=== PATIENT | female | born 1950 | race Caucasian/White ===

== ENCOUNTER → 2016-09-27 | Outpatient (REF) | payer MEDICARE | LOC: M SFHCCLAY 16:46 | PROVIDERS: ATTEND Family Medicine | DX: I10 Essential (primary) hypertension (principal); E78.2 Mixed hyperlipidemia ==

== ENCOUNTER → 2016-10-10 | Outpatient (REF) | payer MEDICARE ==
[2016-10-10 17:33] LABS: ALBUMIN 3.6 GM/DL (3.2-5.2); ALBUMIN/GLOBULIN RATIO 0.8 (1.00-1.93); BILIRUBIN,TOTAL 0.6 MG/DL (0.2-1.0); CALCIUM LEVEL 8.8 MG/DL (8.8-10.2); CREATININE FOR GFR 1.01 MG/DL (0.55-1.02); GLOMERULAR FILTRATION RATE 58.2 (>45); TOTAL PROTEIN 8.1 GM/DL (6.4-8.2)
== END ==
LOC: M SFHCCLAY 10:14
PROVIDERS: ATTEND Family Medicine
DX: I10 Essential (primary) hypertension (principal); E78.2 Mixed hyperlipidemia

== ENCOUNTER → 2018-04-09 | Outpatient (REF) | payer MEDICARE ==
[2018-04-09 17:28] LABS: ALT/SGPT 42 U/L (12-78); ANION GAP 7 MEQ/L (8-16); BLOOD UREA NITROGEN 19 MG/DL (7-18); CALCIUM LEVEL 9.4 MG/DL (8.8-10.2); CARBON DIOXIDE LEVEL 27 MEQ/L (21-32); CHLORIDE LEVEL 110 MEQ/L (98-107); CHOLESTEROL LEVEL 159 MG/DL (<200); CHOLESTEROL RISK RATIO 4.416 (<5); GLOMERULAR FILTRATION RATE 43.4 (>45); GLUCOSE, FASTING 97 MG/DL (70-100); HDL CHOLESTEROL 36 MG/DL (>40); LDL CHOLESTEROL 86.4 MG/DL (<100); NON-HDL-C 123 MG/DL; POTASSIUM SERUM 4.1 MEQ/L (3.5-5.1); SODIUM LEVEL 144 MEQ/L (136-145); TRIGLYCERIDES LEVEL 183 MG/DL (<150)
== END ==
LOC: M SFHCCLAY 11:23
DX: I10 Essential (primary) hypertension (principal); E78.2 Mixed hyperlipidemia
CPT/HCPCS: 84460

== ENCOUNTER → 2018-09-16 | Outpatient (REF) | payer MEDICARE | LOC: M SFHCCLAY 14:02 | PROVIDERS: ATTEND Family Medicine | DX: Z11.59 Encounter for screening for other viral diseases (principal) ==

== ENCOUNTER 2019-07-09 10:59 | Inpatient (IN) | payer MEDICARE ==
[2019-07-09] VITALS (9 sets, daily range): BP systolic 92–151; BP diastolic 54–88
[~2019-07-09] VITALS: Ht 154.9 cm; Wt 59.1 kg
[2019-07-09] MEDS ORDERED: BISO10TA13 PO (11:32)
[2019-07-09] MEDS ORDERED: FENO145T13 PO (11:32)
[2019-07-09] MEDS ORDERED: SIMV40TA2 PO (11:32)
[2019-07-09 12:08] LABS: LYMPH % 17.3 % (24.0-44.0); MEAN CORPUSCULAR HEMOGLOBIN 33.1 pg (27.0-33.0); MEAN CORPUSCULAR HGB CONC 29.9 g/dl (32.0-36.5); MEAN CORPUSCULAR VOLUME 110.8 fl (80.0-96.0); MONO # 0.2 10^3/uL (0.0-0.8); MONO % 3.5 % (0.0-5.0); NEUTROPHILS # 4.3 10^3/uL (1.5-8.5); NEUTROPHILS % 78.5 % (36.0-66.0); PLATELET COUNT, AUTOMATED 266 10^3/uL (150-450); RED BLOOD COUNT 1.48 10^6/uL (4.00-5.40); WHITE BLOOD COUNT 5.5 10^3/uL (4.0-10.0)
[2019-07-09 12:16] LABS: HEMATOCRIT 16.4 % (36.0-47.0); HEMOGLOBIN 4.9 g/dl (12.0-15.5)
[2019-07-09 12:49] LABS: ALBUMIN 2.6 GM/DL (3.2-5.2); ALT/SGPT 55 U/L (12-78); BILIRUBIN,DIRECT 0.3 MG/DL (0.0-0.2); BILIRUBIN,TOTAL 0.5 MG/DL (0.2-1.0); BLOOD UREA NITROGEN 54 MG/DL (7-18); CALCIUM LEVEL 8.2 MG/DL (8.8-10.2); CARBON DIOXIDE LEVEL 23 MEQ/L (21-32); CHLORIDE LEVEL 105 MEQ/L (98-107); CK-MB VALUE MASS 3.9 NG/ML (<3.6); CPK CREATINE PHOSPHOKINASE 48 U/L (26-192); CREATININE FOR GFR 2.89 MG/DL (0.55-1.30); GLOMERULAR FILTRATION RATE 17.1 (>39); GLUCOSE, FASTING 132 MG/DL (70-100); IRON (FE) 161 UG/DL (50-170); MB/CK RELATIVE INDEX 8.12 (< OR =4); PERCENT SATURATION 42.9 % (13.2-45.0); POTASSIUM SERUM 3.6 MEQ/L (3.5-5.1); SODIUM LEVEL 138 MEQ/L (136-145); TOTAL IRON BINDING CAPACITY 375 UG/DL (250-450); TOTAL PROTEIN 6.6 GM/DL (6.4-8.2); TROPONIN I < 0.02 NG/ML (< 0.10)
[2019-07-09 12:50] LABS: FERRITIN 1341 NG/ML (8-252); THYROID STIMULATING HORMONE 0.805 uIU/ML (0.358-3.740)
[2019-07-09 12:56] LABS: VITAMIN B12 LEVEL 1503 PG/ML (247-911)
[2019-07-09] MEDS ORDERED: NS 1,000 ML IV ONE (13:00)
[2019-07-09] MEDS ORDERED: VITMTA PO (14:25)
--- NOTE | 2019-07-09 14:31 | REP ---
Portable chest, 02:16 p.m., single AP view with the patient sitting: There are no comparisons. The lung ceballos are clear. The cardiac size is normal. The janneth, mediastinum, and skeletal structures are unremarkable. Impression: Negative portable chest. Electronically Signed by Juaquin Cabezas MD 07/09/2019 02:22 P
[2019-07-09] MEDS ORDERED: LORazepam 2 MG TAB PO PRN (15:00)
[2019-07-09] MEDS: MULTIVITAMINS/MINERALS THERAP 1 TAB PO SCH (15:53)
[2019-07-09] MEDS: FOLIC ACID 1 MG TAB PO SCH (15:53)
[2019-07-09 15:54] LABS: LDH LACTATE DEHYDROGENASE 202 U/L (84-246)
[2019-07-09] MEDS ORDERED: PANTOPRAZOLE 40MG INJ (PROTONIX) (C9113) IV ONE (16:00)
--- NOTE | 2019-07-09 16:24 | REP ---
CT of the abdomen and pelvis without IV or bowel contrast: There are no comparisons. Within the visualized lower lung ceballos there is a small right pleural effusion. There are nodular and linear densities posteriorly in the right middle lobe of uncertain significance in the absence of comparison studies. These could be chronic or acute. The unenhanced hepatic parenchyma is homogeneous. No hepatic margin nodularity is identified. There is no biliary duct dilatation. The portal vein measures 11 mm in diameter. The gallbladder is not distended, however, I suspect there is pericholecystic fluid. This is nonspecific but could represent acalculous cholecystitis. Correlate clinically. The unenhanced pancreas and spleen are normal size and unremarkable. There is no CT evidence of pancreatitis. The adrenals are unremarkable. The kidneys are unremarkable. The abdominal aorta is unremarkable. There is no ascites. There is colonic diverticulosis involving the ascending colon, transverse colon, descending colon and sigmoid colon. There is no CT evidence of diverticulitis. There is no pneumoperitoneum. Pelvis: The uterus and adnexa are unremarkable. There is a bladder catheter. There is a air in the bladder. There are also tiny air collections in the posterior bladder wall compatible with cystitis. There is no ascites or adenopathy. There is grade II compression deformity of a lower thoracic upper lumbar vertebral body. There is advanced degenerative disc disease above and inferior to this compression deformity. Impression: There is no CT evidence of cirrhosis. There is a small right pleural effusion with atelectasis of the adjacent lung. There are densities posteriorly in the right middle lobe which could be chronic or acute. There is fluid surrounding the gallbladder. The gallbladder is nondistended. No gallbladder calculi. This raises the possibility of acalculous cholecystitis and needs to be correlated clinically. Consider radionuclide biliary scan. Colonic diverticulosis without diverticulitis. Bladder catheter. No ascites. Vertebral body grade II compression deformity. This could be either the T12 or L1 vertebral body. Electronically Signed by Juaquin Cabezas MD 07/09/2019 04:16 P
--- NOTE | 2019-07-09 16:34 | HPEPDOC ---
[facility] Medical History & Physical Date of Admission Jul 09, 2019 Date of Service: Jul 09, 2019 Attending Physician: ARI KAUFMAN MD History and Physical CHIEF COMPLAINT: Weakness HISTORY OF PRESENT ILLNESS: 69-year-old female with past medical history of hypertension, hyperlipidemia, presents to the emergency room with weakness. She reports having a viral illness one to 2 weeks ago, had vomiting and diarrhea at that time, nonbloody, symptoms resolved about one week ago, health was at baseline over the past week without any issues. Apart from progressive weakness/shortness of breath. She went to work today, was sent to the emergency room by her boss because she did not look well. In the ED, she is found to have a hemoglobin of 4.9, denies any blood loss, denies any history of anemia/bleed ing/reports normal blood work earlier this year. She does report a history of drinking wine every day, 2-4 glasses per day. She denies any history of smoking, denies taking NSAIDs. She denies any chest pain, nausea, abdominal pain or diarrhea at this time. 10 point review of systems negative except for above PAST MEDICAL HISTORY: 1. Hypertension. 2. Hyperlipidemia PAST SURGICAL HISTORY: 1. None. SOCIAL HISTORY: Denies smoking. Drinks 2-4 glasses of wine every day. Denies drug use FAMILY HISTORY: Denies any family history of heart disease ALLERGIES: Please see below. HOME MEDICATIONS: Please see below. PHYSICAL EXAMINATION: VITAL SIGNS: Please see below. GENERAL: No distress, pale HEENT: Normocephalic, atraumatic, no scleral icterus, moist mucous membranes NECK: Supple CARDIOVASCULAR EXAMINATION: S1, S2, bradycardic RESPIRATORY EXAMINATION: Clear to auscultation, no wheezing ABDOMINAL EXAMINATION: Soft, nontender, nondistended, positive bowel sounds EXTREMITIES: Range of motion intact SKIN: No rash NEUROLOGICAL EXAMINATION: Alert and oriented 3, no focal deficits PSYCHIATRIC EXAMINATION: Calm and cooperative LABORATORY DATA: See below. IMAGING: CT of the abdomen and pelvis without acute pathology MICROBIOLOGY: Please see below. ASSESSMENT: 69-year-old female with past medical history of hypertension, hyperlipidemia, presents with severe anemia. . PLAN: 1. Anemia. Questionable etiology, GI blood loss versus MDS Hemoglobin 4.9, status post 2 units of PRBC in the ED, macrocytic, no signs of Gross blood loss, CT abdomen, pelvis negative for hematoma. Stool OB pending, given history of alcohol abuse, there is suspicion for GI bleed, Protonix twice a day, will trend H&H and transfuse as needed to maintain hemoglobin greater than 7. Nothing by mouth for now 2. Hypertension. Continue home bisoprolol. 3. Alcohol use. [facility] protocol, folic acid, thiamine and multivitamins, Ativan as needed per [facility] protocol. 4. Hyperlipidemia. Continue simvastatin DVT prophylaxis: SCDs. GI prophylaxis: Protonix Vital Signs Vital Signs Date Time Temp Pulse Resp B/P (MAP) Pulse Ox O2 Delivery O2 Flow Rate FiO2 07/09/19 16:15 91.8 57 18 122/60 (80) 100 Room Air Laboratory Data Labs 24H Laboratory Tests 2 07/09/19 11:35: Immature Granulocyte % (Auto) 0.7, Neutrophils (%) (Auto) 78.5H, Lymphocytes (%) (Auto) 17.3L, Monocytes (%) (Auto) 3.5, Eosinophils (%) (Auto) 0.0, Basophils (%) (Auto) 0.0, Neutrophils # (Auto) 4.3, Lymphocytes # (Auto) 1.0L, Monocytes # (Auto) 0.2, Eosinophils # (Auto) 0.0, Basophils # (Auto) 0.0, Reticulocyte # (auto) 158.2H, Nucleated Red Blood Cells % (auto) 0.0, Percent Reticulocyte Count 10.8H, Reticulocyte Hemoglobin Equivalent 29.5, Anion Gap 10, Glomerular Filtration Rate 17.1L, Calcium Level 8.2L, Iron Level 161, Total Iron Binding Capacity 375, Transferrin % Saturation 42.9, Ferritin 1341H, Total Bilirubin 0 .5, Direct Bilirubin 0.3H, Aspartate Amino Transf (AST/SGOT) 75H, Alanine Aminotransferase (ALT/SGPT) 55, Alkaline Phosphatase 97, Lactate Dehydrogenase 202, Total Creatine Kinase 48, Creatine Kinase MB 3.9H, Creatine Kinase MB Relative Index 8.12H, Troponin I < 0.02, Total Protein 6.6, Albumin 2.6L, Albumin/Globulin Ratio 0.65L, Vitamin B12 Level 1503H, Thyroid Stimulating Hormone (TSH) 0.805 07/09/19 12:03: Lactic Acid Level 2.6*H 07/09/19 13:27: Urine Color YELLOW, Urine Appearance CLEAR, Urine pH 5.0, Urine Specific [place] 1.010, Urine Protein NEGATIVE, Urine Glucose (UA) NEGATIVE, Urine Ketones NEGATIVE, Urine Blood NEGATIVE, Urine Nitrite NEGATIVE, Urine Bilirubin NEGATIVE, Urine Urobilinogen 0.2, Urine Leukocyte Esterase NEGATIVE, Urine WBC (Auto) 3, Urine RBC (Auto) 1, Urine Hyaline Casts (Auto) 2, Urine Bacteria (Auto) 1+H, Urine Squamous Epithelial Cells 0, Urine Mucus (Auto) SMALL, Urine Sperm (Auto) CBC/BMP Laboratory Tests 07/09/19 11:35 Microbiology Microbiology 07/09/19 Blood Culture, Received Pending 07/09/19 Blood Culture, Received Pending Home Medications Scheduled Bisoprolol Fumarate (Bisoprolol Fumarate) 10 Mg Tablet, 10 MG PO DAILY Fenofibrate Nanocrystallized (Fenofibrate) 145 Mg Tablet, 145 MG PO QPM Multivitamins (Thera M Plus Tablet) 1 Each Tablet, 1 TAB PO QPM Simvastatin (Simvastatin) 40 Mg Tablet, 40 MG PO QPM Allergies Coded Allergies: bee venom protein (honey bee) (Verified Allergy, Unknown, 07/09/19) A-FIB/CHADSVASC A-FIB History Current/History of A-Fib/PAF?: No ARI KAUFMAN MD Jul 09, 2019 16:34
[2019-07-09] MEDS ORDERED: NS 1,000 ML IV SCH ×2 (17:45)
[2019-07-09] MEDS: PANTOPRAZOLE 40MG INJ (PROTONIX) (C9113) IV SCH (20:26)
[2019-07-09] MEDS: THIAMINE 100 MG TAB PO SCH (20:26)
[2019-07-09] MEDS: SIMVASTATIN 40 MG TAB PO SCH (20:26)
[2019-07-09 20:29] LABS: HEMATOCRIT 22.5 % (36.0-47.0); HEMOGLOBIN 7.1 g/dl (12.0-15.5); MEAN CORPUSCULAR HEMOGLOBIN 32.3 pg (27.0-33.0); MEAN CORPUSCULAR HGB CONC 31.6 g/dl (32.0-36.5); MEAN CORPUSCULAR VOLUME 102.3 fl (80.0-96.0); PLATELET COUNT, AUTOMATED 224 10^3/uL (150-450); WHITE BLOOD COUNT 5.8 10^3/uL (4.0-10.0)
--- NOTE | 2019-07-09 20:54 | ECGEPIP ---
[facility] - ED Test Date: 2019-07-09 Pat Name: ESTHELA MANRIQUEZ Department: Room: - Gender: Female [employer]: amado : 1950 Requested By: TOMAS Wolfe Order Number: [id number] Reading MD: Tomas Escobar Measurements Intervals [place] Rate: 45 P: 45 SD: 180 QRS: 62 QRSD: 113 T: 73 QT: 529 QTc: 459 Interpretive Statements SINUS BRADYCARDIA MODERATE INTRAVENTRICULAR CONDUCTION DELAY Borderline qtc interval Comparison tracing not on file Electronically Signed on 07-09-2019 20:54:28 EST by Tomas Escobar
[2019-07-09] MEDS ORDERED: FENOFIBRATE 145 MG TAB (TRICOR) PO SCH (21:00)
[2019-07-10] VITALS (9 sets, daily range): BP systolic 142–159; BP diastolic 71–88
[2019-07-10 04:51] LABS: HEMATOCRIT 26.2 % (36.0-47.0); HEMOGLOBIN 8.6 g/dl (12.0-15.5); MEAN CORPUSCULAR HEMOGLOBIN 31.3 pg (27.0-33.0); MEAN CORPUSCULAR HGB CONC 32.8 g/dl (32.0-36.5); MEAN CORPUSCULAR VOLUME 95.3 fl (80.0-96.0); PLATELET COUNT, AUTOMATED 232 10^3/uL (150-450); RED BLOOD COUNT 2.75 10^6/uL (4.00-5.40); WHITE BLOOD COUNT 8.1 10^3/uL (4.0-10.0)
[2019-07-10 05:01] LABS: INR 1.45; PROTHROMBIN TIME 17.4 SECONDS (11.8-14.0)
[2019-07-10 05:17] LABS: ALBUMIN 2.5 GM/DL (3.2-5.2); BILIRUBIN,TOTAL 0.7 MG/DL (0.2-1.0); CALCIUM LEVEL 8.2 MG/DL (8.8-10.2); CREATININE FOR GFR 2.69 MG/DL (0.55-1.30); GLOMERULAR FILTRATION RATE 18.6 (>39); MAGNESIUM LEVEL 1.3 MG/DL (1.8-2.4); POTASSIUM SERUM 4.4 MEQ/L (3.5-5.1); TOTAL PROTEIN 6.9 GM/DL (6.4-8.2)
[2019-07-10] MEDS ORDERED: MAG SULF 1GM/100ML (MAG RUN) 1 GM in IV 1 EA IV ONE (06:00)
[2019-07-10] MEDS: BISOPROLOL FUMARATE 10 MG TAB PO SCH (09:50)
[2019-07-10] MEDS: THIAMINE 100 MG TAB PO SCH ×2 (09:51→20:33)
[2019-07-10] MEDS: PANTOPRAZOLE 40MG INJ (PROTONIX) (C9113) IV SCH ×2 (09:51→20:33)
[2019-07-10] MEDS: MULTIVITAMINS/MINERALS THERAP 1 TAB PO SCH (09:51)
[2019-07-10] MEDS: FOLIC ACID 1 MG TAB PO SCH (09:51)
--- NOTE | 2019-07-10 10:37 | IPNPDOC ---
Subjective Date Seen The patient was seen on 07/10/19. Subjective Chief Complaint/HPI Pt this morning states that last week she has several episodes of coffee ground emesis and black loose stools. Since then she just hasn't felt herself, hasn't recovered, tried to go to work last night and her boss made her go to the ED. oRsita states that she drinks at least 3 or more glasses of wine each night. General: Reports: Fatigue Constitutional: Denies: Chills, Fever ENT: Denies: Head Aches Pulmonary: Denies: Dyspnea, Cough Cardiovascular: Denies: Chest Pain, Palpitations Gastrointestinal: Denies: Nausea, Vomiting, Abdominal Pain Musculoskeletal: Denies: Neck Pain, Back Pain Neurological: Reports: Weakness Psych: Reports: Mood Normal Objective Physical Examination General Exam: Positive: Alert, Cooperative, No Acute Distress ENT Exam: Positive: Mucous membr. moist/pink Chest Exam: Positive: Clear to auscultation, Normal air movement Heart Exam: Positive: Rate Normal, Normal S1, Normal S2 Abdomen Exam: Positive: Normal bowel sounds, Soft; Negative: Tenderness Extremity Exam: Negative: Edema Neuro Exam: Positive: Normal Speech Psych Exam: Positive: Mental status NL, Mood NL Assessment /Plan Problems (1) BOLA (acute kidney injury) Status: Acute Problem Text: favor 2 ATN 2 hypovolemia 07/10 45/2.7, 4.4 07/09 -UA kidneys as per CT AP baseline cr 10/2016 1.0 (2) Severe anemia Status: Acute Response to Treatment: Improving Discussed With: Nurse, Patient Problem Specific Plan: Consult Specialist, Monitor Clinically, Repeat Labs Problem Text: ho 07/03-2 felt "sick" c melanotic loose BM and "brownish" vomitus x ~3-none since 07/10 stable at 8.6, call placed to Dr Breaux x 2 for EGD/colon (no previous ho EGD/colon, HO stool per patient always -) 07/09 Hgb 4.9 on admission-sp 3u PRBCs 07/09 42%, 1341 07/09 B12 1503 07/09 BCX2 NG IV Protonix BID. 07/09 CT AP: There is no CT evidence of cirrhosis. There is a small right pleural effusion with atelectasis of the adjacent lung. There are densities posteriorly in the right middle lobe which could be chronic or acute. There is fluid surrounding the gallbladder. The gallbladder is nondistended. No gallbladder calculi. This raises the possibility of acalculous cholecystitis and needs to be correlated clinically. Consider radionuclide biliary scan. Colonic diverticulosis without diverticulitis. Bladder catheter. No ascites. Vertebral body grade II compression deformity. This could be either the T12 or L1 vertebral body. (3) Alcohol abuse Status: Chronic Problem Specific Plan: Monitor Clinically Problem Text: [facility] protocol B1 QD admits 3 servings wine QHS-last EthOH 01/05/19 PM, no ho wd sx (4) Hematemesis Problem Text: as per anemia (5) Melena Problem Text: as per anemia (6) Hypothermia Status: Acute Problem Specific Plan: Monitor Clinically Problem Text: Temps improved (7) Hyperlipidemia Status: Chronic Response to Treatment: Stable Problem Text: stable on HD simva 40 (feno 145 held 2 BOLA) (8) Hypertension Status: Chronic Response to Treatment: Stable Problem Text: stable on HD biso 10 Plan/VTE VTE Prophylaxis Ordered?: No VS, I&O, 24H, Fishbone Vital Signs/I&O Vital Signs Date Time Temp Pulse Resp B/P (MAP) Pulse Ox O2 Delivery O2 Flow Rate FiO2 07/10/19 09:50 72 146/71 07/10/19 08:00 96.6 16 97 Room Air I&O- Last 24 Hours up to 6 AM 07/10/19 06:00 Intake Total 3340 ml Output Total 1185 ml Balance 2155 ml Laboratory Data 24H LABS Laboratory Tests 2 07/09/19 11:35: Immature Granulocyte % (Auto) 0.7, Neutrophils (%) (Auto) 78.5H, Lymphocytes (%) (Auto) 17.3L, Monocytes (%) (Auto) 3.5, Eosinophils (%) (Auto) 0.0, Basophils (%) (Auto) 0.0, Neutrophils # (Auto) 4.3, Lymphocytes # (Auto) 1.0L, Monocytes # (Auto) 0.2, Eosinophils # (Auto) 0.0, Basophils # (Auto) 0.0, Reticulocyte # (auto) 158.2H, Nucleated Red Blood Cells % (auto) 0.0, Percent Reticulocyte Count 10.8H, Reticulocyte Hemoglobin Equivalent 29.5, Anion Gap 10, Glomerular Filtration Rate 17.1L, Calcium Level 8.2L, Iron Level 161, Total Iron Binding Capacity 375, Transferrin % Saturation 42.9, Ferritin 1341H, Total Bilirubin 0.5, Direct Bilirubin 0.3H, Aspartate Amino Transf (AST/SGOT) 75H, Alanine Aminotransferase (ALT/SGPT) 55, Alkaline Phosphatase 97, Lactate Dehydrogenase 202, Total Creatine Kinase 48, Creatine Kinase MB 3.9H, Creatine Kinase MB Relative Index 8.12H, Troponin I < 0.02, Total Protein 6.6, Albumin 2.6L, Albumin/Globulin Ratio 0.65L, Vitamin B12 Level 1503H, Thyroid Stimulating Hormone (TSH) 0.805 07/09/19 12:03: Lactic Acid Level 2.6*H 07/09/19 13:27: Urine Color YELLOW, Urine Appearance CLEAR, Urine pH 5.0, Urine Specific [place] 1.010, Urine Protein NEGATIVE, Urine Glucose (UA) NEGATIVE, Urine Ketones NEGATIVE, Urine Blood NEGATIVE, Urine Nitrite NEGATIVE, Urine Bilirubin NEGATI VE, Urine Urobilinogen 0.2, Urine Leukocyte Esterase NEGATIVE, Urine WBC (Auto) 3, Urine RBC (Auto) 1, Urine Hyaline Casts (Auto) 2, Urine Bacteria (Auto) 1+H, Urine Squamous Epithelial Cells 0, Urine Mucus (Auto) SMALL, Urine Sperm (Auto) 07/09/19 20:04: Nucleated Red Blood Cells % (auto) 0.7H, Lactic Acid Followup at 4 Hours 0.7 07/10/19 04:42: Nucleated Red Blood Cells % (auto) 0.5H, Prothrombin Time 17.4H, Prothromb Time International Ratio 1.45, Anion Gap 5L, Glomerular Filtration Rate 18.6L, Calcium Level 8.2L, Magnesium Level 1.3L, Total Bilirubin 0.7, Aspartate Amino Transf (AST/SGOT) 83H, Alanine Aminotransferase (ALT/SGPT) 54, Alkaline [place] sphatase 88, Total Protein 6.9, Albumin 2.5L, Albumin/Globulin Ratio 0.57L CBC/BMP Laboratory Tests 07/09/19 11:35 07/09/19 20:04 07/10/19 04:42 Microbiology Microbiology 07/09/19 Blood Culture, Received Pending 07/09/19 Blood Culture, Received Pending MARY DENSON PA-C Jul 10, 2019 10:37 Rick Rocha M.D. Jul 10, 2019 16:35
[2019-07-10 15:34] LABS: HEMATOCRIT 28.1 % (36.0-47.0); HEMOGLOBIN 9.2 g/dl (12.0-15.5)
--- NOTE | 2019-07-10 17:54 | REP ---
Renal ultrasound: The right kidney measures 12th of 46.1 x 5.9 cm. Left kidney measures 11.6 x 6.0 x 5.2 cm. There is hyperechoic renal cortex bilaterally compatible with medical renal disease. There is no hydronephrosis on the right on the left. There are three right renal cysts, one at the upper pole measuring 6 ml, at the mid pole measuring 5 mm, at the lower pole measuring 5 mm. There are no solid renal masses. The There are three left renal cyst on the upper pole measuring 15 mm, another at the upper pole measuring 4 mm, that the upper pole measuring 8 mm. There are no solid left renal masses. There are a few tiny collection of perinephric fluid collections adjacent to the right kidney adjacent to the left kidney. This is nonspecific but could represent pyelonephritis or possibly perinephric abscess or small hematomas. These are not identified on the recent abdomen/pelvis CT. Bladder: With color Doppler assessment there are bilateral ureteral jets. The gallbladder is incidentally demonstrated. The gallbladder is nondistended. The gallbladder wall appears thickened, however this could be artifact from non distension. A small volume of pericholecystic fluid is suspected. This was also identified on the abdominal/pelvis CT yesterday. This is nonspecific but may represent acalculous cholecystitis. Impression: The kidneys are normal size. There are no renal calculi. There are not identified on the abdomen pelvis CT of 07/09/2019. No hydronephrosis. There are bilateral renal cortical cysts. No solid renal masses. There are bilateral ureteral jets into the urinary bladder. Pericholecystic fluid is identified, similar to the recent abdomen CT. This may represent acalculous cholecystitis, correlate clinically. There are a few tiny collection of perinephric fluid collections adjacent to the right kidney adjacent to the left kidney. This is nonspecific but could represent pyelonephritis or possibly perinephric abscess or small hematomas. These are not identified on the recent abdomen/pelvis CT. Electronically Signed by Juaquin Cabezas MD 07/10/2019 05:46 P
[2019-07-10] MEDS: SIMVASTATIN 40 MG TAB PO SCH (20:33)
[2019-07-11] VITALS (7 sets, daily range): BP systolic 143–160; BP diastolic 77–85
[2019-07-11 06:55] LABS: BASO % 0.1 % (0.0-1.0); EOS % 0.1 % (0.0-3.0); HEMATOCRIT 29.7 % (36.0-47.0); HEMOGLOBIN 9.5 g/dl (12.0-15.5); LYMPH # 0.6 10^3/uL (1.5-5.0); LYMPH % 7.6 % (24.0-44.0); MEAN CORPUSCULAR HEMOGLOBIN 31.8 pg (27.0-33.0); MEAN CORPUSCULAR VOLUME 99.3 fl (80.0-96.0); MONO # 0.4 10^3/uL (0.0-0.8); MONO % 4.7 % (0.0-5.0); NEUTROPHILS # 6.8 10^3/uL (1.5-8.5); PLATELET COUNT, AUTOMATED 214 10^3/uL (150-450); RED BLOOD COUNT 2.99 10^6/uL (4.00-5.40); WHITE BLOOD COUNT 7.9 10^3/uL (4.0-10.0)
[2019-07-11 07:21] LABS: ALBUMIN 2.5 GM/DL (3.2-5.2); BILIRUBIN,TOTAL 0.8 MG/DL (0.2-1.0); CREATININE FOR GFR 2.59 MG/DL (0.55-1.30); GLOMERULAR FILTRATION RATE 19.5 (>39); MAGNESIUM LEVEL 1.9 MG/DL (1.8-2.4); POTASSIUM SERUM 4.2 MEQ/L (3.5-5.1); TOTAL PROTEIN 7.4 GM/DL (6.4-8.2)
[2019-07-11 07:58] LABS: INR 1.49; PROTHROMBIN TIME 17.8 SECONDS (11.8-14.0)
[2019-07-11 07:59] LABS: PARTIAL THROMBOPLASTIN TIME 44.6 SECONDS (25.0-38.4)
[2019-07-11] MEDS: MULTIVITAMINS/MINERALS THERAP 1 TAB PO SCH (09:41)
[2019-07-11] MEDS: FOLIC ACID 1 MG TAB PO SCH (09:41)
[2019-07-11] MEDS: THIAMINE 100 MG TAB PO SCH ×2 (09:41→21:35)
[2019-07-11] MEDS: PANTOPRAZOLE 40MG INJ (PROTONIX) (C9113) IV SCH ×2 (09:43→21:35)
[2019-07-11] MEDS: BISOPROLOL FUMARATE 10 MG TAB PO SCH (09:43)
--- NOTE | 2019-07-11 11:53 | CR.PDOC ---
General Date of Consultation: Jul 10, 2019 Referring Provider: JULI DENSON PA-C Attending Physician: LENCHO BELLAMY MD Consultation Primary physician/ hospitalist: Dr. Sanchez / Juli Denson Pa-C Reason for consult: Coffee-ground emesis and dark stools, anemia HPI: 69-year-old female patient with HTN, HLD, chronic alcohol use, CKD ( Cr- 1 - 1.3 in 2018), presented to ER for complaints of generalized weakness, noted to have acute drop in hemoglobin and hematocrit. GI was consulted for the same. Patient reports having acute onset nausea with vomiting and diarrhea around 2 weeks ago, with coffee-ground emesis and black tarry stools 1 week ago. Patient did not seek medical attention at that time. Patient's last bowel movement was today which is nonbloody, formed stool and denies any recent episode of vomiting or black stools. Patient also reports daily alcohol use of up to 5-6 drinks of wine. Patient denies use of NSAIDs or any blood thinning medication. Pertinent negative GI symptoms: Patient denies abdominal pain, loss of appetite, early satiety or unintentional weight loss. Review of Systems: GI: as stated above CVS: No chest pain, No palpitations, No leg swelling. 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 Skin: No rash : No hematuria, No burning sensation of the urine ENT: No ear discharge/ pain, No dysphagia. Eyes: No photophobia. Home medications: reviewed. Antithrombotic agents -none Medical h/o: As above. Surgical h/o: None on abdomen. Social h/o: Alcohol-as above, tobacco-denies, IVDA/ drugs-denies. Family h/o of GI cancers -denies Prior Endoscopies: No prior EGD or colonoscopy. Patient reports doing annual stool test for screening, Prior GI evaluation: None in [facility] Exam: Vitals: reviewed General: Alert and oriented x 3, not in acute distress, appears jittery and shaky but no tremors. HEENT: Mild conjunctival pallor, no icterus. Normal oropharynx, NO cervical lymph nodes. Chest: symmetric with bilateral clear air entry, CVS: S1, S2 heard, normal, no murmurs . Abdomen: non-distended, no surgical scars, soft, non-tender, no palpable masses, normal bowel sounds heard. Rectal exam: Patient refused. Extremities: no pedal edema, pulses palpable. 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 Moves all extremities Skin: no rash. Labs: reviewed. H/H at the time of admission -- 4.9 / 16.4, appropriately went up on transfusion, last H/H -- 9.2/28.1. Macrocytic. Noted BOLA - BUN/creatinine -- 54/2.89. Normal platelets Impression: -- Acute onset nausea vomiting and diarrhea followed by coffee-ground emesis, black tarry stools few days ago, currently resolved but noted with symptomatic anemia -- likely posthemorrhagic anemia. DDx-- MWT vs PUD vs gastritis ( related to alcohol use) vs AVMs. Less likely Variceal bleeding vs portal hypertensive gastropathy. No overt active GI bleeding. -- Chronic alcohol use -- Need to monitor for withdrawal. -- BOLA -- likely pre-renal from blood loss and hypovolemia. 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 Recommendations: - Patient educated about the test results, possible differential diagnoses and All questions answered. - Monitor H/ H and transfuse as needed. - Give IV PPI -- prefer Protonix 40 mg twice daily for atleast 48 hours and then switch to oral PPI. - Avoid NSAIDs, - Monitor for alcohol withdrawal. - Give thiamine, folic acid daily. - Patient is educated alcohol cessation. - Patient is educated about the further work up., She agreed for EGD tomorrow. The procedure, indications, risks (bleeding, perforation, infection, hypotension, respiratory depression, allergy, need for endotracheal intubation, surgery, colostomy, cardiac arrest, even ), benefits, limitations (e.g., missing a lesion), and all other alternatives (including no intervention) were explained to the patient who understood and agreed for the procedure. - NPO after midnight for EGD tomorrow. - Elective Screening Colonoscopy as outpatient if patient agrees or else to continue with annual fecal occult blood testing for screening at PCP clinic Plan of care discussed with patient and primary team. Patient verbalized understanding and agreed with the plan. Laboratory Data CBC/BMP Laboratory Tests 07/10/19 15:14 07/11/19 06:17 Microbiology Microbiology 07/09/19 Blood Culture - Preliminary, Resulted No growth after 24 hours . All specim... 07/09/19 Blood Culture - Preliminary, Resulted No growth after 24 hours . All specim... Allergies Coded Allergies: bee venom protein (honey bee) (Verified Allergy, Unknown, 07/09/19) Home Medications Scheduled Bisoprolol Fumarate (Bisoprolol Fumarate) 10 Mg Tablet, 10 MG PO DAILY, (Reported) Fenofibrate Nanocrystallized (Fenofibrate) 145 Mg Tablet, 145 MG PO QPM, (Reported) Multivitamins (Thera M Plus Tablet) 1 Each Tablet, 1 TAB PO QPM, (Reported) Simvastatin (Simvastatin) 40 Mg Tablet, 40 MG PO QPM, (Reported) LENCHO BELLAMY MD Jul 11, 2019 11:53
--- NOTE | 2019-07-11 12:32 | IPNPDOC ---
Subjective Date Seen The patient was seen on 07/11/19. Subjective Chief Complaint/HPI no further melana, vomiting Constitutional: Denies: Chills Eyes: Denies: Pain Pulmonary: Denies: Dyspnea, Cough Cardiovascular: Denies: Chest Pain, Palpitations Gastrointestinal: Denies: Nausea, Vomiting Objective Physical Examination General Exam: Positive: Alert, Cooperative, No Acute Distress ENT Exam: Positive: Mucous membr. moist/pink Chest Exam: Positive: Clear to auscultation, Normal air movement Heart Exam: Positive: Rate Normal, Normal S1, Normal S2 Abdomen Exam: Positive: Normal bowel sounds, Soft; Negative: Tenderness Extremity Exam: Negative: Edema Neuro Exam: Positive: Normal Speech Psych Exam: Positive: Mental status NL, Mood NL Assessment /Plan Problems (1) BOLA (acute kidney injury) Status: Acute Problem Text: favor 2 ATN 2 hypovolemia 07/11 44/2.6, 4.2 c Na to 146; therefore, check renal US and + 1/2NS 07/10 45/2.7, 4.4 07/09 -UA kidneys as per CT AP baseline cr 10/2016 1.0 (2) Severe anemia Status: Acute Response to Treatment: Improving Discussed With: Nurse, Patient Problem Specific Plan: Consult Specialist, Monitor Clinically, Repeat Labs Problem Text: ho 07/03-2 felt "sick" c melanotic loose BM and "brownish" vomitus x ~3-none since 07/11 9.5 07/10 stable at 8.6, call placed to Dr Breaux x 2 for EGD/colon (no previous ho EGD/colon, HO stool per patient always -) 07/09 Hgb 4.9 on admission-sp 3u PRBCs 07/09 42%, 1341 07/09 B12 1503 07/09 BCX2 NG IV Protonix BID. 07/09 CT AP: There is no CT evidence of cirrhosis. There is a small right pleural effusion with atelectasis of the adjacent lung. There are densities posteriorly in the right middle lobe which could be chronic or acute. There is fluid surrounding the gallbladder. The gallbladder is nondistended. No gallbladder calculi. This raises the possibility of acalculous cholecystitis and needs to be correlated clinically. Consider radionuclide biliary scan. Colonic diverticulosis without diverticulitis. Bladder catheter. No ascites. Vertebral body grade II compression deformity. This could be either the T12 or L1 vertebral body. (3) Alcohol abuse Status: Chronic Problem Specific Plan: Monitor Clinically Problem Text: [facility] protocol B1 QD admits 3 servings wine QHS-last EthOH 01/05/19 PM, no ho wd sx (4) Hematemesis Problem Text: as per anemia (5) Melena Problem Text: as per anemia (6) Hypothermia Status: Acute Problem Specific Plan: Monitor Clinically Problem Text: Temps improved (7) Hyperlipidemia Status: Chronic Response to Treatment: Stable Problem Text: stable on HD simva 40 (feno 145 held 2 BOLA) (8) Hypertension Status: Chronic Response to Treatment: Stable Problem Text: stable on HD biso 10 Plan/VTE VTE Prophylaxis Ordered?: No VS, I&O, 24H, Fishbone Vital Signs/I&O Vital Signs Date Time Temp Pulse Resp B/P (MAP) Pulse Ox O2 Delivery O2 Flow Rate FiO2 07/11/19 09:43 73 158/93 07/11/19 06:00 96.2 20 93 Room Air I&O- Last 24 Hours up to 6 AM 07/11/19 06:00 Intake Total 600 ml Output Total 975 ml Balance -375 ml Laboratory Data 24H LABS Laboratory Tests 2 07/11/19 06:17: Immature Granulocyte % (Auto) 0.5, Neutrophils (%) (Auto) 87.0H, Lymphocytes (%) (Auto) 7.6L, Monocytes (%) (Auto) 4.7, Eosinophils (%) (Auto) 0.1, Basophils (%) (Auto) 0.1, Neutrophils # (Auto) 6.8, Lymphocytes # (Auto) 0.6L, Monocytes # (Auto) 0.4, Eosinophils # (Auto) 0.0, Basophils # (Auto) 0.0, Nucleated Red Bl ood Cells % (auto) 0.3H, Prothrombin Time 17.8H, Prothromb Time International Ratio 1.49, Activated Partial Thromboplast Time 44.6H, Anion Gap 6L, Glomerular Filtration Rate 19.5L, Calcium Level 9.0, Magnesium Level 1.9, Total Bilirubin 0.8, Aspartate Amino Transf (AST/SGOT) 80H, Alanine Aminotransferase (ALT/SGPT) 55, Alkaline Phosphatase 95, Total Protein 7.4, Albumin 2.5L, Albumin/Globulin Ratio 0.51L CBC/BMP Laboratory Tests 07/10/19 15:14 07/11/19 06:17 Microbiology Microbiology 07/09/19 Blood Culture - Preliminary, Resulted No growth after 24 hours . All specim... 07/09/19 Blood Culture - Preliminary, Resulted No Growth after 48 hours. All Specime... Rick Rocha M.D. Jul 11, 2019 12:32
[2019-07-11] MEDS ORDERED: PROPOFOL 200 MG/20 ML VIAL As Ordered ONE (12:51)
[2019-07-11] MEDS ORDERED: LIDOCAINE 2% INJ 100 MG/5 ML SDV (FOR ANES.) As Ordered ONE (12:51)
[2019-07-11] MEDS: NS 0.45% 1,000 ML IV SCH ×2 (13:04→22:45)
[2019-07-11] MEDS ORDERED: ePHEDrine SULFATE 25 MG/5 ML(5MG/ML) SYRINGE As Ordered ONE (15:43)
--- NOTE | 2019-07-11 16:19 | ROOR ---
Patient Name: Rosita Galan Procedure Date: 07/11/2019 3:28 PM Date of : 1950 Age: 69 Gender: Female Note Status: Finalized Procedure: Upper GI endoscopy Indications: Coffee-ground emesis, Melena Providers: Donnie Breaux MD Referring MD: Hank Ordoñez MD Requesting Provider: Medicines: Monitored Anesthesia Care Complications: No immediate complications. Procedure: Pre-Anesthesia Assessment: - Prior to the procedure, a History and Physical was performed, and patient medications and allergies were reviewed. The patient is competent. The risks and benefits of the procedure and the sedation options and risks were discussed with the patient. All questions were answered and informed consent was obtained. Patient identification and proposed procedure were verified by the physician, the nurse and the anesthesiologist in the procedure room. Mental Status Examination: alert and oriented. Airway Examination: normal oropharyngeal airway and neck mobility. Respiratory Examination: clear to auscultation. CV Examination: normal. Prophylactic Antibiotics: The patient does not require prophylactic antibiotics. Prior Anticoagulants: The patient has taken no previous anticoagulant or antiplatelet agents. ASA Grade Assessment: II - A patient with mild systemic disease. After reviewing the risks and benefits, the patient was deemed in satisfactory condition to undergo the procedure. The anesthesia plan was to use monitored anesthesia care (MAC). Immediately prior to administration of medications, the patient was re-assessed for adequacy to receive sedatives. The heart rate, respiratory rate, oxygen saturations, blood pressure, adequacy of pulmonary ventilation, and response to care were monitored throughout the procedure. The physical status of the patient was re-assessed after the procedure. The Endoscope was introduced through the mouth, and advanced to the second part of duodenum. The upper GI endoscopy was accomplished without difficulty. The patient tolerated the procedure well. Findings: The examined esophagus was normal. The Z-line was regular and was found 36 cm from the incisors. One non-bleeding cratered gastric ulcer with a clean ulcer base (Stevo Class III) was found in the gastric antrum. The lesion was 20 mm in largest dimension. Two biopsies were obtained at the incisura with cold forceps for Helicobacter pylori testing. Verification of patient identification for the specimen was done by the physician and nurse using the patient's name, date and medical record number. Estimated blood loss was minimal. The duodenal bulb and second portion of the duodenum were normal. Impression: - Normal esophagus. - Z-line regular, 36 cm from the incisors. - Non-bleeding gastric ulcer with a clean ulcer base (Stevo Class III). - Normal duodenal bulb and second portion of the duodenum. - Two biopsies were obtained at the incisura. Recommendation: - Patient has a contact number available for emergencies. The signs and symptoms of potential delayed complications were discussed with the patient. Return to normal activities tomorrow. Written discharge instructions were provided to the patient. - Resume previous diet. - Use Protonix (pantoprazole) 40 mg PO twice daily - to be taken in morning (1/2 hour before breakfast) and at bedtime ( atleast 3 hours after last meal) for 3 months. - No ibuprofen, naproxen, or other non-steroidal anti-inflammatory drugs. - Await pathology results. - If Biopsy shows H. pylori will need therapy with antibiotic course.. - Repeat upper endoscopy in 3 months to check healing. - Return to GI clinic in [facility] (address [address], [address], [place] [address]) in 4 -- 6 weeks. Please call GI clinic @ [phone] for apppointment date and time. - Return to primary care physician. Donnie Breaux MD Donnie Breaux MD 07/11/2019 4:19:06 PM Electronically signed by Donnie Breaux MD Number of Addenda: 0 Note Initiated On: 07/11/2019 3:28 PM Estimated Blood Loss: Estimated blood loss was minimal.
[2019-07-11] MEDS: SIMVASTATIN 40 MG TAB PO SCH (21:35)
[2019-07-12 06:00] VITALS: BP_SYST 135; BP_SYST 158; BP_DIAS 66; BP_DIAS 79
[2019-07-12] MEDS: MULTIVITAMINS/MINERALS THERAP 1 TAB PO SCH (08:37)
[2019-07-12] MEDS: FOLIC ACID 1 MG TAB PO SCH (08:37)
[2019-07-12] MEDS: PANTOPRAZOLE 40MG INJ (PROTONIX) (C9113) IV SCH ×2 (08:37→21:06)
[2019-07-12] MEDS: THIAMINE 100 MG TAB PO SCH ×2 (08:37→21:06)
[2019-07-12] MEDS: BISOPROLOL FUMARATE 10 MG TAB PO SCH (08:39)
[2019-07-12 14:00] VITALS: BP 136/69
--- NOTE | 2019-07-12 17:14 | IPNPDOC ---
Subjective Date Seen The patient was seen on 07/12/19. Subjective Chief Complaint/HPI dyspnea at baseline s abdominal pain Constitutional: Denies: Chills, Fever Eyes: Denies: Pain ENT: Denies: Head Aches Skin: Denies: Rash Pulmonary: Denies: Dyspnea, Cough Cardiovascular: Denies: Chest Pain, Palpitations Gastrointestinal: Denies: Nausea, Vomiting Objective Physical Examination General Exam: Positive: Alert, Cooperative, No Acute Distress ENT Exam: Positive: Mucous membr. moist/pink Chest Exam: Positive: Clear to auscultation, Normal air movement Heart Exam: Positive: Rate Normal, Normal S1, Normal S2 Abdomen Exam: Positive: Normal bowel sounds, Soft; Negative: Tenderness Extremity Exam: Negative: Edema Neuro Exam: Positive: Normal Speech Psych Exam: Positive: Mental status NL, Mood NL Assessment /Plan Problems (1) Acute ulcer of stomach Status: Acute Response to Treatment: Stable Problem Text: as per severe anemia 07/11 H pylori P advised to dc EthOH use (2) Perinephric fluid collection Status: Acute Problem Text: 07/13 reassess by repeat B renal US cw 07/10 (3) BOLA (acute kidney injury) Status: Acute Problem Text: favor 2 ATN 2 hypovolemia 07/11 44/2.6, 4.2 c Na to 146; therefore, + 1/2NS 100H 07/10 45/2.7, 4.4 07/09 -UA 07/10 B renal US: The kidneys are normal size. There are no renal calculi. There are not identified on the abdomen pelvis CT of 07/09/2019. No hydronephrosis. There are bilateral renal cortical cysts. No solid renal masses. There are bilateral ureteral jets into the urinary bladder. Pericholecystic fluid is identified, similar to the recent abdomen CT. This may represent acalculous cholecystitis, correlate clinically. There are a few tiny collection of perinephric fluid collections adjacent to the right kidney adjacent to the left kidney. This is nonspecific but could represent pyelonephritis or possibly perinephric abscess or small hematomas. These are not identified on the recent abdomen/pelvis CT. Electronically Signed by Juaquin Cabezas MD 07/10/2019 05:46 P DD: Juaquin Cabezas MD 07/10/19 1724 DT: Jhonny 07/10/19 1746 DS: AMAURI 07/10/19 1746 07/10/19 1746 [~ rep ct labl] baseline cr 10/2016 1.0 (4) Severe anemia Status: Acute Response to Treatment: Improving Discussed With: Nurse, Patient Problem Specific Plan: Consult Specialist, Monitor Clinically, Repeat Labs Problem Text: favor 2 gastric ulcer as per 07/11 EGD, plan repeat EGD c colon in 3M by Dr. Namita iniguez 07/03-2 felt "sick" c melanotic loose BM and "brownish" vomitus x ~3-none since 07/11 9.5 07/10 stable at 8.6, call placed to Dr Breaux x 2 for EGD/colon (no previous ho EGD/colon, HO stool per patient always -) 07/09 Hgb 4.9 on admission-sp 3u PRBCs 07/09 42%, 1341 07/09 B12 1503 07/09 BCX2 NG 07/11 EGD: - Normal esophagus. - Z-line regular, 36 cm from the incisors. - Non-bleeding gastric ulcer with a clean ulcer base (Stevo Class III). - Normal duodenal bulb and second portion of the duodenum. - Two biopsies were obtained at the incisura. 07/09 CT AP: There is no CT evidence of cirrhosis. There is a small right pleural effusion with atelectasis of the adjacent lung. There are densities posteriorly in the right middle lobe which could be chronic or acute. There is fluid surrounding the gallbladder. The gallbladder is nondistended. No gallbladder calculi. This raises the possibility of acalculous cholecystitis and needs to be correlated clinically. Consider radionuclide biliary scan. Colonic diverticulosis without diverticulitis. Bladder catheter. No ascites. Vertebral body grade II compression deformity. This could be either the T12 or L1 vertebral body. (5) Alcohol abuse Status: Chronic Problem Specific Plan: Monitor Clinically Problem Text: [facility] protocol B1 QD admits 3 servings wine QHS-last EthOH 01/05/19 PM, no ho wd sx (6) Hematemesis Problem Text: as per anemia (7) Melena Problem Text: as per anemia (8) Hyperlipidemia Status: Chronic Response to Treatment: Stable Problem Text: stable on HD simva 40 (feno 145 held 2 BOLA) (9) Hypertension Status: Chronic Response to Treatment: Stable Problem Text: stable on HD biso 10 Plan/VTE VTE Prophylaxis Ordered?: No VS, I&O, 24H, Fishbone Vital Signs/I&O Vital Signs Date Time Temp Pulse Resp B/P (MAP) Pulse Ox O2 Delivery O2 Flow Rate FiO2 07/12/19 14:00 97.3 65 16 136/69 (91) 98 Room Air I&O- Last 24 Hours up to 6 AM 07/12/19 06:00 Intake Total 730 ml Output Total 1000 ml Balance -270 ml Laboratory Data Microbiology Microbiology 07/09/19 Blood Culture - Preliminary, Resulted No Growth after 72 hours. All specime... 07/09/19 Blood Culture - Preliminary, Resulted No Growth after 72 hours. All specime... Rick Rocha M.D. Jul 12, 2019 17:14
[2019-07-12 17:52] LABS: BASO % 0.2 % (0.0-1.0); EOS % 0.4 % (0.0-3.0); HEMATOCRIT 29.8 % (36.0-47.0); HEMOGLOBIN 9.1 g/dl (12.0-15.5); LYMPH # 0.6 10^3/uL (1.5-5.0); LYMPH % 11.4 % (24.0-44.0); MEAN CORPUSCULAR HEMOGLOBIN 30.5 pg (27.0-33.0); MEAN CORPUSCULAR HGB CONC 30.5 g/dl (32.0-36.5); MONO # 0.4 10^3/uL (0.0-0.8); MONO % 7.6 % (0.0-5.0); NEUTROPHILS # 4.4 10^3/uL (1.5-8.5); PLATELET COUNT, AUTOMATED 187 10^3/uL (150-450); RED BLOOD COUNT 2.98 10^6/uL (4.00-5.40); WHITE BLOOD COUNT 5.5 10^3/uL (4.0-10.0)
[2019-07-12 18:06] LABS: ALBUMIN 2.5 GM/DL (3.2-5.2); BILIRUBIN,TOTAL 0.9 MG/DL (0.2-1.0); CALCIUM LEVEL 8.8 MG/DL (8.8-10.2); CREATININE FOR GFR 2.8 MG/DL (0.55-1.30); GLOMERULAR FILTRATION RATE 17.8 (>39); POTASSIUM SERUM 4.4 MEQ/L (3.5-5.1)
[2019-07-12] MEDS: NS 0.45% 1,000 ML IV SCH (18:53)
[2019-07-12] MEDS: SIMVASTATIN 40 MG TAB PO SCH (21:07)
[2019-07-12 22:00] VITALS: BP 143/68
[2019-07-13] MEDS: NS 0.45% 1,000 ML IV SCH ×2 (05:30→15:01)
[2019-07-13 06:00] VITALS: BP 146/69
[2019-07-13 06:27] LABS: BASO % 0.2 % (0.0-1.0); EOS % 0.9 % (0.0-3.0); HEMATOCRIT 26.6 % (36.0-47.0); HEMOGLOBIN 8.3 g/dl (12.0-15.5); LYMPH # 0.9 10^3/uL (1.5-5.0); LYMPH % 20.5 % (24.0-44.0); MEAN CORPUSCULAR HEMOGLOBIN 31.4 pg (27.0-33.0); MEAN CORPUSCULAR HGB CONC 31.2 g/dl (32.0-36.5); MEAN CORPUSCULAR VOLUME 100.8 fl (80.0-96.0); MONO # 0.4 10^3/uL (0.0-0.8); NEUTROPHILS % 68.2 % (36.0-66.0); PLATELET COUNT, AUTOMATED 147 10^3/uL (150-450); RED BLOOD COUNT 2.64 10^6/uL (4.00-5.40); WHITE BLOOD COUNT 4.4 10^3/uL (4.0-10.0)
[2019-07-13 06:51] LABS: ALBUMIN 2.2 GM/DL (3.2-5.2); BILIRUBIN,TOTAL 0.7 MG/DL (0.2-1.0); CALCIUM LEVEL 8.8 MG/DL (8.8-10.2); CREATININE FOR GFR 2.71 MG/DL (0.55-1.30); GLOMERULAR FILTRATION RATE 18.5 (>39); TOTAL PROTEIN 6.2 GM/DL (6.4-8.2)
[2019-07-13] MEDS: THIAMINE 100 MG TAB PO SCH ×2 (08:33→20:34)
[2019-07-13] MEDS: PANTOPRAZOLE 40MG INJ (PROTONIX) (C9113) IV SCH (08:33)
[2019-07-13] MEDS: BISOPROLOL FUMARATE 10 MG TAB PO SCH (08:33)
[2019-07-13] MEDS: FOLIC ACID 1 MG TAB PO SCH (08:33)
[2019-07-13] MEDS: MULTIVITAMINS/MINERALS THERAP 1 TAB PO SCH (08:33)
--- NOTE | 2019-07-13 11:42 | REP ---
URINARY TRACT SONOGRAPHY: HISTORY: Perinephric fluid collection. COMPARISON: Renal sonography July 10, [address] study July 09, 2019. SONOGRAPHIC FINDINGS: Scanning at the level urinary bladder shows no abnormality. Ureteral jets are observed bilaterally. There is no evidence of hydronephrosis on either side. Renal cortical echogenicity pattern is again seen to be increased consistent with chronic medical renal disease. Right renal dimensions are 11.2 x 5.7 x 5.5 cm. Left kidney measures 11.5 x 6.1 x 5.7 cm. There are tiny slivers of perinephric fluid bilaterally which may reflect diffuse edema or inflammation. Similar to prior study. No louis fluid collection is seen. There are scattered cysts bilaterally. The largest of these on the right is in the lower pole 1.2 cm in diameter. The largest cyst on the left measures 1.6 cm and is seen in the upper pole. IMPRESSION: Increased renal cortical echogenicity pattern consistent with chronic medical renal disease. No evidence of hydronephrosis. No renal mass is seen. Tiny sliver of perinephric fluid seen bilaterally. No louis collection. Small bilateral renal cysts. Electronically Signed by Tigre Warren MD 07/13/2019 01:47 P
--- NOTE | 2019-07-13 12:24 | IPNPDOC ---
Subjective Date Seen The patient was seen on 07/13/19. Subjective Chief Complaint/HPI no pain. no nausea. no obvious blood loss. Constitutional: Denies: Chills Pulmonary: Denies: Dyspnea Cardiovascular: Denies: Chest Pain, Palpitations Gastrointestinal: Denies: Nausea Neurological: Denies: Weakness Objective Physical Examination General Exam: Positive: Alert, Cooperative, No Acute Distress ENT Exam: Positive: Mucous membr. moist/pink Chest Exam: Positive: Clear to auscultation, Normal air movement Heart Exam: Positive: Rate Normal, Normal S1, Normal S2 Abdomen Exam: Positive: Normal bowel sounds, Soft, Other (no CVA tenderness); Negative: Tenderness Extremity Exam: Negative: Edema Neuro Exam: Positive: Normal Speech Psych Exam: Positive: Mental status NL, Mood NL Assessment /Plan Problems (1) Acute ulcer of stomach Status: Acute Response to Treatment: Stable Problem Text: as per severe anemia 07/11 H pylori P advised to dc EthOH use (2) Perinephric fluid collection Status: Acute Problem Text: 07/13 reassess by repeat B renal US cw 07/10. Fluid collection appears smaller. U/S evidence for hypertensive renal disease. She has long history of hypertension. Always high in office but affirms normal readings at home. (3) BOLA (acute kidney injury) Status: Acute Problem Text: 07/13: minimal improvement overnight. favor 2 ATN 2 hypovolemia 07/11 44/2.6, 4.2 c Na to 146; therefore, + 1/2NS 100H 07/10 45/2.7, 4.4 07/09 -UA 07/10 B renal US: The kidneys are normal size. There are no renal calculi. There are not identified on the abdomen pelvis CT of 07/09/2019. No hydronephrosis. There are bilateral renal cortical cysts. No solid renal masses. There are bilateral ureteral jets into the urinary bladder. Pericholecystic fluid is identified, similar to the recent abdomen CT. This may represent acalculous cholecystitis, correlate clinically. There are a few tiny collection of perinephric fluid collections adjacent to the right kidney adjacent to the left kidney. This is nonspecific but could represent pyelonephritis or possibly perinephric abscess or small hematomas. These are not identified on the recent abdomen/pelvis CT. Electronically Signed by Juaquin Cabezas MD 07/10/2019 05:46 P DD: Juaquin Cabezas MD 07/10/19 1724 45 DS: AMAURI 07/10/19174507/10/19 174 [~ rep ct labl] baseline cr 10/2016 1.0 (4) Severe anemia Status: Acute Response to Treatment: Improving Discussed With: Nurse, Patient Problem Specific Plan: Consult Specialist, Monitor Clinically, Repeat Labs Problem Text: 07/13: slightly lower overnight, likely due to dilutional effect of IV fluids. favor 2 gastric ulcer as per 07/11 EGD, plan repeat EGD c colon in 3M by Dr. Namita iniguez 07/03-2 felt "sick" c melanotic loose BM and "brownish" vomitus x ~3-none since 07/11 9.5 07/10 stable at 8.6, call placed to Dr Breaux x 2 for EGD/colon (no previous ho EGD/colon, HO stool per patient always -) 07/09 Hgb 4.9 on admission-sp 3u PRBCs 07/09 42%, 1341 07/09 B12 1503 07/09 BCX2 NG 07/11 EGD: - Normal esophagus. - Z-line regular, 36 cm from the incisors. - Non-bleeding gastric ulcer with a clean ulcer base (Stevo Class III). - Normal duodenal bulb and second portion of the duodenum. - Two biopsies were obtained at the incisura. 07/09 CT AP: There is no CT evidence of cirrhosis. There is a small right pleural effusion with atelectasis of the adjacent lung. There are densities posteriorly in the right middle lobe which could be chronic or acute. There is fluid surrounding the gallbladder. The gallbladder is nondistended. No gallbladder calculi. This raises the possibility of acalculous cholecystitis and needs to be correlated clinically. Consider radionuclide biliary scan. Colonic diverticulosis without diverticulitis. Bladder catheter. No ascites. Vertebral body grade II compression deformity. This could be either the T12 or L1 vertebral body. (5) Alcohol abuse Status: Chronic Problem Specific Plan: Monitor Clinically Problem Text: 07/13: no lorazepam use so far. [facility] protocol B1 QD admits 3 servings wine QHS-last EthOH 01/05/19 PM, no ho wd sx (6) Hematemesis Problem Text: as per anemia (7) Melena Problem Text: as per anemia (8) Hyperlipidemia Status: Chronic Response to Treatment: Stable Problem Text: stable on HD simva 40 (feno 145 held 2 BOLA) (9) Hypertension Status: Chronic Response to Treatment: Stable Problem Text: 07/13 chronically high in office. reports normal measurements at home. stable on HD biso 10 Plan/VTE VTE Prophylaxis Ordered?: No Plan Anticipated Discharge: Home (Likely d/c 07/14.) VS, I&O, 24H, Fishbone Vital Signs/I&O Vital Signs Date Time Temp Pulse Resp B/P (MAP) Pulse Ox O2 Delivery O2 Flow Rate FiO2 07/13/19 08:33 64 146/69 07/13/19 06:00 97.6 18 97 Room Air I&O- Last 24 Hours up to 6 AM 07/13/19 06:00 Intake Total 660 ml Output Total 450 ml Balance 210 ml Laboratory Data 24H LABS Laboratory Tests 2 07/12/19 17:31: Immature Granulocyte % (Auto) 0.4, Neutrophils (%) (Auto) 80.0H, Lymphocytes (%) (Auto) 11.4L, Monocytes (%) (Auto) 7.6H, Eosinophils (%) (Auto) 0.4, Basophils (%) (Auto) 0.2, Neutrophils # (Auto) 4.4, Lymphocytes # (Auto) 0.6L, Monocytes # (Auto) 0.4, Eosinophils # (Auto) 0.0, Basophils # (Auto) 0.0, Nucleated Red Blood Cells % (auto) 0.4H, Anion Gap 5L, Glomerular Filtration Rate 17.8L, Calcium Level 8.8, Total Bilirubin 0.9, Aspartate Amino Transf (AST/SGOT) 93H, Alanine Aminotransferase (ALT/SGPT) 58, Alkaline Phosphatase 88, Total Protein 7.0, Albumin 2.5L, Albumin/Globulin Ratio 0.56L 07/13/19 06:05: Immature Granulocyte % (Auto) 0.2, Neutrophils (%) (Auto) 68.2H, Lymphocytes (%) (Auto) 20.5L, Monocytes (%) (Auto) 10.0H, Eosinophils (%) (Auto) 0.9, Basophils (%) (Auto) 0.2, Neutrophils # (Auto) 3.0, Lymphocytes # (Auto) 0.9L, Monocytes # (Auto) 0.4, Eosinophils # (Auto) 0.0, Basophils # (Auto) 0.0, Nucleated Red Blood Cells % (auto) 0.0, Anion Gap 5L, Glomerular Filtration Rate 18.5L, Calcium Level 8.8, Total Bilirubin 0.7, Aspartate Amino Transf (AST/SGOT) 81H, Alanine Aminotransferase (ALT/SGPT) 49, Alkaline Phosphatase 84, Total Protein 6.2L, Albumin 2.2L, Albumin/Globulin Ratio 0.55L CBC/BMP Laboratory Tests 07/12/19 17:31 07/13/19 06:05 Microbiology Microbiology 07/09/19 Blood Culture - Preliminary, Resulted No Growth after 72 hours. All specime... 07/09/19 Blood Culture - Preliminary, Resulted No Growth after 72 hours. All specime... Hank Ordoñez MD Jul 13, 2019 12:24
[2019-07-13 14:00] VITALS: BP 151/72
[2019-07-13 14:17] VITALS: BP 151/72
[2019-07-13] MEDS: SIMVASTATIN 40 MG TAB PO SCH (20:33)
[2019-07-13] MEDS: PANTOPRAZOLE 40MG TAB (PROTONIX) PO SCH (20:34)
[2019-07-13 20:38] VITALS: BP 143/81
[2019-07-13 22:00] VITALS: BP 143/81
[2019-07-14] MEDS: NS 0.45% 1,000 ML IV SCH ×2 (01:30→10:45)
[2019-07-14 06:33] VITALS: BP 156/75
[2019-07-14 07:03] LABS: BASO % 0.3 % (0.0-1.0); EOS # 0.1 10^3/uL (0.0-0.5); EOS % 1.5 % (0.0-3.0); HEMATOCRIT 27.4 % (36.0-47.0); HEMOGLOBIN 8.3 g/dl (12.0-15.5); LYMPH % 25.8 % (24.0-44.0); MEAN CORPUSCULAR HEMOGLOBIN 31.3 pg (27.0-33.0); MEAN CORPUSCULAR HGB CONC 30.3 g/dl (32.0-36.5); MEAN CORPUSCULAR VOLUME 103.4 fl (80.0-96.0); MONO # 0.4 10^3/uL (0.0-0.8); MONO % 9.8 % (0.0-5.0); NEUTROPHILS # 2.4 10^3/uL (1.5-8.5); NEUTROPHILS % 62.3 % (36.0-66.0); PLATELET COUNT, AUTOMATED 126 10^3/uL (150-450); RED BLOOD COUNT 2.65 10^6/uL (4.00-5.40); WHITE BLOOD COUNT 3.9 10^3/uL (4.0-10.0)
[2019-07-14 07:25] LABS: ALBUMIN 2.1 GM/DL (3.2-5.2); BILIRUBIN,TOTAL 0.7 MG/DL (0.2-1.0); CALCIUM LEVEL 8.4 MG/DL (8.8-10.2); CREATININE FOR GFR 2.66 MG/DL (0.55-1.30); GLOMERULAR FILTRATION RATE 18.9 (>39); POTASSIUM SERUM 3.9 MEQ/L (3.5-5.1)
[2019-07-14] MEDS: FOLIC ACID 1 MG TAB PO SCH (08:39)
[2019-07-14] MEDS: PANTOPRAZOLE 40MG TAB (PROTONIX) PO SCH (08:39)
[2019-07-14 08:40] VITALS: BP 156/75
[2019-07-14] MEDS: MULTIVITAMINS/MINERALS THERAP 1 TAB PO SCH (08:40)
[2019-07-14] MEDS: BISOPROLOL FUMARATE 10 MG TAB PO SCH (08:40)
[2019-07-14] MEDS: THIAMINE 100 MG TAB PO SCH (08:40)
[2019-07-14] MEDS ORDERED: PANT40TA3 PO (08:43)
--- NOTE | 2019-07-14 09:15 | DSES ---
DATE OF ADMISSION: 07/09/2019 DATE OF DISCHARGE: 07/14/2019 REASON FOR ADMISSION: Patient admitted from the emergency department after contacting Dr. Ordoñez's office in [place] and advised to come to the ED with reported symptoms of being weak, listless, pale. Found to have a very low hemoglobin. She reported a history of two weeks of illness with vomiting and diarrhea. In the ER she had a hemoglobin of 4.9, transfused [address] Breaux, upper GI endoscopy was performed which demonstrated a non-bleeding gastric ulcer, 20 mm across, two biopsies were obtained and one for Helicobacter pylori testing. Clean ulcer base. Pathology is pending. Described by Dr. Breaux as Stevo class III, and Dr. Breaux indicated the need for followup endoscopy in three months to confirm healing. She is continued on pantoprazole 40 mg by mouth twice a day per gastroenterology recommendation and if she does test positive for Helicobacter pylori on the biopsy she will require antibiotic therapy. Her hemoglobin stabilized after three packed red cell transfusions at 8.3 today and yesterday. She also suffered acute renal failure as a result of the illness. Creatinine 2.89 on admission, gradually has improved from 2.8 on 07/12 to 2.71 on 07/13 to 2.6 today. DISCHARGE DIAGNOSES: 1. Acute blood loss anemia secondary to gastric ulcer. Gastric ulcer 20 mm, not currently bleeding. Biopsy results are pending. 2. Acute renal failure improving, likely secondary to a combination of volume contraction from bleeding and underlying history of essential hypertension and alcohol abuse. PLAN: She will be discharged today. Continue her 2 gram sodium diet. Medications at discharge will include: - pantoprazole 40 mg by mouth twice a day. Will keep her at twice a day dosing for at least 4 weeks and then plan to drop her to once a day. She will have a followup arranged with Dr. Breaux and with my office. - Continue bisoprolol 10 mg daily for blood pressure control - fenofibrate 145 mg daily - simvastatin 40 mg daily for dyslipidemia - multivitamin once a day Cautioned to avoid alcohol. Cautioned to avoid aspirin and other nonsteroidal anti-inflammatory drugs (NSAIDs). Activity as tolerated. Encouraged adequate hydration. Followup laboratories will be done at the time of her office visit in [place], which will include complete blood cell count and basic profile to followup on anemia and renal function, possible requirement for nephrology consult to follow. PROCEDURES DURING HOSPITAL STAY: Upper GI endoscopy performed by Dr. Breaux with biopsies. Results of biopsies are still pending at the time of discharge.
== END 2019-07-14 13:55 | disposition home or self-care (01) | DRG 378 ==
LOC: M ED 10:59 → M ED INP 14:50 → M ICU 17:51 → M MS5PR 07-10 12:33
PROVIDERS: ADMIT Internal Medicine; ATTEND Family Medicine
PROC: 30233N1 Transfusion of Nonautologous Red Blood Cells into Peripheral Vein, Percutaneous Approach (ICD-10-PCS; principal; 2019-07-09)
PROC: 0DB68ZX Excision of Stomach, Via Natural or Artificial Opening Endoscopic, Diagnostic (ICD-10-PCS; 2019-07-11)
DX: K25.4 Chronic or unspecified gastric ulcer with hemorrhage (principal); D62 Acute posthemorrhagic anemia; N17.9 Acute kidney failure, unspecified; I10 Essential (primary) hypertension; F10.10 Alcohol abuse, uncomplicated; E78.5 Hyperlipidemia, unspecified; Z79.899 Other long term (current) drug therapy; R68.0 Hypothermia, not associated with low environmental temperature

== ENCOUNTER → 2019-07-23 | Outpatient (REF) | payer MEDICARE ==
[~2019-07-23] MED LIST: BISO10TA13 PO; FENO145T13 PO; PANT40TA3 PO; SIMV40TA2 PO; VITMTA PO
[2019-07-24 12:05] LABS: CALCIUM LEVEL 9.1 MG/DL (8.8-10.2); CREATININE FOR GFR 2.47 MG/DL (0.55-1.30); GLOMERULAR FILTRATION RATE 20.6 (>39); POTASSIUM SERUM 4.4 MEQ/L (3.5-5.1)
[2019-07-24 12:12] LABS: HEMATOCRIT 29.8 % (36.0-47.0); HEMOGLOBIN 9.3 g/dl (12.0-15.5); MEAN CORPUSCULAR HGB CONC 31.2 g/dl (32.0-36.5); MEAN CORPUSCULAR VOLUME 102.4 fl (80.0-96.0); RED BLOOD COUNT 2.91 10^6/uL (4.00-5.40); WHITE BLOOD COUNT 4.5 10^3/uL (4.0-10.0)
[2019-07-24 12:57] LABS: PLATELET COUNT, AUTOMATED 91 10^3/uL (150-450)
== END ==
LOC: M SFHCCLAY 14:36
PROVIDERS: ATTEND Family Medicine
DX: K29.51 Unspecified chronic gastritis with bleeding (principal); D50.0 Iron deficiency anemia secondary to blood loss (chronic)

== ENCOUNTER → 2019-08-10 | Outpatient (REF) | payer MEDICARE ==
[~2019-08-10] MED LIST changes: -SIMV40TA2 PO; +SIMV40TA20 PO
[2019-08-11 12:04] LABS: HEMATOCRIT 28.8 % (36.0-47.0); HEMOGLOBIN 8.8 g/dl (12.0-15.5); MEAN CORPUSCULAR HEMOGLOBIN 31.3 pg (27.0-33.0); MEAN CORPUSCULAR HGB CONC 30.6 g/dl (32.0-36.5); MEAN CORPUSCULAR VOLUME 102.5 fl (80.0-96.0); RED BLOOD COUNT 2.81 10^6/uL (4.00-5.40); WHITE BLOOD COUNT 5.5 10^3/uL (4.0-10.0)
[2019-08-11 12:19] LABS: ALBUMIN 3.1 GM/DL (3.2-5.2); BILIRUBIN,TOTAL 0.3 MG/DL (0.2-1.0); CALCIUM LEVEL 9.1 MG/DL (8.8-10.2); CREATININE FOR GFR 3.33 MG/DL (0.55-1.30); GLOMERULAR FILTRATION RATE 14.6 (>39); POTASSIUM SERUM 4.9 MEQ/L (3.5-5.1); TOTAL PROTEIN 7.4 GM/DL (6.4-8.2)
[2019-08-11 12:28] LABS: PLATELET COUNT, AUTOMATED 64 10^3/uL (150-450)
[2019-08-13 00:07] LABS: ANA (HEP2) Negative (.)
== END ==
LOC: M SFHCCLAY 15:01
PROVIDERS: ATTEND Family Medicine
DX: D50.0 Iron deficiency anemia secondary to blood loss (chronic) (principal); N18.4 Chronic kidney disease, stage 4 (severe); D69.6 Thrombocytopenia, unspecified

== ENCOUNTER 2019-08-17 14:46 | Inpatient (IN) | payer MEDICARE ==
[~2019-08-17] VITALS: Ht 154.9 cm; Wt 52.7 kg
[2019-08-17] VITALS (7 sets, daily range): BP systolic 98–122; BP diastolic 57–70
[2019-08-17 15:24] LABS: BASO % 0.2 % (0.0-1.0); EOS % 0.4 % (0.0-3.0); HEMATOCRIT 25.2 % (36.0-47.0); HEMOGLOBIN 7.4 g/dl (12.0-15.5); LYMPH # 0.7 10^3/uL (1.5-5.0); LYMPH % 14.3 % (24.0-44.0); MEAN CORPUSCULAR HEMOGLOBIN 30.6 pg (27.0-33.0); MEAN CORPUSCULAR HGB CONC 29.4 g/dl (32.0-36.5); MEAN CORPUSCULAR VOLUME 104.1 fl (80.0-96.0); MONO # 0.3 10^3/uL (0.0-0.8); MONO % 6.2 % (0.0-5.0); NEUTROPHILS # 3.6 10^3/uL (1.5-8.5); NEUTROPHILS % 78.5 % (36.0-66.0); RED BLOOD COUNT 2.42 10^6/uL (4.00-5.40); WHITE BLOOD COUNT 4.5 10^3/uL (4.0-10.0)
[2019-08-17 15:34] LABS: INR 1.26; PROTHROMBIN TIME 15.5 SECONDS (11.8-14.0)
[2019-08-17] MEDS ORDERED: PANT40TA3 PO (15:34)
[2019-08-17] MEDS ORDERED: TUMS500C PO (15:34)
[2019-08-17 15:35] LABS: PARTIAL THROMBOPLASTIN TIME 44.1 SECONDS (25.0-38.4)
[2019-08-17] MEDS ORDERED: NS 1,000 ML IV SCH (15:45)
[2019-08-17] MEDS ORDERED: METAL LOCK LOOP XX ONE (15:45)
[2019-08-17 15:56] LABS: PLATELET COUNT, AUTOMATED 32 10^3/uL (150-450)
[2019-08-17 16:00] LABS: ALBUMIN 2.9 GM/DL (3.2-5.2); ALT/SGPT 89 U/L (12-78); BILIRUBIN,DIRECT 0.2 MG/DL (0.0-0.2); BILIRUBIN,TOTAL 0.3 MG/DL (0.2-1.0); BLOOD UREA NITROGEN 73 MG/DL (7-18); CALCIUM LEVEL 9.4 MG/DL (8.8-10.2); CARBON DIOXIDE LEVEL 21 MEQ/L (21-32); CHLORIDE LEVEL 121 MEQ/L (98-107); CREATININE FOR GFR 3.95 MG/DL (0.55-1.30); GLUCOSE, FASTING 114 MG/DL (70-100); LIPASE 1387 U/L (73-393); MAGNESIUM LEVEL 1.8 MG/DL (1.8-2.4); POTASSIUM SERUM 4.6 MEQ/L (3.5-5.1); SODIUM LEVEL 150 MEQ/L (136-145); TOTAL PROTEIN 7.3 GM/DL (6.4-8.2)
[2019-08-17 16:46] LABS: OSMOLALITY SERUM 333 MOSM/KG (280-301)
[2019-08-17 17:03] LABS: CK-MB VALUE MASS 48.9 NG/ML (<3.6); CPK CREATINE PHOSPHOKINASE 582 U/L (26-192); FREE THYROXINE INDEX 3.6 % (1.3-4.8); T UPTAKE 31 % (30-39); THYROXINE (T4) 11.7 UG/DL (4.5-12.0); TROPONIN I < 0.02 NG/ML (< 0.10)
[2019-08-17] MEDS: D5W/0.45% SODIUM CHLORIDE 1,000 ML IV SCH (18:00)
--- NOTE | 2019-08-17 18:03 | HPEPDOC ---
General Date of Admission Aug 17, 2019 at 16:46 Date of Service: Aug 17, 2019 Chief Complaint The patient is a 69-year-old female admitted with a reason for visit of Acute Anemia Acute Kidney Injury Gi Bleeding. Source: Patient, Family Exam Limitations: No limitations Associated Symptoms: Denies Symptoms History of Present Illness Ms. Galan is a 69 year old female transferred to [facility] ED by Dr. Cloud following abnormal lab results. 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 She has felt 'just fine' since her d/c; however she was told her labs were abnormal, she is hypotensive and hypothermic in the ED. 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 Cloud. Previously she was taking Bisoprolol 10mg for her HTN. Ms. Galan has a PMHx of HTN, Hyperlipidemia, BOLA, severe anemia. Home Medications Scheduled Fenofibrate Nanocrystallized (Fenofibrate) 145 Mg Tablet, 145 MG PO QHS, (Reported) Multivitamins (Thera M Plus Tablet) 1 Each Tablet, 1 TAB PO QHS, (Reported) Pantoprazole Sodium (Pantoprazole Sodium) 40 Mg Tablet.dr, 40 MG PO BID, (Reported) Simvastatin (Simvastatin) 40 Mg Tablet, 40 MG PO QHS, (Reported) Scheduled PRN Calcium Carbonate (Tums) 200 Mg Tab.chew, 500 MG PO Q4H PRN for HEARTBURN, (Reported) Allergies Coded Allergies: bee venom protein (honey bee) (Verified Allergy, Unknown, 07/09/19) Past Medical History Medical History HTN Hyperlipidemia GERD Ulcers Hx of alcohol abuse Surgical History None Family History Significant Family History: Heart disease (Father), Hypertension (Mother ) Social History * Smoker: former Smoker (smoked in 1968 for 1 year ) Alcohol: Denies Drugs: denies Recent Travel/Sick Contacts: Denies: Recent travel, Recent sick contacts A-FIB/CHADSVASC A-FIB History Current/History of A-Fib/PAF?: No Current PO Anticoag Therapy: No Review of Systems Constitutional: Denies: Chills, Fever, Night Sweats Eyes: Denies: Pain, Vision change ENT: Denies: Head Aches, Ear Pain, Dysphagia Skin: Denies: Rash, Lesions, Breakdown Pulmonary: Denies: Dyspnea, Cough Cardiovascular: Denies: Chest Pain, Palpitations, Orthopnea, Paroxysmal Noc. Dyspnea, Lt Headedness Gastrointestinal: Denies: Nausea, Vomiting, Abdominal Pain, Diarrhea Genitourinary: Denies: Dysuria, Frequency, Incontinence, Retention Hematologic: Denies: Bruising, Bleeding Excessively Musculoskeletal: Denies: Neck Pain, Back Pain, Joint Pain, Muscle Pain, Spasms Neurological: Denies: Weakness, Numbness, Change in speech, Confusion Psych: Reports: Mood Normal; Denies: Depression, Memory Issues Physical Examination General Exam: Positive: Alert, Cooperative, No Acute Distress Eye Exam: Positive: Conjunctiva & lids normal (lids erythematous ) ENT Exam: Positive: Atraumatic, Mucous membr. moist/pink Chest Exam: Positive: Clear to auscultation, Normal air movement Heart Exam: Positive: Rate Normal, Murmurs (2 - 3/6 blowing murmur ) Telemetry: Positive: Bradycardia (52 per vital in ER ); Negative: Atrial fibrillation, Tachycardia Abdomen Exam: Positive: Normal bowel sounds, Soft; Negative: Tenderness, Hepatospenomegaly, Mass Extremity Exam: Negative: Clubbing, Cyanosis, Edema, Normal pulses Skin Exam: Positive: Nl turgor and temperature Neuro Exam: Positive: Normal Speech Psych Exam: Positive: Mood NL, Oriented x 3 Vital Signs Vital Signs Date Time Temp Pulse Resp B/P (MAP) Pulse Ox O2 Delivery O2 Flow Rate FiO2 08/17/19 17:15 93.6 62 20 96/52 (67) 98 Room Air Laboratory Data Labs 24H Laboratory Tests 2 08/17/19 15:15: Anion Gap 8, Glomerular Filtration Rate 12.0L, Osmolality 333H, Calcium Level 9.4, Magnesium Level 1.8, Total Bilirubin 0.3, Direct Bilirubin 0.2, Aspartate Amino Transf (AST/SGOT) 175H, Alanine Aminotransferase (ALT/SGPT) 89H, Alkaline Phosphatase 87, Total Creatine Kinase 582H, Creatine Kinase MB 48.9H, Creatine Kinase MB Relative Index 8.40H, Troponin I < 0.02, Total Protein 7.3, Albumin 2.9L, Albumin/Globulin Ratio 0.66L, Lipase 1387H, Thyroid Stimulating Hormone (TSH) 6.880H, Free Thyroxine Index 3.6, Thyroxine (T4) 11.7, Triiodothyronine (T3) Uptake 31 08/17/19 15:16: Immature Granulocyte % (Auto) 0.4, Neutrophils (%) (Auto) 78.5H, Lymphocytes (%) (Auto) 14.3L, Monocytes (%) (Auto) 6.2H, Eosinophils (%) (Auto) 0.4, Basophils (%) (Auto) 0.2, Neutrophils # (Auto) 3.6, Lymphocytes # (Auto) 0.7L, Monocytes # (Auto) 0.3, Eosinophils # (Auto) 0.0, Basophils # (Auto) 0.0, Nucleated Red Blood Cells % (auto) 0.4H, Immature Platelet Fraction 21.8H, Prothrombin Time 15.5H, Prothromb Time International Ratio 1.26, Activated Partial Thromboplast Time 44.1H CBC/BMP Laboratory Tests 08/17/19 15:15 08/17/19 15:16 Assessment/Plan Ms. Galan is a 69 year old female transferred to [facility] ED by Dr. Cloud following abnormal lab results. Ms. Galan has a PMHx of HTN, Hyperlipidemia, BOLA, severe anemia. Patient denied feeling unwell since her last admission, denied reduced appetite, GI symptoms, CP, dyspnea, urinary symptoms. Patient admitted to ICU for further evaluation. Anemia: - Serial H&H - positive stool guiac - EGD in July showed a clean base ulcer; pt denied NSAID use - Patient agreeable to colonoscopy - surgical consult for possible colonoscopy Thrombocytopenia: - avoid heparin - check EDTA free platelet count and peripheral smear - consider platelet transfusion BOLA/CKD: - nephrology consult pending - discuss with Dr. Cloud Hypernatremia: - Serial BMPs - D5 0.5NS @ 75ml/hr - nephrology consult pending - check urine and serum osmolality Transaminitis/Elevated Lipase: - check CT abdomen/pelvis Hypothermia: - Warming blankets - unclear etiology Bradycardia, asymptomatic: Continue telemetry HTN: d/c Nadolol 40mg Hyperlipidemia: continue home medications GERD/Ulcer: - Protonix 40mg BID - clear fluids as tolerated Patient will require at least 48 hours inpatient Plan / VTE VTE Prophylaxis Ordered?: CAROL Wallace PA-C Aug 17, 2019 18:03
--- NOTE | 2019-08-17 18:16 | REPVR ---
PROCEDURE INFORMATION: Exam: CT Abdomen And Pelvis Without Contrast Exam date and time: 08/17/2019 4:27 PM Age: 69 years old Clinical history: Abdominal pain; Generalized; Additional info: Lipasemia/transaminitis/kevin TECHNIQUE: Imaging protocol: Computed tomography of the abdomen and pelvis without contrast. Radiation optimization: All CT scans at this facility use at least one of these dose optimization techniques: automated exposure control; mA and/or kV adjustment per patient size (includes targeted exams where dose is matched to clinical indication); or iterative reconstruction. COMPARISON: CT ABD PELVIS W/O CONTRAST 07/09/2019 3:35 PM FINDINGS: Tubes, catheters and devices: Small-caliber rectal drain/monitor. Pleural space: Minimal RIGHT pleural effusion. Heart: Blood in the cardiac ventricles is hypoattenuating relative to the myocardium suggesting anemia. Liver: Normal. No mass. Gallbladder and bile ducts: The gallbladder is partially contracted. Pancreas: Normal. No ductal dilation. Spleen: Normal. No splenomegaly. Adrenals: Normal. No mass. Kidneys and ureters: RIGHT renal calculi (2), the largest in the lower pole measuring 1.8 mm. LEFT renal calculi, the largest in the posterior mid kidney measuring 1.4 mm. 14 mm LEFT mid renal medullary cyst Stomach and bowel: Pancolonic diverticula are present without evidence of diverticulitis. Appendix: The vermiform appendix is normal. Intraperitoneal space: Unremarkable. No free air. No significant fluid collection. Vasculature: Mild aortic atherosclerotic calcification without aneurysm. The iliac arteries show moderate bilateral atherosclerotic calcifications without evidence of aneurysm. LEFT pelvic phlebolith. Lymph nodes: Unremarkable. No enlarged lymph nodes. Bladder: The urinary bladder is decompressed and difficult to assess. Reproductive: 7 mm LEFT uterine calcified leiomyoma. Benign-appearing LEFT adnexal calcification. Bones/joints: Unremarkable. No acute fracture. Soft tissues: Unremarkable. IMPRESSION: 1. Bilateral renal calyceal lithiasis. 2. Small LEFT uterine calcified leiomyoma. 3. Diverticulosis. 4. Minimal RIGHT pleural effusion. 5. Possible anemia, see above comments. Correlation with CBC may be helpful. Electronically signed by: Yifan Gorman On 08/17/2019 18:16:30 PM
[2019-08-17] MEDS: PANTOPRAZOLE 40MG INJ (PROTONIX) (C9113) IV SCH (21:12)
[2019-08-18] VITALS (10 sets, daily range): BP systolic 124–140; BP diastolic 70–90
[2019-08-18 01:24] LABS: HEMATOCRIT 27.4 % (36.0-47.0); HEMOGLOBIN 8.3 g/dl (12.0-15.5)
[2019-08-18 01:53] LABS: CALCIUM LEVEL 9.1 MG/DL (8.8-10.2); CREATININE FOR GFR 3.95 MG/DL (0.55-1.30); POTASSIUM SERUM 4.6 MEQ/L (3.5-5.1)
[2019-08-18 05:42] LABS: BASO % 0.2 % (0.0-1.0); EOS % 0.5 % (0.0-3.0); HEMATOCRIT 27.8 % (36.0-47.0); HEMOGLOBIN 8.4 g/dl (12.0-15.5); LYMPH # 0.6 10^3/uL (1.5-5.0); LYMPH % 13.8 % (24.0-44.0); MEAN CORPUSCULAR HEMOGLOBIN 29.8 pg (27.0-33.0); MEAN CORPUSCULAR HGB CONC 30.2 g/dl (32.0-36.5); MEAN CORPUSCULAR VOLUME 98.6 fl (80.0-96.0); MONO # 0.3 10^3/uL (0.0-0.8); MONO % 6.7 % (0.0-5.0); NEUTROPHILS # 3.3 10^3/uL (1.5-8.5); NEUTROPHILS % 78.3 % (36.0-66.0); RED BLOOD COUNT 2.82 10^6/uL (4.00-5.40); WHITE BLOOD COUNT 4.2 10^3/uL (4.0-10.0)
[2019-08-18 05:47] LABS: PLATELET COUNT, AUTOMATED 29 10^3/uL (150-450)
[2019-08-18 06:16] LABS: ALBUMIN 2.6 GM/DL (3.2-5.2); BILIRUBIN,TOTAL 0.5 MG/DL (0.2-1.0); CALCIUM LEVEL 9.4 MG/DL (8.8-10.2); CREATININE FOR GFR 4.03 MG/DL (0.55-1.30); GLOMERULAR FILTRATION RATE 11.7 (>39); POTASSIUM SERUM 4.7 MEQ/L (3.5-5.1); TOTAL PROTEIN 7.1 GM/DL (6.4-8.2)
[2019-08-18 06:24] LABS: PLTBLUE- EDTA FREE CALC 28 K/mm3 (172-450); PLTBLUE- EDTA FREE MACHINE 25 10^3/uL (172-450)
--- NOTE | 2019-08-18 08:20 | IPNPDOC ---
Subjective Date Seen The patient was seen on 08/18/19. Subjective Chief Complaint/HPI anemia, hypothermia Events since last encounter Admitted for hypothermia, hypotension found at neprhology office. Was at Neph rology office for consultation for renal disease post hospitalization in July for GIB and ulceration. F/u with Dr. Breaux, gastroenterology competed post hospitalization. Given IVF with D5 1/2 NS at 70 cc per hour overnight. Denies abdominal pain, n/v/d or dark stools. Denies ETOH use. Had been switched to Nadolol due to liver disease by PCP at last office visit. nadolol is currently on hold. Started on Pantoprazole 40 mg IV bid Constitutional: Denies: Chills, Fever, Night Sweats Pulmonary: Denies: Dyspnea, Cough Gastrointestinal: Denies: Nausea, Vomiting, Abdominal Pain, Diarrhea, Constipation Genitourinary: Denies: Dysuria, Frequency, Incontinence, Retention Psych: Reports: Mood Normal; Denies: Depression, Memory Issues Objective Physical Examination General Exam: Positive: Alert, Cooperative, No Acute Distress Eye Exam: Positive: Conjunctiva & lids normal (lids erythematous ) ENT Exam: Positive: Atraumatic, Mucous membr. moist/pink Chest Exam: Positive: Clear to auscultation, Normal air movement Heart Exam: Positive: Rate Normal, Murmurs (2 - 3/6 blowing murmur ) Telemetry: Positive: Bradycardia (46-60); Negative: Atrial fibrillation, Tachycardia Abdomen Exam: Positive: Normal bowel sounds, Soft; Negative: Tenderness, Hepatospenomegaly, Mass Extremity Exam: Negative: Clubbing, Cyanosis, Edema, Normal pulses Skin Exam: Positive: Nl turgor and temperature Neuro Exam: Positive: Normal Speech Psych Exam: Positive: Mood NL, Oriented x 3 Assessment /Plan Problems (1) Acute anemia Status: Acute Problem Text: Transfused 1 unit with slight improvement in Hgb to 8.4. occult stool specimen pending. platelets trending down. ? ulceration vs liver and renal disease causing platelet dysfunction and anemia. (2) Acute kidney injury Status: Acute Problem Text: baseline cr 2.4-2.6 since last hospitalization. Cr today is 4.0. Appreciate nephrology input. (3) Hypernatremia Status: Acute Problem Text: Na level 150 this am. Minimal improvement. Appreciate nephrology input. (4) Hypothermia Status: Acute Response to Treatment: Improving (5) GI bleeding Status: Acute Problem Specific Plan: Consult Specialist Problem Text: will consult general surgery as gastro is unavailable. (6) Hypertension Status: Chronic (7) Hyperlipidemia Status: Chronic (8) Abnormal transaminases Status: Acute Problem Text: ? cirrhosis secondary to long standing ETOH abuse. has been sober since hospitalization 07/2019. (9) Elevated pancreatic enzyme Problem Text: elevated amylase and lipase noted. CT is negative. Clear liquids for now. monitor. Plan/VTE VTE Prophylaxis Ordered?: No VTE Exclusion Pharmacological: Thrombocytopenia VS, I&O, 24H, Fishbone Vital Signs/I&O Vital Signs Date Time Temp Pulse Resp B/P (MAP) Pulse Ox O2 Delivery O2 Flow Rate FiO2 08/18/19 06:00 55 138/74 (95) 97 Room Air 08/18/19 04:00 96.9 20 I&O- Last 24 Hours up to 6 AM 08/18/19 06:00 Intake Total 2242 ml Output Total 350 ml Balance 1892 ml Laboratory Data 24H LABS Laboratory Tests 2 08/17/19 15:15: Anion Gap 8, Glomerular Filtration Rate 12.0L, Osmolality 333H, Calcium Level 9.4, Magnesium Level 1.8, Total Bilirubin 0.3, Direct Bilirubin 0.2, Aspartate Amino Transf (AST/SGOT) 175H, Alanine Aminotransferase (ALT/SGPT) 89H, Alkaline Phosphatase 87, Total Creatine Kinase 582H, Creatine Kinase MB 48.9H, Creatine Kinase MB Relative Index 8.40H, Troponin I < 0.02, Total Protein 7.3, Albumin 2.9L, Albumin/Globulin Ratio 0.66L, Lipase 1387H, Thyroid Stimulating Hormone (TSH) 6.880H, Free Thyroxine Index 3.6, Thyroxine (T4) 11.7, Triiodothyronine (T3) Uptake 31 08/17/19 15:16: Immature Granulocyte % (Auto) 0.4, Neutrophils (%) (Auto) 78.5H, Lymphocytes (%) (Auto) 14.3L, Monocytes (%) (Auto) 6.2H, Eosinophils (%) (Auto) 0.4, Basophils (%) (Auto) 0.2, Neutrophils # (Auto) 3.6, Lymphocytes # (Auto) 0.7L, Monocytes # (Auto) 0.3, Eosinophils # (Auto) 0.0, Basophils # (Auto) 0.0, Nucleated Red Blood Cells % (auto) 0.4H, Immature Platelet Fraction 21.8H, Prothrombin Time 15.5H, Prothromb Time International Ratio 1.26, Activated Partial Thromboplast Time 44.1H 08/17/19 21:33: Lactic Acid Level 0.7 08/18/19 01:08: Anion Gap 9, Glomerular Filtration Rate 12.0L, Calcium Level 9.1 08/18/19 05:11: Immature Granulocyte % (Auto) 0.5, Neutrophils (%) (Auto) 78.3H, Lymphocytes (%) (Auto) 13.8L, Monocytes (%) (Auto) 6.7H, Eosinophils (%) (Auto) 0.5, Basophils (%) (Auto) 0.2, Neutrophils # (Auto) 3.3, Lymphocytes # (Auto) 0.6L, Monocytes # (Auto) 0.3, Eosinophils # (Auto) 0.0, Basophils # (Auto) 0.0, Nucleated Red Blood Cells % (auto) 0.7H, Differential Slide Review Report, Platelet Count, EDTA Free 28*L, Peripheral Blood Smear Path Consult PERIPHERAL SMEAR, Anion Gap 5L, Glomerular Filtration Rate 11.7L, Calcium Level 9.4, Total Bilirubin 0.5#, Aspartate Amino Transf (AST/SGOT) 148H, Alanine Aminotransferase (ALT/SGPT) 76, Alkaline Phosphatase 78, Total Protein 7.1, Albumin 2.6L, Albumin/Globulin Ratio 0.58L, Amylase Level 158H, Lipase 1601H CBC/BMP Laboratory Tests 08/17/19 15:15 08/17/19 15:16 08/18/19 01:08 08/18/19 05:[address] [facility] Aug 18, 2019 08:20
[2019-08-18] MEDS: PANTOPRAZOLE 40MG INJ (PROTONIX) (C9113) IV SCH ×2 (08:27→20:16)
[2019-08-18] MEDS: D5W/0.45% SODIUM CHLORIDE 1,000 ML IV SCH ×2 (08:28→21:53)
[2019-08-18 12:26] LABS: AMORPHOUS SEDIMENT SMALL (NEGATIVE); APPEARANCE, URINE HAZY (CLEAR); BACTERIA, URINE AUTO NEGATIVE (NEGATIVE); BILIRUBIN, URINE AUTO NEGATIVE (NEGATIVE); BLOOD, URINE BLOOD 1+ (NEGATIVE); COLOR, URINE YELLOW (YELLOW); GLUCOSE, URINE (UA) AUTO NEGATIVE (NEGATIVE); KETONE, URINE AUTO NEGATIVE (NEGATIVE); LEUKOCYTE ESTERASE, URINE AUTO NEGATIVE (NEGATIVE); MUCUS, URINE SMALL (NEGATIVE); NITRITE, URINE AUTO NEGATIVE (NEGATIVE); PROTEIN, URINE AUTO NEGATIVE (NEGATIVE); RBC, URINE AUTO 2 /HPF (0-3); SPECIFIC GRAVITY URINE AUTO 1.012 (1.002-1.035); SQUAMOUS EPITHELIAL CELL UR AU 0 /HPF (0-6); UROBILINOGEN, URINE AUTO 0.2 mg/dL (0.0-2.0); WBC, URINE AUTO 3 /HPF (0-3)
[2019-08-18 14:04] LABS: COMPLEMENT C3 114 MG/DL (90-180); COMPLEMENT C4 22 MG/DL (10-40)
--- NOTE | 2019-08-18 19:01 | CR ---
DATE OF CONSULTATION: 08/18/2019 CONSULTATION REPORT FOR: Michael Bearden MD REASON FOR CONSULTATION: Acute renal failure, hypernatremia and abnormal liver enzymes. HISTORY OF PRESENT ILLNESS: Mrs. Galan is a 69-year-old female with known history of gastrointestinal (GI) bleed, hyperlipidemia, anemia and chronic alcohol use. She was admitted to [facility] in July 2019 with severe anemia and at that time, her hemoglobin was 4.9 on admission. She was transfused. Hemoglobin was up to 8.3 on 07/14/2019 at the time of discharge. At that time, she also was noticed to have renal dysfunction with creatinine of 2.89 on the day of admission on 07/09/2019. On 07/14/2019 the day of discharge, her creatinine was 2.66 which was not much different. Her urinalysis did not show any protein or blood at that time. The patient was discharged to home with the plan for a nephrology consultation as an outpatient. She was not taking any nephrotoxic medications. In any event, she was seen in the nephrology office yesterday and was found to have severe anemia, hypernatremia and further worsening of kidney function with creatinine up to 3.95. She was advised to come to the hospital for further investigations and treatment. She is now admitted to intensive care unit. Nephrology consultation was requested by Dr. Bearden last evening and the patient is seen this morning. She has been now transferred to [facility] Practice Service. PAST MEDICAL AND SURGICAL HISTORY: Significant for: 1. History of hypertension. 2. Hyperlipidemia. 3. Severe anemia. 4. Chronic kidney disease. 5. History of hypothermia during recent hospitalization. MEDICATIONS: Her home medications included: - fenofibrate 145 mg at bedtime - multivitamin one tablet daily - pantoprazole 40 mg twice a day - simvastatin 40 mg daily - calcium carbonate 500 mg as needed for heartburn ALLERGIES: She has no known drug allergies. PAST SURGICAL HISTORY: Unremarkable. FAMILY HISTORY: Significant for heart disease in her father and hypertension on the mother's side. PERSONAL AND SOCIAL HISTORY: The patient is a former smoker who smoked only four years in the 1960s. She drinks a bottle of wine everyday. She denies any drug use. REVIEW OF SYSTEMS: The patient denies any fever or chills. She feels generally well. Ears, nose and throat are unremarkable. She denies any sinus problems, sore throat or nosebleed. Cardiovascular system is negative for dyspnea or chest pain. Respiratory system is negative for cough or hemoptysis. Gastrointestinal (GI) system is negative for nausea, vomiting or diarrhea. She had an upper endoscopy in July 2019 and was found to have a large gastric ulcer. She was felt to help GI bleed at that time. Genitourinary () system is negative for dysuria or hematuria. Endocrine system is significant for hypercholesterolemia and hyperlipidemia. She does not have any history of diabetes or thyroid problems. Psychosocial system is negative for depression or anxiety. Neurological system is negative for seizures or stroke. Hematological system is significant for anemia and thrombocytopenia. During her admission in July 2019, her platelets were 266 on 07/09/2019 but they were gradually decreasing and they were down to 126 on the day of discharge on 07/14/2019. This time on admission, her platelet count was down to 29,000. She had a urinalysis during last admission which did not show any protein or blood. She also had a CT scan of abdomen and pelvis done due to elevated lipase and amylase. Her kidneys look small with thin cortex and a small cyst but no hydronephrosis, stone or mass. PROBLEMS: 1. Acute renal failure superimposed on chronic kidney disease. I feel that the patient certainly has underlying chronic kidney disease as her renal cortex is quite thin. Her kidney function is worsening as her creatinine was about 2.6 in July 2019 and now it is up to 4.0 today. We will get another urinalysis and spot urine protein. Etiology of her renal failure is uncertain. I suspect that she has chronic interstitial nephritis. I have explained to the patient and now her daughter also who I just spoke with that she is likely to require a kidney biopsy. However, we will have to wait until her platelets get better. At this point, there is no emergent need for dialysis but this is also a possibility that she will require dialysis if her kidney function does not improve. She is not a very suitable candidate for steroid therapy in view of her recent gastrointestinal (GI) bleed and gastric ulcer. We will wait and see what her urine studies show today. 2. Hypernatremia. Her sodium level is slightly high and she is getting IV fluid with D5W. Electrolytes should be repeated again tomorrow morning. 3. Elevated transaminases. Her aspartate aminotransferase (AST) was 175 and alanine aminotransferase (ALT) 89 yesterday. Today, her AST is down to 148 and ALT is normal at 76. Bilirubin was only 0.5. A lactate dehydrogenase (LDH) level has been checked which is slightly elevated at 291. Her amylase is 158 and lipase is 1601. A thyroid-stimulating hormone (TSH) level is 6.88. 4. Recurrent anemia and thrombocytopenia. Thrombocytopenia has been gradually worsening since last admission in July 2019. I would strongly recommend a hematology evaluation as we will need to get her thrombocytopenia fixed before a kidney biopsy can be considered. Her anemia has improved following transfusion. 5. Hypothermia. The patient was also quite hypothermic on admission. She is now slightly improved but still her temperature is low. Thank you for involving me in the care of Mrs. Galan. We will follow her along with you.
--- NOTE | 2019-08-18 22:01 | ECGEPIP ---
[facility] - ED Test Date: 2019-08-17 Pat Name: ESTHELA MANRIQUEZ Department: Room: [place] [address] Gender: Female Rn Circulating: manuela : 1950 Requested By: DENILSON Vizcaino Order Number: [id number] Reading MD: Nicole Leon Measurements Intervals [place] Rate: 49 P: -42 AL: 153 QRS: 64 QRSD: 104 T: 66 QT: 436 QTc: 397 Interpretive Statements SINUS BRADYCARDIA ST ELEVATION, PROBABLY EARLY REPOLARIZATION SIMILAR 07/09/19 Electronically Signed on 08-18-2019 22:01:49 EST by Nicole Leon
[2019-08-19] VITALS (8 sets, daily range): BP systolic 127–157; BP diastolic 67–86
[2019-08-19 06:05] LABS: EOS % 0.7 % (0.0-3.0); HEMATOCRIT 26.6 % (36.0-47.0); HEMOGLOBIN 8.2 g/dl (12.0-15.5); LYMPH # 0.7 10^3/uL (1.5-5.0); LYMPH % 15.8 % (24.0-44.0); MEAN CORPUSCULAR HEMOGLOBIN 30.4 pg (27.0-33.0); MEAN CORPUSCULAR HGB CONC 30.8 g/dl (32.0-36.5); MEAN CORPUSCULAR VOLUME 98.5 fl (80.0-96.0); MONO # 0.3 10^3/uL (0.0-0.8); NEUTROPHILS # 3.2 10^3/uL (1.5-8.5); WHITE BLOOD COUNT 4.2 10^3/uL (4.0-10.0)
[2019-08-19 06:06] LABS: PLATELET COUNT, AUTOMATED 29 10^3/uL (150-450)
[2019-08-19 06:13] LABS: ALBUMIN 2.5 GM/DL (3.2-5.2); BILIRUBIN,TOTAL 0.4 MG/DL (0.2-1.0); CALCIUM LEVEL 9.4 MG/DL (8.8-10.2); CREATININE FOR GFR 3.74 MG/DL (0.55-1.30); GLOMERULAR FILTRATION RATE 12.7 (>39); POTASSIUM SERUM 4.1 MEQ/L (3.5-5.1); TOTAL PROTEIN 6.8 GM/DL (6.4-8.2)
--- NOTE | 2019-08-19 07:56 | IPNPDOC ---
Subjective Date Seen The patient was seen on 08/19/19. Subjective Chief Complaint/HPI anemia, BOLA Events since last encounter Became hypothermic overnight requiring warming blanket for several hours. patient also c/o tachypnea, dyspnea which is worse when under warming blanket. tolerating clear liquids. stool for guiac +. Denies abdominal pain, n/v. + flatus. Last BM was a small smear yesterday. Constitutional: Reports: Other (hypothermia); Denies: Chills, Fever, Night Sweats Pulmonary: Reports: Dyspnea; Denies: Cough Cardiovascular: Denies: Chest Pain, Palpitations, Orthopnea, Paroxysmal Noc. Dyspnea, Edema, Lt Headedness Gastrointestinal: Reports: Melena; Denies: Nausea, Vomiting, Abdominal Pain, Diarrhea, Constipation Genitourinary: Denies: Dysuria, Frequency, Incontinence, Retention Hematologic: Denies: Bruising Psych: Reports: Mood Normal; Denies: Depression, Memory Issues Objective Physical Examination General Exam: Positive: Alert, Cooperative, No Acute Distress Eye Exam: Positive: Conjunctiva & lids normal (lids erythematous, purulent drainage) ENT Exam: Positive: Atraumatic, Mucous membr. moist/pink Chest Exam: Positive: Clear to auscultation, Normal air movement Heart Exam: Positive: Rate Normal, Murmurs (2 - 3/6 blowing murmur ) Telemetry: Positive: Bradycardia (46-60); Negative: Atrial fibrillation, Tachycardia Abdomen Exam: Positive: Normal bowel sounds, Soft; Negative: Tenderness, Hepatospenomegaly, Mass Extremity Exam: Negative: Clubbing, Cyanosis, Edema, Normal pulses Skin Exam: Positive: Nl turgor and temperature Neuro Exam: Positive: Normal Speech Psych Exam: Positive: Mood NL, Oriented x 3 Assessment /Plan Problems (1) Acute anemia Status: Acute Problem Text: Transfused 1 unit with slight improvement in Hgb to 8.4. occult stool specimen pending. platelets trending down. ? ulceration vs liver and renal disease causing platelet dysfunction and anemia. (2) Acute kidney injury Status: Acute Problem Text: 08/19/19: mild improvement of Cr to 3.74 today baseline cr 2.4-2.6 since last hospitalization. Cr today is 4.0. Appreciate nephrology input. (3) Hypernatremia Status: Acute Problem Text: 08/19/19: D5W running, level improved to 148 today. Na level 150 this am. Minimal improvement. Appreciate nephrology input. (4) Hypothermia Status: Acute Response to Treatment: Improving Problem Text: temp down to 91 overnight. Currently stable at 97.5 off of warming blanket. (5) GI bleeding Status: Acute Problem Specific Plan: Consult Specialist Problem Text: will consult general surgery as gastro is unavailable. (6) Hypertension Status: Chronic (7) Hyperlipidemia Status: Chronic (8) Abnormal transaminases Status: Acute Problem Text: ? cirrhosis secondary to long standing ETOH abuse. has been sober since hospitalization 07/2019. (9) Elevated pancreatic enzyme Problem Text: elevated amylase and lipase noted. repeat today. CT is negative. Clear liquids for now. monitor. (10) Thrombocytopenia Status: Acute Problem Text: platelets remain low at 29. Will consult hematology. Other etiology may include: liver disease. Plan/VTE VTE Prophylaxis Ordered?: No VTE Exclusion Pharmacological: Thrombocytopenia VS, I&O, 24H, Fishbone Vital Signs/I&O Vital Signs Date Time Temp Pulse Resp B/P (MAP) Pulse Ox O2 Delivery O2 Flow Rate FiO2 08/19/19 06:00 97.2 62 18 132/70 (90) 97 Room Air I&O- Last 24 Hours up to 6 AM 08/19/19 06:00 Intake Total 1800 ml Output Total 1050 ml Balance 750 ml Laboratory Data 24H LABS Laboratory Tests 2 08/18/19 12:01: Urine Color YELLOW, Urine Appearance HAZY, Urine pH 5.0, Urine Specific [place] 1.012, Urine Protein NEGATIVE, Urine Glucose (Auto)(UA) NEGATIVE, Urine Ketones (Auto) NEGATIVE, Urine Blood 1+H, Urine Nitrite NEGATIVE, Urine Bilirubin NEGATIVE, Urine Urobilinogen 0.2, Urine Leukocyte Esterase (Auto) NEGATIVE, Urine WBC (Auto) 3, Urine RBC (Auto) 2, Urine Hyaline Casts (Auto) 0, Urine Bacteria (Auto) NEGATIVE, Urine Squamous Epithelial Cells 0, Urine Amorphous Sediment (Auto) SMALLH, Urine Mucus (Auto) SMALL, Urine Sperm (Auto) 08/18/19 12:02: Urine Random Total Protein 30.2H 08/18/19 13:20: Complement C3 114, Complement C4 22 08/19/19 05:37: Immature Granulocyte % (Auto) 0.5, Neutrophils (%) (Auto) 75.0H, Lymphocytes (%) (Auto) 15.8L, Monocytes (%) (Auto) 8.0H, Eosinophils (%) (Auto) 0.7, Basophils (%) (Auto) 0.0, Neutrophils # (Auto) 3.2, Lymphocytes # (Auto) 0.7L, Monocytes # (Auto) 0.3, Eosinophils # (Auto) 0.0, Basophils # (Auto) 0.0, Nucleated Red Blood Cells % (auto) 0.5H, Immature Platelet Fraction 21.0H, Anion Gap 6L, Glomerular Filtration Rate 12.7L, Calcium Level 9.4, Total Bilirubin 0.4, Aspartate Amino Transf (AST/SGOT) 128H, Alanine Aminotransferase (ALT/SGPT) 70, Alkaline Phosphatase 70, Total Protein 6.8, Albumin 2.5L, Albumin/Globulin Ratio 0.58L CBC/BMP Laboratory Tests 08/19/19 05:37 Microbiology Microbiology 08/18/19 Stool Occult Blood (BJORN) - Final, Complete Alexa Omer Aug 19, 2019 07:56
[2019-08-19] MEDS: ERYTHROMYCIN OPHTH OINT TOP SCH (08:52)
[2019-08-19] MEDS: PANTOPRAZOLE 40MG INJ (PROTONIX) (C9113) IV SCH (08:52)
--- NOTE | 2019-08-19 09:14 | REP ---
CHEST, SINGLE VIEW: Single view of the chest is performed and compared to a prior study of 07/09/2019. I see no acute infiltrate. There is mild cardiomegaly. There is mild pulmonary venous hypertension. Mediastinal silhouette is unchanged. IMPRESSION: No acute infiltrate. Electronically Signed by Juaquin Olea MD 08/19/2019 07:52 P
--- NOTE | 2019-08-19 09:41 | REP ---
RIGHT UPPER QUADRANT ULTRASOUND: Real-time sonographic evaluation of right upper quadrant performed. Gallbladder demonstrates no evidence of intraluminal sludge or calculi, wall thickening, or pericholecystic fluid. There is no intrahepatic or extrahepatic biliary dilatation, common bile duct measuring 6 mm. Liver demonstrate somewhat heterogeneous echotexture with no mass. Pancreas is grossly unremarkable but not well seen due to overlying bowel gas. Right kidney demonstrates no hydronephrosis with normal size 10.4 cm in length. There is increased echotexture of the cortex suggesting medical renal disease. Incidental note is made of right pleural fluid. IMPRESSION: Incidental note made of right pleural fluid. Echogenic right kidney suggests medical renal disease. No hydronephrosis. Otherwise, negative right upper quadrant ultrasound. Electronically Signed by Juaquin Olea MD 08/19/2019 07:52 P
[2019-08-19] MEDS: D5W 1,000 ML IV SCH ×2 (10:07→23:29)
[2019-08-19 14:33] LABS: IMMUNOGLOBULIN E 90.4 IU/ML (<100); TOTAL PROTEIN 6.8 GM/DL (6.4-8.2)
--- NOTE | 2019-08-19 17:15 | ECGEPIP ---
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
[2019-08-20] VITALS (22 sets, daily range): BP systolic 90–160; BP diastolic 51–97
[2019-08-20 04:51] LABS: HEMATOCRIT 27.5 % (36.0-47.0); HEMOGLOBIN 8.3 g/dl (12.0-15.5); RED BLOOD COUNT 2.78 10^6/uL (4.00-5.40); WHITE BLOOD COUNT 5.2 10^3/uL (4.0-10.0)
[2019-08-20 04:52] LABS: BASO % 0.2 % (0.0-1.0); EOS % 0.6 % (0.0-3.0); LYMPH # 0.9 10^3/uL (1.5-5.0); LYMPH % 17.9 % (24.0-44.0); MEAN CORPUSCULAR HEMOGLOBIN 29.9 pg (27.0-33.0); MEAN CORPUSCULAR HGB CONC 30.2 g/dl (32.0-36.5); MEAN CORPUSCULAR VOLUME 98.9 fl (80.0-96.0); MONO # 0.4 10^3/uL (0.0-0.8); MONO % 7.3 % (0.0-5.0); NEUTROPHILS # 3.8 10^3/uL (1.5-8.5); NEUTROPHILS % 73.6 % (36.0-66.0); PLATELET COUNT, AUTOMATED 30 10^3/uL (150-450)
[2019-08-20 05:22] LABS: CALCIUM LEVEL 9.2 MG/DL (8.8-10.2); CREATININE FOR GFR 3.47 MG/DL (0.55-1.30); GLOMERULAR FILTRATION RATE 13.9 (>39); POTASSIUM SERUM 4.5 MEQ/L (3.5-5.1)
[2019-08-20 05:23] LABS: BILIRUBIN,TOTAL 0.5 MG/DL (0.2-1.0)
[2019-08-20 05:24] LABS: ALBUMIN 2.5 GM/DL (3.2-5.2); TOTAL PROTEIN 7.1 GM/DL (6.4-8.2)
[2019-08-20] MEDS ORDERED: ALBUTEROL SULFATE 2.5 MG/0.5 ML INH NEB SOLN NEB PRN (08:00)
--- NOTE | 2019-08-20 08:03 | IPNPDOC ---
Subjective Date Seen The patient was seen on 08/20/19. Subjective Chief Complaint/HPI ARF Events since last encounter Had hypothermic event overnight with temp down to 92. improved with kindra hugger. c/o dyspnea. CXR negative yesterday. had episode of delirium and pulled out IV. patient states was having bad dream and felt paranoid about being in hospital. Constitutional: Denies: Chills, Fever, Night Sweats Skin: Denies: Rash, Lesions, Breakdown Pulmonary: Reports: Dyspnea; Denies: Cough Cardiovascular: Denies: Chest Pain, Palpitations, Orthopnea, Paroxysmal Noc. Dyspnea, Lt Headedness Gastrointestinal: Denies: Nausea, Vomiting, Abdominal Pain, Diarrhea, Constipation Objective Physical Examination General Exam: Positive: Alert, Cooperative, No Acute Distress, Mild Distress (tachypnea, dyspnea) Eye Exam: Positive: Conjunctiva & lids normal (lids erythematous, purulent drainage) ENT Exam: Positive: Atraumatic, Mucous membr. moist/pink Chest Exam: Positive: Wheezing Heart Exam: Positive: Rate Normal, Murmurs (2 - 3/6 blowing murmur ) Telemetry: Positive: No significant arrhythmia; Negative: Atrial fibrillation, Tachycardia Abdomen Exam: Positive: Normal bowel sounds, Soft; Negative: Tenderness, Hepatospenomegaly, Mass Extremity Exam: Negative: Clubbing, Cyanosis, Edema, Normal pulses Skin Exam: Positive: Nl turgor and temperature Neuro Exam: Positive: Normal Speech Psych Exam: Positive: Mood NL; Negative: Oriented x 3 (vague reponses, A/O) Assessment /Plan Problems (1) Dyspnea Status: Acute Problem Text: repeat CXR, if no findings, proceed with CT chest. Trial Albuterol neb. Potential for volume overload due to IVF. (2) Hypothermia Status: Acute Response to Treatment: Improving Problem Text: repeat event overnight. Unclear etiology. (3) Acute anemia Status: Acute Problem Text: 08/20/19: hgb remains stable at 8.3-8.4 Transfused 1 unit with slight improvement in Hgb to 8.4. occult stool specimen pending. platelets trending down. ? ulceration vs liver and renal disease causing platelet dysfunction and anemia. (4) Acute kidney injury Status: Acute Problem Text: 08/19/19: mild improvement of Cr to 3.74 today baseline cr 2.4-2.6 since last hospitalization. Cr today is 4.0. Appreciate nephrology input. (5) Hypernatremia Status: Acute Problem Text: 08/19/19: D5W running, level improved to 148 today. Na level 150 this am. Minimal improvement. Appreciate nephrology input. (6) GI bleeding Status: Acute Problem Specific Plan: Consult Specialist Problem Text: ? need for eval by general surgery vs gastro. Defer to attending (7) Hypertension Status: Chronic (8) Hyperlipidemia Status: Chronic (9) Abnormal transaminases Status: Acute Problem Text: ? cirrhosis secondary to long standing ETOH abuse. has been sober since hospitalization 07/2019. Normal liver US (10) Elevated pancreatic enzyme Response to Treatment: Improving Problem Text: elevated amylase and lipase noted. repeat today. CT is negative. Clear liquids for now. monitor. (11) Thrombocytopenia Status: Acute Problem Text: hematology consulted. workup pending. Plan/VTE VTE Prophylaxis Ordered?: No VTE Exclusion Pharmacological: Thrombocytopenia VS, I&O, 24H, Fishbone Vital Signs/I&O Vital Signs Date Time Temp Pulse Resp B/P (MAP) Pulse Ox O2 Delivery O2 Flow Rate FiO2 08/20/19 06:00 95.9 70 159/81 (114) 91 Room Air 08/20/19 04:00 18 I&O- Last 24 Hours up to 6 AM 08/20/19 06:00 Intake Total 1900 ml Output Total 500 ml Balance 1400 ml Laboratory Data 24H LABS Laboratory Tests 2 08/19/19 13:52: Total Protein (PEP) 6.8, Immunoglobulin G 1620, Immunoglobulin A 405.0H, Immunoglobulin E 90.4 08/20/19 04:42: Immature Granulocyte % (Auto) 0.4, Neutrophils (%) (Auto) 73.6H, Lymphocytes (%) (Auto) 17.9L, Monocytes (%) (Auto) 7.3H, Eosinophils (%) (Auto) 0.6, Basophils (%) (Auto) 0.2, Neutrophils # (Auto) 3.8, Lymphocytes # (Auto) 0.9L, Monocytes # (Auto) 0.4, Eosinophils # (Auto) 0.0, Basophils # (Auto) 0.0, Nucleated Red Bloo d Cells % (auto) 0.4H, Anion Gap 11, Glomerular Filtration Rate 13.9L, Calcium Level 9.2, Total Bilirubin 0.5, Aspartate Amino Transf (AST/SGOT) 129H, Alanine Aminotransferase (ALT/SGPT) 71, Alkaline Phosphatase 76, Total Protein 7.1, Albumin 2.5L, Albumin/Globulin Ratio 0.54L CBC/BMP Laboratory Tests 08/20/19 04:42 Microbiology Microbiology 08/18/19 Stool Occult Blood (BJORN) - Final, Complete Alexa Omer [facility] Aug 20, 2019 08:03
[2019-08-20 08:24] LABS: ALBUMIN 3.13 GM/DL (3.29-5.55); ALPHA-1-GLOBULIN % 5.5 % (2.9-4.9); ALPHA-1-GLOBULINS 0.37 GM/DL (0.17-0.41); ALPHA-2-GLOBULINS 0.52 GM/DL (0.42-0.99); ALPHA-2-GLOBULINS % 7.6 % (7.1-11.8); BETA-1-GLOBULINS 0.45 GM/DL (0.28-0.60); BETA-1-GLOBULINS % 6.6 % (4.7-7.2); BETA-2-GLOBULINS 0.48 GM/DL (0.19-0.55); BETA-2-GLOBULINS % 7.1 % (3.2-6.5); GAMMA GLOBULIN % 27.2 % (11.1-18.8); GAMMA GLOBULINS 1.85 GM/DL (0.65-1.58)
--- NOTE | 2019-08-20 08:27 | REP ---
Single view chest: 08/20/2019. Indication: Dyspnea. Comparison: Yesterday. Findings: Mildly prominent pulmonary vascular markings are redemonstrated and slightly more conspicuous. This may be technique related. There is no pleural effusion or pneumothorax. Mildly enlarged cardiac silhouette is again noted. Impression: Essentially stable exam compared to yesterday. Mildly prominent pulmonary vascularity and mild cardiomegaly. Electronically Signed by Asad Torrez DO 08/20/2019 08:19 A
[2019-08-20] MEDS: MULTIVITAMINS/MINERALS THERAP 1 TAB PO SCH (09:00)
[2019-08-20] MEDS: FOLIC ACID 1 MG TAB PO SCH (09:00)
[2019-08-20] MEDS ORDERED: THIAMINE 100 MG TAB PO SCH (09:00)
[2019-08-20 09:09] LABS: FREE T4 1.17 NG/DL (0.76-1.46)
[2019-08-20] MEDS: PANTOPRAZOLE 40MG INJ (PROTONIX) (C9113) IV SCH (09:54)
[2019-08-20 09:55] LABS: ABG BASE EXCESS -7.8 (-2.0-2.0); ABG HCO3 18.2 MEQ/L (22.0-26.0); ABG O2 SATURATION 93.6 % (95.0-99.0); ABG PARTIAL PRESSURE CO2 38.8 mmHg (35.0-45.0); ABG PARTIAL PRESSURE O2 74.3 mmHg (75.0-100.0); ABG TOTAL CO2 19.3 MEQ/L (23.0-31.0); ABG pH (ARTERIAL) 7.288 UNITS (7.350-7.450)
[2019-08-20] MEDS: FUROSEMIDE 20 MG/2 ML VIAL (J1940) IV SCH ×2 (09:55→16:58)
[2019-08-20] MEDS: ERYTHROMYCIN OPHTH OINT TOP SCH (09:56)
[2019-08-20] MEDS ORDERED: LORazepam 2 MG TAB PO PRN (11:15)
--- NOTE | 2019-08-20 11:45 | IPN ---
DATE: 08/20/2019 This note supplements Melita Omer's note. The patient was having some paranoid ideation and visual hallucinations today. She is paranoid about the nursing staff and feels that people are fabricating identification badges in order to facilitate injuring her. On examination, she is calm and answers questions but definitely seems agitated and has some tremor. I am suspicious there might be some alcohol withdrawal involved. I am going to start a clinical institute withdrawal assessment (CIWA) protocol. We will give her some thiamine and folic acid. I am concerned she will not cooperate with the MRI scan which is very important for us to get and neurology agrees with this.
[2019-08-20] MEDS ORDERED: HALOPERIDOL 5 MG/ML VIAL (J1630) As Ordered ONE (12:39)
[2019-08-20] MEDS ORDERED: LORazepam 2 MG/ML VIAL (J2060) As Ordered ONE (12:40)
[2019-08-20] MEDS ORDERED: LORazepam 2 MG/ML VIAL (J2060) IM STA (13:12)
[2019-08-20] MEDS ORDERED: HALOPERIDOL 5 MG/ML VIAL (J1630) IM STA (13:12)
--- NOTE | 2019-08-20 15:15 | REP ---
CT CHEST WITHOUT IV CONTRAST: CT chest performed without IV contrast. Sagittal and coronal reconstruction images are performed. There are moderate bilateral pleural effusions. There is patchy infiltrate in each lung. The heart is upper normal limits in size. There is no pericardial effusion. There is no axillary or mediastinal adenopathy seen. There are degenerative changes of the spine. There is again compression deformity noted at L1. This is seen on the CT of 08/17/2019. IMPRESSION: Moderate bilateral pleural effusions with adjacent bilateral parenchymal infiltrates. Electronically Signed by Juaquin Olea MD 08/21/2019 04:34 P
--- NOTE | 2019-08-20 15:23 | REP ---
MRI brain: 08/20/2019. Indication: Confusion. Hypothermia. Comparison: None. Technique: Multiplanar short and long TR sequences of the brain were performed without IV Gadolinium. Findings: Image quality is degraded by patient motion. There is no intracranial mass effect, hydrocephalus or significant hemorrhage. No areas of restricted diffusion are detected. Volume loss is present. There are a few age appropriate foci of elevated cerebral white matter T2 signal. The midline structures and craniocervical junction are unremarkable. Impression: There is no evidence of an acute intracranial process. Electronically Signed by Asad Torrez DO 08/20/2019 03:15 P
[2019-08-20 17:34] LABS: LDH LACTATE DEHYDROGENASE 276 U/L (84-246)
[2019-08-20 18:20] LABS: INR 1.41; PARTIAL THROMBOPLASTIN TIME 37.2 SECONDS (25.0-38.4)
[2019-08-20 18:23] LABS: D-DIMER QUANT 1427.06 ng/ml (<500)
[2019-08-20 19:04] LABS: URINE TOTAL PROTEIN 9.6 MG/DL (0-12)
[2019-08-20 19:05] LABS: TOTAL PROTEIN,RANDOM URINE 11.2 MG/DL (0.0-12.0)
--- NOTE | 2019-08-20 19:09 | CR ---
DATE OF CONSULTATION: 08/19/2019 MEDICAL ONCOLOGY/HEMATOLOGY INPATIENT CONSULT DIAGNOSIS: Acute/subacute anemia, thrombocytopenia, renal failure in a 69-year-old woman with no prior history of same, readmitted with progressive renal failure, and persistent anemia following recent hospitalization for fatigue and findings of profound anemia and new renal insufficiency. REQUESTING PROVIDER: Negra Liu FNP HISTORY OF PRESENT ILLNESS: Rosita Galan is a 69-year-old woman, generally well, who lives in [place], [place], works, is , lives by herself and has a remote smoking history and recent somewhat significant alcohol history who in early July was admitted to the hospital with generalized weakness. She was found to have a hemoglobin of 4.9, albumin 2.6, creatinine 2.9, with normal platelets at that time. She underwent evaluation including SPEP, which was negative, upper endoscopy revealing a nonbleeding gastric ulcer in the antrum, biopsy negative for Helicobacter (H) pylori or malignancy, showing chronic inflammation. She received three unit red blood cell (RBC) transfusion, and was discharged with followup with nephrology. During that admission, her renal function did not significantly improve. Once outpatient, she reports no major new symptoms. She acknowledges feeling some shortness of breath. She saw Dr. Cloud apparently 08/10/2019 or 08/17/2019 and because of creatinine 3.33, was referred to the emergency room. On 08/17/2019 admission, hemoglobin was 7.4, and other notable labs during this admission include creatinine up to 3.7 currently, GFR 12, PT, PTT mildly elevated, platelets dropping now to 29, neutrophil predominant. Normal white count of 4.2, AST 128, lipase greater than 1000, albumin 2.5, calcium 9.1, currently 9.4. IMAGING STUDIES: On this admission includes abdomen pelvis CT without contrast showing a small left uterine leiomyoma, some diverticulosis, minimal right pleural effusion, pancreas largely obscured by bowel but no obvious abnormalities. Renal ultrasound 07/13/2019 with increased cortical echogenicity suggesting chronic renal insufficiency. No hydronephrosis. Liver ultrasound on this admission: Right pleural fluid, echogenic kidney, no hydronephrosis, unremarkable liver. Slight heterogeneous echotexture without mass. At the bedside, Rosita is accompanied by her daughter Melita. She speaks slowly, deliberately and articulately, making good eye contact. Overall she denies pain or distress, but notes she has been feeling some shortness of breath in the last day or so. She denies a history of cardiac disease, falls. She denies sensory neuropathy, sweats, fevers; she acknowledges an about 10-pound weight loss in the last year, unintentional. PAST MEDICAL HISTORY: Hypertension, hyperlipidemia, gastroesophageal reflux disease (GERD), gastric ulcer as noted above, history of alcohol abuse - recently stopped. PAST SURGICAL HISTORY: None other than esophagogastroduodenoscopy (EGD) on last admission. ALLERGIES: BEE VENOM. CURRENT MEDICATIONS: Pantoprazole 40 mg daily, erythromycin daily. SOCIAL HISTORY: The patient is a , lives by herself in [place], has a very remote past smoking history, has a significant alcohol history, stopped about a month ago. FAMILY HISTORY: Negative for malignancy. REVIEW OF SYSTEMS: In addition to pertinent positives and negatives noted above, the patient denies any recent rashes, bleeding, ecchymoses, hemoptysis. She did have an episode of hematemesis, coffee grounds reported during a gastroenteritis several weeks prior to her July admission. No diarrhea, constipation or blood in her stool. Remainder of 12 system review unremarkable. PHYSICAL EXAM: Vital Signs: Blood pressure 141/81, respiratory rate 16, oxygen saturation (O2 sat) 92% on room air, heart rate 92, temperature 97.4, reportedly hypothermic on admission with rectal temperature 91.8. Patient is a petite older woman notable for mild exophthalmos, pallor, protruding lower abdomen in the setting of a petite slender frame. HEENT: No scleral icterus. Oropharynx unremarkable. Respiratory: Clear lungs throughout the lung ceballos. No wheezes or rales. Cardiac: S1, S2 distant heart sounds, regular rate and rhythm. Occasional ectopy. Abdomen is soft, nontender, mild distension. No palpable liver edge. No palpable mass. No suprapubic tenderness. Extremities: No edema. No asymmetry. Lymph nodes: No palpable submandibular, cervical, supraclavicular or axillary adenopathy bilaterally. LABORATORY DATA: As described above. In addition, peripheral smear 08/18/2019 notable for mild macrocytic anemia. No significant poikilocytosis. No mention made of schistocytes present or absent. Ferritin 1341 on 07/09/2019. Notably this was the day of the patient's admission drawn at 11:35 a.m. Her first transfusion recorded that day at 2:28 p.m. IMPRESSION: A 69-year-old woman with constellation of findings including acute renal failure, new significant transfusion dependent anemia, new progressive thrombocytopenia, mildly elevated LDH and AST with normal total bilirubin. No schistocytes on peripheral smear, at least initially. No overt evidence of bleeding on upper endoscopy several weeks before, though reported episode of hematemesis. Mildly elevated PT, PTT. 10-pound weight loss over 1 year. Negative SPEP. The differential diagnosis is broad and includes a malignant plasma cell disorder, such as multiple myeloma without M protein, myeloma kidney; a microangiopathic hemolytic anemia including thrombotic thrombocytopenic purpura (TTP) or hemolytic-uremic syndrome (HUS). Notably, the patient had a recent apparently viral illness. Her symptoms are notable for prominent renal insufficiency, but with normal PT/PTT, TTP is unlikely; a possible underlying inflammatory condition which would explain the very elevated ferritin prior to ever receiving a transfusion in early July, for example lupus; and other hemolytic anemia, though again no schistocytes on smear. PLAN/RECOMMENDATION: 1. Obtain haptoglobin, DORIS, repeat LDH, repeat total bilirubin, obtain ESR, CRP, HENRIK. 2. Survey all plasma cell dyscrasia labs including serum immunofixation, urine immunofixation, UPEP, 24-hour urine for protein. 3. If the patient's shortness of breath persists, consider VQ scan to rule out pulmonary embolus despite low platelets, both DIC and TTP are prothrombotic condition. 4. Consider repeating peripheral blood smear, though in the setting of recent transfusions more difficult to sort out. I will speak with Dr. Suárez of pathology about our other differential diagnosis. [facility]
--- NOTE | 2019-08-20 19:10 | IPN ---
DATE: 08/19/2019 SUBJECTIVE: The patient was seen and examined at the bedside today morning in the intensive care unit (ICU). The patient is afebrile, hemodynamically stable. There is slight improvement in the renal function. Creatinine is down from 4 to 3.7. She continues to have low platelet count and anemia. She denies any active complaints at this time. OBJECTIVE: Vital signs: Temperature is 97.1 degrees Fahrenheit, blood pressure 133/79, pulse is 59, respiratory of 16, saturating 94% on room air. Intake and output: Urine output recorded is 800 mL yesterday, 1 liter so far today since overnight. Weight in the bed scale is 54.7. PHYSICAL EXAMINATION: GENERAL: The patient is awake, alert, oriented times three, sitting up in the bed in no apparent distress. HEAD AND NECK: Extraocular muscles intact. Pupils equally round and reactive to light. Mucous membranes are moist. Neck is supple. There is no jugular venous distention (JVD). CARDIOVASCULAR: S1, S2, regular rate. No edema of the bilateral lower extremities. RESPIRATORY: Chest is clear to auscultation bilaterally. Bilateral equal air entry. No rales or rhonchi. ABDOMEN: Soft. Positive bowel sounds. Nontender. No organomegaly. MUSCULOSKELETAL: No clubbing or cyanosis. Pulses are 2+. CENTRAL NERVOUS SYSTEM: No focal deficit. Power is 5/5 in all extremities. LABORATORY REVIEW: CBC showed WBC 4.2, hemoglobin 8.2, platelets are 29. BMP showed sodium 147, potassium 4.1, chloride 121, bicarbonate 20, BUN 59, creatinine is 3.7; it was 4 yesterday. Amylase is 140, lipase is 1038. IMAGING STUDIES: An ultrasound of the liver was done, which showed right pleural fluid, echogenic right kidney. No hydronephrosis. Otherwise negative right upper quadrant ultrasound. A chest x-ray was done in the morning, which showed no acute infiltrate. CURRENT INPATIENT MEDICATIONS: The patient's medications were all reviewed by me. I have changed the intravenous (IV) fluid to D5W at 75 mL an hour. I have decreased the Protonix injection to 40 mg IV once a day. ASSESSMENT AND PLAN: 1. Acute renal failure. Unknown etiology at this time; however the patient is known oliguric. Continue the current IV fluid hydration. If the etiology of renal failure is not certain, the patient might need a renal biopsy over the next 24-48 hours. 2. Hypernatremia. Half-normal saline is being stopped. The patient is being switched to D5W only. 3. Elevated transaminases. The patient got the right upper quadrant ultrasound, which did not show any acute pathology. The patient is not on any hepatotoxic medication at this time. 4. Hyperchloremic metabolic acidosis. Half-normal saline is being stopped. No need of oral or IV bicarbonate administration at this time. Acidosis is most likely secondary to acute renal failure. 5. Thrombocytopenia. The patient has persistent thrombocytopenia. She needs to be evaluated by hematology/oncology service.
[2019-08-20] MEDS: LORazepam 2 MG/ML VIAL (J2060) IV PRN (21:00)
[2019-08-20] MEDS: THIAMINE HCL 200 MG/2 ML VIAL (J3411) IV SCH (21:17)
[2019-08-21] VITALS (23 sets, daily range): BP systolic 83–181; BP diastolic 50–100
[2019-08-21] MEDS: FUROSEMIDE 20 MG/2 ML VIAL (J1940) IV SCH ×2 (00:17→08:43)
[2019-08-21] MEDS: LORazepam 2 MG/ML VIAL (J2060) IV PRN (04:43)
[2019-08-21 04:45] LABS: BASO % 0.2 % (0.0-1.0); EOS % 0.5 % (0.0-3.0); HEMATOCRIT 25.8 % (36.0-47.0); HEMOGLOBIN 7.9 g/dl (12.0-15.5); LYMPH # 0.9 10^3/uL (1.5-5.0); LYMPH % 21.7 % (24.0-44.0); MEAN CORPUSCULAR HEMOGLOBIN 30.4 pg (27.0-33.0); MEAN CORPUSCULAR HGB CONC 30.6 g/dl (32.0-36.5); MEAN CORPUSCULAR VOLUME 99.2 fl (80.0-96.0); MONO # 0.3 10^3/uL (0.0-0.8); NEUTROPHILS % 70.1 % (36.0-66.0); WHITE BLOOD COUNT 4.3 10^3/uL (4.0-10.0)
[2019-08-21 05:01] LABS: PLATELET COUNT, AUTOMATED 37 10^3/uL (150-450)
[2019-08-21 05:10] LABS: ALBUMIN 2.4 GM/DL (3.2-5.2); BILIRUBIN,TOTAL 0.7 MG/DL (0.2-1.0); CALCIUM LEVEL 9.3 MG/DL (8.8-10.2); CREATININE FOR GFR 4.03 MG/DL (0.55-1.30); GLOMERULAR FILTRATION RATE 11.7 (>39); TOTAL PROTEIN 6.2 GM/DL (6.4-8.2)
[2019-08-21] MEDS ORDERED: DEXTROSE 50% 50 ML SYRINGE As Ordered ONE (05:52)
[2019-08-21] MEDS: DEXTROSE 50% 50 ML SYRINGE IV PRN ×2 (05:57→09:38)
[2019-08-21] MEDS ORDERED: GLUCOSE 4 GM CHEW TABLET PO PRN (06:00)
[2019-08-21] MEDS ORDERED: GLUCAGON FOR INJ 1 MG VIAL (J1610) SC PRN (06:00)
[2019-08-21] MEDS: PANTOPRAZOLE 40MG INJ (PROTONIX) (C9113) IV SCH (08:42)
[2019-08-21] MEDS: MULTIVITAMINS/MINERALS THERAP 1 TAB PO SCH (08:43)
[2019-08-21] MEDS: FOLIC ACID 1 MG TAB PO SCH (08:43)
[2019-08-21] MEDS: THIAMINE HCL 200 MG/2 ML VIAL (J3411) IV SCH ×2 (08:49→20:32)
[2019-08-21] MEDS: ERYTHROMYCIN OPHTH OINT TOP SCH (08:49)
[2019-08-21] MEDS: D5W/0.45% SODIUM CHLORIDE 1,000 ML IV SCH (09:59)
--- NOTE | 2019-08-21 10:44 | IPNPDOC ---
Subjective Date Seen The patient was seen on 08/21/19. Subjective Chief Complaint/HPI Pt this morning was difficult for nursing to arouse, she expressed concern and I came to bedside. Rosita arose to voice, although remained drowsy. ROS was limited. General: Reports: ROS Unobtainable Objective Physical Examination General Exam: Positive: No Acute Distress (arose to voice, remained drowsy and required further verbal cues to stimulate.); Negative: Alert, Cooperative ENT Exam: Positive: Atraumatic, Mucous membr. moist/pink Chest Exam: Positive: Diminished (few fine bibasilar rales) Heart Exam: Positive: Rate Normal, Murmurs (2 - 3/6 blowing murmur ) Telemetry: Positive: No significant arrhythmia; Negative: Atrial fibrillation, Tachycardia Abdomen Exam: Positive: Normal bowel sounds, Soft; Negative: Tenderness, Hepatospenomegaly, Mass Extremity Exam: Negative: Clubbing, Cyanosis, Edema, Normal pulses Skin Exam: Positive: Nl turgor and temperature Neuro Exam: Negative: Normal Speech Psych Exam: Negative: Mood NL, Oriented x 3 (vague reponses, A/O) Assessment /Plan Problems (1) Thrombocytopenia Status: Acute Problem Text: 08/21 Heme to cont to follow etiology remains unclear, Plt 37 this morning increased from yesterday, Hgb 7.9 this morning, cont to monitor. Bone marrow bx likely needed, appreciate further input from Heme. 08/20 hematology consulted. workup pending. (2) Acute anemia Status: Acute Problem Text: 08/21 hgb 7.9, will transfuse 1 unit pRBCs, Stool OB +, pt recently hospitalized with GI bleeding. 08/20/19: hgb remains stable at 8.3-8.4 Transfused 1 unit with slight improvement in Hgb to 8.4. occult stool specimen pending. platelets trending down. ? ulceration vs liver and renal disease causing platelet dysfunction and anemia. (3) Dyspnea Status: Acute Problem Text: 08/21 CT Chest with B effusions/infiltrates, received IV lasix, will add Zosyn. 08/20 repeat CXR, if no findings, proceed with CT chest. Trial Albuterol neb. Potential for volume overload due to IVF. (4) Hypothermia Status: Acute Response to Treatment: Improving Problem Text: repeat event overnight. Unclear etiology. (5) Acute kidney injury Status: Acute Problem Text: Scr 4.03, nephro following, has DC lasix, already received morning dose. Dr Whitlock plans for renal bx on Saturday. 08/19/19: mild improvement of Cr to 3.74 today baseline cr 2.4-2.6 since last hospitalization. Cr today is 4.0. Appreciate nephrology input. (6) Hypernatremia Status: Acute Problem Text: 08/21 IVF had been d/c, pt became hypoglycemic, started on D5W1/2NS 08/19/19: D5W running, level improved to 148 today. Na level 150 this am. Minimal improvement. Appreciate nephrology input. (7) GI bleeding Status: Acute Problem Specific Plan: Consult Specialist Problem Text: ? need for eval by general surgery vs gastro. Defer to attending (8) Hypertension Status: Chronic (9) Abnormal transaminases Status: Acute Problem Text: ? cirrhosis secondary to long standing ETOH abuse. has been sober since hospitalization 07/2019. Normal liver US (10) Elevated pancreatic enzyme Response to Treatment: Improving Problem Text: elevated amylase and lipase noted. repeat today. CT is negative. Clear liquids for now. monitor. Plan/VTE VTE Prophylaxis Ordered?: No VTE Exclusion Pharmacological: Thrombocytopenia VS, I&O, 24H, Fishbone Vital Signs/I&O Vital Signs Date Time Temp Pulse Resp B/P (MAP) Pulse Ox O2 Delivery O2 Flow Rate FiO2 08/21/19 08:51 47 15 98/51 (73) 97 Room Air 08/21/19 08:00 97.2 I&O- Last 24 Hours up to 6 AM 08/21/19 06:00 Intake Total 240 ml Output Total 2625 ml Balance -2385 ml Laboratory Data 24H LABS Laboratory Tests 2 08/20/19 16:54: Lactate Dehydrogenase 276H 08/20/19 17:46: Prothrombin Time 17.0H, Prothromb Time International Ratio 1.41, Activated Partial Thromboplast Time 37.2, Fibrinogen 313, D-Dimer, Quantitative 1427.06H 08/20/19 18:30: Urine Total Protein mg/dL 9.6, Urine Random Bence Farah Protein 11.2 08/21/19 04:14: Immature Granulocyte % (Auto) 0.5, Neutrophils (%) (Auto) 70.1H, Lymphocytes (%) (Auto) 21.7L, Monocytes (%) (Auto) 7.0H, Eosinophils (%) (Auto) 0.5, Basophils (%) (Auto) 0.2, Neutrophils # (Auto) 3.0, Lymphocytes # (Auto) 0.9L, Monocytes # (Auto) 0.3, Eosinophils # (Auto) 0.0, Basophils # (Auto) 0.0, Nucleated Red Blood Cells % (auto) 0.0, Immature Platelet Fraction 15.9H, Anion Gap 9, Glomerular Filtration Rate 11.7L, Calcium Level 9.3, Total Bilirubin 0.7, Aspartate Amino Transf (AST/SGOT) 126H, Alanine Aminotransferase (ALT/SGPT) 66, Alkaline Phosphatase 71, Total Protein 6.2L, Albumin 2.4L, Albumin/Globulin Ratio 0.63L 08/21/19 05:33: Bedside Glucose (Misc Panel) 49L 08/21/19 06:15: Bedside Glucose (Misc Panel) 150H 08/21/19 09:33: Bedside Glucose (Misc Panel) 50L 08/21/19 10:07: Bedside Glucose (Misc Panel) 128H CBC/BMP Laboratory Tests 08/21/19 04:14 Microbiology Microbiology 08/18/19 Stool Occult Blood ([facility]) - Final, Complete MARY DENSON PA-C Aug 21, 2019 10:44
--- NOTE | 2019-08-21 14:02 | IPN ---
MEDICAL ONCOLOGY INPATIENT FOLLOWUP DATE OF SERVICE: 08/21/2019 DIAGNOSIS: Acute anemia, transfusion dependent, thrombocytopenia, renal failure, rapid onset in last month without evidence of underlying hematologic malignancy, infection, autoimmune disease in 69-year-old woman admitted for weakness. INTERVAL HISTORY: Overnight Ms. Galan was apparently difficult to arouse. A brain MRI was negative for evidence of intracranial bleed, mass or other abnormality (noncontrast). She has also developed mild progression of her renal insufficiency with creatinine clearance now 12, creatinine 4. Platelets are stable at 30, hemoglobin 7.9 down from 8.4 the . Reviewing the differential and associated labs, so far findings do not fit neatly with any one of the thrombotic microangiopathy. For example, PT is elevated, D-dimer is elevated, and haptoglobin on 07/09/2019 normal making TTP unlikely; the patient has had absolutely no heparin or heparinoid exposure on this or her prior admission, making HIT essentially ruled out; she did have an infectious syndrome several weeks prior to her first admission on 07/09, making HUS, post infectious HUS a possibility; but in the absence of a clear evidence of hemolysis this also remains unclear. Dr. Nur is following and proposes possible renal biopsy on Saturday. At the bedside the patient is drowsy, responds to voice but does not quite wake up. I spoke with her daughter, explained the situation. I have also to run the case by Dr. Andersen of hematology service in [place] and requested transfer of care. Dr. Andersen is willing to accept the transfer though with the acknowledgment this is not a clear-cut case of TTP; the purpose of transfer would be for higher level of care and particularly plasmapheresis as needed, a service not provided here. Meanwhile, [id number] has been ordered and is pending, repeat haptoglobin ordered and is pending, serum free light chains are pending. IMPRESSION: Refractory anemia without evidence of bleeding, progressive acute renal failure, severe thrombocytopenia, mental status changes. 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 TTP is increasingly a less likely; however, we don't have a clear diagnosis and post infectious hemolytic uremic syndrome may remain in the differential versus DIC from some other process. No clear signs of infection. PLAN: 1. Continue close followup. 2. Transfer for a higher level of care has been requested due to complexity of this case and absence of potential plasmapheresis here as well as delays in obtaining results of renal biopsy. 3. Continue following hemolysis and plasma cell disorder labs. MTDD
--- NOTE | 2019-08-21 17:51 | IPN ---
DATE: 08/20/2018 SUBJECTIVE: The patient was seen and examined the bedside today morning in the intensive care unit (ICU). Last 24-hour events were noted. The patient was on the medical/surgical floor, but she became hypothermic again, so she was transferred to ICU and placed under the warming blanket. She also got the chest x-ray done today morning, which showed pulmonary vascular congestion, so she was started on gentle intravenous (IV) Lasix. Renal function is improving. Creatinine is down from 3.7 to 3.4 today. She continues to be thrombocytopenic OBJECTIVE: Vital signs: Temperature is 95.9 degrees Fahrenheit, blood pressure 159/81, pulse is 70, respiratory of 18, saturating 91% on room air. Intake and output: urine output is 1 liter yesterday. There is no urine output recorded overnight. She does not have a Zaragoza catheter. Weight in the bed scale is 55.6 kg. PHYSICAL EXAMINATION: GENERAL: The patient is awake, alert, oriented times two, lying in bed in no apparent distress. Currently under a warming blankets. HEAD AND NECK: Extraocular muscles intact. Pupils equally round and reactive to light. The patient does exophthalmos, and she has conjunctivitis in the right eye. Mucous membranes are moist. Neck is supple. There is no jugular venous distention (JVD). CARDIOVASCULAR: S1, S2, regular rate. No edema of the bilateral lower extremities. RESPIRATORY: Mild respiratory crackles bilaterally at the bases, otherwise no active rales or rhonchi. ABDOMEN: Soft. Positive bowel sounds. Nontender. No organomegaly. MUSCULOSKELETAL: No clubbing or cyanosis. Pulses are 2+. CENTRAL NERVOUS SYSTEM: No focal deficit. Power is 5/5 in all extremities. LABORATORY REVIEW: CBC showed WBC 5.2, hemoglobin 8.3, platelets are 30. BMP showed sodium 145, potassium 4.5, chloride 119, bicarbonate 22, BUN 54, creatinine is 3.4; it was 3.7 yesterday. AST 129, ALT is 71, alkaline phosphatase is 76, albumin is 2.5. CURRENT INPATIENT MEDICATIONS: The patient's medications were all reviewed by myself. She has been started on folic acid 1 mg by mouth daily. She is also on Lasix 20 mg IV every 8 hours. Protonix dose was changed to 40 mg IV daily. She has also been started on thiamine 100 mg by mouth twice a day. ASSESSMENT AND PLAN: 1. Acute kidney injury, unknown etiology at this time, most likely it might be acute interstitial nephritis; however, renal function is improving. Electrolytes are within the acceptable range. Continue to monitor for improvement of renal function. Protonix dose was changed to once a day only. I would personally like to stop the Protonix; however, she recently had gastrointestinal (GI) bleed, so I am not stopping the proton pump inhibitor (PPI) altogether. 2. Hypernatremia. The patient's hypernatremia improved after D5W administration. 3. Anemia and thrombocytopenia. The patient needs evaluation by hematology/oncology. 4. Recurrent hypothermia. Cultures are negative so far. 5. Dyspnea. The patient was started on an gentle IV diuretics. She is going to get a CT chest as well. Chest x-ray showed mild pulmonary vascular congestion.
--- NOTE | 2019-08-21 23:02 | IPN ---
DATE: 08/21/2019 SUBJECTIVE The patient was seen and examined at the bedside today morning in the ICU. The patient is more sleepy and obtunded today. She was given Ativan overnight which has been stopped now. She was also on IV Lasix because of pulmonary vascular congestion on the x-rays. Renal function is worse today, creatinine has bumped up from 3.4 to 4 today. The patient is unable to provide any review of systems because she is sleepy and drowsy because of effect of Ativan. She continues to have thrombocytopenia. She was seen by hematology as well yesterday and they ordered more testing ascertain the etiology of her thrombocytopenia and recurrent anemia requiring blood transfusion. OBJECTIVE Vital signs: Temperature is 97.4 degrees Fahrenheit. Blood pressure 126/63, pulse is 55, respiratory rate of 16, saturating 98% on room air. Intake and output: Urine output recorded as 1.82 yesterday, 1 liter so far today since overnight. Weight in the bed scale is 55.2 kg. PHYSICAL EXAMINATION General: Patient is obtunded, sleepy, laying in bed, in no apparent distress. Head and neck examination: Pupils are equally round and reactive to light. Mucous membranes are moist. Neck is supple. There is no jugular venous distention (JVD). Cardiovascular: S1, S2, regular rate. No edema of the bilateral lower extremities. Respiratory: Chest is clear to auscultation bilaterally. Bilateral equal air entry. No rales or rhonchi. Abdomen: Soft, obese, positive bowel sounds. Nontender. No organomegaly. Musculoskeletal: No clubbing or cyanosis. Pulses are 2+. 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 Skin: No rashes or ulcers. LAB REVIEW: CBC showed WBC of 4.3, hemoglobin 7.9, platelets are 37, it was 30 yesterday. Urine random Bence-Farah proteins were 11.2. Glucose early in the morning was 50. BMP done today morning showed sodium 149, potassium 4, chloride 118, bicarb 22, BUN 63, creatinine is 4, it was 3.4 yesterday, glucose 56, calcium 9.3, total bilirubin 0.7, AST 126, ALT 66, alk phos 71. LDH was 276 yesterday, total protein 6.2, albumin is 2.4. 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 The rest of the autoimmune serologies are pending. Imaging and MRI of the brain was done yesterday which did not show any acute pathology. CT of the chest was done which showed moderate bilateral pleural effusions with parenchymal infiltrates. CURRENT INPATIENT MEDICATIONS The patient's medications were reviewed by myself. He is getting D5 half NS at 60 mL an hour. IV Lasix has been stopped. She was given a dose of Haldol and Ativan yesterday. She continues to be on Protonix 40 mg IV daily along with multivitamin and thiamine injections. ASSESSMENT/PLAN 1. Acute renal failure, unknown etiology of acute renal failure. This time along with recurrent anemia and thrombocytopenia. There are no signs of renal recovery. Creatinine got worse after IV Lasix injections yesterday. The patient will need her renal biopsy after administration of platelets on Saturday morning. 2. Hypernatremia. It is secondary to use of Lasix and decreased oral intake by the patient. She is currently on D5 half-normal saline. Continue current fluid hydration. 3. Persistent anemia and thrombocytopenia. The patient has required multiple blood transfusions during this hospitalization, persistently thrombocytopenia with platelet count less than 40,000. She was seen by Hematology/Oncology yesterday. Further testing and evaluation is pending. She will like most likely need a renal biopsy on August 24, 2019 after administration of platelets. 4. Recurrent hypoglycemia. The patient is currently getting IV D5 half-normal saline. Etiology of hypoglycemia is not known.
[2019-08-22] VITALS: BP 153/72
[2019-08-22 00:08] LABS: FREE LAMBDA LIGHT CHAINS SERUM 69.2 mg/L (5.7-26.3); KAPPA/LAMBDA RATIO SERUM 1.95 (0.26-1.65)
[2019-08-22] MEDS: D5W/0.45% SODIUM CHLORIDE 1,000 ML IV SCH (01:57)
[2019-08-22 02:00] VITALS: BP 154/70
[2019-08-22 04:00] VITALS: BP 166/78
[2019-08-22 04:54] LABS: BASO % 0.2 % (0.0-1.0); HEMATOCRIT 25.5 % (36.0-47.0); HEMOGLOBIN 8.2 g/dl (12.0-15.5); LYMPH # 0.8 10^3/uL (1.5-5.0); LYMPH % 18.7 % (24.0-44.0); MEAN CORPUSCULAR HEMOGLOBIN 30.6 pg (27.0-33.0); MEAN CORPUSCULAR HGB CONC 32.2 g/dl (32.0-36.5); MEAN CORPUSCULAR VOLUME 95.1 fl (80.0-96.0); MONO # 0.4 10^3/uL (0.0-0.8); MONO % 9.1 % (0.0-5.0); NEUTROPHILS # 2.9 10^3/uL (1.5-8.5); NEUTROPHILS % 70.8 % (36.0-66.0); RED BLOOD COUNT 2.68 10^6/uL (4.00-5.40); WHITE BLOOD COUNT 4.1 10^3/uL (4.0-10.0)
[2019-08-22 04:55] LABS: PLATELET COUNT, AUTOMATED 56 10^3/uL (150-450)
[2019-08-22 05:11] LABS: ALBUMIN 2.4 GM/DL (3.2-5.2); BILIRUBIN,TOTAL 0.7 MG/DL (0.2-1.0); CALCIUM LEVEL 9.5 MG/DL (8.8-10.2); CREATININE FOR GFR 4.05 MG/DL (0.55-1.30); GLOMERULAR FILTRATION RATE 11.6 (>39); POTASSIUM SERUM 3.2 MEQ/L (3.5-5.1); TOTAL PROTEIN 6.6 GM/DL (6.4-8.2)
[2019-08-22 08:00] VITALS: BP 144/69
[2019-08-22] MEDS: FOLIC ACID 1 MG TAB PO SCH (08:41)
[2019-08-22] MEDS: MULTIVITAMINS/MINERALS THERAP 1 TAB PO SCH (08:43)
[2019-08-22] MEDS: ERYTHROMYCIN OPHTH OINT TOP SCH (08:46)
[2019-08-22] MEDS: PANTOPRAZOLE 40MG INJ (PROTONIX) (C9113) IV SCH (08:46)
[2019-08-22] MEDS: THIAMINE HCL 200 MG/2 ML VIAL (J3411) IV SCH (08:47)
[2019-08-22] MEDS ORDERED: POTASSIUM CHLORIDE 10 MEQ SR TABLET PO ONE (11:00)
--- NOTE | 2019-08-22 11:34 | IPN ---
DATE OF SERVICE: 08/22/2019 DIAGNOSIS: Working differential diagnosis of this 69-year-old woman with a presentation of persistent acute renal failure, anemia, thrombocytopenia, and new mental status change remains a thrombotic microangiopathy. PLASMIC score intermediate (5). No clear evidence of hemolysis with no schistocytes on smear, initial haptoglobin normal. Brain MRI negative for bleed or intracranial mass or other abnormality. INTERVAL EVENTS: Overnight, Rosita has remained less arousable than usual and less clear sensorium. Some labs are now back. Free kappa and lambda light chains are elevated with kappa lambda ratio 1.9, nonspecific in the setting of severe renal failure. Reticulocyte count elevated, the initial haptoglobin from first admission in July was normal, no schistocytes on smear, but LDH and AST are elevated while bilirubin is normal. The overall picture is unclear, a thrombotic microangiopathy remains in the differential; for example, a post infectious, shiga toxin-associated HUS, versus an atypical complement mediated HUS. I have now spoken with the [facility], also with Dr. Bridger Benson of the hematology service there. Given the medical complexity of this case, the potential inability for us to eculizumab promptly as needed, he is in agreement with me that the patient should be transferred for higher level of care. A MICU bed is not currently available there, but as soon as available [facility] will be contacting our unit. Yesterday, I had spoken to the patient's daughter about the potential need for the transfer; [facility] has no beds available. PLAN: 1. I have placed labs for GI panel looking for E-coli or shiga toxin related GI infection, CH50 and C3; complement may or may not be lowered in a complement mediated HUS; and we await the [id number] result. 2. I spoke with [facility] today to confirm whether ADAMTS is available, it is still pending; however, TTP is lowering in the differential given prominence of renal failure and absence of overt hemolysis on labs. 3. Will continue to follow during this period before transfer to higher level of care; if for any reason that is significantly delayed; for example by days, consider renal biopsy as recommended by nephrology service. [facility]
--- NOTE | 2019-08-22 11:51 | DSES ---
DATE OF ADMISSION: 08/17/2019 DATE OF TENTATIVE TRANSFER: 08/22/2019 Site of transfer is currently unknown. REASON FOR TRANSFER: Higher level of care for possible plasmapheresis ? Kidney biopsy ? Bone marrow biopsy. PRINCIPAL DIAGNOSES: 1. Severe thrombocytopenia and anemia of unknown etiology. 2. Hypernatremia. 3. Acute renal failure. 4. Altered mental status. 5. Recurrent hypoglycemia. 6. Abnormal liver function tests. HISTORY: Rosita Galan was admitted with hypothermia and hypotension. She was at her [employer] office when she was seen for her stage IV chronic kidney disease. She had been in the hospital in July for gastrointestinal bleed with ulceration. She was in the nephrology office when they found her hypothermic and hypotensive and they sent her to the hospital to be admitted. She was transfused upon admission. Renal function declined. Nephrology was consulted. She became hypernatremic and they evaluated this for us as well. The patient was anemic and thrombocytopenic. Platelets were 32 on admission. They have been normal in the recent past. They fell as low as 29 the day after admission and they rebounded each of the next four days from 30 to 37 and 56,000. She is anemic and she has had an extensive workup under the direction of Dr. Eliana Tom from hematology. We appreciate her efforts. Most of the workup is pending. There was a concern as to whether she might have thrombotic microangiopathy with hemolytic uremic syndrome or an atypical TTP. Higher level of care with availability of plasmapheresis is recommended and Dr. Tom has graciously agreed to help with transfer by calling outlying tertiary medical centers and at this point it looks like she is going to be transferred to [facility] today. PHYSICAL EXAMINATION: Blood pressure 166/78, pulse 54, respiratory rate 18, 96% oxygen saturation. She has a sty in the right eye and it is a little bit erythematous in the upper and lower lids. LUNGS: Regular rate and rhythm. 1/6 systolic ejection murmur. ABDOMEN: Soft, nontender. No masses. EXTREMITIES: No peripheral edema. LABORATORY DATA: Sodium 147, potassium 3.2, BUN 60, creatinine 4, glucose 88. Ammonia level was 97. LDH has been elevated 270. C-reactive protein is 2.8. Protein SPEP suggested polyclonal gammopathy. Amylase and lipase were both elevated. On admission, lipase was 1600 and went to 700 by the second day in the hospital. CT of the abdomen and pelvis showed no pancreatic abnormality. Brain MRI showed no acute process. Liver ultrasound showed no liver abnormality. CT of the chest showed bilateral moderate pleural effusions, adjacent bilateral parenchymal infiltrates. Stool is positive for occult blood. D dimer is elevated at 1427. INR is 1.4. Fibrinogen is normal at 313. We are waiting accepting bed at [facility]. CURRENT MEDICATIONS: - potassium chloride 40 mEq by mouth daily - thiamine 100 mg IV twice a day - Protonix 40 mg IV daily - folic acid 1 mg daily - multivitamin - albuterol inhaler - erythromycin ophthalmic ointment to the right eye She has dozens of outstanding tests as part of the workup for anemia. Also, blood cultures are pending.
[2019-08-22 12:00] VITALS: BP 163/83
[2019-08-22] MEDS ORDERED: CIPROFLOXACIN 0.3% OPHTH SOLN 2.5ML OD SCH (12:00)
[2019-08-22 16:00] VITALS: BP 168/82
--- NOTE | 2019-08-23 10:20 | IPN ---
DATE OF SERVICE: 08/22/2019 SUBJECTIVE: The patient was seen and examined at the bedside. There is no improvement in the renal function. Creatinine has been fluctuating at 4. The patient continues to be anemic and thrombocytopenic. She continues to be on IV D5W because of hypoglycemia. She was seen by Hematology/Oncology yesterday as well and because of her complicated clinical course including persistent anemia and thrombocytopenia with renal failure and no availability of plasmapheresis in case of HUS or TTP, she is awaiting a bed at [facility] for higher level of care. The patient denies any active complaints at this time. She is laying in the bed and not interested in communicating. OBJECTIVE: Vital Signs: Temperature is 97 degrees Fahrenheit, blood pressure 168/82, pulse is 43, respiratory rate of 14, saturating 97% on room air. Intake and Output: Urine output recorded as 1450 mL. Weight in the bed scale is 52.7 kg. PHYSICAL EXAMINATION: General: The patient is laying in bed, but not interested in talking. Head and Neck Exam: The patient has conjunctivitis in the right eye and she has both eyes. Mucous membranes are moist. Neck is supple. There is no jugular venous distention (JVD). Cardiovascular: S1, S2, regular rate. No edema of the bilateral lower extremities. Respiratory: Chest is clear to auscultation bilaterally. Bilateral equal air entry. No rales or rhonchi. Abdomen: Soft. Positive bowel sounds. Nontender. No organomegaly. Musculoskeletal: No clubbing or cyanosis. Pulses are 2+. 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 Otherwise, she follows commands and moves extremities. LAB REVIEW: CBC showed WBC of 4.1, hemoglobin is 8.2 and platelets are 56. ESR is 83. BMP showed sodium 147, potassium 3.2, chloride 114, bicarb 26, BUN 60, creatinine 4, AST 127, ALT 68, alkaline phosphatase 79, C-reactive protein 2.8. CURRENT INPATIENT MEDICATIONS: The patient medications were all reviewed by me. Erythromycin ointment has been stopped. I have started the patient on ciprofloxacin eye drops. She continues to be on IV D5 1/2 NS at 60 mL an hour. I have ordered a dose of potassium chloride 40 mEq times one dose. ASSESSMENT/PLAN: 1. Acute renal failure. The patient has nonoliguric renal failure. There is no urgent need of her hemodialysis. However, etiology of the renal failure is unknown. If the patient does not get of bed at a tertiary care hospital, then patient will get a kidney biopsy on Saturday, August 24 2019. 2. Persistent anemia and thrombocytopenia. The patient is being seen by Hematology/Oncology. Because of delay in availability of the labs and no availability of plasmapheresis in case of possible TTP or HUS, the patient is being transferred to [facility] for further care. 3. Right eye conjunctivitis. The patient's eye is not getting better. I have stopped the erythromycin eye ointment and I have switched her to ciprofloxacin eye drops. 4. Hypokalemia. The patient was given potassium chloride 40 mEq p.o. today morning.
[2019-08-24 00:06] LABS: HAPTOGLOBIN 43 mg/dL (37-355); IIb/IIIa ANTIBODY Negative (Negative); Ia/IIa ANTIBODY Negative (Negative); Ib/IX ANTIBODY Negative (Negative)
--- NOTE | 2019-08-24 08:41 | CR ---
DATE OF CONSULTATION: 08/20/2019 REASON FOR CONSULTATION: Rule out central causes of hypothermia. The patient is a 69-year-old female with past medical history significant for acute anemia, acute kidney injury, history of gastrointestinal (GI) bleeding, presenting for the second time within the past few months with hypothermia. The patient has a longstanding history of alcoholism. The patient has been lethargic with altered mental status and intermittently has had difficulty with maintaining her blood pressure. She arrived to the emergency department hypothermic and hypotensive. The patient's blood pressure medications have been adjusted since the identification of hypotension. The patient is noted to move all four extremities though she is quite sleepy, lethargic and she does not cooperate in examination. REVIEW OF SYSTEMS: Unobtainable due to the current mental state of the patient. Thought to be secondary to metabolic encephalopathy. ALLERGIES: VENOM. HOME MEDICATIONS: - fenofibrate - multivitamin - pantoprazole - simvastatin PAST MEDICAL HISTORY: Hypertension, hyperlipidemia, gastroesophageal reflux disease, ulcers, history of alcohol abuse. PAST SURGICAL HISTORY: None. FAMILY HISTORY: Noncontributory. SOCIAL HISTORY: The patient is a former smoker. The patient's daughter states that the patient stopped using alcohol 5 weeks ago. Although, the patient appears to be tremulousm, confused, possibly going through alcohol withdrawal she may have relapsed. PHYSICAL EXAMINATION: Blood pressure is 110/62, pulse rate is 61, respiratory rate is 18, temperature is 97.8 degrees Fahrenheit, oxygenation is 96% on room air. The patient is able to open eyes to voice but does not fully cooperate and engage in exam. She is noted to move all four extremities. Pupils are round, reactive to light. Gallbladder is positive and appears to be midline. The patient reacts to noxious stimuli in all four extremities. Sensation is intact to light touch in all four extremities. Babinski signs are absent. The patient withdraws to noxious stimuli in her feet. Deep tendon reflexes are 2s throughout with reduced distal lower extremity reflexes, absent Achilles reflexes. MRI of the brain completed and is found to be negative for any acute intracranial process. No evidence of stroke. ASSESSMENT: 69-year-old female with longstanding history of alcohol abuse with presentation of hyperthermia for the second time within a few months. The etiology of the patient's hypothermia may likely be due to her longstanding use of alcohol. Thiamine deficiency can also contribute towards hypothermia. Agree with recommendation to switch to IV thiamine 100 mg twice a day as the patient is unable to take pills in her current mental state. Continue supportive care. Workup for history of GI bleeding, anemia, kidney injury, hypotension as per primary team. Can obtain electroencephalogram (EEG).
[2019-08-25 00:10] LABS: IMMUNOGLOBULIN D <1.34 mg/dL (<14.11); IgA ULTRASENSITIVE 438.7 mg/dL (72-321)
[2019-08-25 00:10] LABS: ANTI DS-DNA AB Negative (Negative); ANTINUCLEAR ANTIBODIES DIRECT Negative (Negative); COMPLEMENT TOTAL (CH50) 55 U/mL (42-999999)
== END 2019-08-22 17:14 | disposition short-term general hospital (02) | DRG 813 ==
LOC: M ED 14:46 → M ED INP 16:46 → M ICU 20:30 → M MS5PR 08-19 17:20 → M ICU 08-20 00:26
PROVIDERS: ADMIT Internal Medicine; ATTEND Family Medicine
PROC: 30233N1 Transfusion of Nonautologous Red Blood Cells into Peripheral Vein, Percutaneous Approach (ICD-10-PCS; principal; 2019-08-18)
DX: D69.6 Thrombocytopenia, unspecified (principal); K92.2 Gastrointestinal hemorrhage, unspecified; N17.9 Acute kidney failure, unspecified; E87.0 Hyperosmolality and hypernatremia; N11.9 Chronic tubulo-interstitial nephritis, unspecified; E87.2 Acidosis; Z79.899 Other long term (current) drug therapy; Z91.030 Bee allergy status; I10 Essential (primary) hypertension; E78.5 Hyperlipidemia, unspecified; K21.9 Gastro-esophageal reflux disease without esophagitis; F10.21 Alcohol dependence, in remission; R74.0 Nonspecific elevation of levels of transaminase and lactic acid dehydrogenase [LDH]; T68.XXXA Hypothermia, initial encounter; R00.1 Bradycardia, unspecified; R41.82 Altered mental status, unspecified; D64.9 Anemia, unspecified; R94.5 Abnormal results of liver function studies; E16.2 Hypoglycemia, unspecified; R74.8 Abnormal levels of other serum enzymes; R06.00 Dyspnea, unspecified

== ENCOUNTER → 2019-09-03 | Outpatient (REF) | payer MEDICARE ==
[~2019-09-03] MED LIST changes: +TUMS500C PO
[2019-09-03 17:13] LABS: HEMATOCRIT 26.7 % (36.0-47.0); HEMOGLOBIN 8.4 g/dl (12.0-15.5); MEAN CORPUSCULAR HEMOGLOBIN 30.7 pg (27.0-33.0); MEAN CORPUSCULAR HGB CONC 31.5 g/dl (32.0-36.5); MEAN CORPUSCULAR VOLUME 97.4 fl (80.0-96.0); PLATELET COUNT, AUTOMATED 208 10^3/uL (150-450); RED BLOOD COUNT 2.74 10^6/uL (4.00-5.40); WHITE BLOOD COUNT 5.6 10^3/uL (4.0-10.0)
[2019-09-03 17:37] LABS: ALBUMIN 2.9 GM/DL (3.2-5.2); CALCIUM LEVEL 9.6 MG/DL (8.8-10.2); CREATININE FOR GFR 3.82 MG/DL (0.55-1.30); GLOMERULAR FILTRATION RATE 12.4 (>39); PHOSPHORUS LEVEL 3.4 MG/DL (2.5-4.9); POTASSIUM SERUM 4.4 MEQ/L (3.5-5.1)
== END ==
LOC: M LABDRAWC 16:32
DX: D69.6 Thrombocytopenia, unspecified (principal); N18.9 Chronic kidney disease, unspecified

== ENCOUNTER → 2019-09-16 | Outpatient (REF) | payer MEDICARE ==
[~2019-09-16] MED LIST changes: -FENO145T13 PO; +FENO145T7 PO
[2019-09-16 17:56] LABS: FREE T4 1.01 NG/DL (0.76-1.46)
== END ==
LOC: M LAB REF 16:53
PROVIDERS: ATTEND Internal Medicine Nephrology
DX: D64.9 Anemia, unspecified (principal); T68.XXXA Hypothermia, initial encounter

== ENCOUNTER 2019-09-17 10:40 | Outpatient (CLI) | payer MEDICARE ==
[~2019-09-17] VITALS: Ht 154.9 cm; Wt 52.7 kg
[2019-09-17] VITALS (7 sets, daily range): BP systolic 135–166; BP diastolic 69–78
[~2019-09-17 10:40] MED LIST changes: +diphenhydrAMINE 25 MG CAP PO SCH
== END 2019-09-17 14:00 | disposition home or self-care (01) ==
LOC: M INFU 10:40
PROVIDERS: ATTEND Internal Medicine Nephrology
DX: D64.9 Anemia, unspecified (principal); Z91.030 Bee allergy status
CPT/HCPCS: 36430; P9016

== ENCOUNTER 2019-10-08 18:12 | Inpatient (IN) | payer MEDICARE ==
[~2019-10-08] VITALS: Ht 154.9 cm; Wt 53.6 kg
[~2019-10-08 18:12] MED LIST changes: +BACT800T5 PO; +KP BTAB PO; -diphenhydrAMINE 25 MG CAP PO SCH
[2019-10-08 19:16] LABS: EOS % 0.7 % (0.0-3.0); HEMATOCRIT 23.6 % (36.0-47.0); HEMOGLOBIN 7.2 g/dl (12.0-15.5); LYMPH # 0.7 10^3/uL (1.5-5.0); LYMPH % 15.4 % (24.0-44.0); MEAN CORPUSCULAR HEMOGLOBIN 30.6 pg (27.0-33.0); MEAN CORPUSCULAR HGB CONC 30.5 g/dl (32.0-36.5); MEAN CORPUSCULAR VOLUME 100.4 fl (80.0-96.0); MONO # 0.3 10^3/uL (0.0-0.8); MONO % 6.5 % (0.0-5.0); NEUTROPHILS # 3.3 10^3/uL (1.5-8.5); NEUTROPHILS % 77.2 % (36.0-66.0); RED BLOOD COUNT 2.35 10^6/uL (4.00-5.40); WHITE BLOOD COUNT 4.3 10^3/uL (4.0-10.0)
[2019-10-08 19:22] LABS: PLATELET COUNT, AUTOMATED 97 10^3/uL (150-450)
[2019-10-08 19:37] LABS: INR 1.07; PROTHROMBIN TIME 13.6 SECONDS (11.8-14.0)
[2019-10-08 19:38] LABS: PARTIAL THROMBOPLASTIN TIME 35.6 SECONDS (25.0-38.4)
[2019-10-08 19:41] LABS: BLOOD UREA NITROGEN 55 MG/DL (7-18); CALCIUM LEVEL 9.1 MG/DL (8.8-10.2); CARBON DIOXIDE LEVEL 29 MEQ/L (21-32); CHLORIDE LEVEL 118 MEQ/L (98-107); CK-MB VALUE MASS 3.4 NG/ML (<3.6); CPK CREATINE PHOSPHOKINASE 46 U/L (26-192); CREATININE FOR GFR 3.26 MG/DL (0.55-1.30); GLOMERULAR FILTRATION RATE 14.9 (>39); GLUCOSE, FASTING 106 MG/DL (70-100); MB/CK RELATIVE INDEX 7.39 (< OR =4); SODIUM LEVEL 149 MEQ/L (136-145); TROPONIN I < 0.02 NG/ML (< 0.10)
[2019-10-08] MEDS ORDERED: PANTOPRAZOLE 40MG INJ (PROTONIX) (C9113) IV ONE (20:00)
[2019-10-08] MEDS ORDERED: MAGN400T2 PO (20:22)
[2019-10-08] MEDS ORDERED: FOLI1TAB11 PO (20:22)
--- NOTE | 2019-10-08 20:28 | IPNPDOC ---
Text Note Date of Service The patient was seen on 10/08/19. VS,Chivo, I+O VS, Chanobone, I+O Laboratory Tests 10/08/19 19:03 Vital Signs Date Time Temp Pulse Resp B/P (MAP) Pulse Ox O2 Delivery O2 Flow Rate FiO2 10/08/19 18:32 10/08/19 18:12 97.2 78 18 98 Room Air MYRNA STRANGE MD Oct 08, 2019 20:28
[2019-10-08] MEDS ORDERED: methylPREDNISolone INJ 125 MG/2 ML VIAL (J2930) IV ONE (20:30)
--- NOTE | 2019-10-08 20:44 | HPEPDOC ---
[facility] Medical History & Physical Date of Admission Oct 08, 2019 Date of Service: Oct 08, 2019 Primary Care Physician: Hank Ordoñez MD Attending Physician: MYRNA STRANGE MD History and Physical CHIEF COMPLAINT: Weakness HISTORY OF PRESENT ILLNESS: is a 69-year-old female who presented to the emergency department at the instruction of her PCP (Dr. Ordoñez) and apartment rental clerk (Dr. Nur) for blood work in the context of generalized fatigue and lower extremity weakness over the last 3 days. On Saturday (10/05), patient was at the grocery store when she needed to bend down on her knees due to weakness. On Saturday she presented to her PCP and had to pause again to bend down when entering the office. Overall, she feels "more tired than usual" and simply, "just off." Over the course of the last few days, her fatigue and weakness have remained the same. Her daughter Elissa, present at time of H&P, reports this is similar symptomatology to what patient had when she presented to [facility] both in July and August 2019. In July, she was worked up for an upper GI bleed, and in August, was treated for acute symptomatic anemia. During August admission, patient was evaluated by hematology oncology who transferred her to [facility] for further workup. She has had 2 episodes of epistaxis last 2 weeks but denies med emesis, hemoptysis, hematuria, hematochezia, melena or easy bleeding or bruising of any kind. She reports never having had a colonoscopy and her last EGD was during the July admission. In the ED, she was anemic, thrombocytopenic, and hyponatremic. She received one- time doses of IV Protonix and Solu-Medrol and 2 units of PRBCs. REVIEW OF SYSTEMS: 10 system reviewed and negative other than HPI PAST MEDICAL / SURGICAL HISTORY: Chronic anemia History of upper GI bleed, w/ non-bleeding gastric ulcer & neg H. pylori bx Chronic kidney disease History of acute kidney injury Hyperlipidemia GERD Hypertension History of alcohol abuse None other than EGD in July 2019 SOCIAL HISTORY: and lives by herself. Has a daughter (Elissa). Works part-time at [employer] in [place], [place] Drank approximately 4 glasses of wine per day for 15 years up until July 2019 Smoked cigarettes for one year in the 1960s; intermittent marijuana use in the Denies other illegal drug use FAMILY HISTORY: Unspecified heart disease (Father) Hypertension (mother) Negative for malignancy ALLERGIES: Please see below. HOME MEDICATIONS: Please see below. PHYSICAL EXAMINATION: VITAL SIGNS: Temperature 97.2, pulse 78, respiratory rate 18, blood pressure 165/77, pulse oximetry 98 % on room air. GENERAL APPEARANCE: Pleasant female lying upright in bed in no apparent acute distress. Alert and oriented 3. Well-developed, well-nourished. HEENT: Normocephalic, atraumatic. Bilateral moderate exophthalmos. Yellow crusting. Bilateral eyelashes with moderate injected sclera and tearing. PERRLA. No conjunctival pallor CARDIOVASCULAR: 2/6 systolic murmur heard best at right sternal border 2nd intercostal space. Regular rate and regular rhythm. S1, S2 auscultated. Adequate capillary refill. LUNGS: Clear to auscultation bilaterally with no wheezes, crackles or rhonchi appreciated. Breathing on room air. ABDOMEN: Soft, nontender, nondistended. Active bowel sounds present. EXTREMITIES: 2+ radial and posterior tibial pulses bilaterally. No lower extremity edema. NEUROLOGICAL: Awake, alert and oriented 3. No focal neurological deficits appreciated. PSYCHIATRIC: Affect. Appropriate. LABORATORY DATA: Please see below. IMAGING: None to this point on this admission MICROBIOLOGY: Please see below. ASSESSMENT & PLAN: This is a 69-year-old female with history of recent Upper GI bleed, chronic anemia, chronic kidney disease, HLD, GERD, EtOH abuse, and hypertension who presented with generalized fatigue and leg weakness for 3 days and was subsequently admitted with the chief diagnosis of symptomatic anemia. #Bicytopenia (symptomatic anemia and thrombocytopenia) -Hgb 7.2, PLT 97 -Patient has a history of macrocytic anemia and thrombocytopenia -Patient was hospitalized in July 2019 and August 2019 with similar symptoms; August 2019 admission resulted in transfer to [facility] for further workup of possible causes for bicytopenia -Patient was seen in August by hematology oncology for bicytopenia and rec ently followed up as outpatient -Patient consented to receiving blood in the ED and was subsequently transfused 2 units of PRBCs -Post transfusion of 2 units, patient's hemoglobin rizwan to 9.4 -Stool occult ordered -Repeat hemoglobin checks q6h -Anemia of chronic disease possibly secondary to chronic kidney disease vs neoplastic process -Thrombocytopenia, possibly secondary to neoplastic process versus alcoholic liver disease -Patient should continue to follow up as outpatient with heme-onc #Hypernatremia -sNa 149 on presentation -History of elevated sNa during both 07/2019 and 08/2019 admissions -Likely secondary to relative dehydration -Sherrill and pending in order to calculate Uosm -Vital signs have been stable -Encourage PO intake -IVF -Regular diet -F/u BMP #CKD Stage V -GFR 14.9%; patient's GFR has been under 15% on both this admission and her admission in August -No BOLA as creatinine on presentation is similar to recent admissions -Follows with Dr. Nur and has had one outpatient visit to date #History of hyperlipidemia -Patient's home 40 mg simvastatin was held as simvastatin has shown to be the least effective of the statin medications and has potential side effect for rhabdomyolysis -Switch to 40 mg atorvastatin #Chronic Hypertension -Upon admission exam, BP was 165/77 -Patient's home medications were continued #DVT prophylaxis: Teds and sequentials ordered due to current anemia and recent history of upper GI bleed Dispo: home after more than 2 midnight's stay Vital Signs Vital Signs Date Time Temp Pulse Resp B/P (MAP) Pulse Ox O2 Delivery O2 Flow Rate FiO2 10/08/19 18:32 10/08/19 18:12 97.2 78 18 98 Room Air Laboratory Data Labs 24H Laboratory Tests 2 10/08/19 19:03: Immature Granulocyte % (Auto) 0.2, Neutrophils (%) (Auto) 77.2H, Lymphocytes (%) (Auto) 15.4L, Monocytes (%) (Auto) 6.5H, Eosinophils (%) (Auto) 0.7, Basophils (%) (Auto) 0.0, Neutrophils # (Auto) 3.3, Lymphocytes # (Auto) 0.7L, Monocytes # (Auto) 0.3, Eosinophils # (Auto) 0.0, Basophils # (Auto) 0.0, Nucleated Red Blood Cells % (auto) 0.0, Immature Platelet Fraction 4.7, Prothrombin Time 13.6, Prothromb Time International Ratio 1.07, Activated Partial Thromboplast Time 35.6, Anion Gap 2L, Glomerular Filtration Rate 14.9L, Calcium Level 9.1, Total Creatine Kinase 46, Creatine Kinase MB 3.4, Creatine Kinase MB Relative Index 7.39H, Troponin I < 0.02 CBC/BMP Laboratory Tests 10/08/19 19:03 Home Medications Scheduled Folic Acid (Folic Acid) 1 Mg Tablet, 1 MG PO DAILY Magnesium Oxide (Magnesium Oxide) 400 Mg Tablet, 400 MG PO DAILY Multivitamins (Thera M Plus Tablet) 1 Each Tablet, 1 TAB PO QHS Pantoprazole Sodium (Pantoprazole Sodium) 40 Mg Tablet.dr, 40 MG PO BID Simvastatin (Simvastatin) 40 Mg Tablet, 40 MG PO QHS Sulfamethoxazole/Trimethoprim (Bactrim Ds Tablet) 1 Each Tablet, 1 TAB PO BID Vit B1 Mn/B2/B3/B5/B6/B12/C/FA (B Complex with Vitamin C Tab) 1 Each Tablet, 1 T AB PO DAILY Allergies Coded Allergies: bee venom protein (honey bee) (Verified Allergy, Unknown, 07/09/19) A-FIB/CHADSVASC A-FIB History Current/History of A-Fib/PAF?: No Current PO Anticoag Therapy: No GME ATTESTATION GME ATTESTATION My faculty preceptor for this patient encounter was physically present during the encounter and was fully available. All aspects of the patient interview, examination, medical decision making process, and medical care plan development were reviewed and approved by the faculty preceptor. The faculty preceptor is aware and concurs with the plan as stated in the body of this note and will attest to such by his/her cosignature. ATTENDING NOTE Time of service 9:10 PM I reviewed and edited the note and agree with the findings as documented by Dr. Murdock. Ms. Galan is a 69-year-old female with history of gastric ulcer, remote hx of alcoholism, exophthalmos, bicytopenia, dyslipidemia and recent diagnosis of CKDV who is admitted for evaluation of acute symptomatic anemia. 1. Acute Symptomatic Anemia -possibly due to GI loss vs reduced EPO production Plan: blood transfusion / f/u serial H/H, reticulocyte #, iron panel w ferritin, B12, RBC folate & thiamine / pending stool occult the daytime team may consider a GI consult MILO CAMERON D.O. Oct 08, 2019 20:44 MYRNA STRANGE MD Oct 08, 2019 21:07
[2019-10-08] MEDS ORDERED: SIMVASTATIN 40 MG TAB PO SCH (21:00)
[2019-10-08 21:29] LABS: FERRITIN 1086 NG/ML (8-252); IRON (FE) 237 UG/DL (50-170); PERCENT SATURATION 85.6 % (13.2-45.0); TOTAL IRON BINDING CAPACITY 277 UG/DL (250-450)
[2019-10-08 21:36] LABS: HEMATOCRIT 23.6 % (36.0-47.0)
[2019-10-08 22:45] VITALS: BP 161/76
[2019-10-08 23:00] VITALS: BP 153/72
[2019-10-08 23:45] VITALS: BP 153/75
[2019-10-09] VITALS (9 sets, daily range): BP systolic 121–167; BP diastolic 56–80
[2019-10-09] MEDS: MULTIVITAMINS/MINERALS THERAP 1 TAB PO SCH ×2 (01:50→20:16)
--- NOTE | 2019-10-09 05:51 | ECGEPIP ---
[facility] - ED Test Date: 2019-10-08 Pat Name: ESTHELA MANRIQUEZ Department: Room: - Gender: Female Starchmaker: ct : 1950 Requested By: DENILSON Vizcaino Order Number: [id number] Reading MD: Saurav Barnett Measurements Intervals [place] Rate: 68 P: 16 [place]: 155 QRS: 18 QRSD: 102 T: 55 QT: 376 QTc: 400 Interpretive Statements SINUS RHYTHM MODERATE VOLTAGE CRITERIA FOR LVH, CONSIDER NORMAL VARIANT NSTTW ABNORMALITIES SIMILAR TO 08/18/19 Electronically Signed on 10-09-2019 5:51:23 EST by Saurav Barnett
[2019-10-09] MEDS: FOLIC ACID 1 MG TAB PO SCH (08:24)
[2019-10-09] MEDS: MAGNESIUM OXIDE 400 MG TAB (MAG-OX) PO SCH (08:24)
[2019-10-09] MEDS: PANTOPRAZOLE 40MG TAB (PROTONIX) PO SCH ×2 (08:25→20:16)
--- NOTE | 2019-10-09 10:27 | IPNPDOC ---
Subjective Date Seen The patient was seen on 10/09/19. Subjective Chief Complaint/HPI Pt this morning states that she is feeling alright, generally weak and fatgiued. She states that her breathing is fine, she is steady on her feet and can make it to the bathroom without assistance. General: Reports: Fatigue Constitutional: Denies: Chills, Fever ENT: Denies: Head Aches Pulmonary: Denies: Dyspnea, Cough Cardiovascular: Denies: Chest Pain, Palpitations Gastrointestinal: Denies: Nausea, Vomiting, Diarrhea Neurological: Reports: Weakness Psych: Reports: Mood Normal Objective Physical Examination General Exam: Positive: Alert, No Acute Distress ENT Exam: Positive: Mucous membr. moist/pink Neck Exam: Positive: Supple Chest Exam: Positive: Clear to auscultation, Normal air movement Heart Exam: Positive: Rate Normal, Normal S1, Normal S2 Abdomen Exam: Positive: Normal bowel sounds, Soft; Negative: Tenderness Extremity Exam: Negative: Edema Neuro Exam: Positive: Normal Speech Psych Exam: Positive: Mental status NL, Mood NL Assessment /Plan Problems (1) Symptomatic anemia Status: Acute Discussed With: Nurse, Patient Problem Specific Plan: Monitor Clinically, Repeat Labs Problem Text: Hgb 7.2 on admission 9.4 after 2 units blood. Monitor. (2) CKD (chronic kidney disease) stage 5, GFR less than 15 ml/min Status: Chronic Response to Treatment: Stable Problem Specific Plan: Monitor Clinically Problem Text: Follows with Nephro as an outpt. (3) Thrombocytopenia Status: Chronic Problem Specific Plan: Monitor Clinically (4) Weakness Status: Chronic Plan/VTE VTE Prophylaxis Ordered?: No VS, I&O, 24H, Fishbone Vital Signs/I&O Vital Signs Date Time Temp Pulse Resp B/P (MAP) Pulse Ox O2 Delivery O2 Flow Rate FiO2 10/09/19 06:00 98.9 55 16 132/58 (82) 100 Room Air I&O- Last 24 Hours up to 6 AM 10/09/19 05:59 Intake Total 1216 ml Balance 1216 ml Laboratory Data 24H LABS Laboratory Tests 2 10/08/19 19:03: Immature Granulocyte % (Auto) 0.2, Neutrophils (%) (Auto) 77.2H, Lymphocytes (%) (Auto) 15.4L, Monocytes (%) (Auto) 6.5H, Eosinophils (%) (Auto) 0.7, Basophils (%) (Auto) 0.0, Neutrophils # (Auto) 3.3, Lymphocytes # (Auto) 0.7L, Monocytes # (Auto) 0.3, Eosinophils # (Auto) 0.0, Basophils # (Auto) 0.0, Nucleated Red Blood Cells % (auto) 0.0, Immature Platelet Fraction 4.7, Prothrombin Time 13.6, Prothromb Time International Ratio 1.07, Activated Partial Thromboplast Time 35.6, Anion Gap 2L, Glomerular Filtration Rate 14.9L, Calcium Level 9.1, Iron Level 237H, Total Iron Binding Capacity 277, Transferrin % Saturation 85.6H, Ferritin 1086H, Total Creatine Kinase 46, Creatine Kinase MB 3.4, Creatine Kinase MB Relative Index 7.39H, Troponin I < 0.02 10/08/19 20:47: Urine Color YELLOW, Urine Appearance HAZY, Urine pH 5.0, Urine Specific [place] 1.010, Urine Protein NEGATIVE, Urine Glucose (UA) NEGATIVE, Urine Ketones NEGATIVE, Urine Blood NEGATIVE, Urine Nitrite NEGATIVE, Urine Bilirubin NEGATIVE, Urine Urobilinogen 0.2, Urine Leukocyte Esterase 3+H, Urine WBC (Auto) 63H, Urine RBC (Auto) 4H, Urine Hyaline Casts (Auto) 1, Urine Bacteria (Auto) 3+H, Urine Squamous Epithelial Cells 0, Urine Granular Casts (Auto) 1, Urine Mucus (Auto) SMALL, Urine Sperm (Auto) 10/09/19 04:20: Urine Random Sodium 51, Urine Random Potassium 35.0 CBC/BMP Laboratory Tests 10/08/19 19:03 10/09/19 02:30 Microbiology Microbiology 10/09/19 Stool Occult Blood (BJORN), Received Pending 10/08/19 Urine Culture, Received Pending MARY DENSON PA-C Oct 09, 2019 10:27
[2019-10-09 13:37] LABS: VITAMIN B12 LEVEL 880 PG/ML (247-911)
[2019-10-09 13:51] LABS: FOLATE 19.2 NG/ML (>5.4)
[2019-10-09] MEDS ORDERED: SODIUM CHLORIDE 0.9% NASAL GEL 15GM (AYR) PRN (17:45)
[2019-10-09 19:08] LABS: HEMATOCRIT 29.2 % (36.0-47.0); HEMOGLOBIN 9.3 g/dl (12.0-15.5); MEAN CORPUSCULAR HEMOGLOBIN 30.1 pg (27.0-33.0); MEAN CORPUSCULAR HGB CONC 31.8 g/dl (32.0-36.5); MEAN CORPUSCULAR VOLUME 94.5 fl (80.0-96.0); PLATELET COUNT, AUTOMATED 106 10^3/uL (150-450); RED BLOOD COUNT 3.09 10^6/uL (4.00-5.40); WHITE BLOOD COUNT 13.5 10^3/uL (4.0-10.0)
[2019-10-09] MEDS: ATORVASTATIN 20 MG TAB PO SCH (20:16)
[2019-10-10 06:00] VITALS: BP 138/67
[2019-10-10 06:24] LABS: ALBUMIN 2.7 GM/DL (3.2-5.2); BILIRUBIN,TOTAL 0.2 MG/DL (0.2-1.0); CALCIUM LEVEL 9.7 MG/DL (8.8-10.2); CREATININE FOR GFR 3.8 MG/DL (0.55-1.30); GLOMERULAR FILTRATION RATE 12.5 (>39); POTASSIUM SERUM 4.4 MEQ/L (3.5-5.1); TOTAL PROTEIN 6.3 GM/DL (6.4-8.2)
[2019-10-10] MEDS: FOLIC ACID 1 MG TAB PO SCH (08:21)
[2019-10-10] MEDS: MAGNESIUM OXIDE 400 MG TAB (MAG-OX) PO SCH (08:21)
[2019-10-10] MEDS: PANTOPRAZOLE 40MG TAB (PROTONIX) PO SCH ×2 (08:21→20:12)
[2019-10-10 14:00] VITALS: BP 148/73
--- NOTE | 2019-10-10 17:35 | IPNPDOC ---
Subjective Date Seen The patient was seen on 10/10/19. Subjective Chief Complaint/HPI Ms. Galan is feeling a bit better today. She was up and walked around the floor a couple of times, though she admits that this made her more tired than she expected it would. She denies any noted bleeding. She and her daughter are really interested in what may be the cause of her anemia. General: Reports: Normal Appetite Skin: Denies: Rash Pulmonary: Denies: Dyspnea, Cough Cardiovascular: Denies: Chest Pain, Palpitations Gastrointestinal: Denies: Nausea, Abdominal Pain Musculoskeletal: Reports: Other Symptoms (easy fatiguability) Psych: Reports: Mood Normal Objective Physical Examination General Exam: Positive: Alert, Cooperative, No Acute Distress (talking with her daughter when I entered the room) Eye Exam: Positive: Conjunctiva & lids normal; Negative: Sclera icteric ENT Exam: Positive: Mucous membr. moist/pink Neck Exam: Positive: Supple; Negative: Lymphadenopathy Chest Exam: Positive: Clear to auscultation, Normal air movement Heart Exam: Positive: Rate Normal, Normal S1, Normal S2 Abdomen Exam: Positive: Normal bowel sounds, Soft; Negative: Tenderness Extremity Exam: Negative: Edema Neuro Exam: Positive: Normal Speech Psych Exam: Positive: Mental status NL, Mood NL Assessment /Plan Assessment Ms. Galan and her daughter have a lot of questions today about what is going on. I tried to answer them to the best of my ability, recognizing that this is the first time I am caring for her. I spent a total of 45 minutes with them answering questions and briefly discussing her situation with her fare register repairer. Problems (1) CKD (chronic kidney disease) stage 5, GFR less than 15 ml/min Status: Chronic Response to Treatment: Stable Problem Specific Plan: Consult Specialist, Monitor Clinically Problem Text: After long discussion, Ms. Galan decided that she would like to pursue further evaluation of her renal disease and the possible connection with her anemia while here in the hospital. I was careful to explain that we may not come to any final conclusions about her conditions in the next several days, as she is been evaluated in the hospital several times without definitive conclusion. I spoke briefly with Dr. Nur and asked him to see her in consultation tomorrow. (2) Symptomatic anemia Status: Acute Discussed With: Nurse, Patient Problem Specific Plan: Monitor Clinically, Repeat Labs Problem Text: Hgb 7.2 on admission 9.4 after 2 units blood. She dropped to 9.3 today, but I am not sure if this is the start of a trend or physiologic variation. Much of our discussion focused on the difference between blood loss anemia and anemia from lack of production of enough RBCs. We discussed the connection between poor renal function and anemia. We discussed erythropoietin as a possible treatment, although I carefully explained that this medication has a number of side effects we have to watch out for too. She would like to talk more about this tomorrow either during or after her nephrology consultation. 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 Per the patient's daughter, Dr. Ordoñez's theory is that every time she has to have a transfusion of PRBCs that her platelets drop and then they recover in the interval. It may explain why she has a bicytopenia rather than just an anemia of chronic renal disease. (4) Weakness Status: Chronic Problem Text: I think some of this is her body compensating for her anemia by shunting blood to the vital organs and away from the periphery including the muscles of the legs. I will order PT eval to help maintain her strength. Plan/VTE VTE Prophylaxis Ordered?: Yes (TEDs and sequentials) VTE Exclusion Pharmacological: Thrombocytopenia Plan Therapy: PT VS, I&O, 24H, Fishbone Vital Signs/I&O Vital Signs Date Time Temp Pulse Resp B/P (MAP) Pulse Ox O2 Delivery O2 Flow Rate FiO2 10/10/19 14:00 97.2 61 18 148/73 (98) 99 Room Air I&O- Last 24 Hours up to 6 AM 10/10/19 06:00 Intake Total 860 ml Output Total 300 ml Balance 560 ml Laboratory Data 24H LABS Laboratory Tests 2 10/09/19 18:49: Nucleated Red Blood Cells % (auto) 0.0 10/10/19 05:12: Anion Gap 4L, Glomerular Filtration Rate 12.5L, Calcium Level 9.7, Total Bilirubin 0.2, Aspartate Amino Transf (AST/SGOT) 42H, Alanine Aminotransferase (ALT/SGPT) 36, Alkaline Phosphatase 105, Total Protein 6.3L, Albumin 2.7L, Albumin/Globulin Ratio 0.75L CBC/BMP Laboratory Tests 10/09/19 18:49 10/10/19 05:12 Microbiology Microbiology 10/09/19 Stool Occult Blood (BJORN) - Final, Complete 10/08/19 Urine Culture - Final, Complete Shekhar Dowell MD Oct 10, 2019 5:35 pm
[2019-10-10] MEDS: ATORVASTATIN 20 MG TAB PO SCH (20:12)
[2019-10-10] MEDS: MULTIVITAMINS/MINERALS THERAP 1 TAB PO SCH (20:12)
[2019-10-10 22:00] VITALS: BP 154/77
[2019-10-11 06:00] VITALS: BP 139/72
[2019-10-11] MEDS: FOLIC ACID 1 MG TAB PO SCH (08:25)
[2019-10-11] MEDS: PANTOPRAZOLE 40MG TAB (PROTONIX) PO SCH ×2 (08:25→20:38)
[2019-10-11] MEDS: MAGNESIUM OXIDE 400 MG TAB (MAG-OX) PO SCH (08:25)
[2019-10-11 11:22] LABS: CHOLESTEROL LEVEL 127 MG/DL (<200); CHOLESTEROL RISK RATIO 2.116 (<5); HDL CHOLESTEROL 60 MG/DL (>40); LDL CHOLESTEROL 50 MG/DL (<100); NON-HDL-C 67 MG/DL; TRIGLYCERIDES LEVEL 86 MG/DL (<150)
[2019-10-11 12:11] LABS: HEMOGLOBIN A1c 5.5 %
[2019-10-11 14:00] VITALS: BP 148/76
--- NOTE | 2019-10-11 15:35 | IPNPDOC ---
Subjective Date Seen The patient was seen on 10/11/19. Subjective Chief Complaint/HPI Ms. Galan met with Dr. Nur earlier today and he had a louis discussion with her about starting dialysis. She is sad to hear that this may be what she needs. Again the patient and her daughter have a lot of questions about why these things are happening to her. It sounds as if Dr. Nur is ok with the idea of using erythropoitin to help boost her red cells count, however, they are also wondering if we should engage hematology this admission too. She is just coming to the realization that she will not be going to work tomorrow morning... General: Reports: Normal Appetite Constitutional: Denies: Chills, Fever Pulmonary: Denies: Dyspnea, Cough Cardiovascular: Denies: Chest Pain, Palpitations Gastrointestinal: Denies: Nausea Psych: Reports: Mood Normal Objective Physical Examination General Exam: Positive: Alert, Cooperative, No Acute Distress (talking with her daughter when I entered the room) Eye Exam: Positive: Conjunctiva & lids normal; Negative: Sclera icteric ENT Exam: Positive: Mucous membr. moist/pink Neck Exam: Positive: Supple; Negative: Lymphadenopathy Chest Exam: Positive: Clear to auscultation, Normal air movement Heart Exam: Positive: Rate Normal, Normal S1, Normal S2 Abdomen Exam: Positive: Normal bowel sounds, Soft; Negative: Tenderness Extremity Exam: Negative: Edema Neuro Exam: Positive: Normal Speech Psych Exam: Positive: Mental status NL, Mood NL Assessment /Plan Problems (1) CKD (chronic kidney disease) stage 5, GFR less than 15 ml/min Status: Chronic Response to Treatment: Stable Problem Specific Plan: Consult Specialist, Monitor Clinically Problem Text: Dr. Nur discussed starting dialysis with her, but she wonders if we should wait a little longer to see if her kidney's improve spontaneously. We have already been doing watchful waiting for a couple of months. (2) Symptomatic anemia Status: Acute Discussed With: Nurse, Patient Problem Specific Plan: Monitor Clinically, Repeat Labs Problem Text: Her Hb is still drifting down again. It is either: dilution because of her acutely worsening renal function, or she is losing/hemolylizing. We have found no evidence of bleeding. I ordered a haptoglobin level with tomorrow's labs. 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 Per the patient's daughter, Dr. Ordoñez's theory is that every time she has to have a transfusion of PRBCs that her platelets drop and then they recover in the interval. It may explain why she has a bicytopenia rather than just an anemia of chronic renal disease. (4) Weakness Status: Chronic Problem Text: I think some of this is her body compensating for her anemia by shunting blood to the vital organs and away from the periphery including the muscles of the legs. I will order PT eval to help maintain her strength. Plan/VTE VTE Prophylaxis Ordered?: Yes (TEDs and sequentials) VTE Exclusion Pharmacological: Thrombocytopenia Plan Therapy: PT VS, I&O, 24H, Fishbone Vital Signs/I&O Vital Signs Date Time Temp Pulse Resp B/P (MAP) Pulse Ox O2 Delivery O2 Flow Rate FiO2 10/11/19 14:00 98.3 60 14 148/76 (100) 98 Room Air I&O- Last 24 Hours up to 6 AM 10/11/19 06:00 Intake Total 1010 ml Output Total 0 ml Balance 1010 ml Laboratory Data 24H LABS Laboratory Tests 2 10/11/19 10:45: Estimated Mean Plasma Glucose 111H, Hemoglobin A1c 5.5, Triglycerides Level 86, Total Cholesterol 127, LDL Cholesterol 50, Non-HDL Cholesterol (LDL + VLDL) 67, Total HDL Cholesterol 60, Cholesterol/HDL Ratio 2.116 Microbiology Microbiology 10/09/19 Stool Occult Blood (BJORN) - Final, Complete 10/08/19 Urine Culture - Final, Complete Raoultella Planticola Shekhar Valle MD Oct 11, 2019 15:35
[2019-10-11 16:34] LABS: ALBUMIN 2.7 GM/DL (3.2-5.2); BLOOD UREA NITROGEN 69 MG/DL (7-18); CALCIUM LEVEL 9.2 MG/DL (8.8-10.2); CARBON DIOXIDE LEVEL 25 MEQ/L (21-32); CHLORIDE LEVEL 117 MEQ/L (98-107); GLOMERULAR FILTRATION RATE 11.1 (>39); GLUCOSE, FASTING 114 MG/DL (70-100); PHOSPHORUS LEVEL 3.5 MG/DL (2.5-4.9); POTASSIUM SERUM 4.3 MEQ/L (3.5-5.1); SODIUM LEVEL 150 MEQ/L (136-145)
[2019-10-11] MEDS: cefTRIAXone SOD 1 GM in D5W MINI-BAG PLUS 50 ML IV SCH (17:32)
[2019-10-11] MEDS: DARBEPOETIN 100 MCG/0.5 ML *NON-DIALYSIS* SYRINGE (J0881) SQ SCH (17:32)
--- NOTE | 2019-10-11 19:39 | CR ---
DATE OF CONSULTATION: 10/11/2019 REQUESTING PHYSICIAN: Dr. Shekhar Valle CONSULTING PHYSICIAN: Dr. Sam Nur REASON FOR CONSULTATION: Management of chronic kidney disease stage V. CHIEF COMPLAINT: The patient presented to the emergency room on 10/08/2019 because of weakness. HISTORY OF PRESENT ILLNESS: Rosita Galan is a 69-year-old female who is well-known to nephrology service from recent previous hospitalization and from outpatient nephrology clinic followup. She was recently transferred to [facility] in August 2019 because of pancytopenia and acute renal failure and possibility of atypical HUS or thrombotic thrombocytopenic purpura. When she was transferred to [facility], most of her labs came back within the normal range. I could not find the [id number], however complementary and complement levels were within the normal range. CH50 was more than 60. No bone marrow biopsy or renal biopsy was done over there. Her counts slowly started improving. The patient was discharged from [facility] and she followed up with nephrology service as outpatient and when I saw her a few weeks ago her GFR was still 12. There were no signs of renal recovery. The patient was informed that she might need to start renal replacement therapy. The patient still was anemic and she kept on having weakness, so she presented to the emergency room and she was finally admitted under the hospitalist service. The patient was given 2 units of PRBC transfusion so far. Nephrology service has been called on board since the patient's creatinine has been slowly going up. I saw and evaluated the patient today morning at the bedside. Her two daughters were also present at the bedside. PAST MEDICAL HISTORY: Past medical history of chronic kidney disease stage V, GFR of around 12 as of clinic labs, recurrent anemia requiring blood transfusion, history of GI bleed in the past, history of thrombocytopenia, hyperlipidemia, gastroesophageal reflux disease, hypertension and history of alcohol abuse. PAST SURGICAL HISTORY: History of EGD in July 2019. ALLERGIES: She is allergic to bee venom. FAMILY HISTORY: No significant family history of end-stage renal disease requiring hemodialysis. SOCIAL HISTORY: The patient lives at her home by herself. There is a history of alcohol abuse, reports that her last drink was in July 2019. No active illicit drug abuse at this time. REVIEW OF SYSTEMS: Constitutional: Patient reports feeling weak and tired and fatigued most of the time. She denies any fevers or chills. Eyes: She denies any blurry vision, double vision. ENT: She denies any dysphagia, odynophagia. Cardiovascular: She denies any chest pain or palpitation. Respiratory: She denies any shortness of breath or cough. GI: She denies any nausea, vomiting. Genitourinary: She denies any dysuria or hematuria. Musculoskeletal: She does report muscle weakness. Skin: She denies any rashes or ulcers. REPAIRING CALIBRATOR: She denies any strokes or seizure. Psychiatric: She denies any depression or anxiety. Endocrine: She denies any hyperthyroidism or hypothyroidism. Hematology/Oncology: She denies any easy bleeding or bruising. She does report anemia requiring multiple transfusions. All other review of systems is negative. PHYSICAL EXAMINATION: General: The patient is awake, alert, oriented times three, laying in bed in no apparent distress. Vital signs: Temperature is 97.5 degrees Fahrenheit, blood pressure 139/72, pulse 54, respiratory rate of 15, saturating 94% on room air. Head and neck exam: The patient has a mild exophthalmus bilaterally and there is some crusting of the eyes. Mucous membranes are moist. Neck is supple. There is no JVD. Cardiovascular: S1, S2, regular rate. No edema of the bilateral lower extremities. Respiratory: Chest is clear to auscultation bilaterally. Bilateral equal air entry. No rales or rhonchi. Abdomen: Soft, positive bowel sounds. Nontender. Mild hepatomegaly is noted. There is no splenomegaly. Genitourinary: Bladder is not palpable. Musculoskeletal: No clubbing or cyanosis. Pulses are 2+. REPAIRING CALIBRATOR: No focal deficit, power is 5/5 in all extremities. LABORATORY REVIEW: CBC showed WBC 13.5, hemoglobin is 9.3, platelets of 106, hemoglobin on arrival was 7.2. Urinalysis showed no proteinuria and there is no hematuria. There was 3+ leukocyte esterase and 3+ bacteria. BMP done today morning showed sodium 150, potassium 4.3, chloride 117, bicarbonate 25, BUN 69, creatinine 4.2. A1c is 5.5, calcium is 9.2, phosphorus is 3.5, albumin is 2.7. Microbiology: Urine culture is growing Raoultella Planticola. CURRENT INPATIENT MEDICATIONS: The patient's medications included ceftriaxone which was started by myself today 1 gram IV daily, Lipitor 40 mg nightly, Aranesp 100 mcg subcutaneous started today, folic acid 1 mg daily, magnesium oxide 400 mg by mouth daily, multivitamin one tablet nightly Protonix 40 mg by mouth twice a day. 1. Acute kidney injury superimposed on chronic kidney disease. The patient has progressed to chronic kidney disease stage V. Creatinine is 4.2. No known etiology. No biopsy was ever done because of thrombocytopenia. The patient has echogenic kidneys bilaterally. Possibility of doing a biopsy was discussed with the patient and her daughters. Biopsy was discussed in [facility] as well. However, because of the echogenic kidneys and since she has multiple other comorbidities she would not be a candidate for immunosuppression or steroids at this point since she has progressed to almost end-stage renal disease. I discussed starting renal replacement therapy with the daughters. All of their questions regarding hemodialysis and home-based peritoneal dialysis therapy was discussed. They want to think about it at this time. Once the family makes decisions, we will move accordingly for management of peritoneal versus hemodialysis. 2. Recurrent anemia. The patient is requiring multiple transfusions. Etiology of anemia is not known. Upper GI endoscopy has been done in the past. She has history of GI bleed. She continues to be on Protonix. I have started the patient on Aranesp once a week. Iron levels were checked and there is no iron deficiency. Continue the folic acid as well. 3. Urinary tract infection. The patient has been started on IV ceftriaxone for a total of 5 days. If she leaves before that, she will be started on oral antibiotics. 4. Thrombocytopenia. The patient has persistent thrombocytopenia which waxes and wanes. Right now her platelet count is 106. The patient's daughter also reports that Dr. Ordoñez diagnosed her with anti-HLA 1 antibody which might precipitate thrombocytopenia after blood transfusions. 5. Hypernatremia. Her sodium is 150. Continue to encourage oral free water intake. If sodium level goes up the patient will be given IV D5W. Thank you for involving me in the care of this patient. I should be happy to follow the patient along with you tomorrow morning. Plan of care was discussed with the patient's daughter. Daughter is at the bedside today morning.
[2019-10-11 19:53] LABS: HEMATOCRIT 28.5 % (36.0-47.0); HEMOGLOBIN 8.9 g/dl (12.0-15.5); MEAN CORPUSCULAR HGB CONC 31.2 g/dl (32.0-36.5); PLATELET COUNT, AUTOMATED 106 10^3/uL (150-450); RED BLOOD COUNT 2.97 10^6/uL (4.00-5.40); WHITE BLOOD COUNT 5.6 10^3/uL (4.0-10.0)
[2019-10-11] MEDS: MULTIVITAMINS/MINERALS THERAP 1 TAB PO SCH (20:38)
[2019-10-11] MEDS: ATORVASTATIN 20 MG TAB PO SCH (20:38)
[2019-10-11 22:00] VITALS: BP 157/71
[2019-10-12 06:00] VITALS: BP 158/72
[2019-10-12 08:30] LABS: HEMATOCRIT 28.3 % (36.0-47.0); MEAN CORPUSCULAR HEMOGLOBIN 30.4 pg (27.0-33.0); MEAN CORPUSCULAR HGB CONC 31.8 g/dl (32.0-36.5); MEAN CORPUSCULAR VOLUME 95.6 fl (80.0-96.0); PLATELET COUNT, AUTOMATED 115 10^3/uL (150-450); RED BLOOD COUNT 2.96 10^6/uL (4.00-5.40); WHITE BLOOD COUNT 5.5 10^3/uL (4.0-10.0)
[2019-10-12] MEDS: PANTOPRAZOLE 40MG TAB (PROTONIX) PO SCH ×2 (08:33→21:22)
[2019-10-12] MEDS: FOLIC ACID 1 MG TAB PO SCH (08:33)
[2019-10-12] MEDS: MAGNESIUM OXIDE 400 MG TAB (MAG-OX) PO SCH (08:33)
--- NOTE | 2019-10-12 08:44 | IPNPDOC ---
Subjective Date Seen The patient was seen on 10/12/19. Subjective Chief Complaint/HPI Pt this morning cont to state that she feels just fine. She has no new concerns. She is undecided what she wants to do as far as dialysis. General: Denies: Fatigue Constitutional: Denies: Chills, Fever Skin: Denies: Rash Pulmonary: Denies: Dyspnea, Cough Cardiovascular: Denies: Chest Pain, Palpitations Gastrointestinal: Denies: Nausea, Vomiting, Diarrhea Neurological: Denies: Weakness Psych: Reports: Mood Normal Objective Physical Examination General Exam: Positive: Alert, Cooperative, No Acute Distress (asleep, arouses easily) Eye Exam: Negative: Conjunctiva & lids normal (R eye crusted, mildly injection), Sclera icteric ENT Exam: Positive: Mucous membr. moist/pink Neck Exam: Positive: Supple; Negative: Lymphadenopathy Chest Exam: Positive: Clear to auscultation, Normal air movement Heart Exam: Positive: Rate Normal, Normal S1, Normal S2 Abdomen Exam: Positive: Normal bowel sounds, Soft; Negative: Tenderness Extremity Exam: Negative: Edema Neuro Exam: Positive: Normal Speech Psych Exam: Positive: Mental status NL, Mood NL Assessment /Plan Problems (1) Symptomatic anemia Status: Acute Discussed With: Nurse, Patient Problem Specific Plan: Monitor Clinically, Repeat Labs Problem Text: new-onset macrocytic anemia c wide RDW c mild thrombocyt concomitant with decline in GFR (since 07/2019 cr 3-4 c hgb 8s) (06/2010 hgb 12.4, plt 337K c cr 1.3) favor 2 CKD +/- hemolysis vs 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 10/12 9-favor renal bx-dw Jl re case given previously seen by her 08/19/19, check repeat KL, LDH, smear 10/11 sp Aranesp 100 SC 10/12/18 -DORIS c 0.8% ret 08/20 hapto low NL 43 c LDH 276, AST 175 09/2019: %sat 86, mary 1086 B12 880/RBC folate 1034 -sIFE for MCB, uIFE for BJP (SPEP cw polyclonal gammopathy); but 08/09/19 K/L 135/69/2 07/09/19 CHr 30 c 11% retic (but this is at hgb 4.9!) -i/d HENRIK -hep B/C -plt Ab [id number] borderline low 53% (not cw TTS) 08/08/19 smear: Anemia, with slightly elevated MCV, without significant poikilocytosis, most likely multifactorial anemia with a component of anemia of chronic disease. Markedly elevated ferritin level. Patient has received 4 RBC transfusions in the past 40 days. Correlation with clinical Hx is recommended. 08/17 CT AP: IMPRESSION: 1. Bilateral renal calyceal lithiasis. 2. Small LEFT uterine calcified leiomyoma. 3. Diverticulosis. 4. Minimal RIGHT pleural effusion. 5. Possible anemia, see above comments. Correlation with CBC may be helpful. 08/20 CT chest : B pleural effusions (2) CKD (chronic kidney disease) stage 5, GFR less than 15 ml/min Status: Chronic Response to Treatment: Stable Problem Specific Plan: Consult Specialist, Monitor Clinically Problem Text: 10/12 Await further input from family, coordination with Nephrology. 10/11 Dr. Nur discussed starting dialysis with her, but she wonders if we should wait a little longer to see if her kidney's improve spontaneously. We have already been doing watchful waiting for a couple of months. (3) Thrombocytopenia Status: Chronic Response to Treatment: Stable Problem Specific Plan: Monitor Clinically Problem Text: as per anemia (4) Weakness Status: Chronic Problem Text: 10/11 per PT safe to dc home Plan/VTE VTE Prophylaxis Ordered?: Yes (TEDs and sequentials) VTE Exclusion Pharmacological: Thrombocytopenia Plan Therapy: PT VS, I&O, 24H, Fishbone Vital Signs/I&O Vital Signs Date Time Temp Pulse Resp B/P (MAP) Pulse Ox O2 Delivery O2 Flow Rate FiO2 10/12/19 06:00 97.2 54 15 158/72 (100) 96 Room Air I&O- Last 24 Hours up to 6 AM 10/12/19 06:00 Intake Total 1430 ml Balance 1430 ml Laboratory Data 24H LABS Laboratory Tests 2 10/11/19 10:45: Nucleated Red Blood Cells % (auto) 0.0, Anion Gap 8, Glomerular Filtration Rate 11.1L, Estimated Mean Plasma Glucose 111H, Hemoglobin A1c 5.5, Calcium Level 9.2, Phosphorus Level 3.5, Albumin 2.7L, Triglycerides Level 86, Total Cholesterol 127, LDL Cholesterol 50, Non-HDL Cholesterol (LDL + VLDL) 67, Total HDL Cholesterol 60, Cholesterol/HDL Ratio 2.116 10/12/19 08:09: Nucleated Red Blood Cells % (auto) 0.0 CBC/BMP Laboratory Tests 10/11/19 10:45 10/12/19 08:09 Microbiology Microbiology 10/09/19 Stool Occult Blood (BJORN) - Final, Complete 10/08/19 Urine Culture - Final, Complete Raoultella MARY Gusman PA-C Oct 12, 2019 08:44 Rick Rocha M.D. Oct 12, 2019 17:52
[2019-10-12 08:49] LABS: ALBUMIN 2.5 GM/DL (3.2-5.2); CALCIUM LEVEL 9.6 MG/DL (8.8-10.2); CREATININE FOR GFR 3.95 MG/DL (0.55-1.30); PHOSPHORUS LEVEL 3.6 MG/DL (2.5-4.9); POTASSIUM SERUM 4.9 MEQ/L (3.5-5.1)
[2019-10-12 09:59] LABS: HEPATITIS B SURFACE ANTIBODY NEGATIVE (POSITIVE); HEPATITIS B SURFACE ANTIGEN NEGATIVE (NEGATIVE)
[2019-10-12] MEDS: ERYTHROMYCIN OPHTH OINT OD SCH ×3 (10:15→21:23)
[2019-10-12 10:17] LABS: HEPATITIS B CORE ANTIBODY IGM NEGATIVE (NEGATIVE)
[2019-10-12] MEDS: cefTRIAXone SOD 1 GM in D5W MINI-BAG PLUS 50 ML IV SCH (11:10)
[2019-10-12 14:00] VITALS: BP 144/76
[2019-10-12] MEDS: MULTIVITAMINS/MINERALS THERAP 1 TAB PO SCH (21:22)
[2019-10-12] MEDS: ATORVASTATIN 20 MG TAB PO SCH (21:23)
[2019-10-12 22:00] VITALS: BP 149/76
[2019-10-13 06:00] VITALS: BP 161/69
[2019-10-13 06:02] LABS: BASO % 0.4 % (0.0-1.0); EOS # 0.1 10^3/uL (0.0-0.5); EOS % 1.9 % (0.0-3.0); HEMATOCRIT 28.5 % (36.0-47.0); HEMOGLOBIN 9.1 g/dl (12.0-15.5); LYMPH # 1.3 10^3/uL (1.5-5.0); LYMPH % 24.7 % (24.0-44.0); MEAN CORPUSCULAR HEMOGLOBIN 30.3 pg (27.0-33.0); MEAN CORPUSCULAR HGB CONC 31.9 g/dl (32.0-36.5); MONO # 0.5 10^3/uL (0.0-0.8); MONO % 8.9 % (0.0-5.0); NEUTROPHILS # 3.4 10^3/uL (1.5-8.5); NEUTROPHILS % 63.5 % (36.0-66.0); PLATELET COUNT, AUTOMATED 121 10^3/uL (150-450); WHITE BLOOD COUNT 5.3 10^3/uL (4.0-10.0)
[2019-10-13 06:20] LABS: ALBUMIN 2.6 GM/DL (3.2-5.2); BILIRUBIN,TOTAL 0.2 MG/DL (0.2-1.0); CALCIUM LEVEL 8.8 MG/DL (8.8-10.2); CREATININE FOR GFR 3.7 MG/DL (0.55-1.30); GLOMERULAR FILTRATION RATE 12.9 (>39); TOTAL PROTEIN 6.9 GM/DL (6.4-8.2)
--- NOTE | 2019-10-13 07:33 | IPN ---
DATE OF SERVICE: 10/12/2019 SUBJECTIVE: The patient was seen and examined at the bedside today morning. Her daughter was also present at the bedside. There is no significant improvement in the renal function. She was started on Aranesp injections. Hemoglobin level is stable. She is otherwise afebrile and hemodynamically stable. OBJECTIVE: Vital Signs: Temperature is 97.9 degrees Fahrenheit, blood pressure 144/76, pulse is 53, respiratory rate of 18, saturating 98% on room air. Intake and Output: There is no urine output recorded. Weight in the bed scale is not available. PHYSICAL EXAMINATION: General: The patient is awake, alert, oriented x3, laying in bed, in no apparent distress. Head and Neck Exam: The patient has mild exophthalmus. Mucous membranes are moist. Neck is supple. There is no jugular venous distention (JVD). Cardiovascular: S1, S2, regular rate. No edema of the bilateral lower extremities. Respiratory: Chest is clear to auscultation bilaterally. Bilateral equal air entry. No rales or rhonchi. Abdomen: Soft. Positive bowel sounds. Nontender. No organomegaly. Musculoskeletal: No clubbing or cyanosis. Pulses are 2+. ASW/ASUW TACTICAL AIR CONTROLLER: No focal deficit. Power is 5/5 in all extremities. LAB REVIEW: CBC showed a WBC of 5.5, hemoglobin 9, platelets of 115. BMP showed sodium 146, potassium 4.9, chloride 115, bicarb 26, BUN 67, creatinine 3.9 and it was 4.2 yesterday, calcium 9.6m phosphorus 3.6. Immunology kappa lambda light chain ratio is pending. CURRENT INPATIENT MEDICATIONS: The patient's medications were all reviewed by myself. She continues to be on IV ceftriaxone. She was started on Aranesp 100 mcg subcu once a week. No other change in the medications today as compared with yesterday. ASSESSMENT/PLAN: 1. Chronic kidney disease stage V. Etiology is unknown at this time. No significant improvement in the renal function. No urgent need to start dialysis. The patient's family is more inclined towards starting dialysis as outpatient electively 2. Recurrent anemia. The patient's iron levels are adequate. She has required multiple transfusions recently. I have started her on Aranesp. Hemoglobin level is stable. 3. Urinary tract infection. The patient is getting IV ceftriaxone. 4. Thrombocytopenia. Platelet counts are getting better slowly. Hematology evaluation is pending. 5. Disposition. The patient's family is awaiting input from hematology and if hematology recommends a bone marrow biopsy or a kidney biopsy, then the biopsy will be pursued. Otherwise, the patient will be managed as outpatient after discharge from the hospital. She already has an appointment with the nephrology office in October.
[2019-10-13] MEDS: FOLIC ACID 1 MG TAB PO SCH (09:00)
[2019-10-13] MEDS: MAGNESIUM OXIDE 400 MG TAB (MAG-OX) PO SCH (09:00)
[2019-10-13] MEDS: PANTOPRAZOLE 40MG TAB (PROTONIX) PO SCH ×2 (09:00→20:44)
[2019-10-13] MEDS: ERYTHROMYCIN OPHTH OINT OD SCH ×3 (09:01→20:44)
--- NOTE | 2019-10-13 10:46 | IPNPDOC ---
Subjective Date Seen The patient was seen on 10/13/19. Subjective Chief Complaint/HPI Pt this morning states that the reality of her illness has really seemed to hit her. She states that she feels scared, and nervous, she is unsure what the right decision is as far as biopsy or dialysis. General: Reports: Fatigue Constitutional: Denies: Chills, Fever ENT: Denies: Head Aches Pulmonary: Denies: Dyspnea, Cough Cardiovascular: Denies: Chest Pain, Palpitations Gastrointestinal: Denies: Nausea, Vomiting, Diarrhea Neurological: Denies: Weakness Psych: Reports: Depression Objective Physical Examination General Exam: Positive: Alert, Cooperative, No Acute Distress (asleep, arouses easily) Eye Exam: Negative: Conjunctiva & lids normal (R eye crusted, mildly injection), Sclera icteric ENT Exam: Positive: Mucous membr. moist/pink Neck Exam: Positive: Supple; Negative: Lymphadenopathy Chest Exam: Positive: Clear to auscultation, Normal air movement Heart Exam: Positive: Rate Normal, Normal S1, Normal S2 Abdomen Exam: Positive: Normal bowel sounds, Soft; Negative: Tenderness Extremity Exam: Negative: Edema Neuro Exam: Positive: Normal Speech Psych Exam: Positive: Mental status NL, Mood NL Assessment /Plan Problems (1) Symptomatic anemia Status: Acute Discussed With: Nurse, Patient Problem Specific Plan: Monitor Clinically, Repeat Labs Problem Text: 10/[address] Tom, pt tells me that it appears to her as though Dr Nur spoke to her yesterday. 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 10/12 9-favor renal bx-dw Jl re case given previously seen by her 08/19/19, check repeat KL, LDH, smear 10/11 sp Aranesp 100 SC 10/12/18 -DORIS c 0.8% ret 08/20 hapto low NL 43 c LDH 276, AST 175 09/2019: %sat 86, mary 1086 B12 880/RBC folate 1034 -sIFE for MCB, uIFE for BJP (SPEP cw polyclonal gammopathy); but 08/09/19 K/L 135/69/2 07/09/19 CHr 30 c 11% retic (but this is at hgb 4.9!) -i/d HENRIK -hep B/C -plt Ab [id number] borderline low 53% (not cw TTS) 08/08/19 smear: Anemia, with slightly elevated MCV, without significant poikilocytosis, most likely multifactorial anemia with a component of anemia of chronic disease. Markedly elevated ferritin level. Patient has received 4 RBC transfusions in the past 40 days. Correlation with clinical Hx is recommended. 08/17 CT AP: IMPRESSION: 1. Bilateral renal calyceal lithiasis. 2. Small LEFT uterine calcified leiomyoma. 3. Diverticulosis. 4. Minimal RIGHT pleural effusion. 5. Possible anemia, see above comments. Correlation with CBC may be helpful. 08/20 CT chest : B pleural effusions (2) CKD (chronic kidney disease) stage 5, GFR less than 15 ml/min Status: Chronic Response to Treatment: Stable Problem Specific Plan: Consult Specialist, Monitor Clinically Problem Text: 10/12 Await further input from family, coordination with Nephrology. 10/11 Dr. Nur discussed starting dialysis with her, but she wonders if we should wait a little longer to see if her kidney's improve spontaneously. We have already been doing watchful waiting for a couple of months. (3) Thrombocytopenia Status: Chronic Response to Treatment: Stable Problem Specific Plan: Monitor Clinically Problem Text: as per anemia (4) Weakness Status: Chronic Problem Text: 10/11 per PT safe to dc home Plan/VTE VTE Prophylaxis Ordered?: Yes (TEDs and sequentials) VTE Exclusion Pharmacological: Thrombocytopenia Plan Therapy: PT VS, I&O, 24H, Fishbone Vital Signs/I&O Vital Signs Date Time Temp Pulse Resp B/P (MAP) Pulse Ox O2 Delivery O2 Flow Rate FiO2 10/13/19 06:00 97.0 50 17 161/69 (99) 96 Room Air I&O- Last 24 Hours up to 6 AM 10/13/19 06:00 Intake Total 1670 ml Balance 1670 ml Laboratory Data 24H LABS Laboratory Tests 2 10/12/19 18:45: Reticulocyte # (auto) 27.6, Differential Slide Review Report, Peripheral Blood Smear Path Consult PERIPHERAL SMEAR, Percent Reticulocyte Count 0.8, Reticulocyte Hemoglobin Equivalent 35.8 10/13/19 05:14: Immature Granulocyte % (Auto) 0.6, Neutrophils (%) (Auto) 63.5, Lymphocytes (%) (Auto) 24.7, Monocytes (%) (Auto) 8.9H, Eosinophils (%) (Auto) 1.9, Basophils (%) (Auto) 0.4, Neutrophils # (Auto) 3.4, Lymphocytes # (Auto) 1.3L, Monocytes # (Auto) 0.5, Eosinophils # (Auto) 0.1, Basophils # (Auto) 0.0, Nucleated Red Blood Cells % (auto) 0.0, Anion Gap 7L, Glomerular Filtration Rate 12.9L, Calcium Level 8.8, Total Bilirubin 0.2, Aspartate Amino Transf (AST/SGOT) 39H, Alanine Aminotransferase (ALT/SGPT) 38, Alkaline Phosphatase 130H, Total Protein 6.9, Albumin 2.6L, Albumin/Globulin Ratio 0.60L CBC/BMP Laboratory Tests 10/13/19 05:14 Microbiology Microbiology 10/09/19 Stool Occult Blood (BJORN) - Final, Complete 10/08/19 Urine Culture - Final, Complete Raoultella MARY Gusman PA-C Oct 13, 2019 10:46
--- NOTE | 2019-10-13 11:25 | IPN ---
DATE OF SERVICE: 10/13/2019 SUBJECTIVE: The patient was seen and examined at the bedside today morning. The patient is afebrile, hemodynamically stable. Her hemoglobin and platelet count is stable. No significant improvement in the renal function. The patient is still in stage 5 chronic kidney disease. I have discussed the case with mathematical scientist, Dr. Tom, today morning and she is more of the opinion that was to do a renal biopsy to look for the etiology of the renal failure. She does not think there is any hematological process that is causing the renal failure and there is no indication for bone marrow biopsy at this time. OBJECTIVE: Vital signs: Temperature is 97 degrees Fahrenheit, blood pressure 161/69, pulse is 50, respiratory of 70, saturating 96% on room air. Intake and output. There is no urine output recorded. Weight in the bed scale is not available. PHYSICAL EXAMINATION: General: The patient is awake, alert, oriented times three, sitting up in the bed in no apparent distress. Head and neck exam: The patient has mild exophthalmos. Mucous membranes are moist. Neck is supple. There is no jugular venous distention (JVD). Cardiovascular: S1, s2, regular rate. No edema of the bilateral lower extremities. Respiratory: Chest is clear to auscultation bilaterally. Bilateral equal air entry. No rales or rhonchi. Abdomen: Soft, positive bowel sounds. Nontender. No organomegaly. Musculoskeletal: No clubbing or cyanosis. Pulses are 2+. [employer]PER[employer]OR: No focal deficit. Power is 5/5 in all extremities. LAB REVIEW: CBC showed a WBC of 5.3, hemoglobin is 9.1, platelets are 121. BMP showed sodium 147, potassium 5, chloride 115, bicarb 25, BUN 64, creatinine 3.7, albumin is 2.6. CURRENT INPATIENT MEDICATIONS: The patient's medications were all reviewed by myself. She continues to be on IV ceftriaxone. No other significant change in the medications today as compared with yesterday. ASSESSMENT AND PLAN: 1. Chronic kidney disease stage 5. No significant improvement in the renal function. The patient does not have any significant proteinuria on the urinalysis done this admission. Hematology is recommending a renal biopsy. I discussed the possibility of renal biopsy with the patient, she will discuss with her daughters and let me known by tomorrow morning. 2. Recurrent anemia. Continue current dose of Aranesp. Hemoglobin level is stable. 3. Urinary tract infection. She is on ceftriaxone for a total of 5 days. 4. Thrombocytopenia. Platelet count is slowly improving now.
[2019-10-13] MEDS: cefTRIAXone SOD 1 GM in D5W MINI-BAG PLUS 50 ML IV SCH (11:28)
[2019-10-13 14:00] VITALS: BP 154/81
[2019-10-13] MEDS ORDERED: [UNRECOGNIZED DRUG - OTHER] IM ONE (15:00)
--- NOTE | 2019-10-13 18:26 | CR ---
DATE OF CONSULTATION: 10/13/2019 CONSULTATION REPORT FOR: Marcial Sanchez MD REASON FOR CONSULTATION: Pancytopenia, transfusion-dependent anemia, renal failure. HISTORY OF PRESENT ILLNESS: Mrs. Galan is known to me from her August 2019 admission here for profound anemia and renal insufficiency with onset following a gastroenteritis, possibly complicated by gastrointestinal (GI) bleed. 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 She was transferred to [facility]. Over there, her laboratories reportedly normalized. She was discharged home with followup with nephrology. During her admission in August 2019, [id number] was ordered but the result not reported in or published in a way available to either Dr. Nur or myself and only learned today. Meanwhile, she saw Dr. Nur in early October 2019, was found to be in worsening renal failure, having profound fatigue, and on 10/08/2019, presented to the emergency room with hemoglobin 7.2, hematocrit 23, platelets 97, creatinine 3.2, and glomerular filtration rate (GFR) 14. During this admission, she has received two units of red blood cells (RBCs). Platelets have ranged just above 100 but renal function has fairly significantly worsened with creatinine ranging between 3.7 and 4.2, GFR now 12. I was called today by Dr. Sanchez and asked about her. This prompted me to research the [id number], which after discussing with laboratory was found to be 50 with a reference range of 66 or higher. 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 Her workup has consisted so far of peripheral blood evaluation including serum protein electrophoresis (SPEP), urine protein electrophoresis (UPEP), serum and urine immunofixation, free light chains, and all of which are negative for evidence of multiple myeloma. Sedimentation rate notably elevated at 83, reticulocyte count low, haptoglobin not low. On the original smear in August, no clear schistocytes. [address] lambda raw numbers elevated but ratio only mildly elevated and immunoglobulins notable for a slightly elevated immunoglobulin A (IgA), normal IgG, normal IgD and E. Finally in terms of other possible causes of an atypical hemolytic uremic syndrome, there is no clear evidence of liver dysfunction either on imaging or laboratories. Aspartate aminotransferase (AST) mildly elevated, alanine aminotransferase (ALT) 38, alkaline phosphatase mildly elevated at 130. Albumin is consistently low and tracks with the renal insufficiency. At the bedside, Mrs. Galan is awake, alert and oriented. She is accompanied by her daughter. I explained my suspicion she has atypical HUS. Standard empiric treatment for this is an antibody called eculizumab. This is given weekly for four weeks and then monthly beginning in the fifth week. I have spoken with our outpatient pharmacy manager and we are going to be able to get the drug in, in a few days. In the meantime, empiric treatment with plasma is appropriate. This supplies the complement factors mutated and/or unavailable in patients with HUS. After speaking with Dr. Nru, his recommendation is that Mrs. Galan receive Lasix between units of plasma. This could be started tomorrow. A renal biopsy is scheduled also for tomorrow which, could support to the HUS diagnosis if it shows microthrombi, the pathologic etiology of renal failure in hemolytic-uremic syndrome. Zan and her daughter asked several questions. It remains unclear whether she will start dialysis soon or at all. Dr. Nur will continue to monitor her fluids and electrolyte status, blood pressure, and acid base status in making this determination. PAST MEDICAL HISTORY: 1. Anemia. 2. Upper gastrointestinal (GI) bleed, negative for Helicobacter (H) pylori. 3. Chronic renal insufficiency since July 2019. 4. Hyperlipidemia. 5. Gastroesophageal reflux disease (GERD). 6. Hypertension. 7. History of alcohol abuse. PAST SURGICAL HISTORY: Esophagogastroduodenoscopy (EGD) July 2019. CURRENT MEDICATIONS: - lactobacillus twice a day - erythromycin three times a day - darbepoietin alpha 100 mcg (? weekly) - ceftriaxone every 24 hours - atorvastatin 40 mg - folic acid 1 mg daily - Mag-Ox 400 mg daily - pantoprazole 40 mg twice a day - multivitamin one tablet daily - Status post meningococcal vaccine as of today. ALLERGIES: BEE VENOM. SOCIAL HISTORY: The patient is , lives alone, works part-time in [place], until July 2019 regular drinker of up to four glass of wine per day. Smoking history: Remote 1960s. FAMILY HISTORY: No malignancy or autoimmune disease. REVIEW OF SYSTEMS: Deferred today. PHYSICAL EXAMINATION: Deferred today. VITAL SIGNS: Reviewed. Temperature 36.5, blood pressure 154/81, heart rate 59, respiratory rate 17, oxygen saturation 99% and room air. LABORATORY DATA: Today, WBC 5.3, hemoglobin 9.1, hematocrit 28, platelets 121. Sodium 147, potassium 5, chloride 115, bicarbonate 25, anion gap 7, BUN 64, creatinine 3.7, GFR 13, glucose 79, AST 39, ALT 38, alkaline phosphatase 130, albumin 2.6. Free light chains pending. Hepatitis serologies B and C negative. [id number] in August 2019 52.5. 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 PLAN: 1. I have been in discussion with Dr. Sanchez and Dr. Nur today. The patient has already received meningococcal vaccination. 2. Agree with plan for renal biopsy. This can provide definitive evidence of a primary renal abnormality versus a microangiopathic cause of renal insufficiency. 3. Plasma infusion, two units on 10/14/2019 by 60 mg IV Lasix infusion. 4. Begin eculizumab (Soliris), 900 mg estimated start date 10/15/2019 and continue weekly for a total of five weekly doses followed by monthly treatment. 5. Dr. Nur and I have discussed the patient's overall clinical picture. Given high suspicion for hemolytic-uremic syndrome (HUS), potential for need for dialysis particularly given fluid loads that will ensue with start of plasma treatment and eculizumab, it will be prudent to monitor the patient at least for these next few days inpatient, possibly through the weekend, to make sure she has tolerated treatment. She could potentially discharge early next week and receive the remainder of her antibody treatment outpatient. Thank you for this consultation. We will follow. [facility]
[2019-10-13] MEDS: LACTOBACILLUS ACIDOPHILUS CAP (BACID) PO SCH (20:43)
[2019-10-13] MEDS: MULTIVITAMINS/MINERALS THERAP 1 TAB PO SCH (20:43)
[2019-10-13] MEDS: ATORVASTATIN 20 MG TAB PO SCH (20:44)
[2019-10-13 22:00] VITALS: BP 154/80
[2019-10-14] VITALS (15 sets, daily range): BP systolic 140–164; BP diastolic 70–80
[2019-10-14 05:56] LABS: BASO % 0.2 % (0.0-1.0); EOS # 0.1 10^3/uL (0.0-0.5); EOS % 1.8 % (0.0-3.0); HEMATOCRIT 30.6 % (36.0-47.0); HEMOGLOBIN 9.4 g/dl (12.0-15.5); LYMPH # 1.3 10^3/uL (1.5-5.0); LYMPH % 25.5 % (24.0-44.0); MEAN CORPUSCULAR HEMOGLOBIN 29.5 pg (27.0-33.0); MEAN CORPUSCULAR HGB CONC 30.7 g/dl (32.0-36.5); MEAN CORPUSCULAR VOLUME 95.9 fl (80.0-96.0); MONO # 0.5 10^3/uL (0.0-0.8); MONO % 9.4 % (0.0-5.0); NEUTROPHILS # 3.1 10^3/uL (1.5-8.5); NEUTROPHILS % 62.3 % (36.0-66.0); PLATELET COUNT, AUTOMATED 142 10^3/uL (150-450); RED BLOOD COUNT 3.19 10^6/uL (4.00-5.40)
[2019-10-14 06:15] LABS: ALBUMIN 2.6 GM/DL (3.2-5.2); BILIRUBIN,TOTAL 0.3 MG/DL (0.2-1.0); CALCIUM LEVEL 9.4 MG/DL (8.8-10.2); CREATININE FOR GFR 3.59 MG/DL (0.55-1.30); GLOMERULAR FILTRATION RATE 13.3 (>39); POTASSIUM SERUM 4.6 MEQ/L (3.5-5.1); TOTAL PROTEIN 7.1 GM/DL (6.4-8.2)
[2019-10-14] MEDS ORDERED: LIDOCAINE 1% MDV 20ML VIAL As Ordered ONE (07:17)
[2019-10-14] MEDS ORDERED: diphenhydrAMINE INJ 50MG/ML VIAL (J1200) As Ordered ONE (07:21)
[2019-10-14] MEDS ORDERED: fentaNYL 100 MCG/2 ML INJECTION (J3010) As Ordered ONE (07:21)
[2019-10-14] MEDS ORDERED: MIDAZOLAM INJ 2 MG/2 ML VIAL (J2250) As Ordered ONE (07:21)
--- NOTE | 2019-10-14 07:32 | IRMSE ---
[facility] IR Moderate Sedation Eval. Date and Time Date: Oct 14, 2019 Time: 07:32 ASA Classification ASA Classification: III-Severe systemic dis. Mallampati Score: II NPO: Yes Obstructive Sleep Apnea: No Interval Plan: moderate sedation DREAD THEODORE MD Oct 14, 2019 07:32
--- NOTE | 2019-10-14 10:02 | IPNPDOC ---
Subjective Date Seen The patient was seen on 10/14/19. Subjective Chief Complaint/HPI anemia, HUS Events since last encounter s/p renal bx this am. Anticipate tx with plasma treatment and eculizumab as directed by hematology. Patient had some bradycardia returning from her renal bx. Constitutional: Denies: Chills, Fever, Night Sweats Skin: Denies: Rash, Lesions, Breakdown Pulmonary: Denies: Dyspnea, Cough Cardiovascular: Denies: Chest Pain, Palpitations, Orthopnea, Paroxysmal Noc. Dyspnea, Lt Headedness Gastrointestinal: Denies: Nausea, Vomiting, Abdominal Pain, Diarrhea, Constipation Genitourinary: Denies: Dysuria, Frequency, Incontinence, Retention Psych: Reports: Mood Normal; Denies: Depression, Memory Issues Objective Physical Examination General Exam: Positive: Alert, Cooperative, No Acute Distress Eye Exam: Negative: Conjunctiva & lids normal (R eye crusted, mildly inje ction), Sclera icteric ENT Exam: Positive: Mucous membr. moist/pink Neck Exam: Positive: Supple; Negative: Lymphadenopathy Chest Exam: Positive: Clear to auscultation, Normal air movement Heart Exam: Positive: Rate Normal, Normal S1, Normal S2 Abdomen Exam: Positive: Normal bowel sounds, Soft; Negative: Tenderness Extremity Exam: Negative: Edema Neuro Exam: Positive: Normal Speech Psych Exam: Positive: Mental status NL, Mood NL Assessment /Plan Problems (1) Symptomatic anemia Status: Acute Discussed With: Nurse, Patient Problem Specific Plan: Monitor Clinically, Repeat Labs Problem Text: 10/14/2019: See Dr. Tom consultation. 10/[address] Tom, pt tells me that it appears to her as though Dr Nur spoke to her yesterday. 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 10/12 9-favor renal bx-caesar Parikh re case given previously seen by her 08/19/19, check repeat KL, LDH, smear 10/11 sp Aranesp 100 SC 10/12/18 -DORIS c 0.8% ret 08/20 hapto low NL 43 c LDH 276, AST 175 09/2019: %sat 86, mary 1086 B12 880/RBC folate 1034 -sIFE for MCB, uIFE for BJP (SPEP cw polyclonal gammopathy); but 08/09/19 K/L 135/69/2 07/09/19 CHr 30 c 11% retic (but this is at hgb 4.9!) -i/d HENRIK -hep B/C -plt Ab [id number] borderline low 53% (not cw TTS) 08/08/19 smear: Anemia, with slightly elevated MCV, without significant poikilocytosis, most likely multifactorial anemia with a component of anemia of chronic disease. Markedly elevated ferritin level. Patient has received 4 RBC transfusions in the past 40 days. Correlation with clinical Hx is recommended. 08/17 CT AP: IMPRESSION: 1. Bilateral renal calyceal lithiasis. 2. Small LEFT uterine calcified leiomyoma. 3. Diverticulosis. 4. Minimal RIGHT pleural effusion. 5. Possible anemia, see above comments. Correlation with CBC may be helpful. 08/20 CT chest : B pleural effusions (2) CKD (chronic kidney disease) stage 5, GFR less than 15 ml/min Status: Chronic Response to Treatment: Stable Problem Specific Plan: Consult Specialist, Monitor Clinically Problem Text: 10/12 Await further input from family, coordination with Nephrology. 10/11 Dr. Nur discussed starting dialysis with her, but she wonders if we should wait a little longer to see if her kidney's improve spontaneously. We have already been doing watchful waiting for a couple of months. (3) Thrombocytopenia Status: Chronic Response to Treatment: Stable Problem Specific Plan: Monitor Clinically Problem Text: as per anemia (4) Weakness Status: Chronic Problem Text: 10/11 per PT safe to dc home (5) Bradycardia Problem Text: HR trends 50-60 on average. will monitor with telemetry Plan/VTE VTE Prophylaxis Ordered?: Yes (TEDs and sequentials) VTE Exclusion Pharmacological: Thrombocytopenia Plan Therapy: PT VS, I&O, 24H, Fishbone Vital Signs/I&O Vital Signs Date Time Temp Pulse Resp B/P (MAP) Pulse Ox O2 Delivery O2 Flow Rate FiO2 10/14/19 09:30 98.5 46 18 160/72 (101) 100 Room Air 10/14/19 08:18 2 I&O- Last 24 Hours up to 6 AM 10/14/19 06:00 Intake Total 620 ml Output Total 700 ml Balance -80 ml Laboratory Data 24H LABS Laboratory Tests 2 10/14/19 05:17: Immature Granulocyte % (Auto) 0.8, Neutrophils (%) (Auto) 62.3, Lymphocytes (%) (Auto) 25.5, Monocytes (%) (Auto) 9.4H, Eosinophils (%) (Auto) 1.8, Basophils (%) (Auto) 0.2, Neutrophils # (Auto) 3.1, Lymphocytes # (Auto) 1.3L, Monocytes # (Auto) 0.5, Eosinophils # (Auto) 0.1, Basophils # (Auto) 0.0, Nucleated Red Blood Cells % (auto) 0.0, Anion Gap 6L, Glomerular Filtration Rate 13.3L, Calcium Level 9.4, Total Bilirubin 0.3, Aspartate Amino Transf (AST/SGOT) 32, Alanine Aminotransferase (ALT/SGPT) 36, Alkaline Phosphatase 120H, Total Protein 7.1, Albumin 2.6L, Albumin/Globulin Ratio 0.58L CBC/BMP Laboratory Tests 10/14/19 05:17 Microbiology Microbiology 10/09/19 Stool Occult Blood (BJORN) - Final, Complete 10/08/19 Urine Culture - Final, Complete Raoultella Planticola Alexa Omer [employer] CLERK Oct 14, 2019 10:01
[2019-10-14] MEDS: MAGNESIUM OXIDE 400 MG TAB (MAG-OX) PO SCH (11:01)
[2019-10-14] MEDS: LACTOBACILLUS ACIDOPHILUS CAP (BACID) PO SCH ×2 (11:01→21:55)
[2019-10-14] MEDS: FOLIC ACID 1 MG TAB PO SCH (11:01)
[2019-10-14] MEDS: PANTOPRAZOLE 40MG TAB (PROTONIX) PO SCH ×2 (11:01→21:54)
[2019-10-14] MEDS: ERYTHROMYCIN OPHTH OINT OD SCH ×3 (11:02→21:54)
[2019-10-14] MEDS: cefTRIAXone SOD 1 GM in D5W MINI-BAG PLUS 50 ML IV SCH (11:02)
--- NOTE | 2019-10-14 14:42 | IPN ---
DATE: 10/14/2019 SUBJECTIVE: The patient was seen and examined at the bedside this morning in the radiology suite right after the renal biopsy. Last 24-hour events and labs were noted. I actually discussed the patient with hematology yesterday, Dr. Eliana Tom. 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 So an ultrasound guided renal biopsy was ordered. The patient was discussed with interventional radiology Dr. Cervantes and I have appreciate their help. The patient just got an ultrasound-guided left kidney biopsy today. Official report is pending. However, given the clinical picture, the patient will be treated as atypical you HUS. Hematology is going to start the patient on plasma infusions and they plan to start the patient on eculizumab starting tomorrow until we have the final pathology results from the kidney biopsy. OBJECTIVE: Vital Signs: Temperature is at 98.7 degrees Fahrenheit, blood pressure 159/72, pulse 47, respiratory of 70, saturating 100% on room air. Intake and output: Urine output recorded as 300 mL since overnight. Weight in the bed scale is not available. PHYSICAL EXAMINATION: GENERAL: The patient is awake, alert, oriented times three, laying in bed in no apparent distress. HEAD AND NECK EXAM: Extraocular muscles intact. He has mild exophthalmus. Mucous membranes are moist. NECK: Supple. There is mildly elevated jugular venous distention (JVD). CARDIOVASCULAR: S1, S2, regular rate. No edema of the bilateral lower extremities. RESPIRATORY: Chest is clear to auscultation bilaterally. Bilateral equal air entry. No rales or rhonchi. ABDOMEN: Soft, positive bowel sounds. Nontender. No organomegaly. MUSCULOSKELETAL: No clubbing or cyanosis. Pulses are 2+. CROZER: No focal deficit. Power is 5/5 in all extremities. LAB REVIEW: CBC showed WBC of 5, hemoglobin 9.4, platelets of 142 . ADAMTS 13 activity from August 20, 2019 is 52.5% and D-dimer was 1427. That was also on August 20, 2019. BMP done this morning showed sodium 146, potassium 4.6, chloride 114, bicarb 26, BUN 57, creatinine is 3.5, it was 3.7 yesterday. Total bilirubin 0.3, AST 32, ALT is 36, alk phos is 120, albumin is 2.6. CURRENT INPATIENT MEDICATIONS: The patient's medications were all reviewed by me. She continues to be on IV ceftriaxone. Last dose will be on October 16, 2019. She will get one dose of Lasix 60 mg IV in between the plasma transfusions and she got one dose of meningococcal vaccine yesterday in anticipation of starting eculizumab infusion. ASSESSMENT/PLAN: 1. Recurrent anemia requiring blood transfusion along with thrombocytopenia and acute renal failure. The patient most likely has atypical HUS. Hematology is on board. ADAMTS 13 activity in August was borderline low. The patient got the CT-guided biopsy today to confirm the diagnosis. She is going to get plasma transfusions today and start the eculizumab infusion starting tomorrow, once a week for a total of five doses and then she will start the monthly infusions as outpatient. Hemoglobin and platelet count is stable. Continue to monitor. She is already on Aranesp. If her hemoglobin level improves to about 11, then Aranesp will be stopped. 2. Chronic kidney disease stage V: The patient has a baseline creatinine of 1.3 in 2018 and renal function has progressively getting worse from a creatinine of 2.8 and now creatinine has been staying about 3. Most likely it is caused by atypical HUS, however, there is no urgent indication for dialysis as the base level is within the acceptable limit. Electrolytes are within the acceptable range. I would see how the patient responds to the eculizumab infusions. If renal function does not start improving then patient will be started on dialysis. For optimization of the volume status in between plasma infusions, the patient will be given one dose of Lasix 60 mg IV. 3. Urinary tract infection: She continues to be on IV ceftriaxone for a total of 5 days. 4. Need for immunization and prophylaxis: The patient is going to get eculizumab tomorrow. She was given a dose of meningococcal vaccine yesterday. 5. Disposition: The patient needs to stay at least up until the weekend so that we can monitor her response to the eculizumab infusion and monitor her renal function to see if she needs to start renal replacement therapy once she is inpatient. 6. Elevated blood pressures: The patient's blood pressures are running in 150 and 160s. She is going to be given a dose of Lasix today. If her blood pressures do not get better by tomorrow, she will be started on antihypertensives.
[2019-10-14] MEDS ORDERED: FUROSEMIDE 100 MG/10 ML VIAL (J1940) IV ONE (17:00)
[2019-10-14] MEDS: ATORVASTATIN 20 MG TAB PO SCH (21:54)
[2019-10-14] MEDS: MULTIVITAMINS/MINERALS THERAP 1 TAB PO SCH (21:55)
[2019-10-15 00:15] LABS: FREE KAPPA LIGHT CHAINS SERUM 119.7 mg/L (3.3-19.4); FREE LAMBDA LIGHT CHAINS SERUM 77.1 mg/L (5.7-26.3); KAPPA/LAMBDA RATIO SERUM 1.55 (0.26-1.65)
[2019-10-15 02:00] VITALS: BP 153/69
[2019-10-15 06:00] VITALS: BP 153/67
[2019-10-15 06:21] LABS: BASO % 0.4 % (0.0-1.0); EOS # 0.1 10^3/uL (0.0-0.5); EOS % 1.7 % (0.0-3.0); HEMATOCRIT 27.5 % (36.0-47.0); HEMOGLOBIN 8.7 g/dl (12.0-15.5); LYMPH % 21.5 % (24.0-44.0); MEAN CORPUSCULAR HEMOGLOBIN 30.1 pg (27.0-33.0); MEAN CORPUSCULAR HGB CONC 31.6 g/dl (32.0-36.5); MEAN CORPUSCULAR VOLUME 95.2 fl (80.0-96.0); MONO # 0.5 10^3/uL (0.0-0.8); MONO % 9.9 % (0.0-5.0); NEUTROPHILS # 3.2 10^3/uL (1.5-8.5); NEUTROPHILS % 66.3 % (36.0-66.0); PLATELET COUNT, AUTOMATED 148 10^3/uL (150-450); RED BLOOD COUNT 2.89 10^6/uL (4.00-5.40); WHITE BLOOD COUNT 4.8 10^3/uL (4.0-10.0)
[2019-10-15 06:51] LABS: ALBUMIN 2.9 GM/DL (3.2-5.2); BILIRUBIN,TOTAL 0.6 MG/DL (0.2-1.0); CALCIUM LEVEL 9.4 MG/DL (8.8-10.2); CREATININE FOR GFR 3.75 MG/DL (0.55-1.30); GLOMERULAR FILTRATION RATE 12.7 (>39); POTASSIUM SERUM 4.3 MEQ/L (3.5-5.1); TOTAL PROTEIN 7.5 GM/DL (6.4-8.2)
[2019-10-15] MEDS: LACTOBACILLUS ACIDOPHILUS CAP (BACID) PO SCH ×2 (09:27→20:18)
[2019-10-15] MEDS: PANTOPRAZOLE 40MG TAB (PROTONIX) PO SCH ×2 (09:27→20:19)
[2019-10-15] MEDS: ERYTHROMYCIN OPHTH OINT OD SCH ×3 (09:27→20:19)
[2019-10-15] MEDS: FOLIC ACID 1 MG TAB PO SCH (09:27)
[2019-10-15] MEDS: cefTRIAXone SOD 1 GM in D5W MINI-BAG PLUS 50 ML IV SCH (09:27)
[2019-10-15] MEDS: MAGNESIUM OXIDE 400 MG TAB (MAG-OX) PO SCH (09:27)
--- NOTE | 2019-10-15 09:37 | IPNPDOC ---
Subjective Date Seen The patient was seen on 10/15/19. Subjective Chief Complaint/HPI Pt this morning without new concerns. She is eating breakfast. She has a bit better outlook in regards to her prognosis this morning than she did on Saturday. General: Denies: Fatigue Constitutional: Denies: Chills, Fever ENT: Denies: Head Aches Pulmonary: Denies: Dyspnea, Cough Cardiovascular: Denies: Chest Pain, Palpitations Gastrointestinal: Denies: Nausea, Vomiting Neurological: Denies: Weakness Psych: Reports: Mood Normal Objective Physical Examination General Exam: Positive: Alert, Cooperative, No Acute Distress ENT Exam: Positive: Mucous membr. 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 Rec FFP yest x 2 units, starting on eculizumab today x 5 days, then will need monthly. 10/14/2019: See Dr. Tom consultation. 10/[address] Tom, pt tells me that it appears to her as though Dr Nur spoke to her yesterday. 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 10/12 9-favor renal bx-dw Jl re case given previously seen by her 08/19/19, check repeat KL, LDH, smear 10/11 sp Aranesp 100 SC 10/12/18 -DORIS c 0.8% ret 08/20 hapto low NL 43 c LDH 276, AST 175 09/2019: %sat 86, mary 1086 B12 880/RBC folate 1034 -sIFE for MCB, uIFE for BJP (SPEP cw polyclonal gammopathy); but 08/09/19 K/L 135/69/2 07/09/19 CHr 30 c 11% retic (but this is at hgb 4.9!) -i/d HENRIK -hep B/C -plt Ab [id number] borderline low 53% (not cw TTS) 08/08/19 smear: Anemia, with slightly elevated MCV, without significant poikilocytosis, most likely multifactorial anemia with a component of anemia of chronic disease. Markedly elevated ferritin level. Patient has received 4 RBC transfusions in the past 40 days. Correlation with clinical Hx is recommended. 08/17 CT AP: IMPRESSION: 1. Bilateral renal calyceal lithiasis. 2. Small LEFT uterine calcified leiomyoma. 3. Diverticulosis. 4. Minimal RIGHT pleural effusion. 5. Possible anemia, see above comments. Correlation with CBC may be helpful. 08/20 CT chest : B pleural effusions (2) CKD (chronic kidney disease) stage 5, GFR less than 15 ml/min Status: Chronic Response to Treatment: Stable Problem Specific Plan: Consult Specialist, Monitor Clinically Problem Text: 10/12 Await further input from family, coordination with Nephrology. 10/11 Dr. Nur discussed starting dialysis with her, but she wonders if we should wait a little longer to see if her kidney's improve spontaneously. We have already been doing watchful waiting for a couple of months. (3) Thrombocytopenia Status: Chronic Response to Treatment: Stable Problem Specific Plan: Monitor Clinically Problem Text: as per anemia (4) Weakness Status: Chronic Problem Text: 10/11 per PT safe to dc home (5) Bradycardia Problem Text: HR trends 50-60 on average. will monitor with telemetry, will dc is stable after 24 hours Plan/VTE VTE Prophylaxis Ordered?: Yes (TEDs and sequentials) VTE Exclusion Pharmacological: Thrombocytopenia Plan Therapy: PT VS, I&O, 24H, Fishbone Vital Signs/I&O Vital Signs Date Time Temp Pulse Resp B/P (MAP) Pulse Ox O2 Delivery O2 Flow Rate FiO2 10/15/19 06:00 98.5 55 18 153/67 (95) 94 Room Air 10/14/19 08:18 2 I&O- Last 24 Hours up to 6 AM 10/15/19 06:00 Intake Total 1090 ml Output Total 0 ml Balance 1090 ml Laboratory Data 24H LABS Laboratory Tests 2 10/15/19 05:25: Immature Granulocyte % (Auto) 0.2, Neutrophils (%) (Auto) 66.3H, Lymphocytes (%) (Auto) 21.5L, Monocytes (%) (Auto) 9.9H, Eosinophils (%) (Auto) 1.7, Basophils (%) (Auto) 0.4, Neutrophils # (Auto) 3.2, Lymphocytes # (Auto) 1.0L, Monocytes # (Auto) 0.5, Eosinophils # (Auto) 0.1, Basophils # (Auto) 0.0, Nucleated Red Blood Cells % (auto) 0.0, Anion Gap 6L, Glomerular Filtration Rate 12.7L, Calcium Level 9.4, Total Bilirubin 0.6#, Aspartate Amino Transf (AST/SGOT) 37, Alanine Aminotransferase (ALT/SGPT) 34, Alkaline Phosphatase 122H, Total Protein 7.5, Albumin 2.9L, Albumin/Globulin Ratio 0.63L CBC/BMP Laboratory Tests 10/15/19 05:25 Microbiology Microbiology 10/09/19 Stool Occult Blood (BJORN) - Final, Complete 10/08/19 Urine Culture - Final, Complete Raoultella MARY Gusman PA-C Oct 15, 2019 09:37
[2019-10-15 10:00] VITALS: BP 128/80
[2019-10-15 14:00] VITALS: BP_SYST 135; BP_SYST 138; BP_DIAS 85
--- NOTE | 2019-10-15 15:00 | REP ---
IR CT guided kidney biopsy. IR moderate sedation. Clinical information: Renal disease. Physician: Dr. Cervantes. Procedure: The patient was advised of the benefits, risks and alternatives of the procedure and informed consent was obtained. The time-out was performed with verification of the patient's name, MRN, site of procedure and type of procedure to be performed. The patient was positioned in the prone position on the table. The site was prepped and draped in the usual sterile fashion. Moderate sedation was performed by the physician including the presence of an independent trained observer who assisted in monitoring the patient's level of consciousness and physiologic status. Following the administration of Fentanyl and Versed, the physician spent 45 minutes of continuous face to face time with the patient. Preliminary CT of the kidneys demonstrates left kidney in expected location. The anticipated puncture site was anesthetized with lidocaine. A 17 G coaxial needle was inserted into the lower pole of the left kidney, under intermittent CT guidance. An 18 Gauge biopsy device was inserted through the coaxial needle and used to obtain core biopsies of the left Kidney, under intermittent CT guidance. The specimen was labeled with the patient's name and medical record number and sent for further analysis. The coaxial needle and biopsy device were removed, pressure held and hemostasis achieved. A follow-up CT through the area demonstrates no significant hematoma. A sterile dressing was applied to the site. The patient tolerated the procedure well and was returned to the PRU in stable condition. EBL: < 5 ml. Complications: None. Conclusion: 1. CT demonstrates bilateral kidneys. 2. Successful CT -guided core kidney biopsy. Patient to follow up with referring provider for biopsy results. Thank you for this referral. Cc Dr. Nur Electronically Signed by Melissa Cervantes MD 10/15/2019 02:59 P
[2019-10-15 18:00] VITALS: BP 142/66
--- NOTE | 2019-10-15 18:10 | IPN ---
DATE: 10/15/2019 SUBJECTIVE: The patient was seen and examined at the bedside today morning. She is afebrile, hemodynamically stable. She got two units of fresh frozen plasma (FFP) yesterday with Lasix 60 mg IV in between two infusions. She is hemodynamically stable. She denies any shortness of breath. Today, the patient is awaiting eculizumab infusion. OBJECTIVE: VITAL SIGNS: Temperature is 98.5 degrees Fahrenheit, blood pressure 153/67, pulse is 55, respiratory rate of 18, saturating 94% on room air. INTAKE AND OUTPUT: Urine output is not recorded well. Weight in the bed scale is not available. PHYSICAL EXAMINATION: GENERAL: The patient is awake, alert, oriented times three, laying in bed, in no apparent distress. HEAD AND NECK: Extraocular muscles intact. Pupils equally round and reactive to light. Mucous membranes are moist. Neck is supple. There is no jugular venous distention (JVD). CARDIOVASCULAR: S1, S2, regular rate. No edema of the bilateral lower extremities. RESPIRATORY: Chest is clear to auscultation bilaterally. Bilateral equal air entry. No rales or rhonchi. ABDOMEN: Soft, positive bowel sounds, nontender. No organomegaly. MUSCULOSKELETAL: No clubbing or cyanosis. Pulses are 2+. CENTRAL NERVOUS SYSTEM (SUMMER SESSIONS DIRECTOR): No focal deficit. Power is 5/5 in all extremities. PSYCHIATRIC: Normal mood and affect. LABORATORY REVIEW: CBC showed a WBC of 4.8, hemoglobin 8.7, platelets are 148. BMP showed sodium 144, potassium 4.3, chloride 107, bicarbonate 31, BUN 53, creatinine is 3.7, it was 3.5 yesterday, AST 37, ALT is 34, alkaline phosphatase is 122, albumin is 2.9. CURRENT INPATIENT MEDICATIONS: The patient's medications were all reviewed by me. She continues to be on IV ceftriaxone. Last dose is tomorrow. She was given two units of fresh frozen plasma (FFP). No other change in medications today as compared with yesterday. ASSESSMENT AND PLAN: 1. 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 The patient will start eculizumab infusion today as per hematology recommendations. Official pathology results from renal biopsy is pending. 2. Renal failure that has progressed to chronic kidney disease, stage V. No significant improvement in the renal function. Creatinine is fluctuating between 3.5 to 3.7. However, there is no urgent need for starting hemodialysis. Continue to monitor renal function. There are no signs of uremia. 3. Urinary tract infection. The patient is getting IV ceftriaxone. Last dose will be tomorrow. 4. Elevated blood pressures. The patient got a lower dose of Lasix yesterday. Blood pressures are in 120s to 150s. I am starting her on low dose of amlodipine. DISPOSITION: The patient will be monitored over the weekend after eculizumab infusion and after that, she will get the eculizumab as outpatient and she will be followed up by nephrology service as outpatient.
[2019-10-15] MEDS: ATORVASTATIN 20 MG TAB PO SCH (20:18)
[2019-10-15] MEDS: MULTIVITAMINS/MINERALS THERAP 1 TAB PO SCH (20:19)
--- NOTE | 2019-10-15 20:46 | IPN ---
DATE: 10/15/2019 The patient was seen approximately 11:45 a.m. She emerged from the bathroom in her pajamas reporting feeling fine. We both discussed anticipated treatment with eculizumab today. Written informed consent was obtained the night prior. Pharmacy has informed me by a silent e-mail day they believe the patient should have a second meningococcal vaccine. This comprises serogroup B meningococcal vaccine (Bexsero or Trumenba) not currently on formulary. Further, they advised she be on meningitis prophylaxis orally on discharge and advise amoxicillin 500 mg by mouth twice a day versus Pen-Vee K 500 mg by mouth twice a day, without stating duration of prophylaxis. 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 PLAN: 1. Proceed with treatment as outlined, eculizumab 900 mg weekly times five weeks followed by every 4 weeks. 2. If patient is stable for discharge between first and second eculizumab, okay for her to discharge and we will plan to treat her , 10/22/2019, with second eculizumab dose. 3. Per pharmacy, the patient should receive serogroup B meningococcal vaccine as soon as possible. My strong suspicion is this would be delayed indefinitely by insurance preauthorization denials on the outpatient basis, and it would be most prudent to give this during this admission. 4. On discharge, per pharmacy, patient should receive either amoxicillin 500 mg by mouth twice a day or Pen-Vee K 500 mg by mouth twice a day. Duration not specified; perhaps of 14 days is appropriate in the short-term. I will be out of town 10/16/2019 through 10/19/2019. In my absence, Dr. Sandoval will cover the service tomorrow 10/16/2019, Dr. Jani Cano on 10/17/2019 through 10/18/2019, Dr. Sandoval again on 10/19/2019. [facility]
[2019-10-15 22:00] VITALS: BP 160/80
[2019-10-16 02:00] VITALS: BP 137/70
[2019-10-16 06:00] VITALS: BP 144/80
[2019-10-16 06:07] LABS: BASO % 0.4 % (0.0-1.0); EOS # 0.1 10^3/uL (0.0-0.5); EOS % 1.8 % (0.0-3.0); HEMOGLOBIN 8.9 g/dl (12.0-15.5); LYMPH # 1.3 10^3/uL (1.5-5.0); LYMPH % 23.9 % (24.0-44.0); MEAN CORPUSCULAR HEMOGLOBIN 30.5 pg (27.0-33.0); MEAN CORPUSCULAR HGB CONC 31.8 g/dl (32.0-36.5); MEAN CORPUSCULAR VOLUME 95.9 fl (80.0-96.0); MONO # 0.5 10^3/uL (0.0-0.8); MONO % 8.7 % (0.0-5.0); NEUTROPHILS # 3.5 10^3/uL (1.5-8.5); NEUTROPHILS % 64.6 % (36.0-66.0); PLATELET COUNT, AUTOMATED 160 10^3/uL (150-450); RED BLOOD COUNT 2.92 10^6/uL (4.00-5.40); WHITE BLOOD COUNT 5.4 10^3/uL (4.0-10.0)
[2019-10-16 06:30] LABS: ALBUMIN 2.7 GM/DL (3.2-5.2); BILIRUBIN,TOTAL 0.3 MG/DL (0.2-1.0); CALCIUM LEVEL 8.8 MG/DL (8.8-10.2); CREATININE FOR GFR 3.86 MG/DL (0.55-1.30); GLOMERULAR FILTRATION RATE 12.3 (>39); POTASSIUM SERUM 4.3 MEQ/L (3.5-5.1); TOTAL PROTEIN 7.3 GM/DL (6.4-8.2)
[2019-10-16] MEDS ORDERED: ATOR1TAB21 PO (09:35)
[2019-10-16] MEDS ORDERED: AMOX500T PO (09:35)
[2019-10-16] MEDS ORDERED: AMLO25TA PO (09:35)
[2019-10-16] MEDS ORDERED: RISATAB3 PO (09:35)
[2019-10-16] MEDS: PANTOPRAZOLE 40MG TAB (PROTONIX) PO SCH ×2 (09:38→20:54)
[2019-10-16] MEDS: MAGNESIUM OXIDE 400 MG TAB (MAG-OX) PO SCH (09:38)
[2019-10-16] MEDS: LACTOBACILLUS ACIDOPHILUS CAP (BACID) PO SCH ×2 (09:38→20:54)
[2019-10-16] MEDS: ERYTHROMYCIN OPHTH OINT OD SCH ×3 (09:38→20:55)
[2019-10-16] MEDS: FOLIC ACID 1 MG TAB PO SCH (09:38)
--- NOTE | 2019-10-16 09:58 | IPNPDOC ---
Subjective Date Seen The patient was seen on 10/16/19. Subjective Chief Complaint/HPI Pt this morning without new concerns. She is scheduled to receive her infusion today. General: Denies: Fatigue Constitutional: Denies: Chills, Fever Pulmonary: Denies: Dyspnea, Cough Cardiovascular: Denies: Chest Pain, Palpitations Gastrointestinal: Denies: Nausea, Vomiting, Diarrhea Neurological: Denies: Weakness Psych: Reports: Mood Normal Objective Physical Examination General Exam: Positive: Alert, Cooperative, No Acute Distress ENT Exam: Positive: Mucous membr. moist/pink Neck Exam: Positive: Supple; Negative: Lymphadenopathy Chest Exam: Positive: Clear to auscultation, Normal air movement Heart Exam: Positive: Rate Normal, Normal S1, Normal S2 Abdomen Exam: Positive: Normal bowel sounds, Soft; Negative: Tenderness Extremity Exam: Negative: Edema Neuro Exam: Positive: Normal Speech Psych Exam: Positive: Mental status NL, Mood NL Assessment /Plan Problems (1) Symptomatic anemia Status: Acute Discussed With: Nurse, Patient Problem Specific Plan: Monitor Clinically, Repeat Labs Problem Text: 10/16 Cont to await bx results, Eculizumab is to be given today, weekly for 5 weeks, then every 4 weeks per Heme. She has Menactra 10/13/2019, she will get Bexsero today per Pharmacy, it is being transported her from an offsite clinic. She will then need these repeated as an outpt. 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 Rec FFP yest x 2 units, starting on eculizumab today x 5 days, then will need monthly. 10/14/2019: See Dr. Tom consultation. 10/[address] Tom, pt tells me that it appears to her as though Dr Nur spoke to her yesterday. 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 10/12 9-favor renal bx-dw Jl re case given previously seen by her 08/19/19, check repeat KL, LDH, smear 10/11 sp Aranesp 100 SC 10/12/18 -DORIS c 0.8% ret 12/19 hapto low NL 43 c LDH 276, AST 175 09/2019: %sat 86, mary 1086 B12 880/RBC folate 1034 -sIFE for MCB, uIFE for BJP (SPEP cw polyclonal gammopathy); but 08/09/19 K/L 135/69/2 07/09/19 CHr 30 c 11% retic (but this is at hgb 4.9!) -i/d HENRIK -hep B/C -plt Ab [id number] borderline low 53% (not cw TTS) 08/08/19 smear: Anemia, with slightly elevated MCV, without significant poikilocytosis, most likely multifactorial anemia with a component of anemia of chronic disease. Markedly elevated ferritin level. Patient has received 4 RBC transfusions in the past 40 days. Correlation with clinical Hx is recommended. 08/17 CT AP: IMPRESSION: 1. Bilateral renal calyceal lithiasis. 2. Small LEFT uterine calcified leiomyoma. 3. Diverticulosis. 4. Minimal RIGHT pleural effusion. 5. Possible anemia, see above comments. Correlation with CBC may be helpful. 08/20 CT chest : B pleural effusions (2) CKD (chronic kidney disease) stage 5, GFR less than 15 ml/min Status: Chronic Response to Treatment: Stable Problem Specific Plan: Consult Specialist, Monitor Clinically Problem Text: 10/12 Await further input from family, coordination with Nephrology. 10/11 Dr. Nur discussed starting dialysis with her, but she wonders if we should wait a little longer to see if her kidney's improve spontaneously. We have already been doing watchful waiting for a couple of months. (3) Thrombocytopenia Status: Chronic Response to Treatment: Stable Problem Specific Plan: Monitor Clinically Problem Text: as per anemia (4) Weakness Status: Chronic Problem Text: 10/11 per PT safe to dc home (5) Bradycardia Problem Text: HR trends 50-60 on average. will monitor with telemetry, will dc is stable after 24 hours (6) Hemolytic uremic syndrome Problem Text: JFW: I called Dr Ordoñez, her PCP, case discussed, aware of need for f/u Menactra and mening B vaccine, prophylactic amox. He will put in order for menin B shot at [facility] on Saturday after d/c Plan/VTE VTE Prophylaxis Ordered?: Yes (TEDs and sequentials) VTE Exclusion Pharmacological: Thrombocytopenia Plan Therapy: PT VS, I&O, 24H, Fishbone Vital Signs/I&O Vital Signs Date Time Temp Pulse Resp B/P (MAP) Pulse Ox O2 Delivery O2 Flow Rate FiO2 10/16/19 09:40 69 147/86 10/16/19 06:00 97.9 14 99 10/15/19 22:00 Room Air 10/14/19 08:18 2 I&O- Last 24 Hours up to 6 AM 10/16/19 06:00 Intake Total 2340 ml Balance 2340 ml Laboratory Data 24H LABS Laboratory Tests 2 10/16/19 05:29: Immature Granulocyte % (Auto) 0.6, Neutrophils (%) (Auto) 64.6, Lymphocytes (%) (Auto) 23.9L, Monocytes (%) (Auto) 8.7H, Eosinophils (%) (Auto) 1.8, Basophils (%) (Auto) 0.4, Neutrophils # (Auto) 3.5, Lymphocytes # (Auto) 1.3L, Monocytes # (Auto) 0.5, Eosinophils # (Auto) 0.1, Basophils # (Auto) 0.0, Nucleated Red Blood Cells % (auto) 0.0, Anion Gap 6L, Glomerular Filtration Rate 12.3L, Pollo cium Level 8.8, Total Bilirubin 0.3, Aspartate Amino Transf (AST/SGOT) 32, Alanine Aminotransferase (ALT/SGPT) 37, Alkaline Phosphatase 136H, Total Protein 7.3, Albumin 2.7L, Albumin/Globulin Ratio 0.59L CBC/BMP Laboratory Tests 10/16/19 05:29 Microbiology Microbiology 10/09/19 Stool Occult Blood (BJORN) - Final, Complete 10/08/19 Urine Culture - Final, Complete Raoultella Planticola MARY DENSON PA-C Oct 16, 2019 09:58 Marcial Sanchez MD Oct 16, 2019 10:21
[2019-10-16] MEDS ORDERED: FUROSEMIDE 40 MG/4 ML VIAL (J1940) IV ONE (11:00)
[2019-10-16] MEDS: cefTRIAXone SOD 1 GM in D5W MINI-BAG PLUS 50 ML IV SCH (11:33)
[2019-10-16 11:34] VITALS: BP 131/81
[2019-10-16 14:00] VITALS: BP 140/70
[2019-10-16] MEDS ORDERED: [UNRECOGNIZED DRUG - OTHER] IM ONE (15:00)
[2019-10-16] MEDS ORDERED: ACETAMINOPHEN TAB 650MG DOSE (2X325MG) PO ONE (15:00)
[2019-10-16] MEDS ORDERED: PRE FILLED IM ONE (15:00)
[2019-10-16] MEDS ORDERED: diphenhydrAMINE 50 MG CAP PO ONE (15:00)
--- NOTE | 2019-10-16 15:38 | ONC.PHACK ---
CHEMO ADMIN CHECKLIST Order Contains Pt ID: Name, Order on Chemo Order Form?: Yes Order Form Includes ALL: Correct Tx Day, Correct Date, Correct Cycle Number Pt ID on Order form Matches: Pt ID on PHA Label Med on Chemo OrderForm Matches: PHA Label, Med Used for Preparation [facility] Oct 16, 2019 15:38
[2019-10-16] MEDS ORDERED: diphenhydrAMINE INJ 50MG/ML VIAL (J1200) IV PRN (16:00)
[2019-10-16] MEDS ORDERED: FAMOTIDINE IV BAG 20 MG in APPROPRIATE DILUENT 1 ML IV PRN (16:00)
[2019-10-16] MEDS ORDERED: dexameTHASONE 4 MG/ML 1ML VIAL (J1100) IV PRN (16:00)
[2019-10-16] MEDS ORDERED: ECULIZUMAB IV ONE ×2 (16:00)
[2019-10-16] MEDS ORDERED: EPINEPHrine INJ 1 MG/ML 1ML VIAL IM PRN (16:00)
[2019-10-16] MEDS ORDERED: ALBUTEROL SULFATE 2.5 MG/0.5 ML INH NEB SOLN INH PRN (16:00)
[2019-10-16] MEDS ORDERED: methylPREDNISolone INJ 125 MG/2 ML VIAL (J2930) IV PRN (16:00)
--- NOTE | 2019-10-16 19:33 | IPN ---
DATE: 10/16/2019 SUBJECTIVE: The patient was seen and examined at the bedside today morning. She is afebrile, hemodynamically stable. She could not get her eculizumab infusion yesterday, and she reports that she is going to get it today. There is no improvement in the renal function; however, her hemoglobin and platelet counts are stable. OBJECTIVE: Vital signs: Temperature is 97.9 degrees Fahrenheit, blood pressure 144/80, pulse is 76, respiratory rate of 40, saturating 99% on room air. Intake and output: Urine output is not recorded. Weight in the bed scale is 53.9 kg. PHYSICAL EXAMINATION: GENERAL: The patient is awake, alert, oriented times three, lying in bed in no apparent distress. HEAD AND NECK: Extraocular muscles intact. Pupils equally round and reactive to light. Mucous membranes are moist. Neck is supple. There is no jugular venous distention (JVD). CARDIOVASCULAR: S1, S2, regular rate. No edema of the bilateral lower extremities. RESPIRATORY: Chest is clear to auscultation bilaterally. Bilateral equal air entry. No rales or rhonchi. ABDOMEN: Soft, positive bowel sounds. Nontender. No organomegaly. MUSCULOSKELETAL: No clubbing or cyanosis. Pulses are 2+. CENTRAL NERVOUS SYSTEM: No focal deficit. Power is 5/5 in all extremities. LABORATORY REVIEW: CBC showed WBC 5.4, hemoglobin 8.9, platelets of 160. Repeat [id number] activity from 10/11/2019 is more than 100. BMP done today morning showed sodium 146, potassium 4.3, chloride 110, bicarbonate 30, BUN 54, creatinine is 3.8, albumin is 3.7. CURRENT INPATIENT MEDICATIONS: The patient's medications were all reviewed by myself. I have ordered one more dose of Lasix 40 mg intravenous (IV) to be given today. No other change in the medications today as compared with yesterday. ASSESSMENT AND PLAN: 1. Chronic kidney disease, stage V. The patient got a CT-guided renal biopsy this admission. Official report is pending. No signs of uremia. Electrolytes are within the acceptable range. No urgent need of dialysis. The patient is clinically being treated as atypical hemolytic uremic syndrome (HUS). 2. Recurrent anemia and thrombocytopenia. The patient is being seen by hematology. [id number] activity from previous admission was low. She is being treated as atypical HUS. She would get a dose of eculizumab. Final pathology result from renal biopsy is pending. 3. Urinary tract infection. The patient is getting IV antibiotics. Last dose is today. 4. Elevated blood pressures. It is secondary to renal failure. The patient was started on amlodipine 2.5 mg by mouth daily. Blood pressures are better. She will also be given a dose of Lasix 40 mg IV to help optimize the fluid status.
[2019-10-16] MEDS: ATORVASTATIN 20 MG TAB PO SCH (20:54)
[2019-10-16] MEDS: MULTIVITAMINS/MINERALS THERAP 1 TAB PO SCH (20:54)
[2019-10-16 22:00] VITALS: BP 147/83
[2019-10-17 02:00] VITALS: BP 120/64
[2019-10-17 06:00] VITALS: BP 133/76
[2019-10-17] MEDS ORDERED: ACETAMINOPHEN TAB 650MG DOSE (2X325MG) PO ONE (06:45)
[2019-10-17] MEDS: PANTOPRAZOLE 40MG TAB (PROTONIX) PO SCH ×2 (09:40→20:22)
[2019-10-17] MEDS: LACTOBACILLUS ACIDOPHILUS CAP (BACID) PO SCH ×2 (09:40→20:21)
[2019-10-17] MEDS: FOLIC ACID 1 MG TAB PO SCH (09:41)
[2019-10-17] MEDS: MAGNESIUM OXIDE 400 MG TAB (MAG-OX) PO SCH (09:41)
[2019-10-17] MEDS: ERYTHROMYCIN OPHTH OINT OD SCH ×3 (09:42→20:22)
[2019-10-17] MEDS: DARBEPOETIN 100 MCG/0.5 ML *NON-DIALYSIS* SYRINGE (J0881) SQ SCH (09:42)
[2019-10-17 10:00] VITALS: BP 144/92
[2019-10-17] MEDS: cefTRIAXone SOD 1 GM in D5W MINI-BAG PLUS 50 ML IV SCH (11:21)
[2019-10-17 11:56] LABS: CALCIUM LEVEL 9.7 MG/DL (8.8-10.2); CREATININE FOR GFR 4.35 MG/DL (0.55-1.30); GLOMERULAR FILTRATION RATE 10.7 (>39); POTASSIUM SERUM 4.3 MEQ/L (3.5-5.1)
[2019-10-17 14:00] VITALS: BP 135/85
--- NOTE | 2019-10-17 15:58 | IPNPDOC ---
Subjective Date Seen The patient was seen on 10/17/19. Subjective Chief Complaint/HPI Anemia Events since last encounter Temperature 100.1 this morning, with cough overnight, poor appetite, and nausea today. Patient admits to general malaise and fatigue -- "just not feeling well." She does think that she is able to drink a sufficient quantity right now. Constitutional: Reports: Fever (low grade), Malaise, Fatigue ENT: Reports: Head Aches Pulmonary: Reports: Cough; Denies: Dyspnea Cardiovascular: Denies: Chest Pain Gastrointestinal: Reports: Nausea; Denies: Vomiting, Abdominal Pain, Diarrhea, Constipation Psych: Reports: Mood Normal Objective Physical Examination General Exam: Positive: Alert, Cooperative, No Acute Distress ENT Exam: Positive: Mucous membr. moist/pink Neck Exam: Positive: Supple; Negative: Lymphadenopathy Chest Exam: Positive: Clear to auscultation, Normal air movement Heart Exam: Positive: Rate Normal, Normal S1, Normal S2 Abdomen Exam: Positive: Normal bowel sounds, Soft; Negative: Tenderness Extremity Exam: Negative: Edema Neuro Exam: Positive: Normal Speech Psych Exam: Positive: Mental status NL, Mood NL Assessment /Plan Problems (1) Symptomatic anemia Status: Acute Discussed With: Nurse, Patient Problem Specific Plan: Monitor Clinically, Repeat Labs Problem Text: 10/16 Cont to await bx results, Eculizumab is to be given today, weekly for 5 weeks, then every 4 weeks per Heme. She has Menactra 10/13/2019, she will get Bexsero today per Pharmacy, it is being transported her from an offsite clinic. She will then need these repeated as an outpt. 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 Rec FFP yest x 2 units, starting on eculizumab today x 5 days, then will need monthly. 10/14/2019: See Dr. Tom consultation. 10/[address] Tom, pt tells me that it appears to her as though Dr Nur spoke to her yesterday. 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 10/12 9-favor renal bx-dw Jl re case given previously seen by her 08/19/19, check repeat KL, LDH, smear 10/11 sp Aranesp 100 SC 10/12/18 -DORIS c 0.8% ret 08/20 hapto low NL 43 c LDH 276, AST 175 09/2019: %sat 86, mary 1086 B12 880/RBC folate 1034 -sIFE for MCB, uIFE for BJP (SPEP cw polyclonal gammopathy); but 08/09/19 K/L 135/69/2 07/09/19 CHr 30 c 11% retic (but this is at hgb 4.9!) -i/d HENRIK -hep B/C -plt Ab [id number] borderline low 53% (not cw TTS) 08/08/19 smear: Anemia, with slightly elevated MCV, without significant poikilocytosis, most likely multifactorial anemia with a component of anemia of chronic disease. Markedly elevated ferritin level. Patient has received 4 RBC transfusions in the past 40 days. Correlation with clinical Hx is recommended. 08/17 CT AP: IMPRESSION: 1. Bilateral renal calyceal lithiasis. 2. Small LEFT uterine calcified leiomyoma. 3. Diverticulosis. 4. Minimal RIGHT pleural effusion. 5. Possible anemia, see above comments. Correlation with CBC may be helpful. 08/20 CT chest : B pleural effusions (2) CKD (chronic kidney disease) stage 5, GFR less than 15 ml/min Status: Chronic Response to Treatment: Stable Problem Specific Plan: Consult Specialist, Monitor Clinically Problem Text: 10/12 Await further input from family, coordination with Nephrology. 10/11 Dr. Nur discussed starting dialysis with her, but she wonders if we should wait a little longer to see if her kidney's improve spontaneously. We have already been doing watchful waiting for a couple of months. (3) Thrombocytopenia Status: Chronic Response to Treatment: Stable Problem Specific Plan: Monitor Clinically Problem Text: as per anemia (4) Weakness Status: Chronic Problem Text: 10/11 per PT safe to dc home (5) Bradycardia Problem Text: HR trends 50-60 on average. will monitor with telemetry, will dc is stable after 24 hours (6) Hemolytic uremic syndrome Problem Text: JFW: I called Dr Ordoñez, her PCP, case discussed, aware of need for f/u Menactra and mening B vaccine, prophylactic amox. He will put in order for menin B shot at [facility] on Saturday after d/c (7) Nausea Problem Text: 10/17 -- This and her low-grade temp this morning are possible side effects of Soliris (eculizumab.) Continue to monitor; if worsening, will prescribe an antiemetic. Plan/VTE VTE Prophylaxis Ordered?: Yes (TEDs and sequentials) VTE Exclusion Pharmacological: Thrombocytopenia Plan Therapy: PT VS, I&O, 24H, Fishbone Vital Signs/I&O Vital Signs Date Time Temp Pulse Resp B/P (MAP) Pulse Ox O2 Delivery O2 Flow Rate FiO2 10/17/19 14:00 99.0 89 16 135/85 (102) 95 Room Air 10/14/19 08:18 2 I&O- Last 24 Hours up to 6 AM 10/17/19 06:00 Intake Total 980 ml Output Total 1150 ml Balance -170 ml Laboratory Data 24H LABS Laboratory Tests 2 10/17/19 10:56: Anion Gap 7L, Glomerular Filtration Rate 10.7L, Calcium Level 9.7 CBC/BMP Laboratory Tests 10/17/19 10:56 Microbiology Microbiology 10/09/19 Stool Occult Blood (BJORN) - Final, Complete 10/08/19 Urine Culture - Final, Complete Raoultella CHICO Espino DO Oct 17, 2019 15:58
[2019-10-17] MEDS ORDERED: NS 1,000 ML IV SCH (17:30)
[2019-10-17 18:00] VITALS: BP 148/78
[2019-10-17] MEDS: ATORVASTATIN 20 MG TAB PO SCH (20:22)
[2019-10-17] MEDS: MULTIVITAMINS/MINERALS THERAP 1 TAB PO SCH (20:22)
[2019-10-17 22:00] VITALS: BP 157/96
[2019-10-18 02:00] VITALS: BP 142/90
[2019-10-18 06:00] VITALS: BP 127/60
[2019-10-18 08:28] LABS: HEMATOCRIT 28.7 % (36.0-47.0); HEMOGLOBIN 9.1 g/dl (12.0-15.5); MEAN CORPUSCULAR HEMOGLOBIN 30.3 pg (27.0-33.0); MEAN CORPUSCULAR HGB CONC 31.7 g/dl (32.0-36.5); MEAN CORPUSCULAR VOLUME 95.7 fl (80.0-96.0); PLATELET COUNT, AUTOMATED 163 10^3/uL (150-450); WHITE BLOOD COUNT 3.7 10^3/uL (4.0-10.0)
[2019-10-18 08:57] LABS: ALBUMIN 2.7 GM/DL (3.2-5.2); BILIRUBIN,TOTAL 0.4 MG/DL (0.2-1.0); CREATININE FOR GFR 4.12 MG/DL (0.55-1.30); GLOMERULAR FILTRATION RATE 11.4 (>39); POTASSIUM SERUM 4.3 MEQ/L (3.5-5.1); TOTAL PROTEIN 6.9 GM/DL (6.4-8.2)
--- NOTE | 2019-10-18 09:00 | IPN ---
DATE OF SERVICE: 10/17/2019 Rosita is seen and examined this morning at the bedside. Yesterday, she received first dose of eculizumab. She has a low-grade fever today of 100.1, mild tachycardia. Complains of dry cough and some loose bowel movements. Laboratory studies were drawn late this morning and show worsening renal function. Her kidney biopsy result has not come back yet. Maximum temperature (Tmax) 100.1, current temperature (Tcurrent) 97.9, pulse 116, respiratory rate 19, blood pressure 144/92, saturating 94% to 95% on room air. Intake yesterday was 1280. Urine output was recorded as 650. Weight in the bed scale today is not recorded. General: The patient is seen lying in bed, awake, alert, oriented, in no apparent distress. Extraocular muscles are intact. The mucous membranes are moist. The neck is supple. The jugular veins are not elevated. The heart sounds are tachycardiac. Unable to appreciate a murmur. There is absolutely no edema in the peripheries nor in the dependent area. Lung sounds are clear to auscultation. No crackle or rales. Abdomen is soft and nontender. There are some hyperactive bowel sounds. Extremities are negative for edema, clubbing, or cyanosis. Neurologic: She is oriented times three, interactive, and conversational. Skin: Normal temperature and turgor. LABORATORIES: Sodium 143, potassium 4.3, bicarbonate 28, BUN 49, creatinine 4.3, hemoglobin 8.9, platelet 160. INPATIENT MEDICATIONS: She received a dose of eculizumab yesterday. I am starting her on normal saline at 50 mL an hour for only 1 liter. Remainder medications are unchanged from prior. PROBLEMS: 1. Acute kidney injury superimposed on chronic kidney disease. The patient has had worsening renal function associated with anemia and thrombocytopenia since July of last year and recurrent hospitalizations and workup for the same. She has undergone kidney biopsy, and results are still pending. Due to low [id number] level and a suspicion for atypical hemolytic uremic syndrome, hematology has started the patient on eculizumab. She is status post first dose and today with low-grade fever and tachycardia and slight worsening of renal function. Discussed with the primary team regarding keeping her in house ideally until the kidney pathology has returned and the patient is further stabilized and a decision has been made regarding initiation of renal replacement therapy. To date, there is no urgent indication for dialysis initiation. There is no sign symptoms of uremia, no significant acid base disorder, electrolyte imbalance, nor fluid overload. We will continue to monitor closely for developing dialysis needs. 2. Low-grade fever and mild tachycardia. This is new, possibly related to first dose of eculizumab yesterday. The patient also reports some loose bowel movements. Renal function has worsened. Will give 1 liter of intravenous (IV) fluids. 3. Recurrent anemia, thrombocytopenia, and decreased [id number] activity on previous admission. Followed by hematology. Has been started on ecaluzumab, status post first dose. Followup pathology from kidney biopsy. She is also on Aranesp, and hemoglobin is stable but suboptimal at 8.9, and platelet count is slowly improving. 4. Hypertension. Blood pressures are well controlled with low-dose amlodipine. 5. Noted hematology recommendations for prophylactic amoxicillin and for meningococcal vaccine, which is being arranged by the primary team.
[2019-10-18] MEDS: MAGNESIUM OXIDE 400 MG TAB (MAG-OX) PO SCH (09:49)
[2019-10-18] MEDS: FOLIC ACID 1 MG TAB PO SCH (09:49)
[2019-10-18] MEDS: PANTOPRAZOLE 40MG TAB (PROTONIX) PO SCH ×2 (09:49→20:42)
[2019-10-18] MEDS: LACTOBACILLUS ACIDOPHILUS CAP (BACID) PO SCH ×2 (09:49→20:42)
[2019-10-18] MEDS: ERYTHROMYCIN OPHTH OINT OD SCH ×3 (09:50→20:43)
[2019-10-18] MEDS: cefTRIAXone SOD 1 GM in D5W MINI-BAG PLUS 50 ML IV SCH (10:42)
[2019-10-18] MEDS ORDERED: NS 0.45% 1,000 ML IV SCH (13:30)
[2019-10-18 14:00] VITALS: BP 134/70
[2019-10-18] MEDS: ATORVASTATIN 20 MG TAB PO SCH (20:42)
[2019-10-18] MEDS: MULTIVITAMINS/MINERALS THERAP 1 TAB PO SCH (20:42)
[2019-10-18 22:00] VITALS: BP 131/72
[2019-10-19 06:00] VITALS: BP 127/68
[2019-10-19] MEDS: LACTOBACILLUS ACIDOPHILUS CAP (BACID) PO SCH ×2 (08:39→21:27)
[2019-10-19] MEDS: FOLIC ACID 1 MG TAB PO SCH (08:39)
[2019-10-19] MEDS: PANTOPRAZOLE 40MG TAB (PROTONIX) PO SCH ×2 (08:40→21:27)
[2019-10-19] MEDS: ERYTHROMYCIN OPHTH OINT OD SCH ×3 (08:41→21:28)
[2019-10-19] MEDS: MAGNESIUM OXIDE 400 MG TAB (MAG-OX) PO SCH ×2 (08:42→21:27)
[2019-10-19 08:48] LABS: CALCIUM LEVEL 8.6 MG/DL (8.8-10.2); CREATININE FOR GFR 4.01 MG/DL (0.55-1.30); GLOMERULAR FILTRATION RATE 11.7 (>39); POTASSIUM SERUM 4.1 MEQ/L (3.5-5.1)
--- NOTE | 2019-10-19 09:16 | IPNPDOC ---
Subjective Date Seen The patient was seen on 10/19/19. Subjective Chief Complaint/HPI Rosita this morning states that she is feeling better. Nausea has resolved. Her appetite has improved. She is anxious about the idea of going home because of her h/o rapidly worsening anemia, she also states that she is scheduled for another infusion on or Saturday and since she didn't react well to her first one she doesn't know if she wants to have this done as an outpt. General: Denies: Fatigue Constitutional: Denies: Chills, Fever ENT: Denies: Head Aches Pulmonary: Denies: Dyspnea, Cough Cardiovascular: Denies: Chest Pain, Palpitations Gastrointestinal: Denies: Nausea, Vomiting, Diarrhea Neurological: Denies: Weakness Psych: Reports: Mood Normal Objective Physical Examination General Exam: Positive: Alert, Cooperative, No Acute Distress ENT Exam: Positive: Mucous membr. moist/pink Neck Exam: Positive: Supple; Negative: Lymphadenopathy Chest Exam: Positive: Clear to auscultation, Normal air movement Heart Exam: Positive: Rate Normal, Normal S1, Normal S2 Abdomen Exam: Positive: Normal bowel sounds, Soft; Negative: Tenderness Extremity Exam: Negative: Edema Neuro Exam: Positive: Normal Speech Psych Exam: Positive: Mental status NL, Mood NL Assessment /Plan Problems (1) Symptomatic anemia Status: Acute Discussed With: Nurse, Patient Problem Specific Plan: Monitor Clinically, Repeat Labs Problem Text: 10/19 Ecilizumab on 10/16 results in anorexia, nausea, low grade temp and decreased in WBC, she also has had a bump in her Scr. Menactra 10/13/19 Bexsero 10/16/1910/16 Cont to await bx results, Eculizumab is to be given today, weekly for 5 weeks, then every 4 weeks per Heme. She has Menactra 10/13/2019, she will get Bexsero today per Pharmacy, it is being transported her from an offsite clinic. She will then need these repeated as an outpt. 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 Rec FFP yest x 2 units, starting on eculizumab today x 5 days, then will need monthly. 10/14/2019: See Dr. Tom consultation. 10/[address] Tom, pt tells me that it appears to her as though Dr Nur spoke to her yesterday. 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 10/12 9-favor renal bx-dw Jl re case given previously seen by her 08/19/19, check repeat KL, LDH, smear 10/11 sp Aranesp 100 SC 10/12/18 -DORIS c 0.8% ret 08/20 hapto low NL 43 c LDH 276, AST 175 09/2019: %sat 86, mary 1086 B12 880/RBC folate 1034 -sIFE for MCB, uIFE for BJP (SPEP cw polyclonal gammopathy); but 08/09/19 K/L 135/69/2 07/09/19 CHr 30 c 11% retic (but this is at hgb 4.9!) -i/d HENRIK -hep B/C -plt Ab [id number] borderline low 53% (not cw TTS) 08/08/19 smear: Anemia, with slightly elevated MCV, without significant poikilocytosis, most likely multifactorial anemia with a component of anemia of chronic disease. Markedly elevated ferritin level. Patient has received 4 RBC transfusions in the past 40 days. Correlation with clinical Hx is recommended. 08/17 CT AP: IMPRESSION: 1. Bilateral renal calyceal lithiasis. 2. Small LEFT uterine calcified leiomyoma. 3. Diverticulosis. 4. Minimal RIGHT pleural effusion. 5. Possible anemia, see above comments. Correlation with CBC may be helpful. 08/20 CT chest : B pleural effusions (2) Hemolytic uremic syndrome Problem Text: 10/19 Bexsero administered 10/16, pt will need Bexsero and Menactra administered in 8 weeks. 10/16 JFW: I called Dr Ordoñez, her PCP, case discussed, aware of need for f/u Menactra and mening B vaccine, prophylactic amox. He will put in order for menin B shot at [facility] on Saturday after d/c (3) CKD (chronic kidney disease) stage 5, GFR less than 15 ml/min Status: Chronic Response to Treatment: Stable Problem Specific Plan: Consult Specialist, Monitor Clinically Problem Text: 10/19 Scr 4, down from 4.1 yesterday. Nephr cont to follow, await renal bx results. 10/12 Await further input from family, coordination with Nephrology. 10/11 Dr. Nur discussed starting dialysis with her, but she wonders if we should wait a little longer to see if her kidney's improve spontaneously. We have already been doing watchful waiting for a couple of months. (4) Thrombocytopenia Status: Chronic Response to Treatment: Stable Problem Specific Plan: Monitor Clinically Problem Text: as per anemia (5) Weakness Status: Chronic Problem Text: 10/11 per PT safe to dc home (6) Bradycardia Problem Text: HR trends 50-60 on average. will monitor with telemetry, will dc is stable after 24 hours (7) Nausea Problem Text: 10/17 -- This and her low-grade temp this morning are possible side effects of Soliris (eculizumab.) Continue to monitor; if worsening, will prescribe an antiemetic. Plan/VTE VTE Prophylaxis Ordered?: Yes (TEDs and sequentials) VTE Exclusion Pharmacological: Thrombocytopenia Plan Therapy: PT VS, I&O, 24H, Fishbone Vital Signs/I&O Vital Signs Date Time Temp Pulse Resp B/P (MAP) Pulse Ox O2 Delivery O2 Flow Rate FiO2 10/19/19 08:40 79 142/78 10/19/19 06:00 98.7 17 96 Room Air 10/14/19 08:18 2 I&O- Last 24 Hours up to 6 AM 10/19/19 06:00 Intake Total 1850 ml Output Total 400 ml Balance 1450 ml Laboratory Data 24H LABS Laboratory Tests 2 10/19/19 05:24: Magnesium Level 1.3L 10/19/19 07:49: Anion Gap 7L, Glomerular Filtration Rate 11.7L, Calcium Level 8.6L CBC/BMP Laboratory Tests 10/19/19 07:49 Microbiology Microbiology 10/09/19 Stool Occult Blood (BJORN) - Final, Complete MARY DENSON PA-C Oct 19, 2019 09:16
[2019-10-19] MEDS: cefTRIAXone SOD 1 GM in D5W MINI-BAG PLUS 50 ML IV SCH (10:11)
[2019-10-19 14:00] VITALS: BP 148/83
--- NOTE | 2019-10-19 18:18 | IPN ---
DATE: 10/18/2019 SUBJECTIVE: Rosita is seen and examined this morning at the bedside. She reports she feels better than yesterday. Has not had any more loose bowel movements. T-max today is 99.9. Renal function and urine output have marginally improved with IV fluids. Kidney biopsy report has still not resulted. Patient denies shortness of breath, chest pain or leg edema. Temperature 97.6, T-max 99.9, pulse 78, respiratory rate 18, blood pressure 134/70, saturating 97% on room air. Intake yesterday was 1375, urine output yesterday was 1325. Weight in the bed scale today is 52.3 kg. General: The patient is seen lying in bed, elderly female, in no apparent distress, awake, alert, oriented. Extraocular muscles are intact. Sclerae are anicteric. Ear, nose and throat are unremarkable. Mucous membranes are moist. Neck is supple. Jugular veins are not elevated. Heart sounds are regular, S1, S2, no murmur. There is absolutely no edema in the peripheries nor in the dependent area. Lungs are clear to auscultation. There is no accessory muscle use nor tachypnea. She is comfortable on room air. Abdomen is soft and nontender. There are bowel sounds. Extremities are negative for edema, clubbing or cyanosis. Neurologic: She is oriented times three, interactive and conversational. Skin: Normal temperature and turgor. LABORATORY DATA: Sodium 145, potassium 4.3, bicarbonate 28, BUN 41, creatinine 4.1, hemoglobin 9.1, platelet 163. INPATIENT MEDICATIONS: The patient is ordered for half NS at 50 mL an hour for 1 liter. Remainder of medications are unchanged from prior. PROBLEMS: 1. BOLA on CKD. She has had worsening renal function associated with anemia and thrombocytopenia since July 2019 with recurrent hospitalizations and workup for the same. She is status post kidney biopsy with pathology still pending. Due to low [id number] activity and suspicion for atypical hemolytic uremic syndrome hematology started the patient on eculizumab. She is status post first dose and has had some low grade fevers and nonspecific complaints including poor appetite, loose bowel movements and upset stomach. Renal function did slightly worsen but has improved today with gentle IV fluids. We are waiting for the results of the kidney pathology to guide decision making regarding dialysis initiation. At present there is no urgent indication for starting dialysis. 2. Low grade fever and nonspecific complaints including cough, loose bowel movements and nausea. The patient feels better today. These nonspecific complaints may possibly be related to eculizumab initiation. She is receiving gentle IV fluids. Renal function and urine output marginally improved as compared to yesterday. 3. Recurrent anemia, thrombocytopenia. Possible atypical HUS. Followed by hematology. Started on eculizumab. Followup kidney pathology. Continues on Aranesp. Hemoglobin is improving and platelet count has now normalized as well. 4. Hypertension. Blood pressure is well controlled with low-dose amlodipine.
--- NOTE | 2019-10-19 20:44 | IPN ---
DATE: 10/19/2019 SUBJECTIVE: Rosita is seen and examined this morning at the bedside. She offers no complaints. Has not had any diarrhea, nausea, vomiting, shortness of breath or leg edema. Has not had any low grade fevers. Her renal function has marginally improved with IV fluids. The kidney biopsy pathology is still pending. Vital signs: Temperature 98.7, pulse 74, respiratory rate 17, blood pressure 127/68, saturating 96% on room air. Intake yesterday was 2450, urine output was not recorded. Three voids were recorded and 350 mL. Weight in the bed scale today is 53.6 kg. General: The patient is seen lying in bed awake, alert, oriented, comfortable, in no apparent distress. Extraocular muscles are intact. Anicteric sclerae. Ears, nose and throat are unremarkable. Jugular veins are not elevated. Heart sounds are regular. No appreciable murmur. No edema. Lungs are clear to auscultation. No crackle or rale. Abdomen is soft and nontender. There are bowel sounds. Extremities are negative for edema, clubbing, cyanosis. Neurologic: She is oriented, interactive and conversational. There is no asterixis. Skin: Normal temperature and turgor. LABORATORY DATA: Sodium 142, potassium 4.1, bicarbonate 25, BUN 38, creatinine 4.0, magnesium 1.3, hemoglobin 9.1, platelets 163. INPATIENT MEDICATIONS: Reviewed by myself. She has received 1 liter of half normal saline and her IV fluids are now off. She has completed a course of ceftriaxone, and she is now on amoxicillin 500 mg by mouth twice daily. She was started on magnesium 400 mg by mouth twice a day. Remainder of medications are unchanged from prior. PROBLEMS: 1. Acute kidney injury (BOLA) superimposed on chronic kidney disease. Worsening renal function since July 2019. Recurrent hospitalizations and workup. 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 Status post first dose of eculizumab. Kidney pathology report pending. Will call [facility] for the preliminary report. No uremic signs or symptoms. No urgent indication for dialysis initiation. Will continue to monitor closely for developing dialysis needs. Suggest to keep her in house until the preliminary biopsy results return, which should likely be by Saturday. 2. Atypical hemolytic uremic syndrome. Her anemia and thrombocytopenia are both improving. She was started eculizumab by hematology. The kidney biopsy report is pending and we will follow. 3. Hypertension. Blood pressures are well controlled with low-dose amlodipine. 4. Anemia. Likely related to underlying hematologic disorder. The patient is also on Aranesp and the hemoglobin is slowly improving up to 9.1. Her platelet count has likewise normalized. 5. Hypomagnesemia. Oral supplementation was increased.
[2019-10-19] MEDS: ATORVASTATIN 20 MG TAB PO SCH (21:27)
[2019-10-19] MEDS: MULTIVITAMINS/MINERALS THERAP 1 TAB PO SCH (21:27)
[2019-10-19] MEDS: AMOXICILLIN 500 MG CAP PO SCH (21:29)
[2019-10-19 22:00] VITALS: BP 129/73
[2019-10-20 06:00] VITALS: BP 135/75
[2019-10-20 06:12] LABS: BASO % 0.6 % (0.0-1.0); EOS # 0.1 10^3/uL (0.0-0.5); EOS % 2.8 % (0.0-3.0); HEMATOCRIT 27.2 % (36.0-47.0); HEMOGLOBIN 8.7 g/dl (12.0-15.5); LYMPH % 28.5 % (24.0-44.0); MEAN CORPUSCULAR HEMOGLOBIN 30.5 pg (27.0-33.0); MEAN CORPUSCULAR VOLUME 95.4 fl (80.0-96.0); MONO # 0.4 10^3/uL (0.0-0.8); MONO % 10.4 % (0.0-5.0); NEUTROPHILS % 57.1 % (36.0-66.0); PLATELET COUNT, AUTOMATED 196 10^3/uL (150-450); RED BLOOD COUNT 2.85 10^6/uL (4.00-5.40); WHITE BLOOD COUNT 3.6 10^3/uL (4.0-10.0)
[2019-10-20 06:36] LABS: ALBUMIN 2.5 GM/DL (3.2-5.2); BILIRUBIN,TOTAL 0.3 MG/DL (0.2-1.0); CALCIUM LEVEL 8.6 MG/DL (8.8-10.2); CREATININE FOR GFR 4.02 MG/DL (0.55-1.30); GLOMERULAR FILTRATION RATE 11.7 (>39); MAGNESIUM LEVEL 1.3 MG/DL (1.8-2.4); POTASSIUM SERUM 4.1 MEQ/L (3.5-5.1); TOTAL PROTEIN 7.1 GM/DL (6.4-8.2)
--- NOTE | 2019-10-20 09:16 | IPNPDOC ---
Subjective Date Seen The patient was seen on 10/20/19. Subjective Chief Complaint/HPI Pt this morning without new concerns. She states that she is anxious about going home and worried about transportation getting back and forth to her appts. General: Denies: Fatigue Constitutional: Denies: Chills, Fever Pulmonary: Denies: Dyspnea, Cough Cardiovascular: Denies: Chest Pain, Palpitations Gastrointestinal: Denies: Nausea, Vomiting, Diarrhea Neurological: Reports: Weakness Psych: Reports: Mood Normal Objective Physical Examination General Exam: Positive: Alert, Cooperative, No Acute Distress ENT Exam: Positive: Mucous membr. moist/pink Neck Exam: Positive: Supple Chest Exam: Positive: Clear to auscultation, Normal air movement Heart Exam: Positive: Rate Normal, Normal S1, Normal S2 Abdomen Exam: Positive: Normal bowel sounds, Soft Extremity Exam: Negative: Edema Neuro Exam: Positive: Normal Speech Psych Exam: Positive: Mental status NL, Mood NL Assessment /Plan Problems (1) Symptomatic anemia Status: Acute Discussed With: Nurse, Patient Problem Specific Plan: Monitor Clinically, Repeat Labs Problem Text: 10/20 Hgb dropped from 9.1 to 8.7, cont to monitor daily while inpt. 10/19 Ecilizumab on 10/16 results in anorexia, nausea, low grade temp and decreased in WBC, she also has had a bump in her Scr. Menactra 10/13/19 Bexsero 10/16/1910/16 Cont to await bx results, Eculizumab is to be given today, weekly for 5 weeks, then every 4 weeks per Heme. She has Menactra 10/13/2019, she will get Bexsero today per Pharmacy, it is being transported her from an offsite clinic. She will then need these repeated as an outpt. 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 Rec FFP yes t x 2 units, starting on eculizumab today x 5 days, then will need monthly. 10/14/2019: See Dr. Tom consultation. 10/[address] oTm, pt tells me that it appears to her as though Dr Nur spoke to her yesterday. 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 10/12 9-favor renal bx-dw Jl re case given previously seen by her 08/19/19, check repeat KL, LDH, smear 10/11 sp Aranesp 100 SC 10/12/18 -DORIS c 0.8% ret 08/20 hapto low NL 43 c LDH 276, AST 175 09/2019: %sat 86, mary 1086 B12 880/RBC folate 1034 -sIFE for MCB, uIFE for BJP (SPEP cw polyclonal gammopathy); but 08/09/19 K/L 135/69/2 07/09/19 CHr 30 c 11% retic (but this is at hgb 4.9!) -i/d HENRIK -hep B/C -plt Ab [id number] borderline low 53% (not cw TTS) 08/08/19 smear: Anemia, with slightly elevated MCV, without significant poikilocytosis, most likely multifactorial anemia with a component of anemia of chronic disease. Markedly elevated ferritin level. Patient has received 4 RBC transfusions in the past 40 days. Correlation with clinical Hx is recommended. 08/17 CT AP: IMPRESSION: 1. Bilateral renal calyceal lithiasis. 2. Small LEFT uterine calcified leiomyoma. 3. Diverticulosis. 4. Minimal RIGHT pleural effusion. 5. Possible anemia, see above comments. Correlation with CBC may be helpful. 08/20 CT chest : B pleural effusions (2) Hemolytic uremic syndrome Problem Text: 10/19 Bexsero administered 10/16, pt will need Bexsero and Menactra administered in 8 weeks. 10/16 JFW: I called Dr Ordoñez, her PCP, case discussed, aware of need for f/u Menactra and mening B vaccine, prophylactic amox. He will put in order for menin B shot at [facility] on Saturday after d/c (3) CKD (chronic kidney disease) stage 5, GFR less than 15 ml/min Status: Chronic Response to Treatment: Stable Problem Specific Plan: Consult Specialist, Monitor Clinically Problem Text: 10/19 Scr 4, down from 4.1 yesterday. Nephr cont to follow, await renal bx results. 10/12 Await further input from family, coordination with Nephrology. 10/11 Dr. Nur discussed starting dialysis with her, but she wonders if we should wait a little longer to see if her kidney's improve spontaneously. We have already been doing watchful waiting for a couple of months. (4) Thrombocytopenia Status: Chronic Response to Treatment: Stable Problem Specific Plan: Monitor Clinically Problem Text: as per anemia (5) Weakness Status: Chronic Problem Text: 10/11 per PT safe to dc home (6) Bradycardia Problem Text: HR trends 50-60 on average. will monitor with telemetry, will dc is stable after 24 hours (7) Nausea Problem Text: 10/17 -- This and her low-grade temp this morning are possible side effects of Soliris (eculizumab.) Continue to monitor; if worsening, will prescribe an antiemetic. Plan/VTE VTE Prophylaxis Ordered?: Yes (TEDs and sequentials) VTE Exclusion Pharmacological: Thrombocytopenia Plan Therapy: PT VS, I&O, 24H, Fishbone Vital Signs/I&O Vital Signs Date Time Temp Pulse Resp B/P (MAP) Pulse Ox O2 Delivery O2 Flow Rate FiO2 10/20/19 06:00 98.0 81 18 135/75 (95) 95 10/19/19 14:00 Room Air 10/14/19 08:18 2 I&O- Last 24 Hours up to 6 AM 10/20/19 06:00 Intake Total 870 ml Output Total 1300 ml Balance -430 ml Laboratory Data 24H LABS Laboratory Tests 2 10/20/19 05:29: Immature Granulocyte % (Auto) 0.6, Neutrophils (%) (Auto) 57.1, Lymphocytes (%) (Auto) 28.5, Monocytes (%) (Auto) 10.4H, Eosinophils (%) (Auto) 2.8, Basophils (%) (Auto) 0.6, Neutrophils # (Auto) 2.0, Lymphocytes # (Auto) 1.0L, Monocytes # (Auto) 0.4, Eosinophils # (Auto) 0.1, Basophils # (Auto) 0.0, Nucleated Red Blood Cells % (auto) 0.0, Anion Gap 7L, Glomerular Filtration Rate 11.7L, Calcium Level 8.6L, Magnesium Level 1.3L, Total Bilirubin 0.3, Aspartate Amino Transf (AST/SGOT) 36, Alanine Aminotransferase (ALT/SGPT) 35, Alkaline Phosphatase 110, Total Protein 7.1, Albumin 2.5L, Albumin/Globulin Ratio 0.54L CBC/BMP Laboratory Tests 10/20/19 05:29 Attending Note Attending Note she has been using ilotycin for a recurrent blepharitis/conjunctivitis. will stop for now and monitor for recurrent signs or symptoms. she has seen Dr. Blackwell for this problem in the past. MARY DENSON PA-C Oct 20, 2019 09:16 Hank Ordoñez MD Oct 20, 2019 09:37
[2019-10-20] MEDS: AMOXICILLIN 500 MG CAP PO SCH ×2 (09:36→20:52)
[2019-10-20] MEDS: PANTOPRAZOLE 40MG TAB (PROTONIX) PO SCH ×2 (09:36→20:51)
[2019-10-20] MEDS: FOLIC ACID 1 MG TAB PO SCH (09:36)
[2019-10-20] MEDS: MAGNESIUM OXIDE 400 MG TAB (MAG-OX) PO SCH ×2 (09:36→20:51)
[2019-10-20] MEDS: LACTOBACILLUS ACIDOPHILUS CAP (BACID) PO SCH ×2 (09:37→20:51)
[2019-10-20] MEDS: MAG SULF 1GM/100ML (MAG RUN) 1 GM in IV 1 EA IV SCH ×3 (09:37→12:00)
[2019-10-20 14:00] VITALS: BP 135/75
[2019-10-20] MEDS: ATORVASTATIN 20 MG TAB PO SCH (20:51)
[2019-10-20] MEDS: MULTIVITAMINS/MINERALS THERAP 1 TAB PO SCH (20:52)
--- NOTE | 2019-10-20 21:38 | IPN ---
DATE: 10/20/2019 SUBJECTIVE: Rosita is seen and examined at the bedside. I spoke with Dr. Springer at [facility] regarding the patient's preliminary kidney biopsy report which showed advanced nonspecific changes related to end-stage kidney failure and did not show any microthrombi or findings consistent with a thrombotic microangiopathy. This was discussed at length with the patient at the bedside this afternoon. She denies any chest pain, shortness of breath, troubles voiding or leg edema. Temperature 97.9, pulse 72, respiratory rate 13, blood pressure 135/75, saturating 94% on room air. Intake yesterday was 860, urine output yesterday was 1300, weight in the bed scale today is not recorded. General: The patient is seen awake, alert, oriented, lying comfortably in bed in no apparent distress. Extraocular muscles are intact. Mild exophthalmos appearance. Ears, nose and throat are unremarkable. Jugular veins were not elevated. Heart sounds are regular. No friction murmur. No leg edema. Lungs are clear to auscultation. No crackle, rale or rhonchus. Abdomen is soft and nontender. Extremities are negative for edema, clubbing, cyanosis. Neurologic: She is oriented, interactive and conversational. Skin: Normal temperature and turgor. LABORATORY DATA: White count 3.6, hemoglobin 8.7, platelet 196, sodium 143, potassium 4.1, bicarbonate 26, BUN 39, creatinine 4.0, magnesium 1.3. INPATIENT MEDICATIONS: Reviewed by myself and no change from prior. PROBLEMS: 1. Acute on chronic renal failure. The patient has fluctuated between CKD IV and CKD V since July 2019. She has bland urinalysis negative for blood and protein. Kidney biopsy report showed nonspecific features that are consistent with an end-stage kidney including generalized interstitial fibrosis, tubular atrophy and glomerulosclerosis. There were no changes related to a thrombotic microangiopathy. She has had a repeat [id number] activity level which is normal range. Biopsy results were discussed with the primary team and with hematology. It is not consistent with atypical HUS. Eculizumab is likely to be discontinued. The patient will need to followup closely in the nephrology office for medical management of end-stage kidney and optimization for renal replacement therapy in the near future and also along with access placement. 2. Hypertension. Blood pressures are well-controlled on low-dose amlodipine. 3. Anemia. It is likely related to chronic renal failure and she did have a GI bleed a couple of months ago. She continues on Aranesp and will continue it in the outpatient setting. She is also taking proton pump inhibitor therapy. DISPOSITION: The patient is stable for discharge from a nephrology point of view with close followup in the office within 1 week.
[2019-10-20 22:00] VITALS: BP 150/78
[2019-10-21 06:00] VITALS: BP 133/68
[2019-10-21] MEDS: LACTOBACILLUS ACIDOPHILUS CAP (BACID) PO SCH (09:49)
[2019-10-21] MEDS: AMOXICILLIN 500 MG CAP PO SCH (09:49)
[2019-10-21] MEDS: MAGNESIUM OXIDE 400 MG TAB (MAG-OX) PO SCH (09:49)
[2019-10-21] MEDS: PANTOPRAZOLE 40MG TAB (PROTONIX) PO SCH (09:49)
[2019-10-21] MEDS: FOLIC ACID 1 MG TAB PO SCH (09:49)
[2019-10-21 09:50] VITALS: BP 150/82
--- NOTE | 2019-10-21 09:53 | REP ---
Upper extremity vein mapping: Right upper extremity: Basilic size mm Cephalic size mm Upper humerus 5.2 3.5 Lower humerus 5.8 3.7 Upper forearm 3.4 3.9 Lower forearm/wrist. 1.6 3.3 Median cubital 4.2 4.2 Arterial PSV Waveform Size mm Axillary 46.2 monophasic 3.9 Brachial 119.8 monophasic 4.2 Radial 62.9 triphasic 2.8 Ulnar 66.8 biphasic 9.9 Upper extremity vein mapping: Left upper extremity: Basilic size mm Cephalic size mm Upper humerus 5.5 3.1 Lower humerus 5.5 3.0 Upper forearm 2.0 3.4 Lower forearm/wrist. 1.3 80 2.1 Median cubital 2.9 2.9 Arterial PSV Waveform Size mm Axillary 118.8 triphasic 3.9 Brachial 124.4 biphasic 3.7 Radial 79.7 triphasic 1.5 Ulnar 56.6 triphasic 1.7 There is no evidence of deep vein thrombus on the right on the left. Electronically Signed by Juaquin Cabezas MD 10/21/2019 09:20 A
[2019-10-21 09:54] LABS: BASO % 0.3 % (0.0-1.0); EOS # 0.1 10^3/uL (0.0-0.5); EOS % 2.7 % (0.0-3.0); HEMOGLOBIN 9.1 g/dl (12.0-15.5); LYMPH # 0.9 10^3/uL (1.5-5.0); LYMPH % 25.2 % (24.0-44.0); MEAN CORPUSCULAR HEMOGLOBIN 30.4 pg (27.0-33.0); MEAN CORPUSCULAR HGB CONC 31.4 g/dl (32.0-36.5); MONO # 0.4 10^3/uL (0.0-0.8); MONO % 11.3 % (0.0-5.0); NEUTROPHILS # 2.3 10^3/uL (1.5-8.5); NEUTROPHILS % 60.2 % (36.0-66.0); PLATELET COUNT, AUTOMATED 205 10^3/uL (150-450); RED BLOOD COUNT 2.99 10^6/uL (4.00-5.40); WHITE BLOOD COUNT 3.7 10^3/uL (4.0-10.0)
[2019-10-21] MEDS ORDERED: MAG400TA PO (10:18)
[2019-10-21 10:24] LABS: ALBUMIN 2.7 GM/DL (3.2-5.2); BILIRUBIN,TOTAL 0.4 MG/DL (0.2-1.0); CALCIUM LEVEL 9.5 MG/DL (8.8-10.2); CREATININE FOR GFR 4.13 MG/DL (0.55-1.30); GLOMERULAR FILTRATION RATE 11.4 (>39); MAGNESIUM LEVEL 2.1 MG/DL (1.8-2.4); POTASSIUM SERUM 4.5 MEQ/L (3.5-5.1); TOTAL PROTEIN 7.3 GM/DL (6.4-8.2)
--- NOTE | 2019-10-21 13:17 | IPNPDOC ---
Text Note Date of Service The patient was seen on 10/21/19. NOTE The following note pertains to the nephrology service with Chayito Cloud DO supervising my work. Please see E attestation below. SUBJECTIVE: Patient was seen at bedside this morning. She reports no overnight events. She has no further complaints at this time. OBJECTIVE: VITALS: Please see below. GENERAL: Pt appears stated age, is dressed in street clothes, and is sitting up in bed in no apparent acute distress. HEENT: Normocephalic, atraumatic. EOMI. Exophthalmos present. Sclerae are nonicteric. CARDIOVASCULAR: Regular rate and rhythm. No murmurs, rubs, or gallops. No peripheral edema. PULMONARY: Clear to auscultation b/l. No wheezes, rales, or rhonchi. INTEGUMENTARY: Skin is of normal temperature and turgor. PSYCHIATRIC: Pt is calm and cooperative. Full affect. Pt answers questions appropriately. Insight is good. INTAKE/OUTPUT: Total intake yesterday was recorded as 1.28 L. Urine output was 500 mL. LABORATORY REVIEW: CBC: WBC 3.7, HGB 9.1, platelets 205. BMP: Sodium 143, potassium 4.5, chloride 111, bicarbonate 27, BUN 40, creatinine 4.13, magnesium 2.1. Calculated GFR 11.4. ASSESSMENT/PLAN: 1. Acute on end-stage renal disease - With biopsy preliminary results inconsistent with atypical hemolytic uremic syndrome and showing nonspecific features such as generalized interstitial fibrosis, tubular atrophy, and glomerulosclerosis, pt's kidney disease is most likely related to long-standing hypertension. - We spent some time talking to pt today regarding our her upcoming outpatient chronic kidney disease management. She was advised to not take ibuprofen, Aleve, and other NSAIDs. She was told that she can only take Tylenol for [id number] pain relief. She was advised that she may call the nephrology office to confirm the renal safety of any additional medications added by other practitioners. - Pt will follow-up in the nephrology office within the next week for medical optimization and further discussion of and preparation for likely renal replacement therapy in the near future. From nephrology standpoint, she is stable for discharge. 2. Hypertension - Blood pressures are stable and well-controlled on low-dose amlodipine. 3. Anemia, likely related to chronic kidney disease - Continue [facility] inpatient and will continue as an outpatient. Continue pantoprazole for GI prophylaxis. VS,Fishbone, I+O VS, Fishbone, I+O Laboratory Tests 10/21/19 09:27 Vital Signs Date Time Temp Pulse Resp B/P (MAP) Pulse Ox O2 Delivery O2 Flow Rate FiO2 10/21/19 09:50 78 150/82 10/21/19 06:00 98.0 18 96 10/19/19 14:00 Room Air I&O- Last 24 Hours up to 6 AM 10/21/19 06:00 Intake Total 1280 ml Output Total 1150 ml Balance 130 ml GME ATTESTATION GME ATTESTATION My faculty preceptor for this patient encounter was physically present during the encounter and was fully available. All aspects of the patient interview, examination, medical decision making process, and medical care plan development were reviewed and approved by the faculty preceptor. The faculty preceptor is aware and concurs with the plan as stated in the body of this note and will attest to such by his/her cosignature. CLAUDIA COREA OMS-III Oct 21, 2019 13:17
--- NOTE | 2019-10-21 18:34 | DSES ---
DATE OF ADMISSION: 10/08/2019 DATE OF DISCHARGE: 10/21/2019 PRIMARY CARE PHYSICIAN: Dr. Hank Ordoñez ATTENDING PHYSICIAN: Dr. Hank Ordoñez [facility] SPECIALIST: Dr. Maria Del Carmen Cloud HEMATOLOGY/ONCOLOGY: Dr. Eliana Tom HISTORY OF PRESENT ILLNESS: This is a 69-year-old female who presented to the emergency department (ED) for labs and workup due to significant generalized fatigue and lower extremity weakness for 3 days prior to her presentation. Patient also noted to have a few episodes of epistaxis in the weeks preceding her presentation to the ED. Workup in the ED proved positive for anemia, thrombocytopenia, hyponatremia. She was placed on intravenous (IV) Protonix, Solu-Medrol, and transfused and subsequently admitted to the family medicine service. HOSPITAL COURSE: Patient is status post nephrology consult as well as hematology consult. Patient was started on Aranesp for her recurrent anemia. She was started on ceftriaxone for a urinary tract infection. This has subsequently transitioned to amoxicillin by mouth, which she has tolerated well. Microbiology proved positive for Raoultella planticola, and patient did finish a full 7 days of ceftriaxone prior to starting her penicillin. Patient is status post oncology evaluation with Dr. Eliana Tom, who noted patient to have an [id number] abnormality, consistent with potential atypical hemolytic uremic syndrome. It was recommended that patient start eculizumab, which was ordered to start for patient. Patient is status post repeat renal biopsy on 10/14/[address] Melissa Cervantes. Patient was treated with one dose of eculizumab. Per documentation by Dr. Maria Del Carmen Cloud, patient's preliminary biopsy report showed advanced nonspecific changes related to end-stage kidney failure. Did not show any microthrombi or findings consistent with a thrombotic microangiopathy. As a result of this, patient's eculizumab was stopped. Patient was recommended to followup with Dr. Cloud in the office for medical management of end-stage kidney and optimization for renal replacement therapy in the near future along with access placement. Today, patient denies any questions, complaints, or concerns. Vital signs are stable. Hemoglobin 9.1, hematocrit 29, platelets 205. CMP has remained stable throughout hospitalization. Most recent blood pressure today 133/68, oxygen saturation 96% on room air, temperature 98. HEENT: Neck is supple without lymphadenopathy or jugular venous distention (JVD). CARDIOVASCULAR: Heart rate and rhythm are regular. PULMONARY: Lungs are clear. ABDOMEN: Soft and nontender. Bilateral lower extremities are without any edema. NEUROLOGIC: Patient is alert and oriented times three. ASSESSMENT: 1. Acute on chronic renal failure. 2. Hypertension. 3. Anemia. 4. Thrombocytopenia. 5. History of gastrointestinal bleed. 6. History of hyperlipidemia. 7. Urinary tract infection. PLAN: Patient will be discharged to home. Diet is as tolerated. Activity is as tolerated. She will followup with primary care physician (PCP) within the next week. She will followup with nephrology later this week as previously scheduled. MEDICATIONS: - amlodipine 2.5 mg one by mouth daily - amoxicillin 500 mg one by mouth twice a day for the next 14 days - atorvastatin 20 mg two by mouth at bedtime - probiotic two capsules by mouth twice a day - magnesium oxide 400 mg by mouth twice a day - folic acid 1 mg by mouth daily - multivitamin one tablet by mouth at bedtime - pantoprazole sodium 40 mg by mouth twice a day - B complex with vitamin C one tablet by mouth daily Patient is discharged in stable and satisfactory condition with no further questions at time of discharge.
--- NOTE | 2019-10-23 18:35 | IPN ---
DATE: 10/20/2019 Dr. Cloud of nephrology contacted me to let me know the renal biopsy was read and counter read with second opinion as not consistent with a microangiopathy. Meanwhile, the patient's platelets had improved and on epoetin, her anemia is improving. This makes the diagnosis of atypical hemolytic-uremic syndrome (HUS) most unlikely. As a result, I discussed the case with Ms. Galan and let her know my working diagnosis was incorrect and her anemia is secondary to her kidney failure. She found this to be news of mixed blessing. She is thinking through the dialysis question. She thanked me for the information. We will cancel her eculizumab treatment plan for hematology/oncology and she will not followup in clinic with us unless needed for other reasons. She understood and thanked me. TRU
== END 2019-10-21 15:18 | disposition home or self-care (01) | DRG 812 ==
LOC: M ED 18:12 → M ED INP 20:26 → ENRESERVDT 21:31 → ENRESERVTM 21:31 → M ED INP 10-09 00:03 → M MSPAV 10-09 00:04
PROVIDERS: ADMIT Internal Medicine; ATTEND Family Medicine
PROC: 30233N1 Transfusion of Nonautologous Red Blood Cells into Peripheral Vein, Percutaneous Approach (ICD-10-PCS; 2019-10-08)
PROC: 30233K1 Transfusion of Nonautologous Frozen Plasma into Peripheral Vein, Percutaneous Approach (ICD-10-PCS; 2019-10-08)
PROC: 0TB Urinary System, Excision (ICD-10-PCS; principal; 2019-10-14 07:30)
DX: D59.3 Hemolytic-uremic syndrome (principal); N39.0 Urinary tract infection, site not specified; E87.0 Hyperosmolality and hypernatremia; N18.5 Chronic kidney disease, stage 5; N17.9 Acute kidney failure, unspecified; I12.0 Hypertensive chronic kidney disease with stage 5 chronic kidney disease or end stage renal disease; D69.6 Thrombocytopenia, unspecified; Z79.899 Other long term (current) drug therapy; K21.9 Gastro-esophageal reflux disease without esophagitis; E78.5 Hyperlipidemia, unspecified; K57.30 Diverticulosis of large intestine without perforation or abscess without bleeding; D63.1 Anemia in chronic kidney disease

== ENCOUNTER → 2019-10-28 | Outpatient (REF) | payer MEDICARE ==
[~2019-10-28] MED LIST changes: +AMLO25TA PO; +AMOX500T PO; +ATOR1TAB21 PO; +FOLI1TAB11 PO; +MAG400TA PO; +MAGN400T2 PO; +RISATAB3 PO
[2019-10-29 12:41] LABS: BASO % 0.4 % (0.0-1.0); EOS % 0.8 % (0.0-3.0); HEMATOCRIT 33.4 % (36.0-47.0); HEMOGLOBIN 10.6 g/dl (12.0-15.5); LYMPH % 19.8 % (24.0-44.0); MEAN CORPUSCULAR HEMOGLOBIN 31.1 pg (27.0-33.0); MEAN CORPUSCULAR HGB CONC 31.7 g/dl (32.0-36.5); MEAN CORPUSCULAR VOLUME 97.9 fl (80.0-96.0); MONO # 0.4 10^3/uL (0.0-0.8); MONO % 8.4 % (0.0-5.0); NEUTROPHILS # 3.6 10^3/uL (1.5-8.5); PLATELET COUNT, AUTOMATED 257 10^3/uL (150-450); RED BLOOD COUNT 3.41 10^6/uL (4.00-5.40); WHITE BLOOD COUNT 5.1 10^3/uL (4.0-10.0)
[2019-10-29 12:51] LABS: CALCIUM LEVEL 9.4 MG/DL (8.8-10.2); CREATININE FOR GFR 2.98 MG/DL (0.55-1.30); GLOMERULAR FILTRATION RATE 16.6 (>39); MAGNESIUM LEVEL 1.5 MG/DL (1.8-2.4); POTASSIUM SERUM 3.7 MEQ/L (3.5-5.1)
== END ==
LOC: M SFHCCLAY 08:28
PROVIDERS: ATTEND Family Medicine
DX: N18.4 Chronic kidney disease, stage 4 (severe) (principal); D69.6 Thrombocytopenia, unspecified

== ENCOUNTER 2019-11-03 11:15 | Day surgery (SDC) | payer MEDICARE ==
[~2019-11-03] VITALS: Ht 154.9 cm; Wt 55.3 kg
[~2019-11-03 11:15] MED LIST changes: +NS 1,000 ML IV ONE
[2019-11-03] MEDS ORDERED: propofoL 200 MG/20 ML VIAL As Ordered ONE (11:18)
[2019-11-03] MEDS ORDERED: LIDOCAINE 2% INJ 100 MG/5 ML SDV (FOR ANES.) As Ordered ONE (11:18)
[2019-11-03] MEDS ORDERED: fentaNYL 100 MCG/2 ML INJECTION (J3010) As Ordered ONE (13:56)
--- NOTE | 2019-11-03 15:16 | ROOR ---
Patient Name: Rosita Galan Procedure Date: 11/03/2019 2:28 PM Date of : 1950 Age: 69 Room: [facility] Gender: Female Note Status: Finalized Procedure: Upper GI endoscopy Indications: Follow-up of gastric ulcer Providers: Donnie Breaux MD Referring MD: Hank Ordoñez MD Requesting Provider: Medicines: Monitored Anesthesia Care Complications: No immediate complications. Procedure: Pre-Anesthesia Assessment: - Prior to the procedure, a History and Physical was performed, and patient medications and allergies were reviewed. The patient is competent. The risks and benefits of the procedure and the sedation options and risks were discussed with the patient. All questions were answered and informed consent was obtained. Patient identification and proposed procedure were verified by the physician, the nurse and the anesthesiologist in the procedure room. Mental Status Examination: alert and oriented. Airway Examination: normal oropharyngeal airway and neck mobility. Respiratory Examination: clear to auscultation. CV Examination: normal. Prophylactic Antibiotics: The patient does not require prophylactic antibiotics. Prior Anticoagulants: The patient has taken no previous anticoagulant or antiplatelet agents. ASA Grade Assessment: II - A patient with mild systemic disease. After reviewing the risks and benefits, the patient was deemed in satisfactory condition to undergo the procedure. The anesthesia plan was to use monitored anesthesia care (MAC). Immediately prior to administration of medications, the patient was re-assessed for adequacy to receive sedatives. The heart rate, respiratory rate, oxygen saturations, blood pressure, adequacy of pulmonary ventilation, and response to care were monitored throughout the procedure. The physical status of the patient was re-assessed after the procedure. The Endoscope was introduced through the mouth, and advanced to the second part of duodenum. The upper GI endoscopy was accomplished without difficulty. The patient tolerated the procedure well. Findings: The examined esophagus was normal. A medium-sized hiatal hernia was present. One 15 mm sessile polyp with no bleeding and stigmata of recent bleeding was found in the prepyloric region of the stomach. One ligature was successfully placed. There was no bleeding at the end of the procedure. Polypectomy was attempted, initially using a cold snare. Polyp resection was incomplete with this device. This intervention then required a different device and polypectomy technique. An endoloop was maneuvered over the polyp stalk and closed at the mucosal attachment prior to removal in order to prevent bleeding. This polyp was then removed with a cold snare. Resection and retrieval were complete. One non-bleeding cratered gastric ulcer with no stigmata of bleeding was found in the prepyloric region of the stomach. The lesion was 10 mm in largest dimension. Biopsies were taken with a cold forceps for histology. The duodenal bulb and second portion of the duodenum were normal. Impression: - Normal esophagus. - Medium-sized hiatal hernia. - One gastric polyp. Resected and retrieved. Ligated. - Non-bleeding gastric ulcer with no stigmata of bleeding. Biopsied. - Normal duodenal bulb and second portion of the duodenum. Recommendation: - Patient has a contact number available for emergencies. The signs and symptoms of potential delayed complications were discussed with the patient. Return to normal activities tomorrow. Written discharge instructions were provided to the patient. - Resume previous diet. - Continue present medications. - Use Protonix (pantoprazole) 40 mg PO twice daily - to be taken in morning (1/2 hour before breakfast) and at bedtime ( atleast 3 hours after last meal) for 8 weeks. - Await pathology results. - Repeat upper endoscopy in 3 months for surveillance based on pathology results. - Telephone GI clinic for pathology results in 2 weeks. - Return to primary care physician. Donnie Breaux MD Donnie Breaux MD 11/03/2019 3:16:00 PM Electronically signed by Donnie Breaux MD Number of Addenda: 0 Note Initiated On: 11/03/2019 2:28 PM Estimated Blood Loss: Estimated blood loss was minimal.
[2019-11-03 15:25] VITALS: BP 105/58
== END 2019-11-03 15:34 | disposition home or self-care (01) ==
LOC: M OPP 11:15
PROVIDERS: ATTEND Internal Medicine Gastroenterology
DX: K44.9 Diaphragmatic hernia without obstruction or gangrene (principal); K31.7 Polyp of stomach and duodenum; K25.9 Gastric ulcer, unspecified as acute or chronic, without hemorrhage or perforation; N19 Unspecified kidney failure; Z79.899 Other long term (current) drug therapy; Z91.030 Bee allergy status; Z87.891 Personal history of nicotine dependence
CPT/HCPCS: 43239; 43251; 88305; J3010

== ENCOUNTER → 2019-11-05 | Outpatient (REF) | payer MEDICARE ==
[~2019-11-05] MED LIST changes: -NS 1,000 ML IV ONE
[2019-11-05 17:53] LABS: FERRITIN 604 NG/ML (8-252); IRON (FE) 158 UG/DL (50-170); PERCENT SATURATION 65.6 % (13.2-45.0); TOTAL IRON BINDING CAPACITY 241 UG/DL (250-450)
[2019-11-05 18:15] LABS: FOLATE > 24.0 NG/ML; VITAMIN B12 LEVEL 777 PG/ML
[2019-11-09 14:10] LABS: Methylmalonic Acid 472 nmol/L (0-378)
== END ==
LOC: M LAB REF 16:50
PROVIDERS: ATTEND Internal Medicine Nephrology
DX: D64.9 Anemia, unspecified (principal)

== ENCOUNTER 2019-11-12 17:04 | Inpatient (IN) | payer MEDICARE ==
[~2019-11-12] VITALS: Ht 154.9 cm; Wt 53.1 kg
[2019-11-12] MEDS ORDERED: NS 1,000 ML IV SCH (17:48)
[2019-11-12 18:59] LABS: BASO % 0.2 % (0.0-1.0); EOS % 0.6 % (0.0-3.0); HEMATOCRIT 29.2 % (36.0-47.0); HEMOGLOBIN 8.9 g/dl (12.0-15.5); LYMPH # 0.8 10^3/uL (1.5-5.0); LYMPH % 15.3 % (24.0-44.0); MEAN CORPUSCULAR HEMOGLOBIN 30.8 pg (27.0-33.0); MEAN CORPUSCULAR HGB CONC 30.5 g/dl (32.0-36.5); MONO # 0.3 10^3/uL (0.0-0.8); MONO % 5.3 % (0.0-5.0); NEUTROPHILS # 4.1 10^3/uL (1.5-8.5); NEUTROPHILS % 78.2 % (36.0-66.0); RED BLOOD COUNT 2.89 10^6/uL (4.00-5.40); WHITE BLOOD COUNT 5.3 10^3/uL (4.0-10.0)
[2019-11-12 19:22] LABS: BILIRUBIN,DIRECT 0.1 MG/DL (0.0-0.2); BILIRUBIN,TOTAL 0.2 MG/DL (0.2-1.0); CALCIUM LEVEL 9.4 MG/DL (8.8-10.2); CREATININE FOR GFR 3.47 MG/DL (0.55-1.30); GLOMERULAR FILTRATION RATE 13.9 (>39); POTASSIUM SERUM 6.9 MEQ/L (3.5-5.1); TOTAL PROTEIN 7.7 GM/DL (6.4-8.2)
[2019-11-12 19:32] LABS: PLATELET COUNT, AUTOMATED 83 10^3/uL (150-450)
[2019-11-12] MEDS ORDERED: DEXTROSE 50% 50 ML SYRINGE IV STA (20:20)
[2019-11-12] MEDS ORDERED: HumuLIN R (REGULAR) INSULIN (NovoLIN R) **100U/ML** PER UNIT IV STA (20:20)
[2019-11-12] MEDS ORDERED: ALBUTEROL SULFATE 2.5 MG/0.5 ML INH NEB SOLN NEB ONE (20:30)
[2019-11-12] MEDS ORDERED: FUROSEMIDE 40 MG/4 ML VIAL (J1940) IV ONE (20:30)
[2019-11-12] MEDS ORDERED: SOD POLYSTYRENE SULFONATE SUSP 15 GM/60 ML UD PO ONE (20:30)
[2019-11-12] MEDS ORDERED: CALCIUM GLUCONATE 1,000 MG in D5W MINI-BAG PLUS 100 ML IV ONE (20:30)
--- NOTE | 2019-11-12 20:32 | HPEPDOC ---
[facility] Medical History & Physical Date of Admission Nov 12, 2019 Date of Service: Nov 12, 2019 Primary Care Physician: Hank Ordoñez MD Attending Physician: Marcial Sanchez MD History and Physical TIME OF SERVICE: 9 PM CHIEF COMPLAINT: Weakness HISTORY OF PRESENT ILLNESS: Corroborating history was obtained from the patient's daughter This is a 69-year-old female who came to the hospital for evaluation of lower extremity weakness, slow speech and difficulties collecting her thoughts; the patient's boss called her daughter and told her that her mother was acting abnormally, therefore, the daughter brought her mother to the hospital. They were concerned that she may need a blood transfusion because she had similar symptoms when she was last admitted for evaluation of bicytopenia. She recently saw Dr. 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 She saw last week. She recently had a kidney biopsy to r/o microangiopathy; according to the patient's daughter but the sample was sent to [facility] for analysis but the results were unrevealing. 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 pylori bx Hyperlipidemia GERD Chronic Hypertension SOCIAL HISTORY: and lives by herself. Works part-time at [employer] in [place], [place] Drank approximately 4 glasses of wine per day for 15 years up until July 2019 Smoked cigarettes for one year in the 1960 Remote hx of intermittent marijuana use in the 1960s FAMILY HISTORY: Unspecified heart disease (Father) Hypertension (mother) ALLERGIES: Please see below. HOME MEDICATIONS: Please see below. Vital Signs Date Time Temp Pulse Resp B/P (MAP) Pulse Ox O2 Delivery O2 Flow Rate FiO2 11/12/19 17:04 95.4 65 18 121/73 (89) 98 Room Air PHYSICAL EXAMINATION: GEN: well-nourished / well developed/ NAD INTEGUMENT: not flushed/ spider angiomata on cheeks HEENT: NCAT / lips acyanotic /mucus membranes moist and pink / exophthalmos CVS: RRR/NMRG LUNGS: able to speak full sentences without stopping to take a breath / no coughing / lungs are clear to auscultation bilaterally on room air ABDOMEN: Contour ( obese) /soft & not tender with palpation MSK/EXTREMITIES: range of motion intact in all 4 extremities / Slim extremities NEURO: CN 2-12 are grossly intact / speech is not dysarthric PSYCH: alert and oriented / able to understand and follow all commands LABORATORY DATA: Immature Granulocyte % (Auto) 0.4, Neutrophils (%) (Auto) 78.2H, Lymphocytes (%) (Auto) 15.3L, Monocytes (%) (Auto) 5.3H, Eosinophils (%) (Auto) 0.6, Basophils (%) (Auto) 0.2, Neutrophils # (Auto) 4.1, Lymphocytes # (Auto) 0.8L, Monocytes # (Auto) 0.3, Eosinophils # (Auto) 0.0, Basophils # (Auto) 0.0, Nucleated Red Blood Cells % (auto) 0.0, Immature Platelet Fraction 3.7, Anion Gap 3L, Glomerular Filtration Rate 13.9L, Calcium Level 9.4, Total Bilirubin 0.2, Direct Bilirubin 0.1, Aspartate Amino Transf (AST/SGOT) 58H, Alanine Aminotransferase (ALT/SGPT) 41, Alkaline Phosphatase 151H, Total Protein 7.7, Albumin 3.0L, Albumin/Globulin Ratio 0.64L, Lipase 768H MICROBIOLOGY: Please see below. ASSESSMENT: Ms. Galan is a 69-year-old female with history of gastric ulcer, CKD 4, possible atypical HUS?, transfusion dependent anemia, exophthalmos, & dyslipidemia who presented with complaints of weakness and slurred speech, and will be admitted for management of hyperkalemia, BOLA on CKD, and bradycardia. PLAN: 1. Hyperkalemia Likely due to BOLA on CKD EKG showed slightly peaked T waves Plan: Admit to PCU / telemetry / Calcium gluconate IV 1G / albuterol / Kayexalate / did not give insulin because she is hypoglycemic / follow up repeat potassium / renal diet 2. Acute Renal Failure on CKD 4 Cause of BOLA on CKD is unclear at this time SPEP done recently was unremarkable, Iron panel findings done recently were consistent with anemia of chronic disease. Plan: Is/Os, daily weights / IVF / hold PPIs bc they can cause an increase in Cr / Nephrology consult to determine if she needs additional testing this admission to help determine the cause of her renal failure and to start Epogen / f/u CPK, uric acid , vitamin D, phosphorus, PTH, hepatitis panel Uulytes for FENa, UA, renal US / prior to discharge she should be offered pneumonia vaccines if she has not already received them 3 Bradycardia Cause to be determined Plan: Telemetry / f/u TSH / f/u serial trops & EKG / if she has worsening nocturnal bradycardia or conduction disturbances, screening for symptoms of sleep apnea should be performed + formal sleep study if positive 4. Hypoglycemia She is not diabetic. The most likely cause is renal failure because the kidneys produce some glucose. We will also rule out infection Plan: f/u blood cultures / follow-up, Accu-Cheks / hypoglycemic protocol 5. Mild Multifactorial encephalopathy - resolved Possibly due to elevated BUN and hypoglycemia. Plan: Frequent neuro checks / treat BOLA and hypoglycemia 6. Elevated lipase of unclear cause. She doesn't have abdominal pain. - No acute intervention 7. 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 Transfusion dependent anemia - follow-up CBC and keep hemoglobin above 7 9. Chronic HTN - amlodipine 10. Hyperlipidemia - atorvastatin DVT PX - heparin DISPOSITION: home after more than 2 midnight's stay Home Medications Scheduled Amlodipine Besylate (Amlodipine Besylate) 2.5 Mg Tablet, 2.5 MG PO DAILY Atorvastatin Calcium (Atorvastatin Calcium) 20 Mg Tablet, 20 MG PO QHS Epoetin Armin (Epogen) 2,000 Unit/1 Ml Vial, 2,000 UNIT INJ QMONTH DUE 11/17/2019 Folic Acid (Folic Acid) 1 Mg Tablet, 1 MG PO DAILY Magnesium Oxide (Magnesium Oxide) 400 Mg Tablet, 400 MG PO BID Multivitamins (Thera M Plus Tablet) 1 Each Tablet, 1 TAB PO QHS Pantoprazole Sodium (Pantoprazole Sodium) 40 Mg Tablet.dr, 40 MG PO QHS Vit B1 Mn/B2/B3/B5/B6/B12/C/FA (B Complex with Vitamin C Tab) 1 Each Tablet, 1 TAB PO DAILY Allergies Coded Allergies: bee venom protein (honey bee) (Verified Allergy, Unknown, 07/09/19) A-FIB/CHADSVASC A-FIB History Current/History of A-Fib/PAF?: No Current PO Anticoag Therapy: No MYRNA STRANGE MD Nov 12, 2019 20:32
[2019-11-12] MEDS ORDERED: ATOR1TAB21 PO (20:36)
[2019-11-12] MEDS ORDERED: MAGN400T3 PO (20:36)
[2019-11-12] MEDS ORDERED: EPOG2000 INJ (20:36)
[2019-11-12] MEDS ORDERED: AMLO2.5T3 PO (20:36)
[2019-11-12] MEDS: NS 1,000 ML IV SCH (21:15)
[2019-11-12 21:45] LABS: INR 1.11; PARTIAL THROMBOPLASTIN TIME 43.9 SECONDS (25.0-38.4); PROTHROMBIN TIME 14.1 SECONDS (11.8-14.0)
[2019-11-12] MEDS: ATORVASTATIN 20 MG TAB PO SCH (21:53)
[2019-11-12 22:04] LABS: THYROID STIMULATING HORMONE 5.29 uIU/ML (0.358-3.740); URIC ACID 5.6 MG/DL (2.6-6.0)
--- NOTE | 2019-11-12 22:15 | REPVR ---
PROCEDURE INFORMATION: Exam: US Retroperitoneal Limited, Kidneys Exam date and time: 11/12/2019 (9:40pm) Age: 69 years old Clinical indication: Acute renal insufficiency and chronic kidney disease or failure. BOLA on CKD. TECHNIQUE: Imaging protocol: Real-time ultrasound of the retroperitoneum with image documentation. Examination was focused on the kidneys. COMPARISON: US LIVER of 08/19/19 FINDINGS: RIGHT KIDNEY --- The right kidney measures 13.2 cm in length. No hydronephrosis nor mass is noted. No upper tract stones are identified. Small cyst, upper right renal pole, laterally (9 x 9 x 12 mm size). LEFT KIDNEY --- The left kidney measures 11.4 cm in length. No hydronephrosis nor mass is noted. No upper tract stones are identified. Multiple small cysts (largest cyst, midpole level, measures 1.7 x 1.4 x 1.5 cm size). URINARY BLADDER --- No significant pathology. No stones nor mass. Bilateral ureteral jets are visualized. IMPRESSION: No acute pathology. The kidneys are normal in size, with no hydronephrosis. Bilateral simple renal cysts. Electronically signed by: Monica Rocha On 11/12/2019 22:14:35 PM
[2019-11-12 22:50] VITALS: BP 127/66
[2019-11-12] MEDS ORDERED: GLUCOSE 4 GM CHEW TABLET PO PRN (23:45)
[2019-11-12] MEDS ORDERED: DEXTROSE 50% 50 ML SYRINGE IV PRN (23:45)
[2019-11-12] MEDS ORDERED: GLUCAGON FOR INJ 1 MG VIAL (J1610) SC PRN (23:45)
--- NOTE | 2019-11-13 00:20 | ECGEPIP ---
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
[2019-11-13 02:18] LABS: HEMATOCRIT 27.6 % (36.0-47.0); HEMOGLOBIN 8.6 g/dl (12.0-15.5); MEAN CORPUSCULAR HEMOGLOBIN 31.5 pg (27.0-33.0); MEAN CORPUSCULAR HGB CONC 31.2 g/dl (32.0-36.5); MEAN CORPUSCULAR VOLUME 101.1 fl (80.0-96.0); RED BLOOD COUNT 2.73 10^6/uL (4.00-5.40); WHITE BLOOD COUNT 4.9 10^3/uL (4.0-10.0)
[2019-11-13 02:23] LABS: PLATELET COUNT, AUTOMATED 76 10^3/uL (150-450)
[2019-11-13 02:29] LABS: APPEARANCE, URINE CLEAR (CLEAR); COLOR, URINE YELLOW (YELLOW)
[2019-11-13 02:30] LABS: BILIRUBIN, URINE AUTO NEGATIVE (NEGATIVE); GLUCOSE, URINE (UA) AUTO NEGATIVE (NEGATIVE); KETONE, URINE AUTO NEGATIVE (NEGATIVE); NITRITE, URINE AUTO NEGATIVE (NEGATIVE); PROTEIN, URINE AUTO NEGATIVE (NEGATIVE); SPECIFIC GRAVITY URINE AUTO 1.006 (1.002-1.035); UROBILINOGEN, URINE AUTO 0.2 mg/dL (0.0-2.0)
[2019-11-13 02:31] LABS: BACTERIA, URINE AUTO NEG (NEGATIVE); BLOOD, URINE BLOOD NEGATIVE (NEGATIVE); LEUKOCYTE ESTERASE, URINE AUTO TRACE (NEGATIVE); MUCUS, URINE SMALL (NEGATIVE); RBC, URINE AUTO 1 /HPF (0-3); SQUAMOUS EPITHELIAL CELL UR AU 0 /HPF (0-6); WBC, URINE AUTO 8 /HPF (0-3)
[2019-11-13 02:35] LABS: OSMOLALITY URINE 352 MOSM/KG (500-800)
[2019-11-13 02:43] LABS: POTASSIUM RANDOM URINE 11.8 MEQ/L; SODIUM,RANDOM URINE 128 MEQ/L
[2019-11-13 02:43] LABS: CK-MB VALUE MASS 3.1 NG/ML (<3.6); CPK CREATINE PHOSPHOKINASE 43 U/L (26-192); MB/CK RELATIVE INDEX 7.21 (< OR =4); PHOSPHORUS LEVEL 4.9 MG/DL (2.5-4.9); TROPONIN I < 0.02 NG/ML (< 0.10); URIC ACID 6.3 MG/DL (2.6-6.0)
[2019-11-13 02:51] LABS: CREATININE,RANDOM URINE 23.6 MG/DL; TOTAL PROTEIN,RANDOM URINE 9.1 MG/DL (0.0-12.0)
[2019-11-13 04:00] VITALS: BP 113/68
[2019-11-13] MEDS: NS 1,000 ML IV SCH (04:46)
[2019-11-13] MEDS: HEPARIN SOD (PORCINE) 5000 UNITS/ML VIAL (J1644 PER 1000UNITS) SC SCH ×3 (05:50→21:07)
[2019-11-13 06:03] VITALS: BP_SYST 119; BP_SYST 122; BP_SYST 129; BP_DIAS 62; BP_DIAS 63; BP_DIAS 68
[2019-11-13 06:05] LABS: HEMATOCRIT 25.7 % (36.0-47.0); MEAN CORPUSCULAR HEMOGLOBIN 31.5 pg (27.0-33.0); MEAN CORPUSCULAR HGB CONC 31.1 g/dl (32.0-36.5); MEAN CORPUSCULAR VOLUME 101.2 fl (80.0-96.0); RED BLOOD COUNT 2.54 10^6/uL (4.00-5.40); WHITE BLOOD COUNT 5.3 10^3/uL (4.0-10.0)
[2019-11-13 06:13] LABS: PLATELET COUNT, AUTOMATED 72 10^3/uL (150-450)
[2019-11-13 06:29] LABS: CALCIUM LEVEL 9.3 MG/DL (8.8-10.2); CREATININE FOR GFR 3.38 MG/DL (0.55-1.30); GLOMERULAR FILTRATION RATE 14.3 (>39); MAGNESIUM LEVEL 1.8 MG/DL (1.8-2.4); POTASSIUM SERUM 4.2 MEQ/L (3.5-5.1)
[2019-11-13 07:55] LABS: TOTAL 25(OH) VITAMIN D 28.7 NG/ML (30.0-100.0)
[2019-11-13 08:00] VITALS: BP 103/52
[2019-11-13] MEDS: FOLIC ACID 1 MG TAB PO SCH (09:10)
--- NOTE | 2019-11-13 11:53 | IPN ---
DATE: 11/13/2019 Rosita is seen in progressive care unit (PCU). 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 She was admitted with lower extremity weakness, found to have her usual anemia, was hyperkalemic and bradycardic, and both of these have resolved. She is feeling better. She had some slurred speech and leg weakness when she came in, and her speech is back to baseline as well. PHYSICAL EXAM: 103/52, pulse 69, 99% oxygen saturation on room air. General appearance: She is alert, conversant. Speech is fluent. No facial droop or weakness. Lungs: Clear. Heart: Regular rate and rhythm. Abdomen: Soft. Nontender. Moves arms and legs with equal strength. LABS: White count is 5.3, hemoglobin 8, platelets are 72,000. Sodium 147, potassium 4.2, BUN 72, creatinine 3.3. Her baseline creatinine is around 4. IMPRESSION: 1. Lower extremity weakness. Probably multifactorial related to the anemia. It is improved, and we will be getting her out of bed. If she tolerates this, she can probably go home tomorrow. 2. Bradycardia. I reviewed telemetry with telemetry nurse. Slowest heart rate has been in the 60s. 3. Hyperkalemia. This is resolved. 4. Stage IV chronic kidney disease. Glomerular filtration rate (GFR) is at baseline. 5. Anemia. She follows with hematology for this. Not at a point where she needs a transfusion. 6. Thrombocytopenia. I am concerned about a thrombocytopenia. 7. Stage IV chronic kidney disease. She had a renal biopsy last hospitalization. I reviewed the results. They are interesting: Acute tubular injury with diffuse tubular ectasia, 70% of the renal parenchyma showed advanced tubular atrophy with interstitial fibrosis. Pathologist noted obstructive uropathy needed to be considered. She also had no evidence of glomerular capillary wall abnormalities. No signs of chronic reactive thrombotic microangiopathy, so the HUS diagnosis is in question. 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 Her model technician is aware of these results. Anticipate discharge tomorrow, if stable.
[2019-11-13 12:00] VITALS: BP 97/55
[2019-11-13] MEDS ORDERED: SLF 3 ML SYR IV PRN (15:30)
[2019-11-13 16:00] VITALS: BP 120/64
[2019-11-13] MEDS ORDERED: DARBEPOETIN 100 MCG/0.5 ML *NON-DIALYSIS* SYRINGE (J0881) SC ONE (16:00)
[2019-11-13 20:00] VITALS: BP 141/70
[2019-11-13] MEDS: ATORVASTATIN 20 MG TAB PO SCH (21:06)
[2019-11-13] MEDS: SLF 3 ML SYR IV SCH (21:08)
[2019-11-14] VITALS: BP 140/78
[2019-11-14 04:00] VITALS: BP 123/58
[2019-11-14] MEDS: HEPARIN SOD (PORCINE) 5000 UNITS/ML VIAL (J1644 PER 1000UNITS) SC SCH ×3 (06:17→21:29)
[2019-11-14] MEDS: SLF 3 ML SYR IV SCH ×3 (06:17→21:29)
[2019-11-14 08:00] VITALS: BP 122/60
[2019-11-14] MEDS: FOLIC ACID 1 MG TAB PO SCH (09:10)
[2019-11-14 10:59] LABS: HEMATOCRIT 25.5 % (36.0-47.0); HEMOGLOBIN 8.1 g/dl (12.0-15.5); MEAN CORPUSCULAR HEMOGLOBIN 32.1 pg (27.0-33.0); MEAN CORPUSCULAR HGB CONC 31.8 g/dl (32.0-36.5); MEAN CORPUSCULAR VOLUME 101.2 fl (80.0-96.0); RED BLOOD COUNT 2.52 10^6/uL (4.00-5.40); WHITE BLOOD COUNT 4.4 10^3/uL (4.0-10.0)
[2019-11-14 11:09] LABS: CALCIUM LEVEL 8.7 MG/DL (8.8-10.2); CREATININE FOR GFR 3.33 MG/DL (0.55-1.30); GLOMERULAR FILTRATION RATE 14.6 (>39); POTASSIUM SERUM 4.2 MEQ/L (3.5-5.1)
[2019-11-14 11:30] LABS: PLATELET COUNT, AUTOMATED 66 10^3/uL (150-450)
[2019-11-14 12:00] VITALS: BP 122/57
[2019-11-14 16:00] VITALS: BP 127/67
--- NOTE | 2019-11-14 16:39 | IPNPDOC ---
Text Note Date of Service The patient was seen on 11/14/19. NOTE Ms. Galan was seen this morning and reported improvement in her LE weakness. She is eating a regular diet and has had no issues moving to and using the bathroom. She slept well and would like to go home. She denies and headache, changes in vision or hearing, chest pain, heart palpitations, SOB, cough, FNDs, or new onset pain or concerns. Physical Exam: General: healthy appearing 69 year old female laying in bed eating her breakfast in no apparent distress HEENT: Normocephalic and atraumatic CV: RRR with no murmurs, rubs, gallops. +S1 ans S2 Respiratory: Lungs CTA B/L. No cough or tachypnea reported Abdomen: +BS in all 4 quadrants. Soft to palpation with no guarding. No organomegaly noted. Neuro: Muscle strength 5/5 in all four extremities. CN II-XII grossly intact. A&AX3 Assessment and Plan: This is a 69 year old female with a pMHx significant for transfusion dependent anemia of uncertain etiology, UGI-bleeding, recurrent episodes of LE weakness, CKD stage 5 who presented to [facility] ED for LE weakness and AMS and is receiving treatment for her hyperkalemia and bradycardia. #Hyperkalemia: -K 6.9 on admission, Stable at 4.2 for past two days -IV NS given in the ER for her BOLA but no other fluids given during her stay -Unknown etiology of BOLA prior to admission #Acute renal failure now CKD stage 5 -GFR/BUN/Creatinine all within baseline values -Again, unknown etiology of renal insult prior to admission #Bradycardia -HR between 60-100 for 48 hours now -Patient is experiencing no lightheadedness, fatigue, vertigo #Hypoglycemia -Likely renal in origin however no clear etiology for her hypoglycemia -Continue mgmt with dextrose, glucagon and glucose PRN -AM overnight blood sugars 119 and 104 in the past 2 days #Elevated lipase of unknown etiology/significance -Patient is not experiencing abdominal pain, N/V/D/constipation -Not currently addressing at this hospitalization, may require GI F/U #Transfusion dependent anemia -Hgb stable at 8 -Transfuse pRBCs if Hgb < 7 or patient is symptomatic -Patient already follows with Heme-onc #Hx of HTN -BP stable around 120-140 -Continue Amlodipine 2.5 mg QD PO #HLD -Continue Atorvastatin 20 mg QHS PO #DVT prophylaxis: -Heparin 5000U SC Disposition: -Pt has been cleared by PT and is awaiting availability from her family for transport VS,Fishbone, I+O VS, Fishbone, I+O Laboratory Tests 11/14/19 10:41 Vital Signs Date Time Temp Pulse Resp B/P (MAP) Pulse Ox O2 Delivery O2 Flow Rate FiO2 11/14/19 12:00 97.4 68 17 122/57 (78) 97 Room Air I&O- Last 24 Hours up to 6 AM 11/14/19 06:00 Intake Total 1600 ml Output Total 1650 ml Balance -50 ml GME ATTESTATION ATTENDING NOTE I was present on-site and independently spoke with and examined Ms. Galan. I have reviewed and completely agree with the note above that was generated by KYLEE Ibanez III. (oven drier tender) GERI PATTERSON-3 Nov 14, 2019 16:39 Shekhar Valle MD Nov 14, 2019 17:51
[2019-11-14 20:00] VITALS: BP 143/74
[2019-11-14] MEDS: ATORVASTATIN 20 MG TAB PO SCH (21:28)
[2019-11-15] VITALS: BP 140/85
[2019-11-15 04:00] VITALS: BP 135/61
[2019-11-15] MEDS: SLF 3 ML SYR IV SCH ×3 (06:09→20:22)
[2019-11-15] MEDS: HEPARIN SOD (PORCINE) 5000 UNITS/ML VIAL (J1644 PER 1000UNITS) SC SCH ×3 (06:09→21:14)
[2019-11-15] MEDS: FOLIC ACID 1 MG TAB PO SCH (07:53)
[2019-11-15 08:00] VITALS: BP 137/67
--- NOTE | 2019-11-15 08:21 | IPN ---
DATE OF SERVICE: 11/14/2019 SUBJECTIVE: Rosita is seen and examined this morning at the bedside. Denies any overnight events or complaints. She is anxious to be discharged. Again, we reviewed potassium restriction in the diet. She has an office appointment with nephrology on Saturday and we again discussed her severe hyperkalemia on admission and need for renal replacement therapy initiation in the near future. The patient continues to be reluctant to have dialysis access placed. OBJECTIVE: Vital Signs: Temperature 97.3, pulse 97, respiratory rate 17, blood pressure 127/67, saturating 97% on room air. Intake yesterday was 1840, urine output was 1550, net positive 290. Weight in the bed scale today is 56.2 kg. General: The patient is seen lying lateral recumbent, awake, alert, oriented, in no apparent distress. Extraocular muscles are intact. Mild exophthalmous. Ears, nose and throat are unremarkable. Neck is supple. Jugular veins are not elevated. Heart sounds are regular, S1-S2. No friction murmur. Lungs are clear to auscultation bilaterally. No crackle or rales. Radial pulses are palpable. Abdomen is soft and nontender. There are bowel sounds. Extremities are negative for clubbing, cyanosis or edema. Skin: Normal temperature and turgor. There is also pallor. Neurologic: Oriented times three. No focal deficits. LABORATORY DATA: White count 4.4, hemoglobin 8.1, platelets 66. Sodium 149, potassium 4.2, BUN 72, creatinine 3.3. INPATIENT MEDICATIONS: She received a dose of Aranesp yesterday. The remainder of medications are unchanged from prior. PROBLEMS: 1. Chronic kidney disease (CKD) stage 5, not yet on dialysis. The patient has been reluctant to have access placed for dialysis, although it has been explained to her many times that she has advanced chronic renal failure and needs to choose a dialysis modality for timely access creation. This has again been reiterated and she understands that she admitted with a dangerously high potassium level this and that it is imperative that she have access placed in the near future for timely dialysis initiation. For the time being, we will manage her potassium with DAYNETASSGene an outpatient and I again reinforced potassium restriction in the diet. She has a followup appointment in the office on November 16. Her kidney biopsy shows nonspecific features that are found in end-stage kidney disease including interstitial fibrosis, tubular atrophy and glomerulosclerosis. 2. Hyperkalemia due to chronic renal failure. It was medically managed. She is on a renal diet. She will need to start VELTASSA as an outpatient 8.4 grams by mouth twice weekly. It is an expensive drug, but we will have her sign the patient assistance form through the office on her appointment on the . VELTASSA is a temporary measure, ideally she will need to start dialysis in the near future. 3. Status post bradycardia due to severe hyperkalemia, now resolved. 4. Leg weakness due to severe hyperkalemia, now improved. 5. Anemia related to chronic renal failure with overall bust iron stores. The patient is receiving Aranesp and had a dose on SaturdayNovember 12. 6. Hypertension. Blood pressure is acceptable. Continue amlodipine. 7. Disposition. The patient is acceptable for discharge from a nephrology point of view with followup in the office on November 16.
--- NOTE | 2019-11-15 09:28 | CR ---
DATE OF CONSULTATION: 11/13/2019 REQUESTING PHYSICIAN: Dr. Last CONSULTING PHYSICIAN: Dr. Cloud REASON FOR CONSULTATION: Chronic kidney disease (CKD), Stage 5, not yet on dialysis, and admit with bradycardia and hyperkalemia. HISTORY OF PRESENT ILLNESS: Rosita Galan is known to me from the office and from previous hospitalizations. She is a 69-year-old female with a past medical history of renal failure since late 2018 with recurrent hospitalizations both at [facility] and also in [place] for workup. Initially, she was thought to have an atypical hemolytic uremic syndrome because of a mildly reduced ADAMTS-13 level in the setting of thrombocytopenia and anemia. She was empirically started on eculizumab by hematology; however, a repeat ADAMTS-13 level did return as completely normal and subsequent diagnostic renal biopsy was negative for microangiopathy and her eculizumab was discontinued. Her renal biopsy showed nonspecific findings for end-stage renal disease including interstitial fibrosis, tubular atrophy and glomerulosclerosis. She has been in CKD stage 5 with plan for renal replacement therapy in the future. She presented to the emergency room because of weakness in her legs at home at the urging of her daughter and in the ER she was found to be severely hyperkalemic with a potassium of 6.9 and with concomitant bradycardia. Her hyperkalemia was medically managed and both her bradycardia and her leg weakness improved. She received IV fluids and nephrology service was requested for help with the management of her chronic renal failure. PAST MEDICAL HISTORY: 1. CKD stage 5 with GFR of less than 15, now at baseline, not yet on dialysis. 2. Recurrent anemia. 3. History of gastrointestinal (GI) bleed. 4. Thrombocytopenia. 5. Dyslipidemia. 6. Gastroesophageal reflux disease. 7. Hypertension. 8. History of alcohol abuse. SOCIAL HISTORY: She lives alone. She has a history of heavy alcohol use in the recent past. 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 PAST SURGICAL HISTORY: History of esophagogastroduodenoscopy (EGD) and [place] kidney biopsy. ALLERGIES: - BEE VENOM FAMILY HISTORY: No significant family history of end-stage renal disease requiring dialysis. REVIEW OF SYSTEMS: Constitutional: She reports weakness and trouble walking, but that has improved. She denies fevers or chills. Eyes: She denies blurry vision or double vision. ENT: Denies dysphagia or odynophagia. Cardiovascular: Denies chest pain or palpitations. Respiratory: Denies shortness of breath or cough. GI: She denies nausea or vomiting. Genitourinary: Denies dysuria or hematuria. Musculoskeletal: Reports leg weakness that has improved. Skin: Denies any rashes or ulcers. Neurologic: Denies seizure or syncope. Psychiatric: Denies depression or anxiety. Endocrine Denies hypothyroidism or hyperthyroidism. Hematology/Oncology: She reports thrombocytopenia, anemia, and history of blood transfusions. PHYSICAL EXAMINATION: Temperature 98.4, pulse 69, respiratory rate 20, blood pressure 103/52, saturating 99% on room air. General: The patient is seen lying in bed, awake, alert, oriented, in no apparent distress. Extraocular muscles are intact. Tongue is moist. Neck is supple. Jugular veins are not elevated. Heart sounds are regular, S1-S2. Lungs are clear to auscultation bilaterally. No crackle or rale. Abdomen is soft and nontender. Positive bowel sounds. Extremities are negative for clubbing, cyanosis and edema. Skin: Normal temperature and turgor. Neurologic: Oriented x3, at baseline mentation. LABS: White count 4.9, hemoglobin 8.6, platelet 76, sodium 147, potassium 4.2, bicarbonate 25, BUN 72, creatinine 3.3. Blood cultures no growth for 24 hours. Kidney ultrasound November 11 - no hydronephrosis, bilateral simple renal cysts. INPATIENT MEDICATIONS: Reviewed by myself. She is presently receiving Tylenol p.r.n., amlodipine 2.5 mg by mouth daily, atorvastatin 20 mg by mouth at bedtime, folic acid 1 mg by mouth daily, heparin subcutaneous 5000 units every 8 hours. She received Kayexalate and normal saline previously. PROBLEMS: 1. Chronic kidney disease, Stage 5. Renal function is at her known baseline. She has not yet started on renal replacement therapy. However, it has been discussed with her at length that she will need to either start peritoneal dialysis or hemodialysis. She has not yet decided on her modality of choice and has not yet had an access placed. She is being followed closely in the nephrology office. Because she presented with severe hyperkalemia, I again strongly advised to Rosita that she needs to start dialysis in the very near future and will need a timely access placement. Unfortunately, the patient has been quite reluctant to proceed with dialysis planning. Potassium restriction in the diet was explained to her at length and I also advised her that she will be starting on VELTASSA to help prevent recurrent hyperkalemia. 2. Hyperkalemia due to chronic renal failure, CKD stage 5, not yet on dialysis. The patient is advised that she needs to start dialysis in the near future. We have had multiple conversations about this, but she has been reluctant to proceed so far with access placement. Her potassium has improved with medical management. She will need to start VELTASSA as an outpatient and will also need to follow a potassium restricted diet, both of which have been reviewed with her. There is no concomitant acidosis predisposing her to hyperkalemia. 3. Bradycardia, resolved. It was likely due to severe hyperkalemia and has improved as potassium has improved. 4. Leg weakness, again, likely due to hyperkalemia and has improved as hyperkalemia has improved. 5. Hypernatremia. The patient is encouraged for liberal water intake as she has a mild free water deficit. 6. Anemia, chronic. The patient is started on Aranesp and is ordered for a dose tomorrow. Her iron stores have previously been checked and are satisfactory (transferrin saturation 65%). 7. Hypertension, well-controlled and no changes are being made. 8. Thrombocytopenia. She follows up with hematology for the same. Thank you for involving me in the care of Ms. Rosita Galan. I will be happy to follow her along with you.
--- NOTE | 2019-11-15 11:11 | IPNPDOC ---
Subjective Date Seen The patient was seen on 11/15/19. Subjective Chief Complaint/HPI I was contacted by nursing this morning as Ms. Galan went into afib with RVR. She was asymptomatic throughout the episode. She spontaneously converted after about three hours. I know she has a history of heavier alcohol use in the past; I again clarified with her and she reports to me that she has had absolutely no alcohol since July 2019. General: Reports: Normal Appetite Pulmonary: Denies: Dyspnea, Cough Cardiovascular: Denies: Chest Pain, Palpitations, Edema Psych: Reports: Mood Normal Objective Physical Examination General Exam: Positive: Alert, Cooperative (laying in her bed watching televisi on when I entered the room), No Acute Distress Eye Exam: Positive: Conjunctiva & lids normal; Negative: Sclera icteric ENT Exam: Positive: Mucous membr. moist/pink Neck Exam: Positive: Supple; Negative: JVD, Lymphadenopathy Chest Exam: Positive: Clear to auscultation, Normal air movement Heart Exam: Positive: Rate Normal, Regular Rhythm (at the time of my examination), Normal S1, Normal S2; Negative: Murmurs Telemetry: Positive: Atrial fibrillation (with RVR in the 140s and 150s for roughly 3 hours earlier this morning) Abdomen Exam: Positive: Normal bowel sounds, Soft; Negative: Tenderness Extremity Exam: Negative: Edema Psych Exam: Positive: Mood NL, Oriented x 3 Assessment /Plan Problems (1) Atrial fibrillation with RVR Status: Acute Response to Treatment: Stable Discussed With: Building Drafter, Patient Problem Specific Plan: Monitor Clinically Problem Text: As far as I can tell this is a new finding for her. Based on her history of discrete episodes of weakness and altered mental status I wonder whether this is been happening paroxysmally for a few months. I spoke with the track liner operator on-call who chose to offer his to advice over the phone. He recommended transitioning her off the amlodipine and onto metoprolol succinate for better rate control. Metoprolol succinate was selected specifically because it's primarily metabolized by the liver. Additionally she needs to be anticoagulated. Because of her CKD 5 this will have to be done with warfarin. I started the warfarin today. (2) CKD (chronic kidney disease), stage V Status: Chronic Discussed With: Building Drafter, Patient Problem Specific Plan: Repeat Labs Problem Text: She remains in stage V CKD. This certainly complicates her treatment of other comorbid conditions. It seems like she might be heading toward dialysis. We appreciate nephrology's assistance. (3) Bradycardia Problem Text: I'm concerned with the addition of a jelani blocking agent in order to avoid atrial fibrillation with RVR that we may make her more bradycardic. She has been in the recent past. This might be a tachybradycardia syndrome. Unfortunately if that happens she might need a pacemaker. We will need to monitor this carefully. (4) Hypoglycemia Problem Specific Plan: Repeat Tests Problem Text: Her sugars have been stable while here. It's not clear why she had several episodes of hypoglycemia; we'll continue to monitor. (5) Transfusion-dependent anemia Status: Chronic Response to Treatment: Stable Discussed With: Patient Problem Specific Plan: Repeat Labs Problem Text: Her anemia is stable at present. The etiology has been evaluated by hematology but is still unclear. We'll monitor H&H for now. (6) Hyperkalemia Status: Resolved Problem Text: Her potassium level remains controlled. (7) HTN (hypertension) Status: Chronic Response to Treatment: Stable Problem Text: Her blood pressure currently remains well controlled. I did stop the amlodipine that she was on in favor of metoprolol because of her episode of atrial fibrillation. We'll monitor. (8) HLD (hyperlipidemia) Status: Chronic Problem Text: Continue her home medication of atorvastatin. Plan/VTE VTE Prophylaxis Ordered?: Yes (formally anticoagulating with warfarin) VS, I&O, 24H, Fishbone Vital Signs/I&O Vital Signs Date Time Temp Pulse Resp B/P (MAP) Pulse Ox O2 Delivery O2 Flow Rate FiO2 11/15/19 08:00 97.3 69 16 137/67 (90) 97 Room Air I&O- Last 24 Hours up to 6 AM 11/15/19 06:00 Intake Total 720 ml Output Total 2050 ml Balance -1330 ml Laboratory Data 24H LABS Laboratory Tests 2 11/14/19 13:52: Bedside Glucose (Misc Panel) 112H 11/14/19 17:59: Bedside Glucose (Misc Panel) 73L 11/14/19 22:34: Bedside Glucose (Misc Panel) 94 Microbiology Microbiology 11/13/19 Blood Culture - Preliminary, Resulted No Growth after 48 hours. All Specime... Shekhar Valle MD Nov 15, 2019 11:11
[2019-11-15] MEDS: METOPROLOL SUCC (TopROL XL) 50MG **XL** TAB PO SCH (11:53)
[2019-11-15 12:00] VITALS: BP 136/67
[2019-11-15 12:05] LABS: INR 1.09; PROTHROMBIN TIME 13.9 SECONDS (11.8-14.0)
[2019-11-15] MEDS ORDERED: D5W 1,000 ML IV SCH (15:00)
[2019-11-15 15:26] LABS: CREATININE FOR GFR 3.44 MG/DL (0.55-1.30); POTASSIUM SERUM 4.3 MEQ/L (3.5-5.1)
[2019-11-15 16:00] VITALS: BP 132/79
[2019-11-15] MEDS ORDERED: WARFARIN SOD 5 MG TAB PO SCH (17:00)
[2019-11-15 20:00] VITALS: BP 153/67
[2019-11-15] MEDS: ATORVASTATIN 20 MG TAB PO SCH (20:22)
--- NOTE | 2019-11-15 21:21 | IPN ---
DATE: 11/15/2019 SUBJECTIVE: Rosita is seen and examined this morning at the bedside. She is unhappy that she is not being discharged. She had a brief episode of atrial fibrillation today and primary team discussed the same with cardiology and the patient was subsequently started on beta osvaldo and Coumadin anticoagulation and is pending echocardiogram. She tells me she was asymptomatic. She offers no new complaints. Vital signs: Temperature 97.2, pulse 88, respiratory rate 17, blood pressure 132/79, saturating 96% on room air. Intake yesterday was 720, urine output was 1750, weight in the bed scale today 55.1 kg. General: The patient is seen awake, alert, oriented, lying in bed in no apparent distress. Extraocular muscles are intact. Mild exophthalmos. Ear, nose and throat are unremarkable. Neck is supple. Jugular veins are not elevated. Heart sounds are regular. No friction murmur. Lungs are clear to auscultation bilaterally. No crackle or rales. Radial pulses are palpable. Abdomen is soft and nontender. Extremities are negative for clubbing, cyanosis or edema. Skin: Normal turgor and temperature. There is also pallor. Neurologic: Oriented times three. No focal deficit. LABORATORY DATA: Sodium 149, potassium 4.3, BUN 75, creatinine 3.4, hemoglobin 8.1, platelets 66. INPATIENT MEDICATIONS: The patient is given 1 liter of D5W. Her amlodipine was stopped and she was started on Toprol XL 50 mg by mouth daily and also started on Coumadin 5 mg daily. Remainder of medications are unchanged from prior. PROBLEMS: 1. CKD stage V, not yet on dialysis. The patient has been reluctant to have access placed for dialysis although it has been explained to her many times that she has chronic renal failure and needs to choose dialysis modality for timely access creation. This with again reiterated since she was admitted with severe hyperkalemia. She will need to followup closely in the nephrology office. 2. Hyperkalemia status post resolved due to chronic renal failure. She needs to follow a low potassium diet and will start Veltassa in the outpatient setting. 3. Episode of atrial fibrillation. The patient does not carry a prior known diagnosis. Primary team in conjunction with cardiology did start the patient on beta osvaldo and Coumadin anticoagulation. I stopped her amlodipine. 4. Anemia related to chronic renal failure. The patient has actually elevated iron stores and she is receiving Aranesp and had a dose on 11/13/2019. 5. Hypertension. She is started on beta osvaldo for episode of a atrial fibrillation, hence I stopped her amlodipine. 6. Thrombocytopenia managed by hematology service. Would suggest to stop heparin subcutaneous now that she is on Coumadin. 7. Hypernatremia. I am giving the patient 1 liter of D5W as she has a mild free water deficit. She is encouraged for water intake.
[2019-11-16] VITALS (11 sets, daily range): BP systolic 134–159; BP diastolic 61–85
[2019-11-16] MEDS: SLF 3 ML SYR IV SCH ×3 (05:06→21:36)
[2019-11-16] MEDS: HEPARIN SOD (PORCINE) 5000 UNITS/ML VIAL (J1644 PER 1000UNITS) SC SCH ×3 (05:24→21:36)
[2019-11-16 05:49] LABS: HEMATOCRIT 25.3 % (36.0-47.0); HEMOGLOBIN 7.8 g/dl (12.0-15.5); MEAN CORPUSCULAR HGB CONC 30.8 g/dl (32.0-36.5); MEAN CORPUSCULAR VOLUME 100.4 fl (80.0-96.0); RED BLOOD COUNT 2.52 10^6/uL (4.00-5.40); WHITE BLOOD COUNT 4.7 10^3/uL (4.0-10.0)
[2019-11-16 05:50] LABS: PLATELET COUNT, AUTOMATED 57 10^3/uL (150-450)
[2019-11-16 06:02] LABS: INR 1.14; PROTHROMBIN TIME 14.4 SECONDS (11.8-14.0)
[2019-11-16 06:36] LABS: ALBUMIN 2.4 GM/DL (3.2-5.2); BILIRUBIN,TOTAL 0.3 MG/DL (0.2-1.0); CALCIUM LEVEL 8.8 MG/DL (8.8-10.2); CREATININE FOR GFR 3.5 MG/DL (0.55-1.30); GLOMERULAR FILTRATION RATE 13.7 (>39); POTASSIUM SERUM 4.5 MEQ/L (3.5-5.1); TOTAL PROTEIN 6.3 GM/DL (6.4-8.2)
--- NOTE | 2019-11-16 09:26 | IPNPDOC ---
Subjective Date Seen The patient was seen on 11/16/19. Subjective Chief Complaint/HPI Pt this morning without new concerns. She states that she is feeling pretty good. General: Denies: Fatigue Constitutional: Denies: Chills, Fever Pulmonary: Denies: Dyspnea, Cough Cardiovascular: Denies: Chest Pain Gastrointestinal: Denies: Nausea, Vomiting Neurological: Denies: Weakness Psych: Reports: Mood Normal Objective Physical Examination General Exam: Positive: Alert, Cooperative (laying in her bed watching television when I entered the room), No Acute Distress ENT Exam: Positive: Mucous membr. moist/pink Neck Exam: Positive: Supple; Negative: JVD, Lymphadenopathy Chest Exam: Positive: Clear to auscultation, Normal air movement Heart Exam: Positive: Rate Normal, Regular Rhythm (at the time of my examination), Normal S1, Normal S2; Negative: Murmurs Telemetry: Positive: Sinus Abdomen Exam: Positive: Normal bowel sounds, Soft; Negative: Tenderness Extremity Exam: Negative: Edema Psych Exam: Positive: Mood NL, Oriented x 3 Assessment /Plan Problems (1) PUD (peptic ulcer disease) Permanent Comment: 11/03/19 EGD medium HH, non-bleeding cratered 10 mm gastric ulcer-benign bx-[place] Last Edited By: Rick Rocha MD on Nov 16, 2019 16:21 Status: Acute Response to Treatment: Stable Problem Text: panto 40 BID x at least 01/03/20 (favor until repeat EGD) (2) Atrial fibrillation with RVR Status: Acute Response to Treatment: Stable Discussed With: Cnc Manufacturing Engineer, Patient Problem Specific Plan: Monitor Clinically Problem Text: ho pAF AC VKA (if increased tx requirement on VKA, favor outpx Watchman consideration) RC met succ 50 (first dose 11/14) 11/15 TTE P I spoke with the morgue keeper on-call who chose to offer his to advice over the phone. He recommended transitioning her off the amlodipine and onto metoprolol succinate for better rate control. Metoprolol succinate was selected specifically because it's primarily metabolized by the liver. Additionally she needs to be anticoagulated. Because of her CKD 5 this will have to be done with warfarin. I started the warfarin today. 11/12/19 TSH 5.3 INR/VKA dose 11/15 1.1 10 11/14 1.1 5 (3) Transfusion-dependent anemia Status: Chronic Response to Treatment: Stable Discussed With: Patient Problem Specific Plan: Repeat Labs Problem Text: baseline hgb ~9 favor q7D hgb/INR when dced 11/12 sp Aranesp 100 favor 2 CKD +/- GI loss 2 PUD 11/15 7.8, sp 1u 11/13 8.1 (4) CKD (chronic kidney disease), stage V Status: Chronic Discussed With: Cnc Manufacturing Engineer, Patient Problem Specific Plan: Repeat Labs Problem Text: still reluctant to choose dialysis method for access creation c severe hyperK-managed c Veltassa (5) Bradycardia Problem Text: HR 50s on met succ as per AF (6) Hypoglycemia Problem Specific Plan: Repeat Tests Problem Text: 11/12/19 BG 67 (7) HTN (hypertension) Status: Chronic Response to Treatment: Stable Problem Text: HD amlo 2.5 stable on met succ only as per AF (8) Physical deconditioning Status: Chronic Problem Text: 11/15 PT HSE-cate given now on VKA Plan/VTE VTE Prophylaxis Ordered?: Yes (formally anticoagulating with warfarin) VS, I&O, 24H, [facility] Vital Signs/I&O Vital Signs Date Time Temp Pulse Resp B/P (MAP) Pulse Ox O2 Delivery O2 Flow Rate FiO2 11/16/19 04:00 96.2 53 18 137/61 (86) 99 Room Air I&O- Last 24 Hours up to 6 AM 11/16/19 06:00 Intake Total 2780 ml Output Total 1750 ml Balance 1030 ml Laboratory Data 24H LABS Laboratory Tests 2 11/15/19 11:29: Prothrombin Time 13.9, Prothromb Time International Ratio 1.09, Anion Gap 7L, Glomerular Filtration Rate 14.0L, Calcium Level 9.0, SN-Fbl-Z-Type Natriuretic Peptide 310H 11/15/19 20:24: Bedside Glucose (Misc Panel) 100 11/16/19 05:24: Prothrombin Time 14.4H, Prothromb Time International Ratio 1.14, Anion Gap 8, Glomerular Filtration Rate 13.7L, Calcium Level 8.8, Nucleated Red Blood Cells % (auto) 0.0, Immature Platelet Fraction 4.9, Total Bilirubin 0.3, Aspartate Amino Transf (AST/SGOT) 42H, Alanine Aminotransferase (ALT/SGPT) 34, Alkaline Phosphatase 109, Total Protein 6.3L, Albumin 2.4L, Albumin/Globulin Ratio 0.62L CBC/BMP Laboratory Tests 11/15/19 11:29 11/16/19 05:24 Microbiology Microbiology 11/13/19 Blood Culture - Preliminary, Resulted No Growth after 72 hours. All specime... MARY DENSON PA-C Nov 16, 2019 09:25 Rick Rocha M.D. Nov 16, 2019 16:15
[2019-11-16] MEDS: METOPROLOL SUCC (TopROL XL) 50MG **XL** TAB PO SCH (09:31)
[2019-11-16] MEDS: FOLIC ACID 1 MG TAB PO SCH (09:31)
[2019-11-16] MEDS ORDERED: WARFARIN SOD 5 MG TAB PO ONE (17:00)
[2019-11-16 17:04] LABS: MAGNESIUM LEVEL 1.5 MG/DL (1.8-2.4)
--- NOTE | 2019-11-16 18:07 | IPN ---
DATE: 11/16/2019 Mrs. Galan is seen this morning on her bedside. She is currently receiving blood transfusion and feels well. She denies any dyspnea, chest pain, nausea, vomiting, fever or chills. PHYSICAL EXAMINATION: Temperature 96.1 degrees Fahrenheit, heart rate 58 per minute and respiratory rate 18 per minute. Blood pressure 150/80 mmHg and oxygen 99% on room air. Head is atraumatic. Neck supple and JVD does not seem to be abnormally elevated. She has no oral thrush or ulcers. Heart sounds are regular and lungs clear to auscultation. Abdomen soft and nontender and bowel sounds are normal. Extremities without any cyanosis or clubbing. Neurologically she is awake, alert and oriented times three. Today's labs show WBC count 4.7, hemoglobin 7.8 and hematocrit 25.3. Sodium 145, potassium 4.5, CO2 22, BUN 78 and creatinine 3.50. Total protein 6.3 and albumin 2.4. PROBLEMS: 1. Acute renal failure superimposed on chronic kidney disease. The patient has advanced chronic kidney disease even at baseline. Slight worsening of kidney function without any uremic symptoms noticed. Her electrolytes are stable and there is no emergent need for dialysis at present. I have discussed with the patient about potential need for dialysis in near future and she understands that she will need to make a decision about it. She seems to be inclined towards home peritoneal dialysis which is appropriate as she lives at a distance from the hemodialysis unit. 2. Hypernatremia. Her sodium level has improved to normal range. She is currently not on any sodium supplement or diuretic. 3. Anemia. Currently the patient is receiving 2 units of packed RBCs and anemia is likely to improve. She is also getting erythropoietin as an outpatient. She did receive one dose last week. 4. Hypertension. Blood pressure seems to be reasonably well-controlled and no change in antihypertensive medication is being made today. DISPOSITION: The patient will followup in the outpatient clinic with Dr. Nur after discharge. She already has an appointment for next week.
[2019-11-16] MEDS: MAG SULF 1GM/100ML (MAG RUN) 1 GM in IV 1 EA IV SCH ×2 (18:47→20:16)
--- NOTE | 2019-11-16 18:57 | ECHO ---
DATE OF PROCEDURE: 11/16/2019 REFERRING PHYSICIAN: Dr. Shekhar Valle INDICATION: Dysrhythmia. Height 155 cm, weight 55 kg. DIMENSIONS: IVS: 0.9 LV: 5.2 LVPW: 1.0 LA: 4.1 Aorta: 2.4 RV: 3.6 Left atrial volume index: 47 IVC: 1.3 Mitral E wave velocity: 47 A wave: 57 E prime septal: 4.4 E prime lateral: 5.6 FINDINGS: The study is of acceptable technical quality. The patient is in sinus rhythm. Normal left ventricular (LV) size with normal LV systolic function, estimated left ventricular ejection fraction (LVEF) 60-65%. Right ventricle is also normal size and systolic function. Left atrium is severely enlarged. Right atrium appears at least mildly enlarged. Aortic valve is mildly sclerotic. It has three cusps, and there is minimal restriction of cusp mobility. There are also degenerative abnormalities of mitral valve with mitral annular calcifications. Tricuspid and pulmonic valves appear normal. No pericardial effusion is noted. Inferior vena cava is normal size. Aortic root, aortic arch and visualized segment of abdominal aorta appear normal for patient's age. Doppler interrogation reveals no aortic insufficiency and minimal stenosis with mean gradient 10 mmHg. There is mild mitral insufficiency. Tricuspid valve exhibits trace insufficiency. Pulmonic valve is functionally competent. Mitral inflow pattern and tissue Doppler imaging of mitral annulus revealed grade 1 diastolic dysfunction. CONCLUSIONS: 1. Study is of acceptable technical quality, the patient is in sinus rhythm. 2. Normal LV size and systolic function. Normal diastolic function. 3. No hemodynamically significant valvular disease, only mild aortic stenosis and mitral insufficiency are present. 4. Likely normal central venous pressure. 5. Unable to reliably estimate pulmonary artery pressure. COMMENT: Subacute bacterial endocarditis (SBE) prophylaxis is not recommended.
[2019-11-16] MEDS: ATORVASTATIN 20 MG TAB PO SCH (21:36)
[2019-11-16] MEDS: PANTOPRAZOLE 40MG TAB (PROTONIX) PO SCH (21:36)
[2019-11-17 04:00] VITALS: BP 133/63
[2019-11-17 05:21] LABS: HEMATOCRIT 29.7 % (36.0-47.0); HEMOGLOBIN 9.4 g/dl (12.0-15.5); MEAN CORPUSCULAR HEMOGLOBIN 30.9 pg (27.0-33.0); MEAN CORPUSCULAR HGB CONC 31.6 g/dl (32.0-36.5); MEAN CORPUSCULAR VOLUME 97.7 fl (80.0-96.0); RED BLOOD COUNT 3.04 10^6/uL (4.00-5.40); WHITE BLOOD COUNT 4.9 10^3/uL (4.0-10.0)
[2019-11-17 05:24] LABS: PLATELET COUNT, AUTOMATED 56 10^3/uL (150-450)
[2019-11-17 05:34] LABS: INR 1.49; PROTHROMBIN TIME 17.7 SECONDS (11.8-14.0)
[2019-11-17 06:12] LABS: ALBUMIN 2.5 GM/DL (3.2-5.2); BILIRUBIN,TOTAL 0.2 MG/DL (0.2-1.0); CALCIUM LEVEL 9.1 MG/DL (8.8-10.2); CREATININE FOR GFR 3.25 MG/DL (0.55-1.30); MAGNESIUM LEVEL 2.3 MG/DL (1.8-2.4); POTASSIUM SERUM 4.9 MEQ/L (3.5-5.1); TOTAL PROTEIN 6.4 GM/DL (6.4-8.2)
[2019-11-17] MEDS: HEPARIN SOD (PORCINE) 5000 UNITS/ML VIAL (J1644 PER 1000UNITS) SC SCH ×3 (06:31→21:20)
[2019-11-17] MEDS: SLF 3 ML SYR IV SCH ×3 (06:31→21:20)
[2019-11-17 08:00] VITALS: BP 150/70
[2019-11-17] MEDS: METOPROLOL SUCC (TopROL XL) 50MG **XL** TAB PO SCH (09:00)
[2019-11-17] MEDS: FOLIC ACID 1 MG TAB PO SCH (09:14)
[2019-11-17] MEDS: PANTOPRAZOLE 40MG TAB (PROTONIX) PO SCH ×2 (09:14→21:20)
[2019-11-17 12:00] VITALS: BP 140/76
--- NOTE | 2019-11-17 15:44 | IPNPDOC ---
Subjective Date Seen The patient was seen on 11/17/19. Subjective Chief Complaint/HPI co mild generalized weakness, cate BLE Constitutional: Denies: Chills Eyes: Denies: Pain ENT: Denies: Head Aches Pulmonary: Denies: Dyspnea, Cough Cardiovascular: Denies: Chest Pain, Palpitations Gastrointestinal: Denies: Nausea, Vomiting Genitourinary: Denies: Dysuria Objective Physical Examination General Exam: Positive: Alert, Cooperative (laying in her bed watching television when I entered the room), No Acute Distress ENT Exam: Positive: Mucous membr. moist/pink Neck Exam: Positive: Supple; Negative: JVD, Lymphadenopathy Chest Exam: Positive: Clear to auscultation, Normal air movement Heart Exam: Positive: Rate Normal, Regular Rhythm (at the time of my examination), Normal S1, Normal S2; Negative: Murmurs Telemetry: Positive: Sinus Abdomen Exam: Positive: Normal bowel sounds, Soft; Negative: Tenderness Extremity Exam: Negative: Edema Psych Exam: Positive: Mood NL, Oriented x 3 Assessment /Plan Problems (1) PUD (peptic ulcer disease) Permanent Comment: 11/03/19 EGD medium HH, non-bleeding cratered 10 mm gastric ulcer-benign bx-[place] Last Edited By: Rick Rocha MD on Nov 16, 2019 16:21 Status: Acute Response to Treatment: Stable Problem Text: panto 40 BID until at least 01/03/20 (i.e. 8W p EGD revealing peptic ulcer) (favor until repeat EGD) per Namita (2) Atrial fibrillation with RVR Status: Acute Response to Treatment: Stable Discussed With: Swimming Pool Salesperson, Patient Problem Specific Plan: Monitor Clinically Problem Text: ho pAF c recurrence AC VKA c goal INR low 2s (if increased tx requirement on VKA, favor outpx Watchman consideration) RC met succ 50 (first dose 11/14) 11/15 TTE P I spoke with the diabetes manager on-call who chose to offer his to advice over the phone. He recommended transitioning her off the amlodipine and onto metoprolol succinate for better rate control. Metoprolol succinate was selected specifically because it's primarily metabolized by the liver. Additionally she needs to be anticoagulated. Because of her CKD 5 this will have to be done with warfarin. I started the warfarin today. 11/12/19 TSH 5.3 INR/VKA dose (plan dc heparin when INR >1.8) 11/16 1.5 2.5 11/15 1.1 10 11/14 1.1 5 11/15 TTE Jann: CONCLUSIONS: 1. Study is of acceptable technical quality, the patient is in sinus rhythm. 2. Normal LV size and systolic function. Normal diastolic function. 3. No hemodynamically significant valvular disease, only mild aortic stenosis and mitral insufficiency are present. 4. Likely normal central venous pressure. 5. Unable to reliably estimate pulmonary artery pressure. COMMENT: Subacute bacterial endocarditis (SBE) prophylaxis is not recommended. DD: Gianluca Forte MD 11/16/19 1810 (3) Transfusion-dependent anemia Status: Chronic Response to Treatment: Stable Discussed With: Patient Problem Specific Plan: Repeat Labs Problem Text: baseline hgb ~9 favor q7D hgb/INR when dced 11/12 sp Aranesp 100 favor 2 CKD +/- GI loss 2 PUD 11/16 9.4, check Fe levels, HO stools 11/15 7.8, sp 1u 11/13 8.1 (4) CKD (chronic kidney disease), stage V Status: Chronic Discussed With: Swimming Pool Salesperson, Patient Problem Specific Plan: Repeat Labs Problem Text: still reluctant to choose dialysis method for access creation ho c severe hyperK-managed c Veltassa 11/16 stable at 74/3.3, 4.9, 2.3 (5) Bradycardia Problem Text: HR 50s on met succ as per AF (6) Hypoglycemia Problem Specific Plan: Repeat Tests Problem Text: 11/12/19 BG 67 (7) HTN (hypertension) Status: Chronic Response to Treatment: Stable Problem Text: HD amlo 2.5 stable on met succ only as per AF (8) Physical deconditioning Status: Chronic Problem Text: 11/16 have PT repeat HSE-cate given now on VKA and subjective weakness (9) Thrombocytopenia Status: Chronic Response to Treatment: Stable Problem Text: stable 50-70K s obvious active bleeding Plan/VTE VTE Prophylaxis Ordered?: Yes (formally anticoagulating with warfarin) VS, I&O, 24H, Fishbone Vital Signs/I&O Vital Signs Date Time Temp Pulse Resp B/P (MAP) Pulse Ox O2 Delivery O2 Flow Rate FiO2 11/17/19 12:00 96.6 53 18 140/76 (97) 99 Room Air I&O- Last 24 Hours up to 6 AM 11/17/19 06:00 Intake Total 1258 ml Output Total 1700 ml Balance -442 ml Laboratory Data 24H LABS Laboratory Tests 2 11/16/19 16:27: Magnesium Level 1.5L, KY-Amg-X-Type Natriuretic Peptide 479H 11/17/19 04:53: Magnesium Level 2.3, Nucleated Red Blood Cells % (auto) 0.0, Prothrombin Time 17.7H, Prothromb Time International Ratio 1.49, Anion Gap 6L, Glomerular Filtration Rate 15.0L, Calcium Level 9.1, Total Bilirubin 0.2, Aspartate Amino Transf (AST/SGOT) 67H, Alanine Aminotransferase (ALT/SGPT) 48, Alkaline Phosphatase 133H, Total Protein 6.4, Albumin 2.5L, Albumin/Globulin Ratio 0.64L 11/17/19 09:22: Bedside Glucose (Misc Panel) 72L CBC/BMP Laboratory Tests 11/17/19 04:53 Microbiology Microbiology 11/13/19 Blood Culture - Preliminary, Resulted No Growth after 72 hours. All specime... Rick Rocha M.D. Nov 17, 2019 15:44
[2019-11-17 16:00] VITALS: BP 142/88
[2019-11-17] MEDS ORDERED: WARFARIN SOD 2.5 MG TAB PO SCH (17:00)
[2019-11-17 20:00] VITALS: BP 122/72
--- NOTE | 2019-11-17 21:17 | IPN ---
DATE: 11/17/2019 Mrs. Galan is seen this morning on her bedside. She is feeling better but still complains of feeling weak. She received blood transfusion yesterday due to anemia, and her anemia has improved significantly. She denies any nausea or vomiting. She feels that her blood sugar was low this morning and has improved now after breakfast. PHYSICAL EXAMINATION: Temperature 96.7 degrees Fahrenheit, heart rate 52 per minute, respiratory rate 18 per minute, blood pressure 150/80 mm of mercury, and oxygen saturation 98% on room air. Head is atraumatic. Neck supple and jugular venous distention (JVD) not abnormally elevated. Heart sounds regular, and lungs sound clear to auscultation. Abdomen soft and nontender and bowel sounds are normal. Extremities without any cyanosis or clubbing. Neurologically, she is awake, alert and oriented times three. Today's labs show sodium 144, potassium 4.9, BUN 74, and creatinine 3.25. Glucose 59 and calcium 9.1. Hemoglobin is up to 9.4, hematocrit 29.7, and platelets 56,000. PROBLEMS: 1. Acute on chronic renal failure. Kidney function is essentially unchanged with GFR about 14-15 mL per minute. She has mild fluctuations depending upon her volume status. At present, she does not have any overt uremic symptoms, and there is no emergent need for dialysis. I have discussed with her at length about various types of dialysis, and she is trying to make up her mind. My feeling is that she is now going to require dialysis at least for a few months. 2. Anemia. Her anemia improved after transfusion. She has also been given Aranesp; however, Aranesp did not help much as yet. She will continue with outpatient Procrit therapy in the office. DISPOSITION: From a renal standpoint, the patient can be discharged home and followup in the office next week. TRU
[2019-11-17] MEDS: ATORVASTATIN 20 MG TAB PO SCH (21:20)
[2019-11-17 23:59] VITALS: BP 138/78
[2019-11-18 04:00] VITALS: BP_SYST 134; BP_SYST 73; BP_DIAS 74; BP_DIAS 78
[2019-11-18] MEDS: HEPARIN SOD (PORCINE) 5000 UNITS/ML VIAL (J1644 PER 1000UNITS) SC SCH ×3 (05:13→20:04)
[2019-11-18] MEDS: SLF 3 ML SYR IV SCH ×3 (05:13→20:04)
[2019-11-18 05:35] LABS: HEMATOCRIT 28.5 % (36.0-47.0); HEMOGLOBIN 9.2 g/dl (12.0-15.5); MEAN CORPUSCULAR HEMOGLOBIN 31.5 pg (27.0-33.0); MEAN CORPUSCULAR HGB CONC 32.3 g/dl (32.0-36.5); MEAN CORPUSCULAR VOLUME 97.6 fl (80.0-96.0); RED BLOOD COUNT 2.92 10^6/uL (4.00-5.40); WHITE BLOOD COUNT 4.8 10^3/uL (4.0-10.0)
[2019-11-18 05:37] LABS: PLATELET COUNT, AUTOMATED 69 10^3/uL (150-450)
[2019-11-18 05:45] LABS: INR 3.13; PROTHROMBIN TIME 32.2 SECONDS (11.8-14.0)
[2019-11-18 06:29] LABS: ALBUMIN 2.6 GM/DL (3.2-5.2); BILIRUBIN,TOTAL 0.2 MG/DL (0.2-1.0); CALCIUM LEVEL 9.5 MG/DL (8.8-10.2); CREATININE FOR GFR 3.73 MG/DL (0.55-1.30); GLOMERULAR FILTRATION RATE 12.8 (>39); PERCENT SATURATION 73.6 % (13.2-45.0); POTASSIUM SERUM 5.2 MEQ/L (3.5-5.1); TOTAL PROTEIN 6.6 GM/DL (6.4-8.2)
[2019-11-18 08:00] VITALS: BP 138/84
[2019-11-18] MEDS: METOPROLOL SUCC (TopROL XL) 50MG **XL** TAB PO SCH (09:00)
[2019-11-18] MEDS: PANTOPRAZOLE 40MG TAB (PROTONIX) PO SCH ×2 (09:33→20:08)
[2019-11-18] MEDS: FOLIC ACID 1 MG TAB PO SCH (09:33)
--- NOTE | 2019-11-18 09:54 | IPN ---
DATE OF SERVICE: 11/18/2019 Zan is seen in progressive care unit (PCU). She was anticipating going home today. There are a number of factors that would mitigate again to that. Her international normalized ratio (INR) is excessively elevated with a rapid rise over the last 24 hours. She has no active bleeding. She has had some bradycardia overnight, as well, and we are needing to adjust the parameters of her beta osvaldo therapy. PHYSICAL EXAMINATION: 130/84, pulse 67, respiratory rate 18, 99% oxygen (O2) saturation. General appearance: Alert, conversant, no distress. Lungs clear. Heart: Regular rate and rhythm. Rate around 50-60. Abdomen: Soft, nontender, no masses. Trace peripheral edema. LABORATORIES: White count 4.8, hemoglobin 9.2, platelets are 69. Sodium 146, potassium 5.2, BUN 77, creatinine 3.7. Iron studies showed excessive iron levels. Albumin low at 2.6. INR 1.49-3.1. IMPRESSION: 1. Atrial fibrillation. Her INR is elevated today. I am concerned about her going home with an elevated INR and thrombocytopenia. She sees Dr. rOdoñez in the [place] office; and with the Coronavirus pandemic now affecting [facility] limiting access to the office, I am concerned that she is not going to be able to get an INR done tomorrow; or that if it is higher than yesterday, in the face of thrombocytopenia, that she might need warfarin. All these factors led me to conclude that she should stay another day for repeat laboratories tomorrow. She is frustrated with this but understands. 2. Bradycardia. This is another factor affecting her discharge. Her heart rate has been intermittently slow, and we have had to adjust hold parameters on her metoprolol. 3. Stage V chronic kidney disease, per nephrology. 4. Protein-calorie malnutrition. Albumin is low, which impacts her health. 5. Hyperkalemia, per nephrology. It is only mildly elevated. We will check this tomorrow. If it is higher, she will need to take a potassium-binding agent.
[2019-11-18 12:00] VITALS: BP 138/74
[2019-11-18] MEDS: ACETAMINOPHEN TAB 650MG DOSE (2X325MG) PO PRN ×2 (14:18→20:11)
[2019-11-18 16:00] VITALS: BP 154/72
[2019-11-18 20:00] VITALS: BP 148/70
[2019-11-18] MEDS: ATORVASTATIN 20 MG TAB PO SCH (20:08)
[2019-11-19] VITALS: BP 122/70
[2019-11-19 04:00] VITALS: BP 130/68
[2019-11-19] MEDS: SLF 3 ML SYR IV SCH ×3 (04:44→20:19)
[2019-11-19] MEDS: HEPARIN SOD (PORCINE) 5000 UNITS/ML VIAL (J1644 PER 1000UNITS) SC SCH ×2 (04:44→14:00)
[2019-11-19 06:07] LABS: HEMOGLOBIN 9.2 g/dl (12.0-15.5); MEAN CORPUSCULAR HEMOGLOBIN 31.4 pg (27.0-33.0); MEAN CORPUSCULAR HGB CONC 31.7 g/dl (32.0-36.5); RED BLOOD COUNT 2.93 10^6/uL (4.00-5.40); WHITE BLOOD COUNT 5.4 10^3/uL (4.0-10.0)
[2019-11-19 06:11] LABS: PLATELET COUNT, AUTOMATED 82 10^3/uL (150-450)
[2019-11-19 06:34] LABS: ALBUMIN 2.6 GM/DL (3.2-5.2); BILIRUBIN,TOTAL 0.2 MG/DL (0.2-1.0); CALCIUM LEVEL 9.9 MG/DL (8.8-10.2); CREATININE FOR GFR 4.11 MG/DL (0.55-1.30); GLOMERULAR FILTRATION RATE 11.4 (>39); POTASSIUM SERUM 5.1 MEQ/L (3.5-5.1); TOTAL PROTEIN 7.1 GM/DL (6.4-8.2)
[2019-11-19 06:34] LABS: PROTHROMBIN TIME 50.8 SECONDS (11.8-14.0)
[2019-11-19 06:38] LABS: INR 5.55
[2019-11-19 08:00] VITALS: BP_SYST 138; BP_SYST 150; BP_DIAS 74; BP_DIAS 80
[2019-11-19] MEDS: PANTOPRAZOLE 40MG TAB (PROTONIX) PO SCH ×2 (08:54→20:18)
[2019-11-19] MEDS: FOLIC ACID 1 MG TAB PO SCH (08:54)
[2019-11-19] MEDS: METOPROLOL SUCC (TopROL XL) 50MG **XL** TAB PO SCH (08:54)
--- NOTE | 2019-11-19 10:37 | REP ---
CT abdomen and pelvis without IV or oral contrast: History: Abdominal wall hematoma. Acute renal failure. Comparison CT study August 17, 2019. CT findings: Digital preliminary fuel conversion technician radiograph demonstrates a normal bowel gas pattern. The lung bases show no evidence of infiltrate or mass lesion. There is minimal linear fibrosis at the left lung base. No focal hepatic or splenic lesion is seen. No adrenal lesion is observed. No abnormalities noted in the gallbladder or the pancreas. There is no evidence of hydronephrosis. There is a cyst in the left kidney measuring 13 mm in greatest diameter. No perirenal hematoma or mass is observed. No retroperitoneal mass or hematoma is seen. Small and large bowel loops are remarkable for colonic diverticulosis but no louis evidence of diverticulitis. Uterine fibroid changes are noted. No bladder, or adnexal pathology is seen. Normal appendix is noted. There is a fairly large rectus sheath hematoma in the left anterior abdominal wall. This measures 9.5 cm in greatest right to left dimension by 4.3 cm in greatest anteroposterior thickness by 19.8 cm in greatest craniocaudal span. There is a small subcutaneous hematoma, nodule along the lateral edge of the mid portion of this hematoma. This measures 17 mm in greatest diameter. There is diffuse subcutaneous edema. Impression: Large left rectus sheath hematoma. 9.5 x 4.3 x 19.8 cm. Electronically Signed by Tigre Warren MD 11/19/2019 10:28 A
--- NOTE | 2019-11-19 10:45 | IPN ---
DATE OF VISIT: 11/19/2019 Mrs. Galan is seen this morning on her bedside. She is feeling about the same and denies any acute dyspnea, chest pain, nausea or vomiting. She has no fever or chills. PHYSICAL EXAMINATION: Temperature 97.3 degrees Fahrenheit, heart rate 67 per minute and respiratory rate 18 per minute. Blood pressure 150/74 mmHg and oxygen saturation 97% on room air. Head is atraumatic. Neck supple and without jugular venous distention (JVD) or thyroid enlargement. Heart sounds are regular and lungs sound clear to auscultation. Abdomen soft and a soft tissue mass is palpable and anterior abdominal wall towards the left of midline. Bowel sounds are normal. Extremities have no cyanosis or clubbing. Neurologically she is awake, alert and oriented times three. Today's labs show WBC count 5.4, hemoglobin 9.2 and hematocrit 29.0. Platelets 82,000. Her INR went up to 5.55 today. Sodium is 143, potassium 5.1, CO2 20, BUN 78 and creatinine is up to 4.11. Glucose 72 and calcium 9.9. PROBLEMS: 1. Acute renal failure superimposed on chronic kidney disease. The patient has decline in kidney function over the last couple of days without any obvious reason. She has not been on any diuretic, HEATHER inhibitor or angiotensin receptor osvaldo. She has not received any antibiotic or non-steroidal anti-inflammatory drug (NSAID). A CT scan of abdomen and pelvis is being ordered to rule out any possibility of obstruction though clinically she does not have any symptoms to suggest obstruction. She is eating and drinking normally and does not seem to have any reason for dehydration. 2. Anemia. Her anemia has improved following transfusion and has been stable. 3. Abdominal wall mass. She has a soft tissue swelling in her left anterior abdominal wall. A CT scan of abdomen and pelvis without IV contrast is being ordered as she possibly has an abdominal wall hematoma.
[2019-11-19 12:00] VITALS: BP 158/78
[2019-11-19 16:00] VITALS: BP 142/82
--- NOTE | 2019-11-19 17:34 | IPNPDOC ---
Subjective Date Seen The patient was seen on 11/19/19. Subjective Chief Complaint/HPI no new co Constitutional: Denies: Chills, Fever ENT: Denies: Head Aches Skin: Denies: Rash Pulmonary: Denies: Dyspnea, Cough Cardiovascular: Denies: Chest Pain, Palpitations Gastrointestinal: Denies: Nausea, Vomiting Objective Physical Examination General Exam: Positive: Alert, Cooperative (laying in her bed watching television when I entered the room), No Acute Distress ENT Exam: Positive: Mucous membr. moist/pink Neck Exam: Positive: Supple; Negative: JVD, Lymphadenopathy Chest Exam: Positive: Clear to auscultation, Normal air movement Heart Exam: Positive: Rate Normal, Regular Rhythm (at the time of my examination), Normal S1, Normal S2; Negative: Murmurs Telemetry: Positive: Sinus Abdomen Exam: Positive: Normal bowel sounds, Soft; Negative: Tenderness Extremity Exam: Negative: Edema Psych Exam: Positive: Mood NL, Oriented x 3 Assessment /Plan Problems (1) Atrial fibrillation with RVR Status: Acute Response to Treatment: Stable Discussed With: Senior Sales Compensation Analyst, Patient Problem Specific Plan: Monitor Clinically Problem Text: ho pAF c recurrence AC VKA c goal INR low 2s (if increased tx requirement on VKA, favor outpx Watchman consideration) RC met succ 50 (first dose 11/14) I spoke with the razor sharpener on-call who chose to offer his to advice over the phone. He recommended transitioning her off the amlodipine and onto metoprolol succinate for better rate control. Metoprolol succinate was selected spec ifically because it's primarily metabolized by the liver. Additionally she needs to be anticoagulated. Because of her CKD 5 this will have to be done with warfarin. I started the warfarin today. 11/12/19 TSH 5.3 INR/VKA dose (plan dc heparin when INR >1.8) 11/18 5.6 0 11/17 3.1 0 11/16 1.5 2.5 11/15 1.1 10 11/14 1.1 5 11/15 TTE Jann: CONCLUSIONS: 1. Study is of acceptable technical quality, the patient is in sinus rhythm. 2. Normal LV size and systolic function. Normal diastolic function. 3. No hemodynamically significant valvular disease, only mild aortic stenosis and mitral insufficiency are present. 4. Likely normal central venous pressure. 5. Unable to reliably estimate pulmonary artery pressure. COMMENT: Subacute bacterial endocarditis (SBE) prophylaxis is not recommended. DD: Gianluca Forte MD 11/16/191809 (2) PUD (peptic ulcer disease) Permanent Comment: 11/03/19 EGD medium HH, non-bleeding cratered 10 mm [facility] Last Edited By: Rick Rocha MD on Nov 16, 2019 16:21 Status: Acute Response to Treatment: Stable Problem Text: panto 40 BID until at least 01/03/20 (i.e. 8W p EGD revealing pep tic ulcer) (favor until repeat EGD) per Namita (3) Transfusion-dependent anemia Status: Chronic Response to Treatment: Stable Discussed With: Patient Problem Specific Plan: Repeat Labs Problem Text: baseline hgb ~9 favor q7D hgb/INR when dced 11/12 sp Aranesp 100 11/17 c Fe overload 74%, 928 favor 2 CKD +/- GI loss 2 PUD 11/18 9.2 11/16 9.4 11/15 7.8, sp 1u 11/13 8.1 (4) CKD (chronic kidney disease), stage V Status: Chronic Discussed With: Senior Sales Compensation Analyst, Patient Problem Specific Plan: Repeat Labs Problem Text: still reluctant to choose dialysis method for access creation ho c severe hyperK-managed c [place] 11/16 stable at 74/3.3, 4.9, 2.3 (5) Bradycardia Problem Text: HR 50s on met succ as per AF (6) Hypoglycemia Problem Specific Plan: Repeat Tests Problem Text: 11/12/19 BG 67 (7) HTN (hypertension) Status: Chronic Response to Treatment: Stable Problem Text: HD amlo 2.5 stable on met succ only as per AF (8) Physical deconditioning Status: Chronic Problem Text: 11/17 PT safe to dc home (9) Thrombocytopenia Status: Chronic Response to Treatment: Stable Problem Text: stable 50-70K s obvious active bleeding Plan/VTE VTE Prophylaxis Ordered?: Yes (formally anticoagulating with warfarin) VS, I&O, 24H, Fishbone Vital Signs/I&O Vital Signs Date Time Temp Pulse Resp B/P (MAP) Pulse Ox O2 Delivery O2 Flow Rate FiO2 11/19/19 16:00 98.1 66 16 142/82 (102) 98 Room Air I&O- Last 24 Hours up to 6 AM 11/19/19 06:00 Intake Total 1280 ml Output Total 500 ml Balance 780 ml Laboratory Data 24H LABS Laboratory Tests 2 11/19/19 05:49: Nucleated Red Blood Cells % (auto) 0.0, Immature Platelet Fraction 5.0, Anion Gap 5L, Glomerular Filtration Rate 11.4L, Calcium Level 9.9, Total Bilirubin 0.2, Aspartate Amino Transf (AST/SGOT) 54H, Alanine Aminotransferase (ALT/SGPT) 49, Alkaline Phosphatase 128H, Total Protein 7.1, Albumin 2.6L, Albumin/Globulin Ratio 0.58L 11/19/19 05:58: Prothrombin Time 50.8H, Prothromb Time International Ratio 5.55*H CBC/BMP Laboratory Tests 11/19/19 05:49 Microbiology Microbiology 11/13/19 Blood Culture - Final, Complete NO GROWTH AFTER 5 DAYS Rick Rocha M.D. Nov 19, 2019 17:34
[2019-11-19 20:00] VITALS: BP 138/69
[2019-11-19] MEDS: ATORVASTATIN 20 MG TAB PO SCH (20:18)
[2019-11-19] MEDS: ACETAMINOPHEN TAB 650MG DOSE (2X325MG) PO PRN (20:19)
[2019-11-20] VITALS: BP 133/65
[2019-11-20 04:00] VITALS: BP 135/73
[2019-11-20] MEDS: SLF 3 ML SYR IV SCH ×3 (04:16→20:47)
[2019-11-20 05:45] LABS: HEMATOCRIT 27.1 % (36.0-47.0); HEMOGLOBIN 8.4 g/dl (12.0-15.5); MEAN CORPUSCULAR HEMOGLOBIN 30.9 pg (27.0-33.0); MEAN CORPUSCULAR VOLUME 99.6 fl (80.0-96.0); PLATELET COUNT, AUTOMATED 111 10^3/uL (150-450); RED BLOOD COUNT 2.72 10^6/uL (4.00-5.40); WHITE BLOOD COUNT 8.2 10^3/uL (4.0-10.0)
[2019-11-20 05:56] LABS: ALBUMIN 2.6 GM/DL (3.2-5.2); BILIRUBIN,TOTAL 0.3 MG/DL (0.2-1.0); CALCIUM LEVEL 9.9 MG/DL (8.8-10.2); CREATININE FOR GFR 4.73 MG/DL (0.55-1.30); GLOMERULAR FILTRATION RATE 9.7 (>39); POTASSIUM SERUM 5.1 MEQ/L (3.5-5.1); TOTAL PROTEIN 6.9 GM/DL (6.4-8.2)
[2019-11-20 06:10] LABS: PROTHROMBIN TIME 53.4 SECONDS (11.8-14.0)
[2019-11-20 06:16] LABS: INR 5.9
[2019-11-20 08:00] VITALS: BP 135/78
[2019-11-20] MEDS ORDERED: PHYTONADIONE 5 MG TAB PO ONE (08:15)
[2019-11-20] MEDS: METOPROLOL SUCC (TopROL XL) 50MG **XL** TAB PO SCH (08:26)
[2019-11-20] MEDS: PANTOPRAZOLE 40MG TAB (PROTONIX) PO SCH ×2 (08:26→21:18)
[2019-11-20] MEDS: FOLIC ACID 1 MG TAB PO SCH (08:27)
[2019-11-20] MEDS: NS 0.45% 1,000 ML IV SCH ×2 (08:27→21:18)
[2019-11-20] MEDS: ACETAMINOPHEN TAB 650MG DOSE (2X325MG) PO PRN ×2 (08:33→21:18)
--- NOTE | 2019-11-20 11:21 | IPNPDOC ---
Subjective Date Seen The patient was seen on 11/20/19. Subjective Chief Complaint/HPI no co, baseline dyspnea Constitutional: Denies: Chills, Fever Eyes: Denies: Pain ENT: Denies: Head Aches Skin: Denies: Rash Pulmonary: Denies: Dyspnea, Cough Cardiovascular: Denies: Chest Pain Gastrointestinal: Denies: Nausea, Vomiting Objective Physical Examination General Exam: Positive: Alert, Cooperative (laying in her bed watching televis ion when I entered the room), No Acute Distress ENT Exam: Positive: Mucous membr. moist/pink Neck Exam: Positive: Supple; Negative: JVD, Lymphadenopathy Chest Exam: Positive: Clear to auscultation, Normal air movement Heart Exam: Positive: Rate Normal, Regular Rhythm (at the time of my examination), Normal S1, Normal S2; Negative: Murmurs Telemetry: Positive: Sinus Abdomen Exam: Positive: Normal bowel sounds, Soft; Negative: Tenderness Extremity Exam: Negative: Edema Psych Exam: Positive: Mood NL, Oriented x 3 Assessment /Plan Problems (1) CKD (chronic kidney disease), stage V Status: Chronic Discussed With: Alterations Tailor, Patient Problem Specific Plan: Repeat Labs Problem Text: amenable to HD ho c severe hyperK-managed c [place] 11/19 82/4.7. 5.1-given progressive, +NS-may need Perma-Cath on 11/22 11/16 stable at 74/3.3, 4.9, 2.3 (2) Transfusion-dependent anemia Status: Chronic Response to Treatment: Stable Discussed With: Patient Problem Specific Plan: Repeat Labs Problem Text: baseline hgb ~9 favor q7D hgb/INR when dced 11/12 sp Aranesp 100 11/17 c Fe overload 74%, 928 favor 2 CKD +/- GI loss 2 PUD 11/19 8.4-favor decline 2 hematoma 11/18 9.2 11/16 9.4 11/15 7.8, sp 1u 11/13 8.1 (3) Hematoma of rectus sheath Status: Acute Problem Text: favor 2 SC heparin/super therapeutic INR 11/18 CT AP: Large left rectus sheath hematoma. 9.5 x 4.3 x 19.8 cm. (4) Atrial fibrillation with RVR Status: Acute Response to Treatment: Stable Discussed With: Alterations Tailor, Patient Problem Specific Plan: Monitor Clinically Problem Text: ho pAF c recurrence AC VKA c goal INR low 2s (if increased tx requirement on VKA, favor outpx [place] tchman consideration) RC met succ 50 (first dose 11/14) I spoke with the or assistant on-call who chose to offer his to advice over the phone. He recommended transitioning her off the amlodipine and onto metoprolol succinate for better rate control. Metoprolol succinate was selected specifically because it's primarily metabolized by the liver. Additionally she needs to be anticoagulated. Because of her CKD 5 this will have to be done with warfarin. I started the warfarin today. 11/12/19 TSH 5.3 INR/VKA dose (plan dc heparin when INR >1.8) favor base dose 1-1.5 QD 11/19 5.0 0, + vit K 5 po 11/18 5.6 0 11/17 3.1 0 11/16 1.5 2.5 11/15 1.1 10 11/14 1.1 5 11/15 TTE Jann: CONCLUSIONS: 1. Study is of acceptable technical quality, the patient is in sinus rhythm. 2. Normal LV size and systolic function. Normal diastolic function. 3. No hemodynamically significant valvular disease, only mild aortic stenosis and mitral insufficiency are present. 4. Likely normal central venous pressure. 5. Unable to reliably estimate pulmonary artery pressure. COMMENT: Subacute bacterial endocarditis (SBE) prophylaxis is not recommended. DD: Gianluca Forte MD 11/16/191809 (5) PUD (peptic ulcer disease) Permanent Comment: 11/03/19 EGD medium HH, non-bleeding cratered 10 mm gastric ulcer-benign bx-[facility]ita Last Edited By: Rick Rocha MD on Nov 16, 2019 16:21 Status: Acute Response to Treatment: Stable Problem Text: panto 40 BID until at least 01/03/20 (i.e. 8W p EGD revealing peptic ulcer) (favor until repeat EGD) per Namita (6) Bradycardia Problem Text: HR 50s on met succ as per AF (7) HTN (hypertension) Status: Chronic Response to Treatment: Stable Problem Text: HD amlo 2.5 stable on met succ only as per AF (8) Physical deconditioning Status: Chronic Problem Text: 11/17 PT safe to dc home (9) Thrombocytopenia Status: Chronic Response to Treatment: Stable Problem Text: stable 70-110 Plan/VTE VTE Prophylaxis Ordered?: Yes (formally anticoagulating with warfarin) VS, I&O, 24H, Fishbone Vital Signs/I&O Vital Signs Date Time Temp Pulse Resp B/P (MAP) Pulse Ox O2 Delivery O2 Flow Rate FiO2 11/20/19 08:26 80 135/78 11/20/19 08:00 98.3 18 95 Room Air I&O- Last 24 Hours up to 6 AM 11/20/19 06:00 Intake Total 240 ml Output Total 950 ml Balance -710 ml Laboratory Data 24H LABS Laboratory Tests 2 11/20/19 05:11: Nucleated Red Blood Cells % (auto) 0.0, Prothrombin Time 53.4H, Prothromb Time International Ratio 5.90*H, Anion Gap 5L, Glomerular Filtration Rate 9.7L, Calcium Level 9.9, Total Bilirubin 0.3, Aspartate Amino Transf (AST/SGOT) 40H, Alanine Aminotransferase (ALT/SGPT) 41, Alkaline Phosphatase 123H, Total Protein 6.9, Albumin 2.6L, Albumin/Globulin Ratio 0.60L CBC/BMP Laboratory Tests 11/20/19 05:11 Microbiology Microbiology 11/13/19 Blood Culture - Final, Complete NO GROWTH AFTER 5 DAYS Rick Rocha M.D. Nov 20, 2019 11:21
[2019-11-20 12:00] VITALS: BP 134/59
--- NOTE | 2019-11-20 14:04 | IPN ---
DATE: 11/20/2019 Ms. Galan is seen this morning on her bedside. She is still complaining of pain in her abdominal wall area where she was noticed to have a hematoma. She denies any nausea or vomiting but appetite is poor. She has no dyspnea or chest pain. PHYSICAL EXAMINATION: Temperature 98.3 degrees Fahrenheit, heart rate 84 per minute and respiratory rate 18 per minute. Blood pressure 135/78 mmHg and oxygen saturation 95% on room air. Head is atraumatic. Neck is supple and without jugular venous distention (JVD) or thyromegaly. Heart sounds are irregular in rhythm and lungs sound clear to auscultation. Abdomen is soft and nontender and bowel sounds are normal. Extremities have no cyanosis or clubbing. Neurologically, she is awake, alert and oriented times three. Today's labs show WBC count 8.2, hemoglobin 8.4 and hematocrit 27.1. Platelets 111. Sodium 143, potassium 5.1, CO2 21, BUN 82 and creatinine 4.73. Glucose is 90 and calcium 9.9. PROBLEMS: 1. Acute kidney injury superimposed on chronic kidney disease. The patient has unexplained decline in kidney function over the last 3 days. She has not been on any antibiotics or nephrotoxic medications and has not received any diuretic. I am going to start her on IV fluid 70 mL per hour and we will recheck her renal function tomorrow. Her oral intake has been reasonable. I have discussed with the patient and explained to her that she is likely to require dialysis if her kidney function does not improve. 2. Anemia. Her anemia is stable at present and will need to be monitored closely as her INR still remains elevated. 3. Coagulopathy. The patient was given two doses of Coumadin and her INR went very high. Coumadin has been on hold. I am going to give her vitamin K 5 mg today and INR is being repleted on a daily basis. We will need to bring her INR down in case she needs a dialysis catheter placement.
[2019-11-20 16:00] VITALS: BP 123/76
[2019-11-20 19:00] VITALS: BP 167/82
[2019-11-20] MEDS: ATORVASTATIN 20 MG TAB PO SCH (21:18)
[2019-11-21] VITALS (10 sets, daily range): BP systolic 111–150; BP diastolic 56–71
[2019-11-21] MEDS: SLF 3 ML SYR IV SCH ×3 (05:14→21:34)
[2019-11-21 05:41] LABS: HEMOGLOBIN 7.5 g/dl (12.0-15.5); MEAN CORPUSCULAR HEMOGLOBIN 31.1 pg (27.0-33.0); MEAN CORPUSCULAR HGB CONC 31.3 g/dl (32.0-36.5); MEAN CORPUSCULAR VOLUME 99.6 fl (80.0-96.0); PLATELET COUNT, AUTOMATED 141 10^3/uL (150-450); RED BLOOD COUNT 2.41 10^6/uL (4.00-5.40); WHITE BLOOD COUNT 8.4 10^3/uL (4.0-10.0)
[2019-11-21 05:51] LABS: INR 4.26; PROTHROMBIN TIME 41.2 SECONDS (11.8-14.0)
[2019-11-21 06:13] LABS: ALBUMIN 2.3 GM/DL (3.2-5.2); BILIRUBIN,TOTAL 0.5 MG/DL (0.2-1.0); CALCIUM LEVEL 9.1 MG/DL (8.8-10.2); CREATININE FOR GFR 4.79 MG/DL (0.55-1.30); GLOMERULAR FILTRATION RATE 9.6 (>39); POTASSIUM SERUM 4.5 MEQ/L (3.5-5.1); TOTAL PROTEIN 6.5 GM/DL (6.4-8.2)
[2019-11-21] MEDS: PANTOPRAZOLE 40MG TAB (PROTONIX) PO SCH ×2 (08:44→21:34)
[2019-11-21] MEDS: ACETAMINOPHEN TAB 650MG DOSE (2X325MG) PO PRN ×2 (08:44→21:34)
[2019-11-21] MEDS: METOPROLOL SUCC (TopROL XL) 50MG **XL** TAB PO SCH (08:44)
[2019-11-21] MEDS: FOLIC ACID 1 MG TAB PO SCH (08:45)
[2019-11-21] MEDS: NS 0.45% 1,000 ML IV SCH (08:48)
[2019-11-21] MEDS ORDERED: DARBEPOETIN 200MCG/0.4ML *NON-DIALYSIS* SYRINGE (J0881 PER 1MCG) SC SCH (10:00)
--- NOTE | 2019-11-21 13:15 | IPNPDOC ---
Subjective Date Seen The patient was seen on 11/21/19. Subjective Chief Complaint/HPI improving abdominal hematoma pain Constitutional: Denies: Chills, Fever ENT: Denies: Head Aches Skin: Denies: Rash Pulmonary: Denies: Dyspnea, Cough Cardiovascular: Denies: Chest Pain, Palpitations Gastrointestinal: Denies: Nausea, Vomiting Objective Physical Examination General Exam: Positive: Alert, Cooperative (laying in her bed watching television when I entered the room), No Acute Distress ENT Exam: Positive: Mucous membr. moist/pink Neck Exam: Positive: Supple; Negative: JVD, Lymphadenopathy Chest Exam: Positive: Clear to auscultation, Normal air movement Heart Exam: Positive: Rate Normal, Regular Rhythm (at the time of my examination), Normal S1, Normal S2; Negative: Murmurs Telemetry: Positive: Sinus Abdomen Exam: Positive: Normal bowel sounds, Soft; Negative: Tenderness Extremity Exam: Negative: Edema Psych Exam: Positive: Mood NL, Oriented x 3 Assessment /Plan Problems (1) CKD (chronic kidney disease), stage V Status: Chronic Discussed With: Slitter And Rewinder Machine Operator, Patient Problem Specific Plan: Repeat Labs Problem Text: amenable to HD ho c severe hyperK-managed c [place] 11/20 80/4.8, 4.5 c MA HCO3 down to 19-NS held c PRBCs (11/19 I/O 1020/650) 11/19 82/4.7. 5.1-given progressive, +NS-may need Perma-Cath on 11/22 11/16 stable at 74/3.3, 4.9, 2.3 (2) Transfusion-dependent anemia Status: Chronic Response to Treatment: Stable Discussed With: Patient Problem Specific Plan: Repeat Labs Problem Text: baseline hgb ~9 favor q7D hgb/INR when dced 11/12, 11/20 sp Aranesp 100 11/17 c Fe overload 74%, 928 favor 2 CKD +/- GI loss 2 PUD/hematoma 11/20 7.5-tx 1u 11/19 8.4-favor decline 2 hematoma 11/18 9.2 11/16 9.4 11/15 7.8, sp 1u 11/13 8.1 (3) Hematoma of rectus sheath Status: Acute Response to Treatment: Improving Problem Text: favor 2 SC heparin/super therapeutic INR 11/18 CT AP: Large left rectus sheath hematoma. 9.5 x 4.3 x 19.8 cm. (4) Atrial fibrillation with RVR Status: Acute Response to Treatment: Stable Discussed With: Slitter And Rewinder Machine Operator, Patient Problem Specific Plan: Monitor Clinically Problem Text: ho pAF c recurrence AC VKA c goal INR low 2s (if increased tx requirement on VKA, favor outpx Watchman consideration) RC met succ 50 (first dose 11/14) 11/12/19 TSH 5.3 favor VKA base dose 1-1.5 QD ( favor low dose 2 CKD and long-standing heavy EthOH use-ALD) 11/20 4.3 0 11/19 5.0 0, + vit K 5 po 11/18 5.6 0 11/17 3.1 0 11/16 1.5 2.5 11/15 1.1 10 11/14 1.1 5 11/15 TTE Jann: CONCLUSIONS: 1. Study is of acceptable technical quality, the patient is in sinus rhythm. 2. Normal LV size and systolic function. Normal diastolic function. 3. No hemodynamically significant valvular disease, only mild aortic stenosis and mitral insufficiency are present. 4. Likely normal central venous pressure. 5. Unable to reliably estimate pulmonary artery pressure. COMMENT: Subacute bacterial endocarditis (SBE) prophylaxis is not recommended. DD: Gianluca Forte MD 11/16/191809 (5) PUD (peptic ulcer disease) Permanent Comment: 11/03/19 EGD medium HH, non-bleeding cratered 10 mm gastric ulcer-benign bx-[facility] Last Edited By: Rick Rocha MD on Nov 16, 2019 16:21 Status: Acute Response to Treatment: Stable Problem Text: panto 40 BID until at least 01/03/20 (i.e. 8W p EGD revealing peptic ulcer) (favor until repeat EGD) per Namita (6) Bradycardia Problem Text: HR 50s on met succ as per AF (7) HTN (hypertension) Status: Chronic Response to Treatment: Stable Problem Text: HD amlo 2.5 stable on met succ only as per AF (8) Physical deconditioning Status: Chronic Problem Text: 11/17 PT safe to dc home (9) Thrombocytopenia Status: Chronic Response to Treatment: Stable Problem Text: stable 70-110 Plan/VTE VTE Prophylaxis Ordered?: Yes (formally anticoagulating with warfarin) VS, I&O, 24H, Fishbone Vital Signs/I&O Vital Signs Date Time Temp Pulse Resp B/P (MAP) Pulse Ox O2 Delivery O2 Flow Rate FiO2 11/21/19 12:00 97.5 68 20 111/56 (74) 97 Room Air I&O- Last 24 Hours up to 6 AM 11/21/19 06:00 Intake Total 1770 ml Output Total 900 ml Balance 870 ml Laboratory Data 24H LABS Laboratory Tests 2 11/21/19 05:13: Nucleated Red Blood Cells % (auto) 0.0, Prothrombin Time 41.2H, Prothromb Time International Ratio 4.26, Anion Gap 7L, Glomerular Filtration Rate 9.6L, Calcium Level 9.1, Total Bilirubin 0.5#, Aspartate Amino Transf (AST/SGOT) 34, Alanine Aminotransferase (ALT/SGPT) 34, Alkaline Phosphatase 110, Total Protein 6.5, Albumin 2.3L, Albumin/Globulin Ratio 0.55L CBC/BMP Laboratory Tests 11/21/19 05:13 Microbiology Microbiology 11/13/19 Blood Culture - Final, Complete NO GROWTH AFTER 5 DAYS Rick Rocha M.D. Nov 21, 2019 13:15
[2019-11-21] MEDS ORDERED: NS 1,000 ML IV SCH (13:30)
[2019-11-21] MEDS ORDERED: PHYTONADIONE 10MG/ML INJECTION (J3430) SC ONE (18:00)
[2019-11-21] MEDS: ATORVASTATIN 20 MG TAB PO SCH (21:34)
[2019-11-22] VITALS: BP 130/60
[2019-11-22 04:00] VITALS: BP 128/61
[2019-11-22 05:16] LABS: BASO % 0.1 % (0.0-1.0); EOS # 0.1 10^3/uL (0.0-0.5); EOS % 0.5 % (0.0-3.0); HEMATOCRIT 27.2 % (36.0-47.0); HEMOGLOBIN 8.8 g/dl (12.0-15.5); LYMPH # 1.4 10^3/uL (1.5-5.0); MEAN CORPUSCULAR HEMOGLOBIN 30.8 pg (27.0-33.0); MEAN CORPUSCULAR HGB CONC 32.4 g/dl (32.0-36.5); MEAN CORPUSCULAR VOLUME 95.1 fl (80.0-96.0); MONO # 1.1 10^3/uL (0.0-0.8); MONO % 10.9 % (0.0-5.0); NEUTROPHILS # 7.3 10^3/uL (1.5-8.5); NEUTROPHILS % 74.2 % (36.0-66.0); PLATELET COUNT, AUTOMATED 183 10^3/uL (150-450); RED BLOOD COUNT 2.86 10^6/uL (4.00-5.40); WHITE BLOOD COUNT 9.9 10^3/uL (4.0-10.0)
[2019-11-22 05:40] LABS: ALBUMIN 2.3 GM/DL (3.2-5.2); BILIRUBIN,TOTAL 0.6 MG/DL (0.2-1.0); CALCIUM LEVEL 9.2 MG/DL (8.8-10.2); CREATININE FOR GFR 4.62 MG/DL (0.55-1.30); INR 3.33; POTASSIUM SERUM 4.2 MEQ/L (3.5-5.1); PROTHROMBIN TIME 33.8 SECONDS (11.8-14.0); TOTAL PROTEIN 6.6 GM/DL (6.4-8.2)
[2019-11-22] MEDS: SLF 3 ML SYR IV SCH ×3 (06:01→20:32)
[2019-11-22 08:00] VITALS: BP 140/73
[2019-11-22] MEDS: PANTOPRAZOLE 40MG TAB (PROTONIX) PO SCH ×2 (08:18→20:32)
[2019-11-22] MEDS: FOLIC ACID 1 MG TAB PO SCH (08:18)
[2019-11-22] MEDS: METOPROLOL SUCC (TopROL XL) 50MG **XL** TAB PO SCH (08:18)
--- NOTE | 2019-11-22 11:43 | IPN ---
DATE OF SERVICE: 11/21/2019 SUBJECTIVE: The patient was seen and examined at the bedside. The patient is awake and alert. She was getting intravenous (IV) fluid hydration. There is no significant improvement in the renal function. Creatinine has actually plateaued at 4.7. The patient is slightly acidotic as well today. Her anemia is also slightly worse today. INR is still high at 4.26. She still reports of pain and tenderness in the left upper quadrant of abdomen, where she has a hematoma. OBJECTIVE: Vital signs: Temperature is 97.4 degrees Fahrenheit, blood pressure 150/71, pulse is 63, respiratory of 18, saturating 98% on room air. Intake and output: Urine output recorded is 650 mL yesterday, 700 mL so far today since overnight. Weight in the bed scale is 57.5. PHYSICAL EXAMINATION: GENERAL: The patient is awake, alert, oriented times three, lying in bed in no apparent distress. HEAD AND NECK: Extraocular muscles intact. Pupils equally round and reactive to light. Mucous membranes are moist. Neck is supple. There is no jugular venous distention (JVD). CARDIOVASCULAR: S1, S2, regular rate. No edema of the bilateral lower extremities. RESPIRATORY: Chest is clear to auscultation bilaterally. Bilateral equal air entry. No rales or rhonchi. ABDOMEN: Soft, tender, there is a palpable hematoma in the left upper quadrant. Otherwise no organomegaly was noted. MUSCULOSKELETAL: No clubbing or cyanosis. Pulses are 2+. CENTRAL NERVOUS SYSTEM: No focal deficit. Power is 5/5 in all extremities. LABORATORY REVIEW: CBC showed a WBC of 8.4, hemoglobin 7.5, platelets of 141. BMP showed sodium 141, potassium 4.5, chloride 115, bicarbonate 19, BUN 80, creatinine is 4.7. AST 34, ALT 34, alkaline phosphatase is 110, albumin is 2.3. CURRENT INPATIENT MEDICATIONS: The patient medications were all reviewed by myself. I have stopped the IV fluid hydration. I have started the patient on Aranesp 100 mcg subcutaneous on Saturday. First dose was given today. She is on folic acid 1 mg by mouth daily. She is on metoprolol XL 50 mg by mouth daily. I have ordered another dose of vitamin K 5 mg subcutaneous one dose, and the primary team has ordered 1 unit of packed red blood cells (PRBC) transfusion. ASSESSMENT AND PLAN: 1. End-stage renal disease. The patient recently had a renal biopsy done during previous hospitalization, which showed interstitial fibrosis, tubular atrophy, and glomerular sclerosis, and it is ruled out atypical hemolytic uremic syndrome (HUS). I have explained to the patient given persistent uremia, recent rectal sheath hematoma, metabolic acidosis, GFR of less than 10, multiple hospital presentations with anemia, hyperkalemia, or other complications of renal failure, the patient is going to need to start hemodialysis. Once her INR improves, the patient will get tunneled hemodialysis catheter on Saturday or Saturday, and she will be started on hemodialysis. 2. Metabolic acidosis. It is secondary to renal failure. Acidosis will be managed with dialysis now. 3. Recurrent anemia. The patient got 1 unit of PRBC transfusion before. She will be given another unit of PRBC transfusion. It was already ordered. I have also started the patient on Aranesp. Further anemia management will be done during dialysis as per the anemia protocol. Iron levels were checked a few days ago, and her iron levels are okay. Continue the folic acid at this time. The patient had problems with thrombocytopenia during this hospitalization and the previous ones as well; however, platelet levels are within the acceptable range at this time. 4. Supratherapeutic INR. The patient's INR is still high. I have given her another dose of vitamin K subcutaneously. 5. Rectus sheath hematoma. The patient has a large hematoma in the left upper quadrant. As mentioned above, coagulopathy is being treated, and patient is getting 1 unit of PRBC transfusion. 6. Atrial fibrillation. Heart rate is controlled with metoprolol. No anticoagulation because of recurrent anemia and large rectus sheath hematoma. [facility]
[2019-11-22 12:00] VITALS: BP 140/70
--- NOTE | 2019-11-22 14:21 | IPN ---
DATE OF SERVICE: 11/22/2019 SUBJECTIVE: The patient was seen and examined at the bedside today morning. She was given 1 unit of packed red blood cell (PRBC) transfusion yesterday because of drop in hemoglobin. Hemoglobin is better today at 8.8. There is no significant improvement in the renal function. Creatinine is 4.6 today. The patient denies any nausea, vomiting, chest pain, or shortness of breath. I asked the patient about her discussion with the family members, and the patient said that she has not discussed starting dialysis with her family members so far. OBJECTIVE: Vital signs: Temperature is 97.6 degrees Fahrenheit, blood pressure 140/70, pulse is 66, respiratory of 18, saturating 100% on room air. Intake and output: Urine output recorded as 800 mL yesterday, 300 mL so far today since overnight. Weight in the bed scale is 57.5 mL. PHYSICAL EXAM: General: The patient is awake, alert, oriented times three, laying in bed, no apparent distress. Head and neck exam: Extraocular muscles intact. Pupils equally round and reactive to light. Mucous membranes are moist. Neck is supple. There is no jugular venous distention (JVD). Cardiovascular: S1, S2, regular rate. No edema of the bilateral lower extremities. Respiratory: Chest is clear to auscultation bilaterally. Bilateral equal air entry. No rales or rhonchi. Abdomen: Soft, positive bowel sounds. Mildly tender LUQ. No organomegaly. Musculoskeletal: No clubbing or cyanosis. Pulses are 2+. MACHINE CLERICAL VERIFIER: No focal deficit. Power is 5/5 in all extremities. LAB REVIEW: CBC showed WBC 9.9, hemoglobin 8.8, platelets of 183. BMP showed sodium 141, potassium 4.2, chloride 114, bicarb 21, BUN 71, creatinine is 4.6, albumin 2.3. CURRENT INPATIENT MEDICATIONS: The patient's medications were all reviewed by me. She was given a dose of vitamin K 5 mg subcu one dose yesterday. No other change in the medications today as compared with yesterday. ASSESSMENT/PLAN: 1. End-stage renal disease. The patient needs to start hemodialysis. I have emphasized again to her that she will need to get a dialysis catheter placed and start dialysis during this admission. There is no sign of renal recovery. 2. Recurrent anemia. The patient got 1 unit of PRBC transfusion yesterday. She is also getting Aranesp once a week. Hemoglobin level is improving. 3. Supratherapeutic INR. The patient was given subcutaneous vitamin K yesterday. INR is 3.3, which is improving. 4. Rectus sheath hematoma. Hematoma is slowly resolving. Pain is getting better. 5. Atrial fibrillation. The patient is currently on metoprolol. Heart rate is controlled. No anticoagulation because of hematoma and supratherapeutic INR. 6. Disposition. The patient needs to start dialysis during this hospitalization, and she will need outpatient dialysis placement, if she agrees to dialysis. TRU
--- NOTE | 2019-11-22 15:55 | IPNPDOC ---
Subjective Date Seen The patient was seen on 11/22/19. Subjective Chief Complaint/HPI Ms. Galan reports that her hematoma still hurts, but only if she moves the wrong way or it gets pressed on. She was told by nephrology that she needs to have a dialysis catheter placed tomorrow. She is not sure how she feels about this. She has not talked about the strong recommendation for dialysis with her daughter yet. General: Reports: Normal Appetite Constitutional: Denies: Chills, Fever Pulmonary: Denies: Dyspnea, Cough Cardiovascular: Denies: Chest Pain, Palpitations Genitourinary: Denies: Dysuria Psych: Reports: Anxiety Objective Physical Examination General Exam: Positive: Alert, Cooperative (laying in her bed watching television when I entered the room), No Acute Distress Eye Exam: Positive: Conjunctiva & lids normal; Negative: Sclera icteric ENT Exam: Positive: Mucous membr. moist/pink Neck Exam: Positive: Supple; Negative: Lymphadenopathy Chest Exam: Positive: Clear to auscultation, Normal air movement Heart Exam: Positive: Rate Normal, Regular Rhythm, Normal S1, Normal S2; Negative: Murmurs Telemetry: Positive: Sinus Abdomen Exam: Positive: Normal bowel sounds, Soft, Tenderness (palpation over the rectus sheath hematoma only) Extremity Exam: Negative: Edema Skin Exam: Negative: Rash Psych Exam: Positive: Mood NL, Oriented x 3 Assessment /Plan Problems (1) CKD (chronic kidney disease), stage V Status: Chronic Discussed With: Machine Hoop Maker Helper, Patient Problem Specific Plan: Repeat Labs Problem Text: I spent about 30 minutes at the patient's bedside today discussing this issue. She understands that if she wishes to actively manage her end-stage renal disease she will need to start dialysis. She is not sure if she wants to live the lifestyle that dialysis will require. This will require significant changes in her current living situation including probably giving up work which seems to be her primary form of socialization. She recognizes that she does not have to start dialysis, but if she doesn't she will probably end up dying from complications of end-stage renal disease in months to a year. She is also not sure she is resigned to this. She understands the decision she has to made and soon, but isn't sure what decision she wants at this point in time. I gently explained to her that I recognize this is a difficult decision, but she cannot wait many more days or weeks in the hospital to make a decision. If she wants to be discharged without dialysis we could consider starting it later if she wanted, however, it would be much more difficult and she may be defaulted in into the decision of dying home of uremic complications. I encouraged her by starting to address the issue (rather than denying it exists), by talking about it with her daughter today. She had questions about coordinating transportation and how much dialysis would cost her out of pocket. I explained I didn't have answered those questions, but would work to connect her with the rn field case manager early tomorrow morning may be able to help her with these questions. ho c severe hyperK-managed c [place] 11/20 80/4.8, 4.5 c MA HCO3 down to 19-NS held c PRBCs (11/19 I/O 1020/650) 11/19 82/4.7. 5.1-given progressive, +NS-may need Perma-Cath on 11/22 11/16 stable at 74/3.3, 4.9, 2.3 (2) Transfusion-dependent anemia Status: Chronic Response to Treatment: Stable Discussed With: Patient Problem Specific Plan: Repeat Labs Problem Text: 11/21 - s/p another 1 unit transfusion. Hb up to 8.8 today. baseline hgb ~9 favor q7D hgb/INR when dced 11/12, 11/20 sp Aranesp 100 11/17 c Fe overload 74%, 928 favor 2 CKD +/- GI loss 2 PUD/hematoma 11/20 7.5-tx 1u 11/19 8.4-favor decline 2 hematoma 11/18 9.2 11/16 9.4 11/15 7.8, sp 1u 11/13 8.1 (3) Hematoma of rectus sheath Status: Acute Response to Treatment: Improving Problem Text: favor 2 SC heparin/super therapeutic INR 11/18 CT AP: Large left rectus sheath hematoma. 9.5 x 4.3 x 19.8 cm. (4) Atrial fibrillation with RVR Status: Acute Response to Treatment: Stable Discussed With: Machine Hoop Maker Helper, Patient Problem Specific Plan: Monitor Clinically Problem Text: ho pAF c recurrence AC VKA c goal INR low 2s (if increased tx requirement on VKA, favor outpx Watchman consideration) RC met succ 50 (first dose 11/14) 11/12/19 TSH 5.3 favor VKA base dose 1-1.5 QD ( favor low dose 2 CKD and long-standing heavy EthOH use-ALD) 11/20 4.3 0 11/19 5.0 0, + vit K 5 po 11/18 5.6 0 11/17 3.1 0 11/16 1.5 2.5 11/15 1.1 10 11/14 1.1 5 11/15 TTE Jann: CONCLUSIONS: 1. Study is of acceptable technical quality, the patient is in sinus rhythm. 2. Normal LV size and systolic function. Normal diastolic function. 3. No hemodynamically significant valvular disease, only mild aortic stenosis and mitral insufficiency are present. 4. Likely normal central venous pressure. 5. Unable to reliably estimate pulmonary artery pressure. COMMENT: Subacute bacterial endocarditis (SBE) prophylaxis is not recommended. DD: Gianluca Forte MD 11/16/19 1810 (5) PUD (peptic ulcer disease) Permanent Comment: 11/03/19 EGD medium HH, non-bleeding cratered 10 mm [facility] Last Edited By: Rick oRcha MD on Nov 16, 2019 16:21 Status: Acute Response to Treatment: Stable Problem Text: panto 40 BID until at least 01/03/20 (i.e. 8W p EGD revealing peptic ulcer) (favor until repeat EGD) per Namita (6) Bradycardia Problem Text: HR 50s on met succ as per AF (7) HTN (hypertension) Status: Chronic Response to Treatment: Stable Problem Text: HD amlo 2.5 stable on met succ only as per AF (8) Physical deconditioning Status: Chronic Problem Text: 11/17 PT safe to dc home (9) Thrombocytopenia Status: Chronic Response to Treatment: Stable Problem Text: stable 70-110 Plan/VTE VTE Prophylaxis Ordered?: Yes (formally anticoagulating with warfarin) VS, I&O, 24H, Fishbone Vital Signs/I&O Vital Signs Date Time Temp Pulse Resp B/P (MAP) Pulse Ox O2 Delivery O2 Flow Rate FiO2 11/22/19 12:00 97.6 66 18 140/70 (93) 100 Room Air l I&O- Last 24 Hours up to 6 AM 11/22/19 06:00 Intake Total 1690 ml Output Total 850 ml Balance 840 ml Laboratory Data 24H LABS Laboratory Tests 2 11/22/19 05:05: Immature Granulocyte % (Auto) 0.3, Neutrophils (%) (Auto) 74.2H, Lymphocytes (%) (Auto) 14.0L, Monocytes (%) (Auto) 10.9H, Eosinophils (%) (Auto) 0.5, Basophils (%) (Auto) 0.1, Neutrophils # (Auto) 7.3, Lymphocytes # (Auto) 1.4L, Monocytes # (Auto) 1.1H, Eosinophils # (Auto) 0.1, Basophils # (Auto) 0.0, Nucleated Red Blood Cells % (auto) 0.0, Prothrombin Time 33.8H, Prothromb Time International Ratio 3.33, Anion Gap 6L, Glomerular Filtration Rate 10.0L, Calcium Level 9.2, Total Bilirubin 0.6, Aspartate Amino Transf (AST/SGOT) 49H, Alanine Am inotransferase (ALT/SGPT) 45, Alkaline Phosphatase 116, Total Protein 6.6, Albumin 2.3L, Albumin/Globulin Ratio 0.53L CBC/BMP Laboratory Tests 11/22/19 05:05 Microbiology Microbiology 11/22/19 Stool Occult Blood (BJORN) - Final, Complete 11/13/19 Blood Culture - Final, Complete NO GROWTH AFTER 5 DAYS Shekhar Valle MD Nov 22, 2019 15:54
[2019-11-22 16:00] VITALS: BP 127/60
[2019-11-22 20:00] VITALS: BP 145/74
[2019-11-22] MEDS: ATORVASTATIN 20 MG TAB PO SCH (20:32)
[2019-11-23] VITALS: BP 146/83
[2019-11-23 04:00] VITALS: BP 128/62
[2019-11-23 04:23] LABS: HEMATOCRIT 25.8 % (36.0-47.0); HEMOGLOBIN 8.2 g/dl (12.0-15.5); MEAN CORPUSCULAR HEMOGLOBIN 30.4 pg (27.0-33.0); MEAN CORPUSCULAR HGB CONC 31.8 g/dl (32.0-36.5); MEAN CORPUSCULAR VOLUME 95.6 fl (80.0-96.0); PLATELET COUNT, AUTOMATED 266 10^3/uL (150-450); WHITE BLOOD COUNT 8.9 10^3/uL (4.0-10.0)
[2019-11-23 04:35] LABS: INR 1.77; PROTHROMBIN TIME 20.4 SECONDS (11.8-14.0)
[2019-11-23 04:53] LABS: ALBUMIN 2.3 GM/DL (3.2-5.2); BILIRUBIN,TOTAL 0.8 MG/DL (0.2-1.0); CALCIUM LEVEL 9.3 MG/DL (8.8-10.2); CREATININE FOR GFR 4.54 MG/DL (0.55-1.30); GLOMERULAR FILTRATION RATE 10.2 (>39); POTASSIUM SERUM 4.2 MEQ/L (3.5-5.1); TOTAL PROTEIN 6.8 GM/DL (6.4-8.2)
[2019-11-23] MEDS: SLF 3 ML SYR IV SCH ×3 (05:06→20:29)
[2019-11-23 08:00] VITALS: BP 135/63
[2019-11-23] MEDS: PANTOPRAZOLE 40MG TAB (PROTONIX) PO SCH ×2 (08:46→20:28)
[2019-11-23] MEDS: FOLIC ACID 1 MG TAB PO SCH (08:46)
[2019-11-23] MEDS: METOPROLOL SUCC (TopROL XL) 50MG **XL** TAB PO SCH (08:47)
--- NOTE | 2019-11-23 10:08 | CR.PDOC ---
General Date of Consultation: Nov 23, [address] Lemos HPI: 69 year old F with ESRD, vascular surgery is consulted for PermCath placement. The patient states she is not sure if she wishes to have a catheter placed. Denies any fevers, chills, weakness, fatigue, Headache, Chest Pain, Shortness of breath, cough, palpitations, abdominal pain, N/V/D or changes in bowel or bladder habits. PMH/PSH CKD 4 Transfusion dependent anemia History of upper GI bleed, w/ non-bleeding gastric ulcer & neg H. pylori bx Hyperlipidemia GERD Chronic Hypertension SOCIAL HISTORY: and lives by herself. Works part-time at [employer] in [place], [place] Drank approximately 4 glasses of wine per day for 15 years up until July 2019 Smoked cigarettes for one year in the 1960 FAMILY HISTORY: Unspecified heart disease (Father) Hypertension (mother) ROS: As noted in HPI, otherwise 11pt ROS of systems reviewed and unremarkable. PE: GEN: 69yoF, appears stated age. Well-nourished, well developed. No acute distress. Alert and oriented x 3. Pleasant, interactive. HEENT: Normocephalic, atraumatic. Moist mucous membranes. LUNGS: Breathing appears symmetric and easy. Patient is speaking in full sentences. No accessory muscle use. EXT: No lower extremity edema appreciated. SKIN: [place], dry, warm. No rashes. NEURO: Alert and oriented x 3. No focal deficits appreciated. A&P: 1. ESRD. Patient with ESRD with tentative plan to start dialysis this admission per neph rology. PermCath placement was requested, I have spoken with the patient this morning. She states she is fully aware of the procedure, risks, benefits, and alternatives. She however states she is not sure if she wishes to have the PermCath placed. She states she is still thinking it over. I have placed consent on the chart however she does not feel comfortable signing consent at this time. The patient states she will think it over further and let us know if she wishes to proceed. Thank you for your consultation. We will continue to follow along with you. Vital Signs/I&O Vital Signs Date Time Temp Pulse Resp B/P (MAP) Pulse Ox O2 Delivery O2 Flow Rate FiO2 11/23/19 08:47 69 135/63 11/23/19 08:00 97.5 18 97 Room Air I&O- Last 24 Hours up to 6 AM 11/23/19 06:00 Intake Total 665 ml Output Total 1000 ml Balance -335 ml Laboratory Data Labs 24H Laboratory Tests 2 11/23/19 03:52: Nucleated Red Blood Cells % (auto) 0.0, Prothrombin Time 20.4H, Prothromb Time International Ratio 1.77, Anion Gap 7L, Glomerular Filtration Rate 10.2L, Ca lcium Level 9.3, Total Bilirubin 0.8, Aspartate Amino Transf (AST/SGOT) 91H, Alanine Aminotransferase (ALT/SGPT) 82H, Alkaline Phosphatase 166H, Total Protein 6.8, Albumin 2.3L, Albumin/Globulin Ratio 0.51L CBC/BMP Laboratory Tests 11/23/19 03:52 Microbiology Microbiology 11/22/19 Stool Occult Blood (BJORN) - Final, Complete 11/13/19 Blood Culture - Final, Complete NO GROWTH AFTER 5 DAYS Allergies Coded Allergies: bee venom protein (honey bee) (Verified Allergy, Unknown, 07/09/19) Home Medications Scheduled Amlodipine Besylate (Amlodipine Besylate) 2.5 Mg Tablet, 2.5 MG PO DAILY, (Reported) Atorvastatin Calcium (Atorvastatin Calcium) 20 Mg Tablet, 20 MG PO QHS, (Reported) Epoetin Armin (Epogen) 2,000 Unit/1 Ml Vial, 2,000 UNIT INJ QMONTH, (Reported) DUE 11/17/2019 Folic Acid (Folic Acid) 1 Mg Tablet, 1 MG PO DAILY, (Reported) Magnesium Oxide (Magnesium Oxide) 400 Mg Tablet, 400 MG PO BID, (Reported) Multivitamins (Thera M Plus Tablet) 1 Each Tablet, 1 TAB PO QHS, (Reported) Pantoprazole Sodium (Pantoprazole Sodium) 40 Mg Tablet.dr, 40 MG PO QHS, (Reported) Vit B1 Mn/B2/B3/B5/B6/B12/C/FA (B Complex with Vitamin C Tab) 1 Each Tablet, 1 TAB PO DAILY, (Reported) Debby Salinas Nov 23, 2019 10:08
[2019-11-23] MEDS ORDERED: DARBEPOETIN 200MCG/0.4ML *DIALYSIS* SYRINGE (J0882 PER 1MCG) IV SCH (11:15)
[2019-11-23 12:00] VITALS: BP 134/80
--- NOTE | 2019-11-23 12:05 | IPN ---
DATE: 11/23/2019 SUBJECTIVE: The patient was seen and examined the bedside this morning. The patient was very depressed and upset that she has to start dialysis. She was very tearful in the morning. She initially refused to have the tunneled dialysis catheter placed; however, later on, she agreed to get the catheter and start hemodialysis today. The patient is going to have the Perma-Cath placed and then she will start dialysis tomorrow. Otherwise, she denies any active complaints. OBJECTIVE Vital signs: Temperature is 97.5 degrees Fahrenheit, blood pressure 135/63, pulse is 69, respiratory of 18, saturating 97% on room air. Intake and output: Urine output recorded since overnight is 300 mL only. Weight in the bed scale is 56.3. PHYSICAL EXAMINATION: General: The patient is awake, alert, oriented times three, sitting up in the bed in no apparent distress. She is depressed and tearful. Head and neck exam: Extraocular muscles intact. Pupils equally round and reactive to light. Mucous membranes are moist. Neck is supple. There is no jugular venous distention (JVD). Cardiovascular: S1, S2. Regular rate. No edema of the bilateral lower extremities. Respiratory: Chest is clear to auscultation bilaterally. Bilateral equal air entry. No rales or rhonchi. Abdomen: Soft, positive bowel sounds. Nontender. No organomegaly. Musculoskeletal: No clubbing or cyanosis. Pulses are 2+. Central nervous system (TURRET PUNCH OPERATOR): No focal deficit. Power is 5/5 in all extremities. LABORATORY REVIEW: CBC showed WBC 8.9, hemoglobin 8.2. 266, INR is 1.77. BMP showed sodium 142, potassium 4.2, chloride 116, bicarbonate 19, BUN 70, creatinine is 4.5, GFR is 10.2. Albumin is 2.3. CURRENT INPATIENT MEDICATIONS: The patient's medications were all reviewed by myself. I have switched her subcutaneous Aranesp to IV Aranesp once she starts dialysis. No other change in the medications today as compared with yesterday. ASSESSMENT/PLAN: 1. End-stage renal disease. The patient agreed to have tunneled dialysis catheter. She will be dialyzed today for the first time for 2 hours. Further hemodialysis will be done tomorrow morning. 2. Recurrent anemia. The patient is status post 1 unit of PRBC transfusion. Iron levels are adequate. Aranesp has been switched to IV during hemodialysis. 3. Rectus sheath hematoma. Hematoma is resolving now. Her pain is getting better. 4. Atrial fibrillation. Heart rate is controlled with metoprolol. Not a candidate for anticoagulation at this time because of recent supratherapeutic INR and rectus sheath hematoma.
[2019-11-23 12:31] LABS: HEMOGLOBIN A1c 5.1 %
[2019-11-23 13:14] LABS: CHOLESTEROL LEVEL 131 MG/DL (<200); CHOLESTEROL RISK RATIO 2.787 (<5); HDL CHOLESTEROL 47 MG/DL (>40); LDL CHOLESTEROL 60 MG/DL (<100); NON-HDL-C 84 MG/DL; TRIGLYCERIDES LEVEL 118 MG/DL (<150)
[2019-11-23 13:24] LABS: HEPATITIS B SURFACE ANTIBODY NEGATIVE (POSITIVE)
[2019-11-23 13:35] LABS: HEPATITIS B SURFACE ANTIGEN NEGATIVE (NEGATIVE)
--- NOTE | 2019-11-23 13:40 | IPNPDOC ---
Subjective Date Seen The patient was seen on 11/23/19. Subjective Chief Complaint/HPI Ms. Galan finally made up her mind to proceed with dialysis. She is now scheduled to get her tunnel catheter placed. She is sad about this decision and what it means for the changes in her life. She denies any new or unusual pain. Constitutional: Denies: Chills, Fever Skin: Denies: Rash, Lesions Cardiovascular: Denies: Chest Pain, Palpitations Genitourinary: Denies: Dysuria Objective Physical Examination General Exam: Positive: Alert, Cooperative (laying in her bed resting comfortably when I entered the room), No Acute Distress Eye Exam: Positive: Conjunctiva & lids normal; Negative: Sclera icteric ENT Exam: Positive: Mucous membr. moist/pink Neck Exam: Positive: Supple; Negative: Lymphadenopathy Chest Exam: Positive: Clear to auscultation, Normal air movement Heart Exam: Positive: Rate Normal, Regular Rhythm, Normal S1, Normal S2; Negative: Murmurs Telemetry: Positive: Sinus Abdomen Exam: Positive: Normal bowel sounds, Soft, Tenderness (palpation over the rectus sheath hematoma only) Extremity Exam: Negative: Edema Skin Exam: Negative: Rash Psych Exam: Positive: Mood NL, Oriented x 3 Assessment /Plan Problems (1) CKD (chronic kidney disease), stage V Status: Chronic Discussed With: Neurology Manager, Patient Problem Specific Plan: Repeat Labs Problem Text: She finally made up her mind to proceed with dialysis. This was in consultation with her children. Her rationale basically is, "if dialysis turns out to be terrible I can always stop, but if I don't do dialysis I may not be well enough to start in the future. " ho c severe hyperK-managed c [place] 11/20 80/4.8, 4.5 c MA HCO3 down to 19-NS held c PRBCs (11/19 I/O 1020/650) 11/19 82/4.7. 5.1-given progressive, +NS-may need Perma-Cath on 11/22 11/16 stable at 74/3.3, 4.9, 2.3 (2) Transfusion-dependent anemia Status: Chronic Response to Treatment: Stable Discussed With: Patient Problem Specific Plan: Repeat Labs Problem Text: 11/22 - her hemoglobin drifted down to 8.2. She is going to be receiving Aranesp through dialysis. We'll monitor. 11/21 - s/p another 1 unit transfusion. Hb up to 8.8 today. baseline hgb ~9 favor q7D hgb/INR when dced 11/12, 11/20 sp Aranesp 100 11/17 c Fe overload 74%, 928 favor 2 CKD +/- GI loss 2 PUD/hematoma 11/20 7.5-tx 1u 11/19 8.4-favor decline 2 hematoma 11/18 9.2 11/16 9.4 11/15 7.8, sp 1u 11/13 8.1 (3) Hematoma of rectus sheath Status: Acute Response to Treatment: Improving Problem Text: favor 2 SC heparin/super therapeutic INR 11/18 CT AP: Large left rectus sheath hematoma. 9.5 x 4.3 x 19.8 cm. (4) Atrial fibrillation with RVR Status: Acute Response to Treatment: Stable Discussed With: Neurology Manager, Patient Problem Specific Plan: Monitor Clinically Problem Text: She is currently in sinus rhythm and rate controlled. I discussed anticoagulation with her visual specialist. To the best her knowledge she is only had one episode of atrial fibrillation and she is currently in sinus rhythm. Her INR became supratherapeutic very fast because of her end-stage renal disease. This will be difficult to manage. She now has a bleeding complication (spontaneous rectus hematoma). Nephrology's recommendation was to move forward without anticoagulation at this time. For the reasons above I agree with this. RC met succ 50 (first dose 11/14) 11/12/19 TSH 5.3 favor VKA base dose 1-1.5 QD ( favor low dose 2 CKD and long-standing heavy EthOH use-ALD) 11/20 4.3 0 11/19 5.0 0, + vit K 5 po 11/18 5.6 0 11/17 3.1 0 11/16 1.5 2.5 11/15 1.1 10 11/14 1.1 5 11/15 TTE Jann: CONCLUSIONS: 1. Study is of acceptable technical quality, the patient is in sinus rhythm. 2. Normal LV size and systolic function. Normal diastolic function. 3. No hemodynamically significant valvular disease, only mild aortic stenosis and mitral insufficiency are present. 4. Likely normal central venous pressure. 5. Unable to reliably estimate pulmonary artery pressure. COMMENT: Subacute bacterial endocarditis (SBE) prophylaxis is not recommended. DD: Gianluca Forte MD 11/16/190 (5) PUD (peptic ulcer disease) Permanent Comment: 11/03/19 EGD medium HH, non-bleeding cratered 10 mm gastric ulcer-benign bx-Namita Last Edited By: Rick Rocha MD on Nov 16, 2019 4:21 pm Status: Acute Response to Treatment: Stable Problem Text: panto 40 BID until at least 01/03/20 (i.e. 8W p EGD revealing peptic ulcer) (favor until repeat EGD) per Namita (6) Bradycardia Problem Text: HR 50s on met succ as per AF (7) HTN (hypertension) Status: Chronic Response to Treatment: Stable Problem Text: HD amlo 2.5 stable on met succ only as per AF (8) Physical deconditioning Status: Chronic Problem Text: 11/17 PT safe to dc home (9) Thrombocytopenia Status: Chronic Response to Treatment: Stable Problem Text: stable 70-110 Plan/VTE VTE Prophylaxis Ordered?: Yes (heparin through dialysis) VS, I&O, 24H, Fishbone Vital Signs/I&O Vital Signs Date Time Temp Pulse Resp B/P (MAP) Pulse Ox O2 Delivery O2 Flow Rate FiO2 11/23/19 12:00 96.6 61 16 134/80 (98) 100 Room Air I&O- Last 24 Hours up to 6 AM 11/23/19 05:59 Intake Total 765 ml Output Total 1000 ml Balance -235 ml Laboratory Data 24H LABS Laboratory Tests 2 11/23/19 03:52: Nucleated Red Blood Cells % (auto) 0.0, Prothrombin Time 20.4H, Prothromb Time International Ratio 1.77, Anion Gap 7L, Glomerular Filtration Rate 10.2L, Calcium Level 9.3, Total Bilirubin 0.8, Aspartate Amino Transf (AST/SGOT) 91H, Alanine Aminotransferase (ALT/SGPT) 82H, Alkaline Phosphatase 166H, Total Protein 6.8, Albumin 2.3L, Albumin/Globulin Ratio 0.51L 11/23/19 12:22: Estimated Mean Plasma Glucose 100, Hemoglobin A1c 5.1, Triglycerides Level 118, Total Cholesterol 131, LDL Cholesterol 60, Non-HDL Cholesterol (LDL + VLDL) 84, Total HDL Cholesterol 47, Cholesterol/HDL Ratio 2.787, Hepatitis B Surface Antigen NEGATIVE, Hepatitis B Surface Antibody NEGATIVE CBC/BMP Laboratory Tests 11/23/19 03:52 Microbiology Microbiology 11/22/19 Stool Occult Blood (BJORN) - Final, Complete 11/13/19 Blood Culture - Final, Complete NO GROWTH AFTER 5 DAYS Shekhar Valle MD Nov 23, 2019 1:40 pm
[2019-11-23 14:03] LABS: HEPATITIS B CORE ANTIBODY IGM NEGATIVE (NEGATIVE); HEPATITIS C VIRUS ABY INDEX 0.1 INDEX (<0.8)
[2019-11-23] MEDS ORDERED: fentaNYL 100 MCG/2 ML INJECTION (J3010) As Ordered ONE (14:56)
[2019-11-23] MEDS ORDERED: MIDAZOLAM INJ 2 MG/2 ML VIAL (J2250) As Ordered ONE (14:56)
[2019-11-23] MEDS ORDERED: HEPARIN 1,000 UNITS/ML 10ML VIAL (FOR RADIOLOGY& DIALYSIS ONLY)(J1644-10) As Ordered ONE (14:57)
[2019-11-23] MEDS ORDERED: LIDOCAINE W/EPINEPHRINE 1% 20ML VIAL As Ordered ONE (14:57)
[2019-11-23] MEDS ORDERED: ceFAZolin 2 GM/D5W 50 ML IV BAG (J0690 PER 500MG) As Ordered ONE (15:15)
--- NOTE | 2019-11-23 17:13 | ROOPDOC ---
[facility] Report Of Operation Report of Operation DATE OF PROCEDURE: 11/23/19 PREPROCEDURE DIAGNOSES: Renal failure requiring access for dialysis POSTPROCEDURE DIAGNOSES: Same. PROCEDURE: 1. Ultrasound-guided access right internal jugular vein 2. Placement of a 23 cm tunneled dual-lumen PermCath right internal jugular vein SURGEON: Kamlesh Lemos MD ANESTHESIA: Local anesthesia 11 mL lidocaine with epi. Moderate intravenous conscious sedation was supervised by Dr. Lemos. The patient was independently monitored by a registered nurse sign of the department of radiology using automated blood pressure, EKG, and pulse oximetry. The detailed sedation record is permanently stored in the hospital information system. The following is the brief sedation record: Start time 16:41, stop time 16:57, Versed 1 mg IV, fentanyl 50 g IV, Ancef 2 g IV. INDICATION FOR PROCEDURE: This is a very pleasant 69-year-old patient with renal failure her requires access for dialysis. Risks benefits and alternatives to a PermCath placement were explained and the patient was agreeable to proceed. Informed consent was obtained. INTERPRETATION: The catheter is in good position, no kinks in the catheter, with the tips freely mobile at the right atrial SVC junction. There is no pneumothorax. It is okay to use the catheter for dialysis. REPORT OF OPERATION: The patient was brought to the angiographic suite in stable condition and placed supine on the fluoroscopic table. Her right neck and chest were prepped and draped in a sterile fashion. Sedation and antibiotics were administered without complication. A timeout was performed. Local anesthesia was administered to the right neck and right chest. A microneedle was used to access the jugular vein on the right side under ultrasound guidance. A wire was passed through this access into the central system under fluoroscopic guidance. A small incision was made at the jugular access site with the skin knife and a micro- sheath was placed over the wire using a Seldinger technique. We then advanced an O35 J-wire through the micro-sheath into the central system under fluoroscopic guidance. 2 serial dilations were performed using a Seldinger technique and an the peel-away sheath was placed. The inner cannula and wire were removed. We then made a small incision on the right chest and a 23 cm PermCath was tunneled from the right chest to the jugular access site until the cuff was within the subcutaneous tissue. We then passed the tips of the catheter through the peel-away sheath into the central system. The peel-away sheath was removed. Both ports chris back and flushed easily. They were heparin locked and appropriate caps were placed. Final imaging confirmed the catheter to be in good position with the tip freely mobile at the right atrial SVC junction and no kinks in the catheter. There was no pneumothorax. The jugular access site was closed with a deep and superficial Monocryl suture and Dermabond was placed at the skin. The exit site on the right chest was closed with a single Prolene suture. The catheter was then attached to the chest wall in 2 places with additional Prolene suture. Sterile dressings were applied and the patient was taken back to recovery in stable condition. She tolerated the procedure and the sedation very well. ESTIMATED BLOOD LOSS: Approximately 2 mL. COMPLICATIONS: None. PLAN: It is okay to use the catheter for dialysis. Keep head of bed greater than 45 for at least the next 3 hours to minimize bleeding risk. If permanent dialysis access is needed, please obtain a vein mapping of the bilateral upper extremities so we may review options for her fistula versus graft placement with the patient at a later date. KAMLESH LEMOS MD Nov 23, 2019 17:13
[2019-11-23 20:00] VITALS: BP 143/69
[2019-11-23] MEDS: ACETAMINOPHEN TAB 650MG DOSE (2X325MG) PO PRN (20:28)
[2019-11-23] MEDS: ATORVASTATIN 20 MG TAB PO SCH (20:28)
[2019-11-24] VITALS (10 sets, daily range): BP systolic 126–151; BP diastolic 65–75
[2019-11-24 04:58] LABS: HEMOGLOBIN 7.7 g/dl (12.0-15.5); MEAN CORPUSCULAR HEMOGLOBIN 29.8 pg (27.0-33.0); MEAN CORPUSCULAR HGB CONC 30.8 g/dl (32.0-36.5); MEAN CORPUSCULAR VOLUME 96.9 fl (80.0-96.0); PLATELET COUNT, AUTOMATED 299 10^3/uL (150-450); RED BLOOD COUNT 2.58 10^6/uL (4.00-5.40); WHITE BLOOD COUNT 6.2 10^3/uL (4.0-10.0)
[2019-11-24 05:24] LABS: ALBUMIN 2.2 GM/DL (3.2-5.2); BILIRUBIN,TOTAL 0.8 MG/DL (0.2-1.0); CALCIUM LEVEL 9.2 MG/DL (8.8-10.2); CREATININE FOR GFR 4.31 MG/DL (0.55-1.30); GLOMERULAR FILTRATION RATE 10.8 (>39); MAGNESIUM LEVEL 1.5 MG/DL (1.8-2.4); TOTAL PROTEIN 6.8 GM/DL (6.4-8.2)
[2019-11-24] MEDS: SLF 3 ML SYR IV SCH ×3 (05:49→19:18)
[2019-11-24] MEDS: METOPROLOL SUCC (TopROL XL) 50MG **XL** TAB PO SCH (07:59)
[2019-11-24] MEDS: PANTOPRAZOLE 40MG TAB (PROTONIX) PO SCH ×2 (07:59→19:18)
[2019-11-24] MEDS: FOLIC ACID 1 MG TAB PO SCH (07:59)
[2019-11-24] MEDS ORDERED: HEPARIN 1,000 UNITS/ML 10ML VIAL (FOR RADIOLOGY& DIALYSIS ONLY)(J1644-10) XX ONE (12:00)
--- NOTE | 2019-11-24 12:38 | IPN ---
DATE OF SERVICE: 11/24/2019 SUBJECTIVE: The patient was seen and examined at the bedside today morning during hemodialysis procedure. She got right internal jugular (IJ) tunneled hemodialysis catheter placed yesterday. She is getting the dialysis for the first time today. She is tolerating the hemodialysis procedure well. I see her hemoglobin level has dropped again. I have ordered 1 unit of PRBC transfusion. Blood will be arranged today, she will either get the blood during hemodialysis or after hemodialysis. OBJECTIVE: Vital Signs: Temperature is 96.2 degrees Fahrenheit, blood pressure 138/75, pulse is 61, respiratory rate of 18, saturating 99% on room air. Intake and Output: Urine output recorded as 100 mL. Weight in the bed scale is 55.8 kg. PHYSICAL EXAMINATION: General: The patient is awake, alert, oriented x3, laying in bed, in no apparent distress. Head and Neck Exam: Extraocular muscles intact. Pupils equal round and reactive to light. Mucous membranes are moist. Neck is supple. There is no jugular venous distention (JVD). She has a right IJ tunneled hemodialysis catheter. Cardiovascular: S1, S2, regular rate. No edema of the bilateral lower extremities. Respiratory: Chest is clear to auscultation bilaterally. Bilateral equal air entry. No rales or rhonchi. Abdomen: Soft. Positive bowel sounds. Nontender. No organomegaly. Musculoskeletal: No clubbing or cyanosis. Pulses are 2+. RODDING MACHINE TENDER: No focal deficit. Power is 5/5 in all extremities. LAB REVIEW: CBC showed a WBC of 6.2, hemoglobin 7.7 and platelets of 299. BMP showed sodium 144, potassium 4, chloride 115, bicarb 21, BUN 65, creatinine 4.3, magnesium 1.5, AST 111, ALT 83, alkaline phosphatase 160. CURRENT INPATIENT MEDICATIONS: The patient's medications were all reviewed by myself. I have stopped the Lipitor because of elevated liver enzymes. No other change in the medications today as compared with yesterday. ASSESSMENT/PLAN: 1. End-stage renal disease. The patient got the catheter placed yesterday. Today, she is getting first ever dialysis. No fluid removal will be done. She is being dialyzed for clearance. 2. Recurrent anemia. Hemoglobin level has dropped again. She will get 1 unit of PRBC again today. She is already scheduled to have IV Aranesp with dialysis once a week. 3. Atrial fibrillation. Heart rate is controlled with metoprolol, not a candidate for anticoagulation because of recurrent drop in hemoglobin, supratherapeutic INR and recent rectus sheath hematoma. 4. Elevated liver enzymes. The patient has elevated ALT, AST and alkaline phosphatase which are getting worse. I have stopped the Lipitor today.
--- NOTE | 2019-11-24 15:40 | IPNPDOC ---
Subjective Date Seen The patient was seen on 11/24/19. Subjective Chief Complaint/HPI Ms. Galan's first ever dialysis was today. She reports she tolerated it well, or at least it was not as bad as she imagined it might be. Her hemoglobin did drop down again and she does feel a bit tired. General: Reports: Normal Appetite Constitutional: Reports: Fatigue; Denies: Chills, Fever Pulmonary: Denies: Dyspnea, Cough Cardiovascular: Denies: Chest Pain, Palpitations Psych: Reports: Mood Normal Objective Physical Examination General Exam: Positive: Alert, Cooperative (laying in her bed resting comfortably when I entered the room), No Acute Distress Eye Exam: Positive: Conjunctiva & lids normal; Negative: Sclera icteric ENT Exam: Positive: Mucous membr. moist/pink Neck Exam: Positive: Supple; Negative: Lymphadenopathy Chest Exam: Positive: Clear to auscultation, Normal air movement Heart Exam: Positive: Rate Normal, Regular Rhythm, Normal S1, Normal S2; Negative: Murmurs Abdomen Exam: Positive: Normal bowel sounds, Soft, Tenderness (palpation over the rectus sheath hematoma only) Extremity Exam: Negative: Edema Skin Exam: Negative: Rash Psych Exam: Positive: Mood NL, Oriented x 3 Assessment /Plan Problems (1) CKD (chronic kidney disease), stage V Status: Chronic Discussed With: Quality Improvement Consultant, Patient Problem Specific Plan: Repeat Labs Problem Text: He had her first dialysis today and went relatively well. It sounds as if nephrology will make a decision about doing dialysis again tomorrow based on her labs tomorrow morning. ho c severe hyperK-managed c [place] 11/20 80/4.8, 4.5 c MA HCO3 down to 19-NS held c PRBCs (11/19 I/O 1020/650) 11/19 82/4.7. 5.1-given progressive, +NS-may need Perma-Cath on 11/22 11/16 stable at 74/3.3, 4.9, 2.3 (2) Transfusion-dependent anemia Status: Chronic Response to Treatment: Stable Discussed With: Patient Problem Specific Plan: Repeat Labs Problem Text: 11/23 - hemoglobin was down to 7.7 again today. She received one a unit transfusion after dialysis. She did also receive a dose of Aranesp during dialysis. We'll monitor her response. 11/22 - her hemoglobin drifted down to 8.2. She is going to be receiving Aranesp through dialysis. We'll monitor. 11/21 - s/p another 1 unit transfusion. Hb up to 8.8 today. baseline hgb ~9 favor q7D hgb/INR when dced 11/12, 11/20 sp Aranesp 100 11/17 c Fe overload 74%, 928 favor 2 CKD +/- GI loss 2 PUD/hematoma 11/20 7.5-tx 1u 11/19 8.4-favor decline 2 hematoma 11/18 9.2 11/16 9.4 11/15 7.8, sp 1u 11/13 8.1 (3) Atrial fibrillation with RVR Status: Acute Response to Treatment: Stable Discussed With: Quality Improvement Consultant, Patient Problem Specific Plan: Monitor Clinically Problem Text: She is currently in sinus rhythm and rate controlled. I discussed anticoagulation with her community health director. To the best of our knowledge she has only had one episode of atrial fibrillation and she is currently in sinus rhythm. Her INR became supratherapeutic very fast because of her end-stage renal disease. This will be difficult to manage. She now has a bleeding complication (spontaneous rectus hematoma). Nephrology's recommendation was to move forward without anticoagulation at this time. For the reasons above I agree with this. RC met succ 50 (first dose 11/14) 11/12/19 TSH 5.3 favor VKA base dose 1-1.5 QD ( favor low dose 2 CKD and long-standing heavy EthOH use-ALD) 11/20 4.3 0 11/19 5.0 0, + vit K 5 po 11/18 5.6 0 11/17 3.1 0 11/16 1.5 2.5 11/15 1.1 10 11/14 1.1 5 11/15 TTE Jann: CONCLUSIONS: 1. Study is of acceptable technical quality, the patient is in sinus rhythm. 2. Normal LV size and systolic function. Normal diastolic function. 3. No hemodynamically significant valvular disease, only mild aortic stenosis and mitral insufficiency are present. 4. Likely normal central venous pressure. 5. Unable to reliably estimate pulmonary artery pressure. COMMENT: Subacute bacterial endocarditis (SBE) prophylaxis is not recommended. DD: Gianluca Forte MD 11/16/19 235 (4) Hematoma of rectus sheath Status: Acute Response to Treatment: Improving Problem Text: favor 2 SC heparin/super therapeutic INR 11/18 CT AP: Large left rectus sheath hematoma. 9.5 x 4.3 x 19.8 cm. (5) PUD (peptic ulcer disease) Permanent Comment: 11/03/19 EGD medium HH, non-bleeding cratered 10 mm gastric ulcer-benign bx-Namita Last Edited By: Rick Rocha MD on Nov 16, 2019 16:21 Status: Acute Response to Treatment: Stable Problem Text: panto 40 BID until at least 01/03/20 (i.e. 8W p EGD revealing peptic ulcer) (favor until repeat EGD) per Namita (6) Bradycardia Problem Text: HR 50s on met succ as per AF (7) HTN (hypertension) Status: Chronic Response to Treatment: Stable Problem Text: HD amlo 2.5 stable on met succ only as per AF (8) Physical deconditioning Status: Chronic Problem Text: 11/17 PT safe to dc home (9) Thrombocytopenia Status: Resolved Response to Treatment: Stable Plan/VTE VTE Prophylaxis Ordered?: Yes (heparin through dialysis) Plan Diagnostics: Repeat Labs in AM Anticipated Discharge: Home (perhaps by 11/25 or 11/26) Advance Directives: DNR (clarified this and finished her MOLST form today) VS, I&O, 24H, [place] Vital Signs/I&O Vital Signs Date Time Temp Pulse Resp B/P (MAP) Pulse Ox O2 Delivery O2 Flow Rate FiO2 11/24/19 13:05 96.4 61 18 151/68 100 Room Air 11/23/19 17:00 2 I&O- Last 24 Hours up to 6 AM 11/24/19 06:00 Intake Total 720 ml Output Total 725 ml Balance -5 ml Laboratory Data 24H LABS Laboratory Tests 2 11/24/19 04:39: Nucleated Red Blood Cells % (auto) 0.0, Anion Gap 8, Glomerular Filtration Rate 10.8L, Calcium Level 9.2, Magnesium Level 1.5L, Total Bilirubin 0.8, Aspartate Amino Transf (AST/SGOT) 111H, Alanine Aminotransferase (ALT/SGPT) 83H, Alkaline Phosphatase 160H, Total Protein 6.8, Albumin 2.2L, Albumin/Globulin Ratio 0.48L CBC/BMP Laboratory Tests 11/24/19 04:39 Microbiology Microbiology 3/22/20 Stool Occult Blood (BJORN) - Final, Complete Shekhar Valle MD Nov 24, 2019 15:40
[2019-11-24] MEDS: MAG SULF 1GM/100ML (MAG RUN) 1 GM in IV 1 EA IV SCH ×2 (18:19→19:17)
[2019-11-24] MEDS: ACETAMINOPHEN TAB 650MG DOSE (2X325MG) PO PRN (19:18)
[2019-11-25] VITALS (7 sets, daily range): BP systolic 120–139; BP diastolic 62–81
[2019-11-25 04:57] LABS: HEMATOCRIT 29.3 % (36.0-47.0); HEMOGLOBIN 9.3 g/dl (12.0-15.5); MEAN CORPUSCULAR HEMOGLOBIN 29.5 pg (27.0-33.0); MEAN CORPUSCULAR HGB CONC 31.7 g/dl (32.0-36.5); PLATELET COUNT, AUTOMATED 313 10^3/uL (150-450); RED BLOOD COUNT 3.15 10^6/uL (4.00-5.40); WHITE BLOOD COUNT 6.5 10^3/uL (4.0-10.0)
[2019-11-25 05:19] LABS: ALBUMIN 2.2 GM/DL (3.2-5.2); BILIRUBIN,TOTAL 0.8 MG/DL (0.2-1.0); CALCIUM LEVEL 9.4 MG/DL (8.8-10.2); CREATININE FOR GFR 3.19 MG/DL (0.55-1.30); GLOMERULAR FILTRATION RATE 15.3 (>39); MAGNESIUM LEVEL 2.3 MG/DL (1.8-2.4); POTASSIUM SERUM 4.1 MEQ/L (3.5-5.1)
[2019-11-25] MEDS: SLF 3 ML SYR IV SCH ×3 (06:03→21:03)
[2019-11-25] MEDS: METOPROLOL SUCC (TopROL XL) 50MG **XL** TAB PO SCH (09:04)
[2019-11-25] MEDS: FOLIC ACID 1 MG TAB PO SCH (09:04)
[2019-11-25] MEDS: PANTOPRAZOLE 40MG TAB (PROTONIX) PO SCH ×2 (09:04→21:03)
[2019-11-25] MEDS ORDERED: HEPARIN 1,000 UNITS/ML 10ML VIAL (FOR RADIOLOGY& DIALYSIS ONLY)(J1644-10) XX ONE (10:15)
--- NOTE | 2019-11-25 11:09 | REP ---
Clinical: End-stage renal disease. Technique: PA and lateral. Comparison: 08/20/2019. Findings: Double-lumen dialysis catheter with tips in the SVC/right atrium. Mediastinum and cardiac silhouette are stable. Lung ceballos are clear without acute consolidation, effusion, or pneumothorax. Skeletal structures intact. Impression: 1. Double lumen dialysis catheter in satisfactory position. 2. No obvious acute consolidation or effusion. Electronically Signed by Keyur Preciado MD 11/25/2019 11:01 A
--- NOTE | 2019-11-25 11:15 | IPN ---
DATE OF SERVICE: 11/25/2019 SUBJECTIVE: The patient was seen and examined at the bedside today morning. She is afebrile, hemodynamically stable. She was dialyzed yesterday for the first time. She tolerated the hemodialysis procedure well. She also got the blood transfusion. Hemoglobin level has nicely improved today. She denies any active complaints, and she is going to have another dialysis done today afternoon. OBJECTIVE: Vital Signs: Temperature is 96.5 degrees Fahrenheit, blood pressure 139/76, pulse 63, respiratory rate of 20, saturating 99% on room air. Intake and Output: Urine output recorded is 400 mL since overnight and during dialysis only 100 mL of fluid was removed. Weight in the bed scale today is recorded wrong and it 96 kg, and there is a 40 kg difference between yesterday and today that needs to be corrected. PHYSICAL EXAMINATION: General: The patient is awake, alert, oriented times three, laying in bed, in no apparent distress. Head and Neck Exam: Extraocular muscles intact. Pupils equally round and reactive to light. Mucous membranes are moist. Neck is supple. There is no jugular venous distention (JVD). She has a right internal jugular (IJ) tunneled hemodialysis catheter. Cardiovascular: S1, S2, regular rate. No edema of the bilateral lower extremities. Respiratory: Chest is clear to auscultation bilaterally. Bilateral equal air entry. No rales or rhonchi. Abdomen is soft, positive bowel sounds, nontender. No organomegaly. Musculoskeletal: No clubbing or cyanosis. Pulses are 2+. Central Nervous System (INDUSTRIAL TRACTOR DRIVER): No focal deficit. Power is 5/5 in all extremities. LAB REVIEW: CBC showed WBC 6.5, hemoglobin 9.3, platelets of 313. BMP showed sodium 141, potassium 4.1, chloride 112, bicarbonate 23, BUN 39, creatinine 3.1, AST 84, ALT 63 alkaline phosphatase is 174. CURRENT INPATIENT MEDICATIONS: The patient's medications were all reviewed by myself. There is no change in the medications today as compared with yesterday. ASSESSMENT AND PLAN: 1. End-stage renal disease. The patient was dialyzed for the first time yesterday. She will be dialyzed again for 3 hours today. Minimal ultrafiltration will be done. 2. Recurrent anemia. The patient got 1 unit of packed red blood cells (PRBC) transfusion yesterday. Hemoglobin has nicely improved to more than 9. Continue Aranesp with dialysis. Iron levels are okay. 3. Atrial fibrillation. Heart rate controlled on metoprolol. She is not a candidate for anticoagulation at this time. 4. Elevated liver enzymes. AST, ALT, and alkaline phosphatase is improving. Lipitor has been stopped now. DISPOSITION: The patient needs outpatient dialysis placement at the [facility] and she would also need transportation from her home because she does not drive herself anymore.
--- NOTE | 2019-11-25 12:41 | IPNPDOC ---
Date Seen The patient was seen on 11/25/19. Progress Note SUBJECTIVE: Tolerated first HD session well on 11/24/19, H/H stable s/p transfusions this hospitalization. To go for second HD treatment today. Denies chest pain, shortness of breath, n/v/d. OBJECTIVE: VITAL SIGNS: Please see below PHYSICAL EXAMINATION: CONSTITUTIONAL: No acute distress, resting comfortably, AAO x 3 EYES: PERRLA, EOM intact HENT, MOUTH: Normocephalic, atraumatic, moist mucous membranes NECK: SUPPLE, no JVD, no lymphadenopathy, no carotid bruit CHEST: Right upper chest vas catheter in place CV: Regular rate and rhythm, S1S2 normal, no murmurs/rubs/gallops RESPIRATORY: Clear to auscultation bilaterally, no rales/rhonchi/wheezes GI: hardened area of abdomen, not new. Otherwise soft, BS positive in 4 quadrants, soft, nontender, nondistended, no rebound or guarding, no organomegaly : Deferred MUSCULOSKELETAL: Normal ROM. No cyanosis, clubbing, swelling, joint deformity, extremity edema INTEGUMENTARY: Intact, no rashes, no lesions, no erythema NEUROLOGIC: Cranial Nerves II-XII are intact, no focal deficits PSYCHIATRIC: Mood and affect are normal CURRENT MEDICATIONS: Please see below LABORATORY DATA: Please see below IMAGING: no new imaging ASSESSMENT: 69 y/o F being treated for ESRD with newly initiated HD, transfusion-dependent anemia. PLAN: 1. End-stage renal disease (ESRD). Will be dialyzed again for 3 hours with minimal ultrafiltration. The patient needs outpatient dialysis placement at the [facility] and she would also need transportation from her home because she does not drive herself anymore as per nephrology. Will f/u further recommendations on next HD session. F/u labs daily. 2. Transfusion-dependent anemia. S/p several PRBC (11/20, 11/21) transfusions this admission. H/H stable at 9.11/28. Nephrology will continue Aranesp with dialysis. Monitor CBC, no signs of acute bleeding. 3. Elevated liver enzymes. AST, ALT, and alkaline phosphatase is improving. Holding lipitor. 4. Atrial fibrillation. Echo done 11/16/19. Currently stable, rate controlled on metoprolol. Not on oral anticoagulation. 5. Hematoma of rectus sheath, improving. 6. PUD. Stable. PPI BID. 7. HTN. Stable. C/w current medications. 8. Physical deconditioning, chronic. PT says safe to d/c home when medically improved. 9. DVT Px. Heparin. DISPOSITION: Currently inpatient status. Plan is discharge home with services set up for her to attend HD regularly when medically improved. VS, I&O, 24H, Fishbone Vital Signs/I&O Vital Signs Date Time Temp Pulse Resp B/P (MAP) Pulse Ox O2 Delivery O2 Flow Rate FiO2 11/25/19 08:00 96.5 63 20 139/76 (97) 99 Room Air 11/23/19 17:00 2 I&O- Last 24 Hours up to 6 AM 11/25/19 06:00 Intake Total 760 ml Output Total 1400 ml Balance -640 ml Laboratory Data 24H LABS Laboratory Tests 2 11/25/19 04:39: Nucleated Red Blood Cells % (auto) 0.0, Anion Gap 6L, Glomerular Filtration Rate 15.3L, Calcium Level 9.4, Magnesium Level 2.3, Total Bilirubin 0.8, Aspartate Amino Transf (AST/SGOT) 84H, Alanine Aminotransferase (ALT/SGPT) 63, Alkaline Phosphatase 174H, Total Protein 7.0, Albumin 2.2L, Albumin/Globulin Ratio 0.46L CBC/BMP Laboratory Tests 11/25/19 04:39 Microbiology Microbiology 11/22/19 Stool Occult Blood (BJORN) - Final, Complete Britney Boone MD Nov 25, 2019 12:41
[2019-11-25] MEDS: ACETAMINOPHEN TAB 650MG DOSE (2X325MG) PO PRN (18:46)
[2019-11-26 04:00] VITALS: BP 143/73
[2019-11-26 05:55] LABS: HEMATOCRIT 31.5 % (36.0-47.0); HEMOGLOBIN 10.2 g/dl (12.0-15.5); MEAN CORPUSCULAR HEMOGLOBIN 29.9 pg (27.0-33.0); MEAN CORPUSCULAR HGB CONC 32.4 g/dl (32.0-36.5); MEAN CORPUSCULAR VOLUME 92.4 fl (80.0-96.0); PLATELET COUNT, AUTOMATED 326 10^3/uL (150-450); RED BLOOD COUNT 3.41 10^6/uL (4.00-5.40); WHITE BLOOD COUNT 6.5 10^3/uL (4.0-10.0)
[2019-11-26] MEDS: SLF 3 ML SYR IV SCH ×2 (06:12→14:00)
[2019-11-26 06:26] LABS: ALBUMIN 2.5 GM/DL (3.2-5.2); CALCIUM LEVEL 9.6 MG/DL (8.8-10.2); CREATININE FOR GFR 2.53 MG/DL (0.55-1.30); POTASSIUM SERUM 3.8 MEQ/L (3.5-5.1); TOTAL PROTEIN 6.7 GM/DL (6.4-8.2)
[2019-11-26 08:00] VITALS: BP 125/66
[2019-11-26] MEDS: FOLIC ACID 1 MG TAB PO SCH (08:55)
[2019-11-26] MEDS: PANTOPRAZOLE 40MG TAB (PROTONIX) PO SCH (08:55)
[2019-11-26 08:56] VITALS: BP 125/66
[2019-11-26] MEDS: METOPROLOL SUCC (TopROL XL) 50MG **XL** TAB PO SCH (08:56)
--- NOTE | 2019-11-26 11:33 | DS.PDOC ---
Discharge Summary General Date of Admission Nov 12, 2019 at 20:20 Date of Discharge 11/26/19 Primary Care Physician: Hank Ordoñez MD Attending Physician: Britney Boone MD Specialist/Consultants Involve: ITA SCHROEDER MD Discharge Summary HISTORY OF PRESENT ILLNESS: This is a 69-year-old female with past medical history of CKD stage IV, transfusion dependent anemia, HLD, HTN, HUS who came to the hospital for evaluation of lower extremity weakness, slow speech and difficulties collecting her thoughts; the patient's boss called her daughter and told her that her mother was acting abnormally, therefore, the daughter brought her mother to the hospital. They were concerned that she may need a blood transfusion because she had similar symptoms when she was last admitted for evaluation of bicytopenia. She recently saw Dr. 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 Prior to admission the patient had a kidney biopsy to r/o microangiopathy; according to the patient's daughter but the sample was sent to [facility] for analysis but the results were unrevealing. HOSPITAL COURSE: During the patient's inpatient admission she had positive occult blood, anemia was believed to be mostly transfusion related. Hasn't has a history of old upper GI bleed with PUD; however, the patient had no acute bleeding, remained hemodynamically stable. Due to worsening creatinine, nephrology was consulted. She was started on hemodialysis and a Vas-Cath was placed in the right upper chest. She tolerated several hemodialysis sessions well. She was transfused 2 units of blood and H&H has remained stable since. Creatinine is improving since being on dialysis and the patient feels overall better. We have been watching her liver enzymes closely but these have also have improved. The patient is e ncouraged to follow-up with both her primary care provider and nephrology after discharge. At the time of discharge the patient denied chest pain, shortness of breath, nausea, vomiting, fever or chills. REVIEW OF SYSTEMS: CONSTITUTIONAL: Denies lack of energy, unexplained weight gain or weight loss, loss of appetite, fever, night sweats EYES: Denies eye drainage, eye pain, visual changes, dry/irritated eye EARS, NOSE, MOUTH, THROAT: Denies difficulty hearing, ringing in ears, mouth sores, loose teeth, sore throat, facial numbness or pain NECK: Denies swollen glands CARDIOVASCULAR: Denies irregular heartbeat, racing heart, chest pains, swelling of feet or legs, pain in legs with walking RESPIRATORY: Denies shortness of breath, night sweats, wheezing, sputum production, oxygen at home, coughing up blood, cough lasting > 1 month GASTROINTESTINAL: Denies abdominal pain, constipation, bloody stool, diarrhea, heartburn, nausea, vomiting GENITOURINARY: Denies painful urination, bloody urine, frequent urination, urgency, leaking urine, impotence MUSCULOSKELETAL: Denies joint pain, muscle pain, leg swelling INTEGUMENTARY: Denies rash, itching, new skin lesion, change in existing skin l esion, hair loss or increase, breast changes. NEUROLOGICAL: Denies headaches, dizziness, difficulty walking, numbness or tingling PSYCHIATRIC: Denies depression, anxiety, recurrent bad thoughts, mood swings, hallucinations PAST MEDICAL HISTORY: CKD 4 Atypical complement HUS? Transfusion dependent anemia History of upper GI bleed, w/ non-bleeding gastric ulcer & neg H. pylori bx Hyperlipidemia GERD Chronic Hypertension SOCIAL HISTORY: and lives by herself. Works part-time at [employer] in [place], [place] Drank approximately 4 glasses of wine per day for 15 years up until July 2019 Smoked cigarettes for one year in the 1959 Remote hx of intermittent marijuana use in the 1960s FAMILY HISTORY: Unspecified heart disease (Father) Hypertension (mother) ALLERGIES: Please see below. DISCHARGE MEDICATIONS: Please see below. PHYSICAL EXAMINATION: CONSTITUTIONAL: No acute distress, resting comfortably, AAO x 3 EYES: PERRLA, EOM intact HENT, MOUTH: Normocephalic, atraumatic, moist mucous membranes NECK: SUPPLE, no JVD, no lymphadenopathy, no carotid bruit CHEST: Right upper chest vas catheter in place CV: Regular rate and rhythm, S1S2 normal, no murmurs/rubs/gallops RESPIRATORY: Clear to auscultation bilaterally, no rales/rhonchi/wheezes GI: hardened area of abdomen, not new. Otherwise soft, BS positive in 4 quadrants, soft, nontender, nondistended, no rebound or guarding, no organomegaly : Deferred MUSCULOSKELETAL: Normal ROM. No cyanosis, clubbing, swelling, joint deformity, extremity edema INTEGUMENTARY: Intact, no rashes, no lesions, no erythema NEUROLOGIC: Cranial Nerves II-XII are intact, no focal deficits PSYCHIATRIC: Mood and affect are normal CURRENT MEDICATIONS: Please see below LABORATORY DATA: Please see below IMAGING: Please see EMR ASSESSMENT: 69 y/o F being treated for ESRD with newly initiated HD, anemia discharging today. PLAN: 1. End-stage renal disease (ESRD). Received several hemodialysis sessions while inpatient, tolerated well. Set up with local hemodialysis clinic with transportation arranged. C/w outpatient epoetin, close f/u with nephrology office. 2. Anemia, likely multifactorial. Transfusion-dependent anemia, occult blood +. S/p several PRBC (11/20, 11/21) transfusions this admission. H/H stable. Low suspicion for acute GI bleed (has hx of old upper GI bleed, no louis red blood, remained hemodynamically stable). C/w epoetin, recommend o/p EGD/colonoscopy. Monitor CBC, no signs of acute bleeding. 3. Elevated liver enzymes. AST, ALT, and alkaline phosphatase is improving. Recommend follow up labs by PCP to monitor closely. 4. Atrial fibrillation. Echo done 11/16/19. Currently stable, rate controlled on metoprolol. Not on oral anticoagulation. 5. Hematoma of rectus sheath, improving. 6. PUD. Stable. PPI BID. 7. HTN. Stable. C/w current medications. 8. Physical deconditioning, chronic. PT says safe to d/c home when medically improved. . DISPOSITION: Discharging home today in improved condition. Hemodialysis set up with transportation, f/u with PCP and nephrology. TIME SPENT ON DISCHARGE: Greater than 30 minutes. Vital Signs/I&Os Vital Signs Date Time Temp Pulse Resp B/P (MAP) Pulse Ox O2 Delivery O2 Flow Rate FiO2 11/26/19 08:56 69 125/66 11/26/19 08:00 97.7 18 96 Room Air 11/23/19 17:00 2 I&O- Last 24 Hours up to 6 AM 11/26/19 06:00 Intake Total 420 ml Output Total 1500 ml Balance -1080 ml Laboratory Data Labs 24H Laboratory Tests 2 11/26/19 05:24: Nucleated Red Blood Cells % (auto) 0.0, Anion Gap 7L, Glomerular Filtration Rate 20.0L, Calcium Level 9.6, Total Bilirubin 1.0, Aspartate Amino Transf (AST/SGOT) 58H, Alanine Aminotransferase (ALT/SGPT) 49, Alkaline Phosphatase 176H, Total Protein 6.7, Albumin 2.5L, Albumin/Globulin Ratio 0.60L CBC/BMP Laboratory Tests 11/26/19 05:24 Microbiology Microbiology 11/22/19 Stool Occult Blood (BJORN) - Final, Complete Discharge Medications Scheduled Amlodipine Besylate (Amlodipine Besylate) 2.5 Mg Tablet, 2.5 MG PO DAILY, (Reported) Atorvastatin Calcium (Atorvastatin Calcium) 20 Mg Tablet, 20 MG PO QHS, (Repo rted) Epoetin Armin (Epogen) 2,000 Unit/1 Ml Vial, 2,000 UNIT INJ QMONTH, (Reported) DUE 11/17/2019 Folic Acid (Folic Acid) 1 Mg Tablet, 1 MG PO DAILY, (Reported) Magnesium Oxide (Magnesium Oxide) 400 Mg Tablet, 400 MG PO BID, (Reported) Multivitamins (Thera M Plus Tablet) 1 Each Tablet, 1 TAB PO QHS, (Reported) Pantoprazole Sodium (Pantoprazole Sodium) 40 Mg Tablet.dr, 40 MG PO QHS, (Reported) Vit B1 Mn/B2/B3/B5/B6/B12/C/FA (B Complex with Vitamin C Tab) 1 Each Tablet, 1 TAB PO DAILY, (Reported) Allergies Coded Allergies: bee venom protein (honey bee) (Verified Allergy, Unknown, 07/09/19) Britney Boone MD Nov 26, 2019 11:33
--- NOTE | 2019-11-26 11:58 | IPN ---
DATE OF SERVICE: 11/26/2019 SUBJECTIVE: The patient was seen and examined at the bedside today morning. She is afebrile and hemodynamically stable. She was dialyzed yesterday. She tolerated the hemodialysis procedure well, 500 mL of fluid was removed. Hemoglobin level is also improving. It is up to 10.2. She denies any active complaints. She just reported that she was lethargic and sleepy after dialysis yesterday and she slept throughout the night. OBJECTIVE: VITAL SIGNS: Temperature is 97.7 degrees Fahrenheit, blood pressure 125/66, pulse is 69, respiratory rate of 18, saturating 96% on room air. INTAKE AND OUTPUT: Urine output recorded is 300 mL. Ultrafiltration with dialysis was 500 mL. Weight on the bed scale is 53.1 kg. PHYSICAL EXAMINATION: GENERAL: The patient is awake, alert, oriented x3, laying in bed. No apparent distress. HEAD AND NECK EXAM: Extraocular muscles intact. Pupils are equally round and reactive to light. Mucous membranes are moist. NECK: Supple. She has a right IJ tunneled hemodialysis catheter. CARDIOVASCULAR: S1, S2 regular rate. No edema of the bilateral lower extremities. RESPIRATORY: Chest is clear to auscultation bilaterally. Bilateral equal air entry. No rales or rhonchi. ABDOMEN: Soft, positive bowel sounds. Nontender. No organomegaly. MUSCULOSKELETAL: No clubbing or cyanosis. Pulses are 2+. 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 Power is 5/5 in all extremities. LABORATORY REVIEW: CBC showed WBC 6.5, hemoglobin 10.2, platelets 326. BMP showed sodium 139, potassium 3.8, chloride 103, bicarb 29, BUN 24, creatinine is 2.5, AST 58, ALT 49, alkaline phosphatase is 176, albumin is 2.5. CURRENT INPATIENT MEDICATIONS: The patient's medications were all reviewed by myself. There is no change in the medications today as compared with yesterday. ASSESSMENT/PLAN: 1. End-stage renal disease. The patient was dialyzed for two days in a row. Her volume status is optimal and electrolytes are within the acceptable range. Next dialysis will be done tomorrow. 2. Recurrent anemia. The patient is status post 3 units of PRBC transfusion during this hospitalization. She has been started on Aranesp with dialysis. Her last blood transfusion was two days ago, hemoglobin level is improving, which is reassuring. 3. Elevated liver enzymes. Hepatotoxic medications were held. AST, ALT levels are improving now. 4. Hypertension. Blood pressure is controlled with the current dose of metoprolol. Heart rate is also within the acceptable range. DISPOSITION: The patient is optimized from nephrology standpoint to be discharged home. She will be followed up as outpatient in the dialysis center and she needs to followup within 2 weeks after discharge from the hospital.
[2019-11-26 12:00] VITALS: BP 132/76
== END 2019-11-26 17:47 | disposition home health service (06) | DRG 640 ==
LOC: M ED 17:04 → M ED INP 20:20 → ENRESERV 21:48 → M PCU 22:45
PROVIDERS: ADMIT Internal Medicine; ATTEND Internal Medicine
PROC: 30233N1 Transfusion of Nonautologous Red Blood Cells into Peripheral Vein, Percutaneous Approach (ICD-10-PCS; principal; 2019-11-16)
PROC: 02HV33Z Insertion of Infusion Device into Superior Vena Cava, Percutaneous Approach (ICD-10-PCS; 2019-11-23)
PROC: 0JH63XZ Insertion of Tunneled Vascular Access Device into Chest Subcutaneous Tissue and Fascia, Percutaneous Approach (ICD-10-PCS; 2019-11-23)
PROC: 5A1D70Z Performance of Urinary Filtration, Intermittent, Less than 6 Hours Per Day (ICD-10-PCS; 2019-11-24)
DX: E87.5 Hyperkalemia (principal); D59.3 Hemolytic-uremic syndrome; N18.6 End stage renal disease; G93.40 Encephalopathy, unspecified; N17.9 Acute kidney failure, unspecified; I12.0 Hypertensive chronic kidney disease with stage 5 chronic kidney disease or end stage renal disease; E46 Unspecified protein-calorie malnutrition; E16.2 Hypoglycemia, unspecified; I48.91 Unspecified atrial fibrillation; E87.2 Acidosis; M79.81 Nontraumatic hematoma of soft tissue; R79.1 Abnormal coagulation profile; E78.5 Hyperlipidemia, unspecified; K21.9 Gastro-esophageal reflux disease without esophagitis; K27.9 Peptic ulcer, site unspecified, unspecified as acute or chronic, without hemorrhage or perforation; Z79.899 Other long term (current) drug therapy; D69.6 Thrombocytopenia, unspecified; R00.1 Bradycardia, unspecified; D63.1 Anemia in chronic kidney disease; E87.1 Hypo-osmolality and hyponatremia

== ENCOUNTER → 2019-12-03 | Outpatient (REF) | payer MEDICARE ==
[~2019-12-03] MED LIST changes: +AMLO2.5T3 PO; +EPOG2000 INJ; +MAGN400T3 PO
[2019-12-03 16:39] LABS: ALBUMIN 3.1 GM/DL (3.2-5.2); BILIRUBIN,DIRECT 0.3 MG/DL (0.0-0.2); BILIRUBIN,TOTAL 0.8 MG/DL (0.2-1.0); TOTAL PROTEIN 7.7 GM/DL (6.4-8.2)
== END ==
LOC: M SFHCCLAY 11:58
PROVIDERS: ATTEND Family Medicine
DX: R94.5 Abnormal results of liver function studies (principal)

== ENCOUNTER → 2020-01-11 | Outpatient (REF) | payer MEDICARE ==
[~2020-01-11] MED LIST changes: +OXYC1TAB23 PO
== END ==
LOC: M SFHCCLAY 11:55
PROVIDERS: ATTEND Family Medicine
DX: Z01.818 Encounter for other preprocedural examination (principal); Z11.59 Encounter for screening for other viral diseases

== ENCOUNTER 2020-01-14 09:37 | Day surgery (SDC) | payer MEDICARE ==
[~2020-01-14] VITALS: Ht 154.9 cm; Wt 53.5 kg
[~2020-01-14 09:37] MED LIST changes: +LIDOCAINE 1% MDV 20ML VIAL SQ PRN; +NS 1,000 ML IV ONE; +NS 500 ML IV ONE; -OXYC1TAB23 PO; +ceFAZolin SOD 2 GM in IV 1 EA IV ONE
[2020-01-14] MEDS ORDERED: LIDOCAINE 1% SDV 30ML VIAL As Ordered ONE (11:46)
[2020-01-14] MEDS ORDERED: HEPARIN SOD (PORCINE) 5000UNITS/ML VIAL (J1644 PER 1000UNITS) As Ordered ONE (11:46)
[2020-01-14] MEDS ORDERED: ISOVUE-300 61% 50ML VIAL As Ordered ONE (11:46)
[2020-01-14] MEDS ORDERED: LIDOCAINE 2% 100MG/5ML SDV (FOR ANES.) As Ordered ONE (12:06)
[2020-01-14] MEDS ORDERED: fentaNYL 100 MCG/2 ML INJECTION (J3010) As Ordered ONE (12:06)
[2020-01-14] MEDS ORDERED: ONDANSETRON 4MG/2ML VIAL As Ordered ONE (12:06)
[2020-01-14] MEDS ORDERED: propofoL 200 MG/20 ML VIAL As Ordered ONE (12:06)
[2020-01-14] MEDS ORDERED: MIDAZOLAM INJ 2MG/2ML VIAL (J2250 PER 1MG) As Ordered ONE (12:06)
[2020-01-14] MEDS ORDERED: dexameTHASONE 4 MG/ML 1ML VIAL (J1100 PER 1MG) As Ordered ONE (12:06)
[2020-01-14] MEDS ORDERED: BUPIVACAINE/EPIN 0.5% 30 ML VIAL As Ordered ONE (12:35)
[2020-01-14] MEDS ORDERED: ACETAMINOPHEN 1000MG 100ML IV BTL (OFIRMEV) (J0131 PER 10MG) As Ordered ONE (12:44)
[2020-01-14] MEDS ORDERED: ePHEDrine SULFATE 25 MG/5 ML(5MG/ML) SYRINGE As Ordered ONE (12:53)
[2020-01-14] MEDS ORDERED: PHENYLephrine HCL 500 MCG/5 ML (100MCG/ML) SYRINGE (J2370) As Ordered ONE ×2 (12:53→13:37)
[2020-01-14] MEDS ORDERED: OXYC1TAB23 PO (14:02)
--- NOTE | 2020-01-14 14:10 | ROOPDOC ---
[facility] Report Of Operation Report of Operation DATE OF PROCEDURE: 01/14/20 PREPROCEDURE DIAGNOSES: End-stage renal disease requiring access for dialysis POSTPROCEDURE DIAGNOSES: Same PROCEDURE: Right brachiocephalic AV fistula creation SURGEON: Kamlesh Lemos MD ANESTHESIA: Gen. anesthesia and local anesthesia INDICATION FOR PROCEDURE: This is a very pleasant 69-year-old patient with end- stage renal disease currently dialyzing with a right IJ PermCath. Risks benefits and alternatives to a right brachiocephalic AV fistula creation were explained to the patient she was agreeable to proceed. Informed consent was obtained. REPORT OF OPERATION: The patient was brought to the OR in stable condition. Anesthesia and antibiotics were administered without complication. Her right upper extremity was prepped and draped in a sterile fashion. A timeout was performed. Local anesthesia was administered to the skin and subcutaneous tissue just distal to the antecubital crease on the right arm. A transverse incision was made and carried down to the subcutaneous tissue with Bovie cautery. Bridging veins were suture ligated and divided. We identified the basilic vein and the cephalic vein. The cephalic vein was skeletonized proximally and distally within the incision. Distal branches were suture ligated and divided. Able to clamp was placed on the vein. We then flushed with heparinized saline and past sequential dilators through the vein. 3 mm, 3.5 mm, 4 mm passed easily through the fistula. We then flushed with heparinized saline again and replace the bulldog clamp. Next, we continued her dissection down to the brachial artery which was skeletonized proximally and distally within the incision. Vesseloops were placed in a small branch was clipped. We then secured the Vesseloops and a 5 mm arteriotomy was made and the vein was anastomosed to the artery and an end-to-side fashion with 6-0 Prolene suture. Before the final sutures were placed, we flushed the inflow and outflow of the artery and the vein and irrigated with heparinized saline. We placed the final sutures and good hemostasis was noted upon restoring flow through the fistula in the inflow artery. We then restored blow to the hand. After securing the suture, we auscultated the fistula and slow to the hand with Doppler. There was excellent flow through the fistula and distally through the brachial artery. There was a triphasic signal at the palmar arch with and without compression of the fistula. The hand was warm pink and well perfused with a palpable radial artery pulse. We irrigated the incision was copiously amounts of saline. The deep tissues were approximated with interrupted 2-0 Vicryl suture. The dermal layer was approximated with 4-0 Vicryl suture in running fashion. The skin was closed with running 4-0 subcuticular Monocryl suture. Steri-Strips and Mastisol were placed the length of the wound and were covered with a 4 x 4 and Tegaderm. The patient was then allowed to awaken from anesthesia was taken to recovery in stable condition. She tolerated the anesthesia and the procedure well. ESTIMATED BLOOD LOSS: Approximately 20 mL. COMPLICATIONS: None PLAN: Okay to resume home diet medications. Prescription for Percocet placed to [facility] in [place]. Okay to remove Tegaderm and gauze in 24-48 hours. The Steri- Strips intact 5-7 days to help with incision healing. Okay for shower, no tub baths or swimming [address] while taking narcotics. No lifting greater than 5 pounds or strenuous exercise for 1 week or until incision is co mpletely healed. Return to clinic in a week to check incision and fistula thrill. Continue to use squeeze ball to help fistula maturation. We appreciate the opportunity to participate in the care of this patient. KAMLESH LEMOS MD January 14, 2020 14:10
[2020-01-14] MEDS ORDERED: ONDANSETRON 4MG/2ML VIAL IV PRN (14:15)
[2020-01-14] MEDS ORDERED: fentaNYL 100 MCG/2 ML INJECTION (J3010) IV PRN (14:15)
[2020-01-14] MEDS ORDERED: oxyCODONE 5MG TAB PO PRN (14:15)
[2020-01-14] MEDS ORDERED: LR 1,000 ML IV SCH (14:15)
[2020-01-14 15:40] VITALS: BP 101/59
== END 2020-01-14 16:15 | disposition home or self-care (01) ==
LOC: M SDC 09:37
PROVIDERS: ATTEND Surgery Vascular Surgery
DX: N18.6 End stage renal disease (principal); I12.0 Hypertensive chronic kidney disease with stage 5 chronic kidney disease or end stage renal disease; E78.2 Mixed hyperlipidemia; K21.9 Gastro-esophageal reflux disease without esophagitis; R27.0 Ataxia, unspecified; Z78.0 Asymptomatic menopausal state; Z86.2 Personal history of diseases of the blood and blood-forming organs and certain disorders involving the immune mechanism; Z87.11 Personal history of peptic ulcer disease; Z87.891 Personal history of nicotine dependence; Z91.030 Bee allergy status; Z98.51 Tubal ligation status; Z99.2 Dependence on renal dialysis
CPT/HCPCS: 36415; 36821; 84132; J0131; J1100; J1644; J2250; J2370; J2405; J3010

== ENCOUNTER → 2020-03-08 | Outpatient (CLI) | payer MEDICARE ==
[~2020-03-08] MED LIST changes: +ISOVUE-300 61% 50ML VIAL As Ordered ONE; +LIDOCAINE 1% MDV 20ML VIAL As Ordered ONE; -LIDOCAINE 1% MDV 20ML VIAL SQ PRN; +MIDAZOLAM INJ 2MG/2ML VIAL (J2250 PER 1MG) As Ordered ONE; -NS 1,000 ML IV ONE; -NS 500 ML IV ONE; +OXYC1TAB23 PO; +RENA1TAB3 PO; -ceFAZolin SOD 2 GM in IV 1 EA IV ONE; +fentaNYL 100 MCG/2 ML INJECTION (J3010) As Ordered ONE
--- NOTE | 2020-03-08 14:38 | ROOPDOC ---
[facility] Report Of Operation Report of Operation DATE OF PROCEDURE: 03/08/20 PREPROCEDURE DIAGNOSES: End-stage renal disease with poor maturation right upper extremity brachiocephalic AV fistula POSTPROCEDURE DIAGNOSES: Same PROCEDURE: 1. Ultrasound examination of right AV anastomosis and ultrasound-guided access right cephalic vein antegrade and retrograde 2. Right upper extremity fistulogram and central venogram 3. Successful coiling of the large retrograde branch of the cephalic vein proximal to the AV anastomosis with a 4 x 3 and 5 x 3 tornado coil from a retrograde access 4. Angioplasty of the cephalic vein and subclavian vein with a 7 x 200 [place] balloon and an 8 x 100 [place] balloon from an antegrade access 5. Completion venogram SURGEON: Kamlesh Lemos MD ANESTHESIA: Local anesthesia for cc lidocaine. Moderate intravenous conscious sedation was administered by Dr. Lemos. The patient was independently monitored by registered nurse assigned to the Department of radiology using automated blood pressure, EKG, and pulse oximetry. The details sedation record is permanently stored in the hospital information system. The following is the presedation record: Start time 13:13, stop time 14:03, Versed 1 mg IV, fentanyl 50 g IV. INDICATION FOR PROCEDURE: This a very pleasant 69-year-old patient with end- stage renal disease currently dialyzing with a right IJ PermCath, and has had slow maturation of her right brachiocephalic AV fistula. She does have a good thrill, but it is somewhat diminished over the biceps and a bit pulsatile more proximally. On ultrasound examination in the office the patient had a large retrograde branch proximal to the AV anastomosis, as well as some stenoses over the biceps in the cephalic vein. We also suspect she may have central veins stenosis as well. Risks benefits and alternatives to a fistulogram potential intervention were explained to the patient and she was agreeable to proceed. I discussed with her that likely we would quell the retrograde branch near the AV anastomosis to improve inflow through the fistula. We would also angioplasty the cephalic vein over the bicep and possibly angioplasty any additional stenoses, more proximally. She was agreeable to proceed. Informed consent was obtained. INTERPRETATION: 1. On ultrasound, the AV anastomosis is widely patent and a color imaging was saved to show this. On fistulogram, the AV anastomosis is also and shown to be widely patent with good flow through the brachial artery proximal and distal to the AV anastomosis. 2. The cephalic vein is somewhat diminutive in size still, I estimate 5-6 mm diameter, with a stenotic area over the bicep for approximately 3 cm where the vein is only approximately 3 mm diameter. There is a large branch proximal to the AV anastomosis that I believe is stealing quite a bit of flow from the fistula. There are some other branches more proximally on the arm towards the shoulder, but these will help with outflow and I do not think they need intervention. The cephalic vein near the subclavian vein has a 40% stenosis for about 10 cm, and there is also a focal stenosis in the subclavian vein just p roximal to the junction with the superior vena cava. Otherwise the central veins are widely patent. 4. After coiling the right cephalic vein retrograde branch proximal to the AV anastomosis, there was scant residual outflow that should thrombose over the n ext few days. 5. After angioplasty of the cephalic vein over the bicep, proximally, and across the subclavian vein, there was improvement in flow but still some residual stenosis at the proximal stenosis of the cephalic vein and the subclavian vein. Therefore, we upsized the balloon and following this, there was widely patent inflow through the entire fistula to the central system with a marked improvement in thrill. No extravasation was noted. REPORT OF OPERATION: The patient was brought to the angiographic suite in stable condition. Her right upper extremity was prepped and draped in a sterile fashion. A timeout was performed. Local anesthesia was administered to skin and subcutaneous tissue over the cephalic vein. Ultrasound was used to examine the vein and the AV anastomosis. The AV anastomosis was found to be widely patent. We then use ultrasound for retrograde access after identifying the large branch proximal to the AV anastomosis. I did not feel I could safely get to the branch from an antegrade access because of its proximity to the AV anastomosis. Therefore, more proximally up the cephalic vein over the bicep, we accessed and a wire was passed distally and a 4 [place]ian sheath was placed and flushed with saline. Through this access of Glidewire was used to track into the branch and glide cath was placed over the wire. We confirmed we were in the branch with a quick contrast injection. We then flushed the catheter and deployed a 4 x 3 tornado coil, and there was still some flow noted, so we deployed a second 5 x 3 tornado coil. Following this, there was very scant flow through the branch or its subsequent branches, improving flow through the fistula. Next, local anesthesia was administered around the sheath and a [id number]-[id number] Prolene suture was secured around the sheath as it was removed. Pressure was held for good hemostasis and dressings were applied. We then utilized ultrasound to gain access with a microneedle antegrade proximal to the AV anastomosis. A wire was passed through this access and the needle was removed and a 4 [place] sheath was placed and flushed with saline. Fistulogram and central venogram were performed. Please see interpretation above. We advanced the Glidewire through to the central system and exchanged sheath for 6 [place] sheath and flushed the sheath was saline. A 7 x 200 [place] balloon was used angioplasty across the length of the cephalic vein proximally and distally. Three-minute inflations were performed. Following this there was a marked improvement over the bicep, but still some residual stenosis at the proximal cephalic vein and in the subclavian vein. We therefore exchange the balloon for an 8 x 100 [place] balloon and a second three-minute inflation was performed across the proximal cephalic vein in the subclavian vein. Following this, there was a marked improvement in flow through both with a marked improvement in thrill. No pulsatility was noted in the fistula following this angioplasty. This concluded the procedure and we again introduced local anesthesia around the sheath and then a iucpfk-sw-uiyhs Prolene suture was secured upon removal of the sheath. Pressure was held for hemostasis and sterile dressings were applied. The patient was then taken to recovery in stable condition. She tolerated the procedure and the sedation well. ESTIMATED BLOOD LOSS: Approximately 5 mL. COMPLICATIONS: None PLAN: We will see the patient back in a week to check her fistula. She may need one more fistulogram and angioplasty to help complete her maturation prior to access. However, she continues to use a squeeze ball to strengthen her circulation, she may be able to mature the fistula without further intervention. We have discussed this with her at length. It is okay for her to resume her home diet medications. For now, she should continue to use her PermCath for dialysis. We appreciate the opportunity to participate in the care of this patient. KAMLESH LEMOS MD Mar 08, 2020 14:38
[2020-03-08 14:45] VITALS: BP 106/68
== END ==
LOC: M IRPRO 11:40
PROVIDERS: ATTEND Surgery Vascular Surgery
DX: T82.590A Other mechanical complication of surgically created arteriovenous fistula, initial encounter (principal); X58.XXXA Exposure to other specified factors, initial encounter; N18.6 End stage renal disease; I12.0 Hypertensive chronic kidney disease with stage 5 chronic kidney disease or end stage renal disease; D64.9 Anemia, unspecified; E78.00 Pure hypercholesterolemia, unspecified; Z91.030 Bee allergy status; Z95.5 Presence of coronary angioplasty implant and graft; Z99.2 Dependence on renal dialysis
CPT/HCPCS: 36902; 36909; 99152; 99153; C1725; C1769; C1887; C1894; J1644; J2250; J3010; Q9967

== ENCOUNTER → 2020-06-28 | Outpatient (CLI) | payer MEDICARE ==
[~2020-06-28] MED LIST changes: +ALLO100T PO; +PANT40TA29 PO; -PANT40TA3 PO
--- NOTE | 2020-06-28 15:50 | ROOPDOC ---
[facility] Report Of Operation Report of Operation DATE OF PROCEDURE: 06/28/20 PREPROCEDURE DIAGNOSES: End-stage renal disease with frequent infiltrations and increased pulsatility right brachiocephalic AV fistula POSTPROCEDURE DIAGNOSES: Same PROCEDURE: 1. Ultrasound-guided access right cephalic vein 2. Right upper extremity fistulogram and central venogram 3. Angioplasty proximal cephalic vein with 7 x 20 cutting balloon 4. Angioplasty proximal cephalic vein and subclavian vein with 8 x 200 [place] balloon 5. Completion venogram SURGEON: Elisa Lemos MD ANESTHESIA: Local anesthesia 2 mL lidocaine. Moderate intravenous conscious sedation was administered by Dr. Lemos. The patient was independently monitored by registered nurse assigned to the Department of radiology using automated blood pressure, EKG, and pulse oximetry. The detailed sedation record is permanently stored in the hospital information system. The following is a brief sedation record: Start time 15:11, stop time 15:29, Versed 1 mg IV, fentanyl 50 g IV. CONTRAST: 17 mL Isovue-300 INDICATION FOR PROCEDURE: This is a very pleasant 69-year-old patient with a right brachiocephalic AV fistula who has had increased pulsatility in her fistula, increased bleeding after dialysis, and some infiltrations with access. Risks benefits and alternatives to a fistulogram potential intervention were explained to the patient she is agreeable to proceed. Informed consent was obtained. INTERPRETATION: 1. Ultrasound was used to examine AV anastomosis and is noted to be widely patent. 2. The cephalic vein is widely patent in the upper arm over the biceps in the shoulder, I estimate 8 mm diameter, and then narrow subacutely at this cephalic subclavian junction to 1-2 mm diameter. There is also some mild stenosis at the subclavian SVC junction. There was a small pseudoaneurysm inferior to the vein in the upper arm, likely from a back wall injury to the vessel. It is mostly thrombosed, and on ultrasound has no significant neck it would not be safe for a thrombin injection. We will continue to monitor this and hopefully it will resolve with time. With improvement of outflow, the vessel will likely heal. 3. After angioplasty of the proximal cephalic vein with a 7 x 20 cutting ball oon, there was significant improvement in diameter and flow with no extravasation noted. 4. After angioplasty of the cephalic vein and subclavian vein SVC junction with an 8 x 200 [place] balloon there was widely patent inflow, no pulsatility in the fistula, excellent thrill, and no extravasation was noted. REPORT OF OPERATION: Patient was brought to the angiographic suite in stable condition. Her right upper extremity was prepped and draped in a sterile fashion. A timeout was performed. Local anesthesia was administered to the skin and subcutaneous tissue over the cephalic vein. A microneedle was used to access the main under ultrasound guidance. A wire was passed through this access in the needle was removed and a 4 Malagasy sheath was placed and flushed with saline. A fistulogram and central venogram were performed. Please interpretation above. We then advanced a Glidewire through the access and exchanged to sheath for 7 Malag[place] sheath. We exchanged Glidewire for an O18 Glidewire advantage and advance his into the central system under fluoroscopic guidance. A 7 x 20 cutting balloon was advanced across the proximal cephalic vein near the subclavian junction and several angioplasties were performed across the area of stenosis. Following this there was a much improve flow through the fistula and no extravasation was noted. We then exchange the balloon over the wire for an 8 x 200 [place] balloon which was placed across into the SVC and the distal end in the cephalic vein at the shoulder. Three-minute inflations was performed. Stenosis was noted at the cephalic subclavian junction and at the subclavian SVC junction. The balloon was able to open both stenoses. Following angioplasty, there is widely patent inflow through to the central system. There is a marked improvement in thrill and no pulsatility in the fistula. No extravasation was noted. This concluded the procedure. Local anesthesia was administered around the sheath and a Prolene suture was placed in a [id number] pattern insecurities the sheath was removed. Pressure was held for good hemostasis and sterile dressings were applied. We utilized ultrasound to johnnie the fistula on the skin as well. The patient was then taken to recovery in stable condition. She tolerated the sedation and the procedure well. ESTIMATED BLOOD LOSS: Approximately 2 mL. COMPLICATIONS: None. PLAN: Okay to use AV fistula for dialysis. Once cannulation is consistently successful, we will be happy removed the patient's PermCath at her earliest convenience. We've encouraged her to let us know she's having increased pulsatility or bleeding times in the future, as the proximal cephalic stenosis is likely to be recurrent. Resume preop diet and home medications. We appreciate the opportunity to participate in the care of this patient. ELISA LEMOS MD Jun 28, 2020 15:50
[2020-06-28 16:27] VITALS: BP 107/71
== END ==
LOC: M IRPRO 13:28
PROVIDERS: ATTEND Surgery Vascular Surgery
DX: T82.590A Other mechanical complication of surgically created arteriovenous fistula, initial encounter (principal); N18.6 End stage renal disease; D64.9 Anemia, unspecified; E78.00 Pure hypercholesterolemia, unspecified; I12.0 Hypertensive chronic kidney disease with stage 5 chronic kidney disease or end stage renal disease; I82.601 Acute embolism and thrombosis of unspecified veins of right upper extremity; K21.9 Gastro-esophageal reflux disease without esophagitis; X58.XXXA Exposure to other specified factors, initial encounter; Z79.899 Other long term (current) drug therapy; Z99.2 Dependence on renal dialysis
CPT/HCPCS: 36902; 99152; C1725; C1729; C1769; C1894; J1644; J2250; J3010; Q9967

== ENCOUNTER → 2020-07-26 | Outpatient (CLI) | payer MEDICARE ==
[~2020-07-26] MED LIST changes: -ISOVUE-300 61% 50ML VIAL As Ordered ONE; -LIDOCAINE 1% MDV 20ML VIAL As Ordered ONE; +LIDOCAINE W/EPINEPHRINE 1% 20ML VIAL As Ordered ONE; -MIDAZOLAM INJ 2MG/2ML VIAL (J2250 PER 1MG) As Ordered ONE; -fentaNYL 100 MCG/2 ML INJECTION (J3010) As Ordered ONE
--- NOTE | 2020-07-26 12:48 | ROOPDOC ---
[facility] Report Of Operation Report of Operation DATE OF PROCEDURE: 07/26/20 PREPROCEDURE DIAGNOSES: End-stage renal disease no longer requiring PermCath for dialysis POSTPROCEDURE DIAGNOSES: Same PROCEDURE: Removal right IJ PermCath SURGEON: Kamlesh Lemos MD ANESTHESIA: Local anesthesia with 10 mL lidocaine with epinephrine. INDICATION FOR PROCEDURE: This is a very pleasant 70-year-old patient with end- stage renal disease and no longer requires a PermCath for dialysis. Risks benefits and alternatives to PermCath removal were explained to the patient she is agreeable to proceed. Informed consent was obtained. REPORT OF OPERATION: The patient's right neck and chest including the PermCath for prepped and draped in a sterile fashion. A timeout was performed. Local anesthesia was administered to the skin and subcutaneous tissue around the PermCath. The sutures were removed. Blunt dissection was used to loosen the cuff from the subcutaneous tissue. Pressure was held at the right jugular vein and the catheter was removed. He was inspected and found to be completely intact including the tip of the cough. No portion was left behind. Pressure was held for 10 minutes for good hemostasis and sterile dressings were applied. The pat ient was monitored for 30 minutes postprocedure and then discharged in stable condition. ESTIMATED BLOOD LOSS: Approximately 2 mL. COMPLICATIONS: None. PLAN: Keypad elevated for the majority of the day to diminish jugular venous pressure and decrease the risk of hematoma or bleeding from from right jugular vein. Okay to shower after 24 hours with dressing off. Placed dry dressing until no drainage is noted. Continue to use fistula for dialysis. Follow-up as needed. We appreciate the opportunity to participate in the care of this patient. KAMLESH LEMOS MD Jul 26, 2020 12:48
[2020-07-26 13:00] VITALS: BP 107/58
== END ==
LOC: M IRPRO 11:41
PROVIDERS: ATTEND Surgery Vascular Surgery
DX: Z45.2 Encounter for adjustment and management of vascular access device (principal); N18.6 End stage renal disease

== ENCOUNTER → 2020-11-08 | Outpatient (CLI) | payer MEDICARE, BC ==
[~2020-11-08] MED LIST changes: -LIDOCAINE W/EPINEPHRINE 1% 20ML VIAL As Ordered ONE; -MAG400TA PO; +MAGN400T35 PO; +VITAMIN D PO
--- NOTE | 2020-11-08 15:33 | REP ---
INDICATION: A. COMPARISON: None. TECHNIQUE: Six views of the right shoulder are obtained. FINDINGS: There is an impacted fracture of the surgical neck of the proximal humerus on the right. There is diffuse osteopenia. There is mild osteoarthritic hypertrophy at the AC joint which is normally aligned. No glenoid or acromion process fracture is appreciated. There is soft tissue calcification along the inferior aspect of the acromioclavicular joint which may be dystrophic. No right rib or clavicle fracture is seen. IMPRESSION: Impacted surgical neck fracture right proximal humerus. Mild AC joint osteoarthritis. Question dystrophic calcification at the inferior aspect of the AC joint. <Electronically signed by Jerome Warren > 11/08/20 [id number]
--- NOTE | 2020-11-08 15:51 | REP ---
INDICATION: A. COMPARISON: None. TECHNIQUE: AP, lateral, coned-down views of the lumbosacral spine. FINDINGS: There is a mild possibly acute compression deformity along the superior endplate of presumed L3 with minimal loss of vertebral body height. There is a compression fracture of presumed L1 with approximately 50% loss of superior vertebral body height which is chronic and previously noted on CT dated 11/19/2019. Generalized osteopenia and advanced multilevel degenerative spondylosis noted throughout the visualized lower thoracic and lumbosacral spine. IMPRESSION: 1. Possible acute compression fracture involving L3. 2. Generalized osteopenia and degenerative changes along with nonacute L1 vertebral body fracture. <Electronically signed by Keyur Preciado > 11/08/20 [id number]
== END ==
LOC: M SOG 02:58
PROVIDERS: ATTEND Orthopaedic Surgery Sports Medicine
DX: M85.88 Other specified disorders of bone density and structure, other site (principal); S42.201A Unspecified fracture of upper end of right humerus, initial encounter for closed fracture; M54.5 Low back pain; X58.XXXA Exposure to other specified factors, initial encounter; Y92.9 Unspecified place or not applicable

== ENCOUNTER → 2020-11-22 | Outpatient (CLI) | payer MEDICARE, BC ==
--- NOTE | 2020-11-22 17:25 | REP ---
INDICATION: F/U FX. COMPARISON: Comparison radiographs of the right shoulder November 08, 2020.. TECHNIQUE: Four views. FINDINGS: Four views of the right shoulder demonstrate periosteal reaction associated with early healing of a impacted surgical neck fracture of the proximal humerus on the right. Glenohumeral articulation is normally aligned. Fracture is unchanged in alignment from prior study and shows slight impaction. There is diffuse osteoporosis again noted. IMPRESSION: Healing surgical neck fracture right proximal humerus. <Electronically signed by Jerome Warren > 11/22/20 [id number]
== END ==
LOC: M SOG 13:50
PROVIDERS: ATTEND Orthopaedic Surgery Sports Medicine
DX: S42.224D 2-part nondisplaced fracture of surgical neck of right humerus, subsequent encounter for fracture with routine healing (principal); M80.8 Other osteoporosis with current pathological fracture

== ENCOUNTER → 2020-12-19 | Outpatient (CLI) | payer MEDICARE, BC ==
--- NOTE | 2020-12-19 15:16 | REP ---
INDICATION: FX F/U. COMPARISON: None. TECHNIQUE: Internal rotation, external rotation, axillary and Y-view of the right shoulder FINDINGS: Nondisplaced healing fracture of the proximal humeral head/neck. Generalized age-related osteopenia and degenerative changes noted. IMPRESSION: Healing fracture of the proximal humeral head/neck. <Electronically signed by Keyur Preciado > 12/19/20 [id number]
== END ==
LOC: M SOG 14:51
PROVIDERS: ATTEND Orthopaedic Surgery Sports Medicine
DX: S42.224D 2-part nondisplaced fracture of surgical neck of right humerus, subsequent encounter for fracture with routine healing (principal); X58.XXXD Exposure to other specified factors, subsequent encounter; Y92.89 Other specified places as the place of occurrence of the external cause; Y93.89 Activity, other specified; Y99.8 Other external cause status; M85.811 Other specified disorders of bone density and structure, right shoulder

== ENCOUNTER → 2021-01-31 | Outpatient (CLI) | payer MEDICARE, BC ==
[~2021-01-31] MED LIST changes: +ISOVUE-300 61% 50ML VIAL As Ordered ONE; +LIDOCAINE 1% MDV 20ML VIAL As Ordered ONE; +MIDAZOLAM INJ 2MG/2ML VIAL (J2250 PER 1MG) As Ordered ONE; +fentaNYL 100 MCG/2 ML INJECTION (J3010) As Ordered ONE
--- NOTE | 2021-01-31 12:56 | ROOPDOC ---
[facility] Report Of Operation Report of Operation DATE OF PROCEDURE: 01/31/21 PREPROCEDURE DIAGNOSES: End-stage renal disease with increased venous pressures right brachiocephalic AV fistula POSTPROCEDURE DIAGNOSES: Same PROCEDURE: 1. Ultrasound-guided access right cephalic vein 2. Right upper extremity fistulogram and central venogram 3. Angioplasty proximal right cephalic vein was 7 x 20 cutting balloon and 8 x 100 [place] balloon 4. Completion fistulogram right upper extremity SURGEON: Kamlesh Lemos MD ANESTHESIA: Local anesthesia 1 mL lidocaine. Moderate intravenous sedation was administered by Dr. Lemos. The patient was independently monitored by registered nurse assigned to the Department of radiology using automated blood pressure, EKG, and pulse oximetry. Detailed sedation record is permanently stored in the hospital information system. The following is a brief sedation record: Start time 12:23, stop time 12:44, Versed 0.5 mg IV, fentanyl 25 g IV. CONTRAST: 16 mL Isovue-300 INDICATION FOR PROCEDURE: This is a very pleasant 70-year-old patient with a right brachiocephalic AV fistula who has had increased venous pressures with dialysis and treatments in the last week. Risks benefits and alternatives to a fistulogram and potential intervention were explained to the patient and she was agreeable to proceed. Informed consent was obtained. INTERPRETATION: 1. The AV anastomosis is widely patent on ultrasound, please see St. images. 2. The right cephalic vein over the upper arm is widely patent and I estimate 8- 9 mm diameter. At the junction with the subclavian vein proximally, there is a 9 5% stenosis focally for about 2 cm. Then, the outflow into the central veins is widely patent. This right subclavian vein, and central veins are widely patent. 3. After angioplasty of the proximal right cephalic vein with an 7 x 20 cutting balloon, there is significant improvement in flow, but still a bit of residual stenosis. No extravasation noted. After repeat angioplasty within 8 x 100 [place] balloon, there is widely patent flow with no significant residual stenosis, no extravasation noted. There is an excellent thrill and the fistula and pulsatility has resolved. REPORT OF OPERATION: The patient was brought the angiographic suite in stable condition. Her right upper extremity was prepped and draped in a sterile fashion. A timeout was performed. Local anesthesia was administered to the skin and subcutaneous tissue over the right cephalic vein. Ultrasound was used to examine the AV anastomosis and it was noted to be widely patent. Then, ultrasound was used to gain access to the cephalic vein with a microneedle. Wire was passed through this access needle was removed and a 4 [place] sheath was placed and flushed with saline. Sedation was administered without complication. A fistulogram and central venogram were performed, please interpretation above. We then advanced a Glidewire through the access and exchange the sheath for 7 [place] sheath. We exchange the wire for 018 Glidewire advantage and advanced a 7 x 20 cutting balloon to cross the proximal cephalic vein. The proximal right cephalic vein was angioplasty multiple times with the cutting balloon. Following this, there was still a bit of residual stenosis, no extravasation. We exchange the balloon over the wire for an 8 x 100 [place] balloon and three-minute inflations was performed. Following this, there is no significant residual stenosis, and a much improved thrill in the fistula with no pulsatility noted. There was no extravasation. A [id number] Prolene suture was placed at the exit site of the sheath and the sheath was removed as the suture was secured. Good hemostasis was noted and sterile dressings were applied. Ultrasound was used to map the cephalic vein on the skin to help the dialysis nurses with her access. Following this, a Tegaderm was placed to keep the kaminski from wearing off in the shower. The patient was then taken to recovery in stable condition. She tolerated the procedure and the sedation well. ESTIMATED BLOOD LOSS: Approximately 5 mL. COMPLICATIONS: None. PLAN: Okay to resume preprocedure diet and medications. No heavy lifting or strenuous exercise right upper extremity for 24 hours. Okay to use fistula for dialysis. We appreciate the opportunity to participate in the care of this patient. KAMLESH LEMOS MD Jan 31, 2021 12:56
[2021-01-31 13:20] VITALS: BP 117/67
== END ==
LOC: M IRPRO 11:30
PROVIDERS: ATTEND Surgery Vascular Surgery
DX: T82.598A Other mechanical complication of other cardiac and vascular devices and implants, initial encounter (principal); N18.6 End stage renal disease; I12.0 Hypertensive chronic kidney disease with stage 5 chronic kidney disease or end stage renal disease; D64.9 Anemia, unspecified; E78.00 Pure hypercholesterolemia, unspecified; K21.9 Gastro-esophageal reflux disease without esophagitis; X58.XXXA Exposure to other specified factors, initial encounter; Z79.899 Other long term (current) drug therapy; Z91.030 Bee allergy status; Z99.2 Dependence on renal dialysis

== ENCOUNTER → 2021-02-23 | Outpatient (REF) | payer MEDICARE ==
[~2021-02-23] MED LIST changes: -ISOVUE-300 61% 50ML VIAL As Ordered ONE; -LIDOCAINE 1% MDV 20ML VIAL As Ordered ONE; -MIDAZOLAM INJ 2MG/2ML VIAL (J2250 PER 1MG) As Ordered ONE; +SEVE800T3 PO; +VITA500T40 PO; -fentaNYL 100 MCG/2 ML INJECTION (J3010) As Ordered ONE
== END ==
LOC: M SFHCCLAY 09:32
PROVIDERS: ATTEND Family Medicine
DX: Z01.818 Encounter for other preprocedural examination (principal); Z20.822 Contact with and (suspected) exposure to COVID-19

== ENCOUNTER 2021-02-28 11:29 | Day surgery (SDC) | payer MEDICARE, BC ==
[~2021-02-28] VITALS: Ht 152.4 cm; Wt 57.1 kg
[~2021-02-28 11:29] MED LIST changes: +NS 1,000 ML IV ONE
[2021-02-28] MEDS ORDERED: fentaNYL 100 MCG/2 ML INJECTION (J3010) As Ordered ONE (14:22)
[2021-02-28] MEDS ORDERED: ePHEDrine SULFATE 25 MG/5 ML(5MG/ML) SYRINGE As Ordered ONE (14:37)
[2021-02-28] MEDS ORDERED: propofoL 200 MG/20 ML VIAL As Ordered ONE (14:37)
--- NOTE | 2021-02-28 14:52 | ROOR ---
Patient Name: Rosita Galan Procedure Date: 02/28/2021 2:05 PM Date of : 1950 Age: 70 Room: [facility] Gender: Female Note Status: Finalized Procedure: Upper GI endoscopy Indications: Follow-up of gastric ulcer, Follow-up of gastric polyps Providers: Donnie Breaux MD Referring MD: Hank Ordoñez MD Requesting Provider: Medicines: Monitored Anesthesia Care Complications: No immediate complications. Procedure: Pre-Anesthesia Assessment: - Prior to the procedure, a History and Physical was performed, and patient medications and allergies were reviewed. The patient is competent. The risks and benefits of the procedure and the sedation options and risks were discussed with the patient. All questions were answered and informed consent was obtained. Patient identification and proposed procedure were verified by the physician, the nurse and the anesthesiologist in the procedure room. Mental Status Examination: alert and oriented. Airway Examination: normal oropharyngeal airway and neck mobility. Respiratory Examination: clear to auscultation. CV Examination: normal. Prophylactic Antibiotics: The patient does not require prophylactic antibiotics. Prior Anticoagulants: The patient has taken no previous anticoagulant or antiplatelet agents. ASA Grade Assessment: II - A patient with mild systemic disease. After reviewing the risks and benefits, the patient was deemed in satisfactory condition to undergo the procedure. The anesthesia plan was to use monitored anesthesia care (MAC). Immediately prior to administration of medications, the patient was re-assessed for adequacy to receive sedatives. The heart rate, respiratory rate, oxygen saturations, blood pressure, adequacy of pulmonary ventilation, and response to care were monitored throughout the procedure. The physical status of the patient was re-assessed after the procedure. The Endoscope was introduced through the mouth, and advanced to the second part of duodenum. The upper GI endoscopy was accomplished without difficulty. The patient tolerated the procedure well. Findings: The examined esophagus was normal. A medium-sized hiatal hernia was present. One 20 mm sessile polyp with no bleeding and no stigmata of recent bleeding was found in the prepyloric region of the stomach. One ligature was successfully placed. The polyp was removed with a hot snare. Polyp resection was incomplete. The resected tissue was retrieved. Verification of patient identification for the specimen was done by the physician and nurse using the patient's name, date and medical record number. Estimated blood loss was minimal. The duodenal bulb and second portion of the duodenum were normal. Impression: - Normal esophagus. - Medium-sized hiatal hernia. - One gastric polyp. Incomplete resection. Resected tissue retrieved. Ligated. - Normal duodenal bulb and second portion of the duodenum. Recommendation: - Patient has a contact number available for emergencies. The signs and symptoms of potential delayed complications were discussed with the patient. Return to normal activities tomorrow. Written discharge instructions were provided to the patient. - High fiber diet. - Continue present medications. - Await pathology results. - Follow an antireflux regimen. - Telephone GI clinic for pathology results in 2 weeks. - Perform a colonoscopy at appointment to be scheduled. - Return to primary care physician. Procedure Code(s): --- Professional --- 75348, Esophagogastroduodenoscopy, flexible, transoral; with removal of tumor(s), polyp(s), or other lesion(s) by snare technique Diagnosis Code(s): --- Professional --- K44.9, Diaphragmatic hernia without obstruction or gangrene K31.7, Polyp of stomach and duodenum K25.9, Gastric ulcer, unspecified as acute or chronic, without hemorrhage or perforation CPT copyright 2019 [employer]. All rights reserved. The codes documented in this report are preliminary and upon him coder review may be revised to meet current compliance requirements. Donnie Breaux MD Donnie Breaux MD 02/28/2021 2:51:51 PM Electronically signed by Donnie Breaux MD Number of Addenda: 0 Note Initiated On: 02/28/2021 2:05 PM Estimated Blood Loss: Estimated blood loss was minimal.
[2021-02-28 15:00] VITALS: BP 127/69
== END 2021-02-28 15:15 | disposition home or self-care (01) ==
LOC: M OPP 11:29
PROVIDERS: ATTEND Internal Medicine Gastroenterology
DX: K31.7 Polyp of stomach and duodenum (principal); K25.9 Gastric ulcer, unspecified as acute or chronic, without hemorrhage or perforation; K44.9 Diaphragmatic hernia without obstruction or gangrene; K21.9 Gastro-esophageal reflux disease without esophagitis; Z79.899 Other long term (current) drug therapy; Z91.030 Bee allergy status; Z87.19 Personal history of other diseases of the digestive system; N19 Unspecified kidney failure; Z99.2 Dependence on renal dialysis
CPT/HCPCS: 36415; 43251; 84132; 88305; J3010

== ENCOUNTER → 2021-11-07 | Outpatient (REF) | payer MEDICARE ==
[~2021-11-07] MED LIST changes: -MAGN400T3 PO; +MAGN400T33 PO; -NS 1,000 ML IV ONE
[2021-11-07 16:46] LABS: CHOLESTEROL RISK RATIO 3.365 (<5); FREE T4 1.04 NG/DL (0.76-1.46); THYROID STIMULATING HORMONE 1.7 uIU/ML (0.358-3.740)
== END ==
LOC: M SFHCCLAY 10:21
PROVIDERS: ATTEND Family Medicine
DX: I10 Essential (primary) hypertension (principal); Z99.2 Dependence on renal dialysis; H05.20 Unspecified exophthalmos; Z12.11 Encounter for screening for malignant neoplasm of colon

== ENCOUNTER → 2022-03-08 | Outpatient (REF) | payer MEDICARE ==
[2022-03-08 11:50] LABS: HEMATOCRIT 33.4 % (36.0-47.0); HEMOGLOBIN 10.8 g/dl (12.0-15.5); MEAN CORPUSCULAR HGB CONC 32.3 g/dl (32.0-36.5); MEAN CORPUSCULAR VOLUME 102.1 fl (80.0-96.0); PLATELET COUNT, AUTOMATED 290 10^3/uL (150-450); RED BLOOD COUNT 3.27 10^6/uL (4.00-5.40); WHITE BLOOD COUNT 6.1 10^3/uL (4.0-10.0)
[2022-03-08 12:00] LABS: INR 0.89; PROTHROMBIN TIME 12.4 SECONDS (12.7-14.5)
== END ==
LOC: M LABDRAWC 11:24
PROVIDERS: ATTEND Dentist
DX: N17.9 Acute kidney failure, unspecified (principal)

== ENCOUNTER → 2022-05-21 | Outpatient (CLI) | payer MEDICARE | LOC: M LABSMTC 10:44 | PROVIDERS: ATTEND Anesthesiology | DX: Z01.812 Encounter for preprocedural laboratory examination (principal); Z20.822 Contact with and (suspected) exposure to COVID-19 ==

== ENCOUNTER → 2022-05-22 | Outpatient (CLI) | payer MEDICARE ==
[~2022-05-22] MED LIST changes: +ISOVUE-300 61% 50ML VIAL As Ordered ONE; +LIDOCAINE 1% MDV 20ML VIAL As Ordered ONE; +MIDAZOLAM INJ 2MG/2ML VIAL (J2250 PER 1MG) As Ordered ONE; +ceFAZolin 2 GM/D5W 50 ML IV BAG (J0690 PER 500MG) As Ordered ONE; +ceFAZolin SOD 2 GM in IV 1 EA IV ONE; +fentaNYL 100 MCG/2 ML INJECTION As Ordered ONE
[2022-05-22 10:15] LABS: MEAN CORPUSCULAR HEMOGLOBIN 32.1 pg (27.0-33.0); MEAN CORPUSCULAR HGB CONC 32.4 g/dl (32.0-36.5); MEAN CORPUSCULAR VOLUME 98.9 fl (80.0-96.0); PLATELET COUNT, AUTOMATED 238 10^3/uL (150-450); RED BLOOD COUNT 3.74 10^6/uL (4.00-5.40); WHITE BLOOD COUNT 7.2 10^3/uL (4.0-10.0)
[2022-05-22 10:41] LABS: CALCIUM LEVEL 10.2 MG/DL (8.8-10.2); CREATININE FOR GFR 3.61 MG/DL (0.55-1.30); GLOMERULAR FILTRATION RATE 13.2 (>39); POTASSIUM SERUM 3.5 MEQ/L (3.5-5.1)
[2022-05-22 12:50] VITALS: BP 132/76
== END ==
LOC: M IRPRO 09:41
PROVIDERS: ATTEND Surgery Vascular Surgery
DX: N18.6 End stage renal disease (principal); Z99.2 Dependence on renal dialysis; T82.590A Other mechanical complication of surgically created arteriovenous fistula, initial encounter
CPT/HCPCS: 36902; 80048; 85027; 99152; 99153; C1725; C1769; C1894; C2623; J0690; J1644; J2250; J3010; Q9967

== ENCOUNTER → 2023-06-11 | Outpatient (CLI) | payer MEDICARE, BC ==
[~2023-06-11] VITALS: Ht 154.9 cm; Wt 57.7 kg
[~2023-06-11] MED LIST changes: +HEPARIN 1,000UNITS/ML 10ML VIAL (FOR RADIOLOGY & DIALYSIS ONLY) As Ordered ONE; +ISOVUE-300 61% 100ML VIAL As Ordered ONE; -ISOVUE-300 61% 50ML VIAL As Ordered ONE; -MIDAZOLAM INJ 2MG/2ML VIAL (J2250 PER 1MG) As Ordered ONE; +MIDAZOLAM INJ 2MG/2ML VIAL As Ordered ONE; -ceFAZolin 2 GM/D5W 50 ML IV BAG (J0690 PER 500MG) As Ordered ONE; +ceFAZolin 2 GM/D5W 50 ML IV BAG As Ordered ONE
[2023-06-11 06:45] VITALS: TEMP 97.9
[2023-06-11 07:13] LABS: HEMATOCRIT 33.6 % (36.0-47.0); HEMOGLOBIN 10.8 g/dl (12.0-15.5); MEAN CORPUSCULAR HEMOGLOBIN 32.9 pg (27.0-33.0); MEAN CORPUSCULAR HGB CONC 32.1 g/dl (32.0-36.5); MEAN CORPUSCULAR VOLUME 102.4 fl (80.0-96.0); PLATELET COUNT, AUTOMATED 265 10^3/uL (150-450); RED BLOOD COUNT 3.28 10^6/uL (4.00-5.40); WHITE BLOOD COUNT 6.1 10^3/uL (4.0-10.0)
[2023-06-11 07:45] LABS: CALCIUM LEVEL 8.5 MG/DL (8.3-10.6); CREATININE FOR GFR 3.54 MG/DL (0.55-1.30); GLOMERULAR FILTRATION RATE 13.5 (>39); POTASSIUM SERUM 3.7 MMOL/L (3.5-5.1)
[2023-06-11 10:00] VITALS: BP 140/75; O2SAT 100
== END ==
LOC: M IRPRO 06:33
PROVIDERS: ATTEND Surgery Vascular Surgery
DX: N18.6 End stage renal disease (principal)
CPT/HCPCS: 36902; 80048; 85027; 86850; 86900; 86901; 99152; 99153; C1769; C2623; J0690; J2250; J3010; Q9967

== ENCOUNTER → 2023-06-25 | Outpatient (REF) | payer MEDICARE ==
[~2023-06-25] MED LIST changes: -HEPARIN 1,000UNITS/ML 10ML VIAL (FOR RADIOLOGY & DIALYSIS ONLY) As Ordered ONE; -ISOVUE-300 61% 100ML VIAL As Ordered ONE; -LIDOCAINE 1% MDV 20ML VIAL As Ordered ONE; -MIDAZOLAM INJ 2MG/2ML VIAL As Ordered ONE; -ceFAZolin 2 GM/D5W 50 ML IV BAG As Ordered ONE; -ceFAZolin SOD 2 GM in IV 1 EA IV ONE; -fentaNYL 100 MCG/2 ML INJECTION As Ordered ONE
[2023-06-25 18:55] LABS: FREE T4 1.3 NG/DL (0.89-1.76)
[2023-06-25 18:56] LABS: THYROID STIMULATING HORMONE 1.948 uIU/ML (0.55-4.78)
== END ==
LOC: M SFHCCLAY 13:46
PROVIDERS: ATTEND Family Medicine
DX: N18.5 Chronic kidney disease, stage 5 (principal); E83.42 Hypomagnesemia; Z79.899 Other long term (current) drug therapy

== ENCOUNTER → 2023-12-26 | Outpatient (REF) | payer MEDICARE ==
[2023-12-26 18:00] LABS: BASO % 0.6 % (0.0-1.0); EOS # 0.1 10^3/uL (0.0-0.5); HEMATOCRIT 30.9 % (36.0-47.0); HEMOGLOBIN 9.9 g/dl (12.0-15.5); LYMPH # 1.2 10^3/uL (1.5-5.0); LYMPH % 24.7 % (24.0-44.0); MEAN CORPUSCULAR HEMOGLOBIN 32.4 pg (27.0-33.0); MONO # 0.4 10^3/uL (0.0-0.8); MONO % 7.4 % (2.0-8.0); NEUTROPHILS # 3.2 10^3/uL (1.5-8.5); NEUTROPHILS % 65.9 % (36.0-66.0); PLATELET COUNT, AUTOMATED 264 10^3/uL (150-450); RED BLOOD COUNT 3.06 10^6/uL (4.00-5.40); WHITE BLOOD COUNT 4.9 10^3/uL (4.0-10.0)
[2023-12-26 18:44] LABS: ALBUMIN 3.8 G/DL (3.2-5.2); BILIRUBIN,TOTAL 0.4 MG/DL (0.3-1.2); CALCIUM LEVEL 9.3 MG/DL (8.3-10.6); CHOLESTEROL RISK RATIO 2.75 (<5); CREATININE FOR GFR 4.15 MG/DL (0.55-1.30); FREE T4 1.35 NG/DL (0.89-1.76); GLOMERULAR FILTRATION RATE 11.2 (>39); HDL CHOLESTEROL 69.7 MG/DL (>40); LDL CHOLESTEROL 101.7 MG/DL (<100); MAGNESIUM LEVEL 2.1 MG/DL (1.8-2.4); NON-HDL-C 122.3 MG/DL; POTASSIUM SERUM 4.2 MMOL/L (3.5-5.1); THYROID STIMULATING HORMONE 1.316 uIU/ML (0.55-4.78); TOTAL PROTEIN 7.8 G/DL (5.7-8.2)
== END ==
LOC: M SFHCCLAY 13:57
PROVIDERS: ATTEND Family Medicine
DX: Z00.00 Encounter for general adult medical examination without abnormal findings (principal); I10 Essential (primary) hypertension; E83.42 Hypomagnesemia; H26.9 Unspecified cataract

== ENCOUNTER → 2024-08-05 | Outpatient (CLI) | payer MEDICARE | LOC: M PLAIMG 14:39 | PROVIDERS: ATTEND Family Medicine | DX: I08.3 Combined rheumatic disorders of mitral, aortic and tricuspid valves (principal); I27.20 Pulmonary hypertension, unspecified ==

== ENCOUNTER → 2024-08-20 | Outpatient (CLI) | payer MEDICARE ==
[~2024-08-20] MED LIST changes: +HEPARIN 1,000UNITS/ML 10ML VIAL (FOR RADIOLOGY & DIALYSIS ONLY) As Ordered ONE; +ISOVUE-300 61% 100ML VIAL As Ordered ONE; +LIDOCAINE 1% MDV 20ML VIAL As Ordered ONE; +MIDAZOLAM INJ 2MG/2ML VIAL As Ordered ONE; +NS (Normal Saline) 0.9% 1,000 ML IV SCH; +fentaNYL 100 MCG/2 ML INJECTION As Ordered ONE
[2024-08-20 13:25] VITALS: TEMP 97.3
[2024-08-20 13:58] LABS: HEMATOCRIT 31.8 % (36.0-47.0); HEMOGLOBIN 10.5 g/dl (12.0-15.5); MEAN CORPUSCULAR HEMOGLOBIN 33.4 pg (27.0-33.0); MEAN CORPUSCULAR VOLUME 101.3 fl (80.0-96.0); PLATELET COUNT, AUTOMATED 276 10^3/uL (150-450); RED BLOOD COUNT 3.14 10^6/uL (4.00-5.40); WHITE BLOOD COUNT 5.6 10^3/uL (4.0-10.0)
[2024-08-20 14:00] LABS: INR 0.95; PROTHROMBIN TIME 12.9 SECONDS (12.5-14.5)
[2024-08-20 14:19] LABS: CALCIUM LEVEL 8.4 MG/DL (8.3-10.6); CREATININE FOR GFR 3.59 MG/DL (0.55-1.30); GLOMERULAR FILTRATION RATE 13.2 (>39); POTASSIUM SERUM 3.9 MMOL/L (3.5-5.1)
[2024-08-20 16:30] VITALS: BP 125/57; O2SAT 98
== END ==
LOC: M IRPRO 12:53
PROVIDERS: ATTEND Internal Medicine Nephrology
DX: N18.6 End stage renal disease (principal)
CPT/HCPCS: 36415; 36902; 80048; 85027; 85610; 99152; 99153; C1725; J2250; J3010; Q9967

== ENCOUNTER → 2024-12-24 | Outpatient (REF) | payer MEDICARE, BC ==
[~2024-12-24] MED LIST changes: -HEPARIN 1,000UNITS/ML 10ML VIAL (FOR RADIOLOGY & DIALYSIS ONLY) As Ordered ONE; -ISOVUE-300 61% 100ML VIAL As Ordered ONE; -LIDOCAINE 1% MDV 20ML VIAL As Ordered ONE; -MIDAZOLAM INJ 2MG/2ML VIAL As Ordered ONE; -NS (Normal Saline) 0.9% 1,000 ML IV SCH; -fentaNYL 100 MCG/2 ML INJECTION As Ordered ONE
[2024-12-24 17:22] LABS: BASO % 0.4 % (0.0-1.0); EOS # 0.1 10^3/uL (0.0-0.5); EOS % 1.4 % (0.0-3.0); HEMATOCRIT 29.6 % (36.0-47.0); HEMOGLOBIN 9.5 g/dl (12.0-15.5); LYMPH # 1.3 10^3/uL (1.5-5.0); LYMPH % 26.6 % (24.0-44.0); MEAN CORPUSCULAR HGB CONC 32.1 g/dl (32.0-36.5); MEAN CORPUSCULAR VOLUME 102.8 fl (80.0-96.0); MONO # 0.5 10^3/uL (0.0-0.8); MONO % 9.8 % (2.0-8.0); NEUTROPHILS % 61.6 % (36.0-66.0); PLATELET COUNT, AUTOMATED 216 10^3/uL (150-450); RED BLOOD COUNT 2.88 10^6/uL (4.00-5.40); WHITE BLOOD COUNT 4.9 10^3/uL (4.0-10.0)
[2024-12-24 17:54] LABS: BILIRUBIN,TOTAL 0.7 MG/DL (0.3-1.2); CALCIUM LEVEL 9.3 MG/DL (8.3-10.6); CHOLESTEROL RISK RATIO 2.32 (<5); CREATININE FOR GFR 3.47 MG/DL (0.55-1.30); GLOMERULAR FILTRATION RATE 13.2 (>39); HDL CHOLESTEROL 75.4 MG/DL (>40); LDL CHOLESTEROL 81.8 MG/DL (<100); NON-HDL-C 99.6 MG/DL; POTASSIUM SERUM 4.5 MMOL/L (3.5-5.1); TOTAL PROTEIN 7.8 G/DL (5.7-8.2)
[2024-12-24 17:56] LABS: FREE T4 1.7 NG/DL (0.89-1.76); THYROID STIMULATING HORMONE 1.894 uIU/ML (0.55-4.78)
== END ==
LOC: M SFHCCLAY 13:28
PROVIDERS: ATTEND Nurse Practitioner Family
DX: E78.2 Mixed hyperlipidemia (principal); I12.0 Hypertensive chronic kidney disease with stage 5 chronic kidney disease or end stage renal disease; N18.5 Chronic kidney disease, stage 5; E83.42 Hypomagnesemia

== ENCOUNTER → 2025-07-01 | Outpatient (CLI) | payer MEDICARE, BC ==
[~2025-07-01] MED LIST changes: +ATEN25TA PO
[2025-07-01 07:55] VITALS: TEMP 97.1
[2025-07-01] MEDS: NS 250 ML IV SCH (07:55)
[2025-07-01 08:26] LABS: PLATELET COUNT, AUTOMATED 201 10^3/uL (150-450)
[2025-07-01 08:48] LABS: INR 0.85
[2025-07-01 08:56] LABS: CALCIUM LEVEL 9.2 MG/DL (8.3-10.6); CARBON DIOXIDE LEVEL 33.0 MMOL/L (20-31); CHLORIDE LEVEL 94.0 MMOL/L (98-107); CREATININE FOR GFR 2.93 MG/DL (0.55-1.30); GLOMERULAR FILTRATION RATE 16.2 (>39); POTASSIUM SERUM 3.9 MMOL/L (3.5-5.1); SODIUM LEVEL 136.0 MMOL/L (136-145)
[2025-07-01] MEDS: MIDAZOLAM INJ 2 MG/2 ML VIAL IV PRN (08:56)
[2025-07-01] MEDS: HEPARIN 1,000 UNITS/ML 10 ML VIAL (FOR RADIOLOGY & DIALYSIS ONLY) IV PRN (09:03)
[2025-07-01] MEDS: ISOVUE-300 61% 100 ML VIAL IV SCH (09:44)
[2025-07-01] MEDS: LIDOCAINE 1% MDV 20 ML VIAL SC SCH (09:45)
[2025-07-01 10:15] VITALS: BP 131/63; O2SAT 100
== END ==
LOC: M IRPRO 07:42
PROVIDERS: ATTEND Internal Medicine Nephrology
DX: N18.6 End stage renal disease (principal)
CPT/HCPCS: 36903; 80048; 85027; 85610; 99152; 99153; C1725; C1769; C1874; J2250; J3010; Q9967

== ENCOUNTER → 2025-07-08 | Day surgery (SDC) | payer MEDICARE, BC ==
[~2025-07-08] VITALS: Ht 154.9 cm; Wt 54.9 kg
[~2025-07-08] MED LIST changes: +LIDOCAINE 2% 100 MG/5 ML SDV (FOR ANES.) As Ordered ONE
[2025-07-08 09:12] VITALS: BP 126/58; TEMP 96.5; O2SAT 99
== END | disposition home or self-care (01) ==
LOC: M OPP 06:59
PROVIDERS: ATTEND Surgery
DX: Z12.11 Encounter for screening for malignant neoplasm of colon (principal); R19.5 Other fecal abnormalities; K57.30 Diverticulosis of large intestine without perforation or abscess without bleeding; K64.2 Third degree hemorrhoids; Z91.030 Bee allergy status; Z79.899 Other long term (current) drug therapy
CPT/HCPCS: 36415; 84132; G0121